=== PATIENT | male | born 1960 | race Caucasian/White ===

== ENCOUNTER 2016-10-06 11:49 | Inpatient (IN) | payer SELFPAY ==
[~2016-10-06] VITALS: Ht 172.7 cm; Wt 70.3 kg
[2016-10-06] VITALS (11 sets, daily range): BP systolic 126–165; BP diastolic 73–104
[~2016-10-06 11:49] MED LIST: ALPR0.25 PO; PANT40TA3 PO; WARF2TAB7 PO
[2016-10-06] MEDS ORDERED: NITROGLYCERIN SUBLINGUAL 0.4 MG BOTTLE OF 25. SL PRN ×2 (12:00→12:15)
[2016-10-06] MEDS ORDERED: IV NORMAL SALINE 1000ML BAG 1,000 ML IV ONE (12:15)
[2016-10-06] MEDS ORDERED: HEPARIN for IV BOLUS 10,000 UNIT/10 ML VIAL. IV ONE (12:15)
[2016-10-06] MEDS ORDERED: NITROGLYCERIN PREMIX 250 ML IV ONE ×2 (12:15→12:45)
[2016-10-06] MEDS ORDERED: HYDROMORPHONE 2 MG/ML VIAL. IV/SQ PRN (12:15)
[2016-10-06] MEDS ORDERED: HEPARIN 25,000UTS/500ML PREMIX 500 ML IV ONE (12:15)
--- NOTE | 2016-10-06 12:17 | EKG ---
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
[2016-10-06 12:30] LABS: CALCIUM 8.7 mg/dL (8.5-10.1); POTASSIUM 4.5 mmol/L (3.5-5.1)
[2016-10-06 12:32] LABS: BASO # 0.1 x10^3/uL (0.0-0.2); BASO % 1 % (0-3); EOS % 1 % (0-3); HEMATOCRIT 43.3 % (39.0-53.0); LYMPH # 1.8 x10^3/uL (1.0-4.8); LYMPH % 26 % (24-48); MEAN CORPUSCULAR HEMOGLOBIN 33 pg (25-35); MEAN CORPUSCULAR HGB CONC 35 g/dL (31-37); MEAN CORPUSCULAR VOLUME 94 fL (79-100); MONO % 8 % (0-9); NEUT % 64 % (31-73); PLATELET COUNT 188 x10^3/uL (140-400); WHITE BLOOD COUNT 7.1 x10^3/uL (4.0-11.0)
--- NOTE | 2016-10-06 12:32 | RAD ---
Portable chest, 10/06/2016: History: Chest pain Comparison is made to a study from 12/22/2015. There has been a previous median sternotomy. The heart size and pulmonary vascularity are normal. No pulmonary infiltrates are seen. There is no evidence of pleural fluid. There is old fracture of the right eighth rib posterolaterally. IMPRESSION: No acute cardiopulmonary abnormality is detected.
[2016-10-06 12:37] LABS: ALBUMIN 3.4 g/dL (3.4-5.0); DIRECT BILIRUBIN 0.1 mg/dL (0.0-0.2); TOTAL BILIRUBIN 0.4 mg/dL (0.2-1.0); TOTAL PROTEIN 6.9 g/dL (6.4-8.2)
[2016-10-06] MEDS ORDERED: ASPIRIN 81 MG TAB.CHEW PO ONE (12:45)
[2016-10-06 13:24] LABS: PLT ESTIMATE ADEQUATE (ADEQUATE)
--- NOTE | 2016-10-06 14:12 | PHYS DOC ---
Past Medical History Past Medical History: Anxiety, SC Additional Past Medical Histor: ENDOCARDITIS Past Surgical History: Angioplasty, Cholecystectomy Additional Past Surgical Histo: AORTIC VALVE REPLACEMENT Alcohol Use: Occasionally Drug Use: Marijuana Adult General Chief Complaint Chief Complaint: CHEST PAIN HPI HPI 56-year-old male presenting to the emergency department today by EMS with chest pain. He describes it as a pressure that is radiating up into his right neck. It is severe and alleviated by sublingual nitroglycerin. He has a history of an SC in the past. He received aspirin prior to arrival. Review of systems is negative for shortness of breath abdominal pain nausea vomiting. Positive for diaphoresis. All other review of systems is negative unless otherwise noted in history of present illness. Review of Systems Review of Systems SEE ABOVE. Current Medications Current Medications Current Medications Medications (Trade) Dose Ordered Sig/Angela Start Time Stop Time Status Last Admin Dose Admin Morphine Sulfate 2 mg PRN Q1HR PRN 10/06/16 12:00 Nitroglycerin (Nitrostat) 0.4 mg PRN Q5MIN PRN 10/06/16 12:00 10/06/16 12:10 0.4 MG Allergies Allergies Allergies Coded Allergies Type Severity Reaction Last Updated Verified No Known Drug Allergies 05/28/14 No Physical Exam Physical Exam Constitutional: Well developed, well nourished, pt appears to be in pain.. HENT: Normocephalic, atraumatic, bilateral external ears normal, oropharynx moist, no oral exudates, nose normal. [] Eyes: PERRLA, EOMI, conjunctiva normal, no discharge. [] Neck: Normal range of motion, no tenderness, supple, no stridor. Cardiovascular:Heart rate regular rhythm, no murmur [] Lungs & Thorax: Clear to auscultation. Abdomen: Bowel sounds normal, soft, no tenderness, no masses, no pulsatile masses. [] Skin: Warm, dry, no erythema, no rash. Back: No tenderness, no CVA tenderness. [] Extremities: No tenderness, no cyanosis, no clubbing, ROM intact, no edema. [] Neurologic: Alert and oriented X 3, normal motor function, normal sensory function, no focal deficits noted. Psychologic: Affect normal, judgement normal, mood normal. [] Current Patient Data Vital Signs Vital Signs Date Time Temp Pulse Resp B/P Pulse Ox O2 Delivery O2 Flow Rate FiO2 10/06/16 11:55 97.5 73 24 126/80 99 Room Air 97.5 Lab Values Laboratory Tests Test 10/06/16 11:53 White Blood Count 7.1x10^3/uL (4.0-11.0) Red Blood Count 4.60x10^6/uL (4.30-5.70) Hemoglobin 15.0g/dL (13.0-17.5) Hematocrit 43.3% (39.0-53.0) Mean Corpuscular Volume 94fL (79-100) Mean Corpuscular Hemoglobin 33pg (25-35) Mean Corpuscular Hemoglobin Concent 35g/dL (31-37) Red Cell Distribution Width 14.0% (11.5-14.5) Platelet Count 188x10^3/uL (140-400) Neutrophils (%) (Auto) 64% (31-73) Lymphocytes (%) (Auto) 26% (24-48) Monocytes (%) (Auto) 8% (0-9) Eosinophils (%) (Auto) 1% (0-3) Basophils (%) (Auto) 1% (0-3) Neutrophils # (Auto) 4.5x10^3uL (1.8-7.7) Lymphocytes # (Auto) 1.8x10^3/uL (1.0-4.8) Monocytes # (Auto) 0.6x10^3/uL (0.0-1.1) Eosinophils # (Auto) 0.1x10^3/uL (0.0-0.7) Basophils # (Auto) 0.1x10^3/uL (0.0-0.2) Platelet Estimate Adequate (ADEQUATE) Giant Platelets Present Sodium Level 135mmol/L (136-145) L Potassium Level 4.5mmol/L (3.5-5.1) Chloride Level 99mmol/L (98-107) Carbon Dioxide Level 26mmol/L (21-32) Anion Gap 10 (6-14) Blood Urea Nitrogen 7mg/dL (8-26) L Creatinine 1.0mg/dL (0.7-1.3) Estimated GFR (Cockcroft-Gault) 77.0 Glucose Level 94mg/dL (70-99) Calcium Level 8.7mg/dL (8.5-10.1) Total Bilirubin 0.4mg/dL (0.2-1.0) Direct Bilirubin 0.1mg/dL (0.0-0.2) Aspartate Amino Transferase (AST) 51U/L (15-37) H Alanine Aminotransferase (ALT) 27U/L (16-63) Alkaline Phosphatase 90U/L (46-116) Troponin I Quantitative 0.054ng/mL (0.000-0.055) [id number]-Dfp-X-Type Natriuretic Peptide 587pg/mL (0-124) H Total Protein 6.9g/dL (6.4-8.2) Albumin 3.4g/dL (3.4-5.0) Lipase 234U/L (73-393) Laboratory Tests 10/06/16 11:53 Laboratory Tests 10/06/16 11:53 EKG EKG [] 3 EKGs were obtained in the emergency department. First EKG performed at 1154 shows sinus rhythm with a regular rate. [place] normal. Intervals show mildly prolonged QRS. ST segments show ST depression in the lateral leads suggestive of ischemia. Second EKG performed at 1209 with posterior EKG in leads V7 through V9 show no evidence of posterior STEMI. 30 EKG performed at [address] depression in the lateral leads without acute evolving changes. Radiology/Procedures Radiology/Procedures [] Course & Med Decision Making Course & Med Decision Making Pertinent Labs and Imaging studies reviewed. (See chart for details) [] 56-year-old gentleman presenting to the emergency department today with chest pain. Aspirin given prior to arrival. History of 2 MIs in the past. Signs afebrile normal heart rate. Patient appears to be in pain. Otherwise physical exam is unremarkable. EKG shows significant concerning EKG changes concerning for ischemia. Dr. Thompson reviewed the EKGs and discussed the case with me at approximately 12 noon. Chest x-ray unremarkable. Blood work shows CBC. Chemistry panel shows mildly elevated troponin. Nitro drip initiated. Morphine and heparin ordered. Hydromorphone as needed for pain. Patient admitted to our intensive care unit for further evaluation workup and care. Dragon Disclaimer Dragon Disclaimer This electronic medical record was generated, in whole or in part, using a voice recognition dictation system. Departure Departure Impression: Primary Impression: ACS (acute coronary syndrome) Additional Impression: NSTEMI (non-ST elevated myocardial infarction) Disposition: 09 ADMITTED INPATIENT Condition: IMPROVED Referrals: NO PCP (PCP) Critical Care Time Critical care time was [45] minutes exclusive of procedures. Time was spent evaluating the patient, during the titration of medications, discussing with many provider, discussing with consulting provider, reviewing EKGs, and documented. Problem Qualifiers NUBIA KNOX MD Oct 06, 2016 14:12
[2016-10-06 15:55] LABS: INR 1.2 (0.8-1.1); PROTHROMBIN TIME PATIENT 14.6 SEC (11.7-14.0)
[2016-10-06] MEDS ORDERED: NICOTINE 21MG PATCH. TD PRN (16:15)
[2016-10-06] MEDS: LORAZEPAM 1 MG TABLET. PO PRN (17:25)
[2016-10-06] MEDS: MORPHINE SULFATE 2 MG/ML DISP.SYRIN. IV PRN ×3 (17:26→21:00)
[2016-10-06] MEDS: MULTIVIT INFUSN,ADULT 4,VIT K 10 ML, FOLIC ACID 1 MG, THIAMINE 100 MG in IV NORMAL SALI... IV SCH (19:23)
--- NOTE | 2016-10-06 19:53 | HP ---
ADMIT DATE: 10/06/2016 CHIEF COMPLAINT: Chest pain. HISTORY OF PRESENT ILLNESS: The patient is a pleasant 56-year-old male who presents with chest pain, rates it 7/10, he has associated weakness and nausea. While in the ER, we noted that his troponin was a little high at 0.054. I have discussed the case with the ER physician. We are going to admit the patient and consult Cardiology. 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 ALLERGIES: None. FAMILY HISTORY: Diabetes. SOCIAL HISTORY: I believe he smokes and drinks. No drugs. He has a girlfriend. MEDICATIONS: Reviewed, please refer to the MRAD. REVIEW OF SYSTEMS: GENERAL: No history of weight change, weakness or fevers. SKIN: No bruising, hair changes or rashes. EYES: No blurred, double or loss of vision. NOSE AND THROAT: No history of nosebleeds, hoarseness or sore throat. HEART: Complains of chest pain. LUNGS: Complains of shortness of breath. GASTROINTESTINAL: Denies changes in appetite, nausea, vomiting, diarrhea or constipation. GENITOURINARY: No history of frequency, urgency, hesitancy or nocturia. NEUROLOGIC: Denies history of numbness, tingling, tremor or weakness. PSYCHIATRIC: No history of panic, anxiety or depression. ENDOCRINE: No history of heat or cold intolerance, polyuria or polydipsia. EXTREMITIES: Denies muscle weakness, joint pain, pain on walking or stiffness. PHYSICAL EXAMINATION: VITAL SIGNS: Temperature 97.9, pulse 62, respirations 18, blood pressure 152/90. GENERAL: He is alert, weak. HEART: Distant S1, S2. LUNGS: Very diminished. ABDOMEN: Soft, positive bowel sounds. EXTREMITIES: No edema. SKIN: No rashes. PSYCHIATRIC: He seems anxious. VASCULAR: Good capillary refill. ENDOCRINE: No thyromegaly. LYMPHATICS: No cervical nodes. HEMATOPOIETIC: No bruising. LABORATORY DATA: Electrolytes normal other than a sodium of 135 and a BUN of 7. AST a little high at 51. White count 7, hemoglobin 15, platelets 188, INR 1.2. ASSESSMENT AND PLAN: Possible acute myocardial infarction. The patient has been admitted. We will check serial enzymes, serial EKGs. Consult cardiology. Continue his home medicines, DuoNebs, O2 per nasal cannula, daily aspirin. MICAH GARCIA DO DR: MAJR/tayler JOB#: [id number] / [id number]
[2016-10-06] MEDS ORDERED: NITROGLYCERIN PREMIX 250 ML IV PRN (20:30)
[2016-10-06] MEDS ORDERED: HEPARIN 25,000UTS/500ML PREMIX 500 ML IV PRN (20:30)
[2016-10-06] MEDS: ACETAMINOPHEN 325 MG TABLET. PO PRN (20:55)
[2016-10-06] MEDS: HEPARIN for IV BOLUS 10,000 UNIT/10 ML VIAL. IV PRN (21:01)
[2016-10-07] VITALS (16 sets, daily range): BP systolic 133–163; BP diastolic 73–107
[2016-10-07 03:07] LABS: HEMATOCRIT 42.5 % (39.0-53.0); HEMOGLOBIN 14.5 g/dL (13.0-17.5); RED BLOOD COUNT 4.42 x10^6/uL (4.30-5.70); WHITE BLOOD COUNT 7.7 x10^3/uL (4.0-11.0)
[2016-10-07] MEDS: HEPARIN for IV BOLUS 10,000 UNIT/10 ML VIAL. IV PRN (04:22)
[2016-10-07] MEDS: LORAZEPAM 1 MG TABLET. PO PRN (10:53)
[2016-10-07] MEDS: ACETAMINOPHEN 325 MG TABLET. PO PRN (10:54)
[2016-10-07] MEDS: MULTIVIT INFUSN,ADULT 4,VIT K 10 ML, FOLIC ACID 1 MG, THIAMINE 100 MG in IV NORMAL SALI... IV SCH (11:00)
--- NOTE | 2016-10-07 12:39 | PDOC ---
PROGRESS NOTES Chief Complaint Chief Complaint 1. Chest pain 2. Shortness of breath 3. Nausea with emesis 4. Elevated Troponin labs 5. Previous history of CO 6. Previous history of aortic valve replacement History of Present Illness History of Present Illness Pt alert and oriented and in NAD when seen and examined this AM. Pt states that he is going better and does not want to be here. He states he is worried at how much all of the medical treatment is going to cost. Pt denies any current CP or SOB. Pt denies any current nausea or vomiting or current diaphoresis. VSS- All questions an concerns answered and addressed. Vitals Vitals Vital Signs Date Time Temp Pulse Resp B/P Pulse Ox O2 Delivery O2 Flow Rate FiO2 10/07/16 10:00 100 20 157/98 100 Nasal Cannula 2.0 10/07/16 08:00 99.0 99.0 Physical Exam General: Alert, Oriented X3, Cooperative, No acute distress Heart: Regular rate, Normal S1, Normal S2, No murmurs Lungs: Clear Abdomen: Normal bowel sounds, Soft, No tenderness, No hepatosplenomegaly Extremities: No clubbing, No cyanosis, No edema, Normal pulses Skin: No rashes, No breakdown, No significant lesion Labs LABS Laboratory Tests Test 10/06/16 19:30 10/07/16 03:00 10/07/16 10:44 Heparin Anti-Xa Act, Unfractionated 0.12IU/mL (0.30-0.70) 0.16IU/mL (0.30-0.70) 0.41IU/mL (0.30-0.70) Troponin I Quantitative 0.074ng/mL (0.000-0.055) White Blood Count 7.7x10^3/uL (4.0-11.0) Red Blood Count 4.42x10^6/uL (4.30-5.70) Hemoglobin 14.5g/dL (13.0-17.5) Hematocrit 42.5% (39.0-53.0) Mean Corpuscular Volume 96fL (79-100) Mean Corpuscular Hemoglobin 33pg (25-35) Mean Corpuscular Hemoglobin Concent 34g/dL (31-37) Red Cell Distribution Width 14.0% (11.5-14.5) Platelet Count 157x10^3/uL (140-400) Review of Systems Review of Systems Patient complaint of hunger Patient complaint of fatigue Assessment and Plan Assessmemt and Plan Problems Medical Problems: (1) ACS (acute coronary syndrome) Status: Acute (2) NSTEMI (non-ST elevated myocardial infarction) Status: Acute Assessment: 1. Chest pain 2. Shortness of breath 3. Nausea with emesis 4. Elevated Troponin labs 5. Previous history of CO 6. Previous history of aortic valve replacement Plan: Continue to monitor the patient per ICU protocol Monitor daily labs- CBC, BMP, BUN and Cr Labs and vitals reviewed Continue Nitro and Heparin drip Ativan 1 mg PRN for anxiety and possible ETOH with drawl Await Cards input and recommendations Consult social services designee Discuss with CARD CUTTER HELPER Problems: Comment Review of Relevant I have reviewed the following items ochoa (where applicable) has been applied. Labs Laboratory Tests Test 10/06/16 11:53 10/06/16 19:30 10/07/16 03:00 10/07/16 10:44 White Blood Count 7.1x10^3/uL (4.0-11.0) 7.7x10^3/uL (4.0-11.0) Red Blood Count 4.60x10^6/uL (4.30-5.70) 4.42x10^6/uL (4.30-5.70) Hemoglobin 15.0g/dL (13.0-17.5) 14.5g/dL (13.0-17.5) Hematocrit 43.3% (39.0-53.0) 42.5% (39.0-53.0) Mean Corpuscular Volume 94fL (79-100) 96fL (79-100) Mean Corpuscular Hemoglobin 33pg (25-35) 33pg (25-35) Mean Corpuscular Hemoglobin Concent 35g/dL (31-37) 34g/dL (31-37) Red Cell Distribution Width 14.0% (11.5-14.5) 14.0% (11.5-14.5) Platelet Count 188x10^3/uL (140-400) 157x10^3/uL (140-400) Neutrophils (%) (Auto) 64% (31-73) Lymphocytes (%) (Auto) 26% (24-48) Monocytes (%) (Auto) 8% (0-9) Eosinophils (%) (Auto) 1% (0-3) Basophils (%) (Auto) 1% (0-3) Neutrophils # (Auto) 4.5x10^3uL (1.8-7.7) Lymphocytes # (Auto) 1.8x10^3/uL (1.0-4.8) Monocytes # (Auto) 0.6x10^3/uL (0.0-1.1) Eosinophils # (Auto) 0.1x10^3/uL (0.0-0.7) Basophils # (Auto) 0.1x10^3/uL (0.0-0.2) Platelet Estimate Adequate (ADEQUATE) Giant Platelets Present Prothrombin Time 14.6SEC (11.7-14.0) Prothromb Time International Ratio 1.2 (0.8-1.1) Activated Partial Thromboplast Time 35SEC (24-38) Sodium Level 135mmol/L (136-145) Potassium Level 4.5mmol/L (3.5-5.1) Chloride Level 99mmol/L (98-107) Carbon Dioxide Level 26mmol/L (21-32) Anion Gap 10 (6-14) Blood Urea Nitrogen 7mg/dL (8-26) Creatinine 1.0mg/dL (0.7-1.3) Estimated GFR (Cockcroft-Gault) 77.0 Glucose Level 94mg/dL (70-99) Calcium Level 8.7mg/dL (8.5-10.1) Total Bilirubin 0.4mg/dL (0.2-1.0) Direct Bilirubin 0.1mg/dL (0.0-0.2) Aspartate Amino Transf (AST/SGOT) 51U/L (15-37) Alanine Aminotransferase (ALT/SGPT) 27U/L (16-63) Alkaline Phosphatase 90U/L (46-116) Troponin I Quantitative 0.054ng/mL (0.000-0.055) 0.074ng/mL (0.000-0.055) TD-Mqb-L-Type Natriuretic Peptide 587pg/mL (0-124) Total Protein 6.9g/dL (6.4-8.2) Albumin 3.4g/dL (3.4-5.0) Lipase 234U/L (73-393) Heparin Anti-Xa Act, Unfractionated 0.12IU/mL (0.30-0.70) 0.16IU/mL (0.30-0.70) 0.41IU/mL (0.30-0.70) Laboratory Tests Test 10/06/16 19:30 10/07/16 03:00 10/07/16 10:44 Heparin Anti-Xa Act, Unfractionated 0.12IU/mL (0.30-0.70) 0.16IU/mL (0.30-0.70) 0.41IU/mL (0.30-0.70) Troponin I Quantitative 0.074ng/mL (0.000-0.055) White Blood Count 7.7x10^3/uL (4.0-11.0) Red Blood Count 4.42x10^6/uL (4.30-5.70) Hemoglobin 14.5g/dL (13.0-17.5) Hematocrit 42.5% (39.0-53.0) Mean Corpuscular Volume 96fL (79-100) Mean Corpuscular Hemoglobin 33pg (25-35) Mean Corpuscular Hemoglobin Concent 34g/dL (31-37) Red Cell Distribution Width 14.0% (11.5-14.5) Platelet Count 157x10^3/uL (140-400) Medications Current Medications Aspirin (Children'S Aspirin) 324 mg 1X ONCE PO ; Start 10/06/16 at 12:45; Stop 10/06/16 at 12:46; Status DC Nitroglycerin (Nitrostat) 0.4 mg PRN Q5MIN PRN SL CHEST PAIN Last administered on 10/06/16 12:10; Start 10/06/16 at 12:00 Morphine Sulfate 2 mg PRN Q1HR PRN IV SEVERE PAIN Last administered on 21:00; Start 10/06/16 at 12:00; Stop 10/06/16 at 21:01; Status DC Nitroglycerin (Nitrostat) 0.4 mg PRN Q5MIN PRN SL CP RATING > 1/10; Start 10/06 at 12:15; Stop 10/06/16 at 16:13; Status DC Heparin Sodium (Porcine) 4000 unit 4,000 unit 1X ONCE IV Last administered on 10/06/16 12:20; Start 10/06/16 at 12:15; Stop 10/06/16 at 12:16; Status DC Heparin Sodium/ Dextrose 500 ml @ 0 mls/hr 1X ONCE IV Last administered on 12:25; Start 10/06/16 at 12:15; Stop 10/06/16 at 12:16; Status DC Nitroglycerin/ Dextrose (Nitroglycerin Drip) 250 ml @ 3 mls/hr 1X ONCE IV Last administered on 10/06/16 12:25; Start 10/06/16 at 12:15; Stop 10/06/16 at 12:42; Status DC Hydromorphone HCl 0.5 mg 0.5 mg PRN Q15MIN PRN IV/SQ PAIN GREATER THAN 3/10 Last administered on 10/06/16 14:26; Start 10/06/16 at 12:15; Stop 10/07/16 at 12:14; Status DC Sodium Chloride 1,000 ml @ 1,000 mls/hr 1X ONCE IV Last administered on 12:29; Start 10/06/16 at 12:15; Stop 10/06/16 at 13:14; Status DC Nitroglycerin/ Dextrose (Nitroglycerin Drip) 250 ml @ 0 mls/hr 1X ONCE IV Last administered on 10/06/16 12:44; Start 10/06/16 at 12:45; Stop 10/06/16 at 12:46; Status DC Nicotine 1 patch 1 patch PRN DAILY PRN TD SMOKING CESSATION; Start 10/06/16 at 16:15 Multivitamins/ Minerals/Folic Acid/Thiamine HCl/ Sodium Chloride (Infuvite Adult / Iv Sodium Chloride 0.9% 1000ml Bag) 1,011.2 ml @ 1,000 mls/ hr DAILY05 IV Last administered on 10/07/16 11:00; Start 10/06/16 at 17:00 Lorazepam 1 mg 1 mg PRN Q4HRS PRN PO ANXIETY / AGITATION Last administered on 10:53; Start 10/06/16 at 16:15 Heparin Sodium/ Dextrose 500 ml @ 0 mls/hr CONT PRN IV SEE I/O RECORD Last administered on 10/07/16 10:56; Start 10/06/16 at 20:30 Heparin Sodium (Porcine) 1750 unit 1,750 unit PRN Q6HRS PRN IV FOR UFH LEVEL LESS THAN 0.2 Last administered on 10/07/16 04:22; Start 10/06/16 at 20:30 Nitroglycerin/ Dextrose (Nitroglycerin Drip) 250 ml @ 0 mls/hr CONT PRN IV SEE I/O RECORD; Start 10/06/16 at 20:30 Acetaminophen (Tylenol) 650 mg PRN Q6HRS PRN PO MILD PAIN / TEMP Last administered on 10/07/16 10:54; Start 10/06/16 at 20:30 Active Scripts Active Protonix (Pantoprazole Sodium) 40 Mg Tablet.dr 40 Mg PO DAILY Reported Warfarin Sodium 2 Mg Tablet 2.5 Mg PO DAILY Xanax (Alprazolam) 0.25 Mg Tablet 1 Tab PO DAILY Vitals/I & O Vital Sign - Last 24 Hours 10/06/16 10/06/16 10/06/16 10/06/16 12:37 12:50 13:00 13:05 Temp 97.7 97.7 Pulse 68 72 73 72 Resp 18 18 18 16 B/P 126/77 133/80 144/88 141/78 Pulse Ox 100 100 96 100 O2 Delivery Room Air Room Air Room Air Room Air 10/06/16 10/06/16 10/06/16 10/06/16 13:30 14:00 14:26 14:56 Pulse 72 Resp 20 20 18 B/P 126/89 Pulse Ox 97 95 O2 Delivery Nasal Cannula Room Air Room Air Nasal Cannula O2 Flow Rate 2.0 2.0 10/06/16 10/06/16 10/06/16 10/06/16 15:00 16:00 16:00 17:00 Temp 97.9 97.9 Pulse 68 72 68 Resp 22 20 20 B/P 134/80 128/73 151/98 Pulse Ox 89 99 97 O2 Delivery Room Air Nasal Cannula Nasal Cannula Nasal Cannula O2 Flow Rate 2.0 2.0 2.0 10/06/16 10/06/16 10/06/16 10/06/16 17:26 18:00 19:00 19:23 Pulse 66 70 Resp 22 20 20 20 B/P 165/102 149/103 Pulse Ox 100 98 97 95 O2 Delivery Nasal Cannula Nasal Cannula Room Air Room Air O2 Flow Rate 2.0 2.0 10/06/16 10/06/16 10/06/16 10/06/16 19:53 20:00 20:00 21:00 Temp 97.9 97.9 Pulse 74 Resp 18 17 B/P 159/104 Pulse Ox 92 91 95 O2 Delivery Room Air Nasal Cannula Nasal Cannula Nasal Cannula O2 Flow Rate 2.0 2.0 2.0 10/06/16 10/06/16 10/06/16 10/07/16 21:00 22:00 23:00 00:00 Pulse 72 76 77 Resp 18 16 16 B/P 144/87 142/86 138/86 Pulse Ox 95 93 92 O2 Delivery Nasal Cannula Nasal Cannula Nasal Cannula Nasal Cannula O2 Flow Rate 2.0 2.0 2.0 2.0 10/07/16 10/07/16 10/07/16 10/07/16 00:00 01:00 02:00 03:00 Temp 98.0 98.0 Pulse 80 79 77 75 Resp 16 16 16 16 B/P 135/73 142/90 138/89 141/93 Pulse Ox 92 93 92 92 O2 Delivery Nasal Cannula Nasal Cannula Nasal Cannula Nasal Cannula O2 Flow Rate 2.0 2.0 2.0 2.0 10/07/16 10/07/16 10/07/16 10/07/16 04:00 04:00 05:00 06:00 Temp 98.0 98.0 Pulse 73 79 75 Resp 16 16 16 B/P 157/91 148/98 133/93 Pulse Ox 92 92 92 O2 Delivery Nasal Cannula Nasal Cannula Nasal Cannula Nasal Cannula O2 Flow Rate 2.0 2.0 2.0 2.0 10/07/16 10/07/16 10/07/16 10/07/16 07:00 08:00 08:00 09:00 Temp 99.0 99.0 Pulse 78 82 78 Resp 20 20 20 B/P 134/85 154/94 142/95 Pulse Ox 91 94 94 O2 Delivery Nasal Cannula Nasal Cannula Nasal Cannula Nasal Cannula O2 Flow Rate 2.0 2.0 2.0 2.0 10/07/16 10:00 Pulse 100 Resp 20 B/P 157/98 Pulse Ox 100 O2 Delivery Nasal Cannula O2 Flow Rate 2.0 Intake and Output 10/06/16 10/06/16 10/07/16 15:00 23:00 07:00 Intake Total 1000 ml 40 ml 1891 ml Output Total 700 ml 1000 ml 500 ml Balance 300 ml -960 ml 1391 ml MICAH GARCIA III DO Oct 07, 2016 12:39
--- NOTE | 2016-10-07 14:14 | EKG ---
[facility] [address] [place] [address] Test Date: 2016-10-06 Test Time: 12:27:14 Pat Name: JOSEPH HYMAN Department: Room: 105 1 Gender: M Antenna Specialist: : 1960 Requested By: NUBIA KNOX Order Number: [id number] Reading MD: Dequan Grimes Measurements Intervals [place] Rate: 68 P: 52 CT: 158 QRS: -84 QRSD: 136 T: 66 QT: 420 QTc: 447 Interpretive Statements SINUS RHYTHM LEFT ATRIAL ABNORMALITY ABNORMAL LEFT AXIS DEVIATION S1,S2,S3 PATTERN RIGHT BUNDLE BRANCH BLOCK QRS(T) CONTOUR ABNORMALITY CONSISTENT WITH SEPTAL INFARCT PROBABLY OLD POSSIBLE LATERAL ISCHEMIA RI6.01 Unconfirmed report Electronically Signed On 10-15-2016 10:10:14 GLAZIER ARTIST by Dequan Grimes
--- NOTE | 2016-10-07 14:14 | EKG ---
[facility] [address] [place] [address] Test Date: 2016-10-06 Test Time: 12:33:37 Pat Name: JOSEPH HYMAN Department: Room: 105 1 Gender: M Director Game: : 1960 Requested By: NUBIA KNOX Order Number: [id number] Reading MD: Dequan Grimes Measurements Intervals [place] Rate: 94 P: -90 NV: 118 QRS: -47 QRSD: 120 T: 34 QT: 344 QTc: 435 Interpretive Statements SINUS RHYTHM ABNORMAL LEFT AXIS DEVIATION LEFT ANTERIOR FASCICULAR BLOCK NONSPECIFIC ST-T WAVE CHANGES. RI6.01 Unconfirmed report Electronically Signed On 10-15-2016 10:11:37 PROFESSIONAL BONDSMAN by Dequan Grimes
[2016-10-07] MEDS ORDERED: LORA-434 PO ×2 (16:42→16:43)
[2016-10-07] MEDS ORDERED: LORA1TAB PO (16:46)
--- NOTE | 2016-10-07 16:53 | PDOC2 ---
CONSULT Date of Consult Date of Consult DATE: 10/07/16 TIME: 16:40 Reason for Consult Reason for Consult: Chest pain Referring Physician Referring Physician: Dr. Alicia Identification/Chief Complaint Chief Complaint Chest pain Source Source: Chart review, Patient History of Present Illness Reason for Visit: 56-year-old male with history of mechanical aortic valve replacement presented with left-sided chest pain, sharp in nature, 7/10 severity not related to exertion or food intake. Patient stated that he could be secondary to his anxiety since he's been under a lot of stress. He also stated that he has the same chest pain but at 2/10 severity almost on a regular basis. He denied any orthopnea/PND, palpitations or syncope. Past Medical History Cardiovascular: Valve insufficiency, Other (mechanical aortic valve replacement ) Pulmonary: COPD CENTRAL NERVOUS SYSTEM: Other GI: GERD Heme/Onc: No pertinent hx Hepatobiliary: No pertinent hx Psych: Anxiety, Depression Musculoskeletal: low back pain Rheumatologic: No pertinent hx Infectious disease: No pertinent hx Renal/: No pertinent hx Endocrine: No pertinent hx Past Surgical History Past Surgical History: Cholecystectomy, Other (mechanical aortic valve replacement) Family History Family History: Heart Disease Social History ALCOHOL: heavy Drugs: Marijuana Lives: Roommate Current Problem List Problem List Problems Medical Problems: (1) ACS (acute coronary syndrome) Status: Acute (2) NSTEMI (non-ST elevated myocardial infarction) Status: Acute Current Medications Current Medications Current Medications Aspirin (Children'S Aspirin) 324 mg 1X ONCE PO ; Start 10/06/16 at 12:45; Stop 10/06/16 at 12:46; Status DC Nitroglycerin (Nitrostat) 0.4 mg PRN Q5MIN PRN SL CHEST PAIN Last administered on 10/06/16 12:10; Start 10/06/16 at 12:00 Morphine Sulfate 2 mg PRN Q1HR PRN IV SEVERE PAIN Last administered on 21:00; Start 10/06/16 at 12:00; Stop 10/06/16 at 21:01; Status DC Nitroglycerin (Nitrostat) 0.4 mg PRN Q5MIN PRN SL CP RATING > 1/10; Start 10/06 at 12:15; Stop 10/06/16 at 16:13; Status DC Heparin Sodium (Porcine) 4000 unit 4,000 unit 1X ONCE IV Last administered on 10/06/16 12:20; Start 10/06/16 at 12:15; Stop 10/06/16 at 12:16; Status DC Heparin Sodium/ Dextrose 500 ml @ 0 mls/hr 1X ONCE IV Last administered on 12:25; Start 10/06/16 at 12:15; Stop 10/06/16 at 12:16; Status DC Nitroglycerin/ Dextrose (Nitroglycerin Drip) 250 ml @ 3 mls/hr 1X ONCE IV Last administered on 10/06/16 12:25; Start 10/06/16 at 12:15; Stop 10/06/16 at 12:42; Status DC Hydromorphone HCl 0.5 mg 0.5 mg PRN Q15MIN PRN IV/SQ PAIN GREATER THAN 3/10 Last administered on 10/06/16 14:26; Start 10/06/16 at 12:15; Stop 10/07/16 at 12:14; Status DC Sodium Chloride 1,000 ml @ 1,000 mls/hr 1X ONCE IV Last administered on 12:29; Start 10/06/16 at 12:15; Stop 10/06/16 at 13:14; Status DC Nitroglycerin/ Dextrose (Nitroglycerin Drip) 250 ml @ 0 mls/hr 1X ONCE IV Last administered on 10/06/16 12:44; Start 10/06/16 at 12:45; Stop 10/06/16 at 12:46; Status DC Nicotine 1 patch 1 patch PRN DAILY PRN TD SMOKING CESSATION; Start 10/06/16 at 16:15 Multivitamins/ Minerals/Folic Acid/Thiamine HCl/ Sodium Chloride (Infuvite Adult / Iv Sodium Chloride 0.9% 1000ml Bag) 1,011.2 ml @ 1,000 mls/ hr DAILY05 IV Last administered on 10/07/16 11:00; Start 10/06/16 at 17:00 Lorazepam 1 mg 1 mg PRN Q4HRS PRN PO ANXIETY / AGITATION Last administered on 10:53; Start 10/06/16 at 16:15 Heparin Sodium/ Dextrose 500 ml @ 0 mls/hr CONT PRN IV SEE I/O RECORD Last administered on 10/07/16 10:56; Start 10/06/16 at 20:30 Heparin Sodium (Porcine) 1750 unit 1,750 unit PRN Q6HRS PRN IV FOR UFH LEVEL LESS THAN 0.2 Last administered on 10/07/16 04:22; Start 10/06/16 at 20:30 Nitroglycerin/ Dextrose (Nitroglycerin Drip) 250 ml @ 0 mls/hr CONT PRN IV SEE I/O RECORD; Start 10/06/16 at 20:30 Acetaminophen (Tylenol) 650 mg PRN Q6HRS PRN PO MILD PAIN / TEMP Last administered on 10/07/16 10:54; Start 10/06/16 at 20:30 Active Scripts Active Protonix (Pantoprazole Sodium) 40 Mg Tablet.dr 40 Mg PO DAILY Reported Warfarin Sodium 2 Mg Tablet 2.5 Mg PO DAILY Xanax (Alprazolam) 0.25 Mg Tablet 1 Tab PO DAILY Allergies Allergies: Coded Allergies: No Known Drug Allergies (Unverified , 05/28/14) ROS PSYCHOLOGICAL ROS: No: Hallucinations Eyes: No Loss of vision HEENT: No: Epistaxis Respiratory: No: Hemoptysis, Shortness of breath Cardiovascular: yes Chest Pain, No Palpitations Gastrointestinal: No Diarrhea, No Vomiting Genitourinary: No Hematuria Neurological: No Seizures Skin: No Rash Physical Exam General: Alert, No acute distress HEENT: Atraumatic, PERRLA Lungs: Clear to auscultation Heart: Regular rate, Other (Prosthetic AV click crisp) Abdomen: Soft, No tenderness Extremities: No edema Psych/Mental Status: Mood NL ( ) Vitals VITALS Vital Signs Date Time Temp Pulse Resp B/P Pulse Ox O2 Delivery O2 Flow Rate FiO2 10/07/16 16:00 98.8 72 18 155/92 100 Room Air 98.8 10/07/16 12:00 2.0 Labs Labs Laboratory Tests Test 10/06/16 11:53 10/06/16 19:30 10/07/16 03:00 10/07/16 10:40 White Blood Count 7.1x10^3/uL (4.0-11.0) 7.7x10^3/uL (4.0-11.0) Red Blood Count 4.60x10^6/uL (4.30-5.70) 4.42x10^6/uL (4.30-5.70) Hemoglobin 15.0g/dL (13.0-17.5) 14.5g/dL (13.0-17.5) Hematocrit 43.3% (39.0-53.0) 42.5% (39.0-53.0) Mean Corpuscular Volume 94fL (79-100) 96fL (79-100) Mean Corpuscular Hemoglobin 33pg (25-35) 33pg (25-35) Mean Corpuscular Hemoglobin Concent 35g/dL (31-37) 34g/dL (31-37) Red Cell Distribution Width 14.0% (11.5-14.5) 14.0% (11.5-14.5) Platelet Count 188x10^3/uL (140-400) 157x10^3/uL (140-400) Neutrophils (%) (Auto) 64% (31-73) Lymphocytes (%) (Auto) 26% (24-48) Monocytes (%) (Auto) 8% (0-9) Eosinophils (%) (Auto) 1% (0-3) Basophils (%) (Auto) 1% (0-3) Neutrophils # (Auto) 4.5x10^3uL (1.8-7.7) Lymphocytes # (Auto) 1.8x10^3/uL (1.0-4.8) Monocytes # (Auto) 0.6x10^3/uL (0.0-1.1) Eosinophils # (Auto) 0.1x10^3/uL (0.0-0.7) Basophils # (Auto) 0.1x10^3/uL (0.0-0.2) Platelet Estimate Adequate (ADEQUATE) Giant Platelets Present Prothrombin Time 14.6SEC (11.7-14.0) Prothromb Time International Ratio 1.2 (0.8-1.1) Activated Partial Thromboplast Time 35SEC (24-38) Sodium Level 135mmol/L (136-145) Potassium Level 4.5mmol/L (3.5-5.1) Chloride Level 99mmol/L (98-107) Carbon Dioxide Level 26mmol/L (21-32) Anion Gap 10 (6-14) Blood Urea Nitrogen 7mg/dL (8-26) Creatinine 1.0mg/dL (0.7-1.3) Estimated GFR (Cockcroft-Gault) 77.0 Glucose Level 94mg/dL (70-99) Calcium Level 8.7mg/dL (8.5-10.1) Total Bilirubin 0.4mg/dL (0.2-1.0) Direct Bilirubin 0.1mg/dL (0.0-0.2) Aspartate Amino Transf (AST/SGOT) 51U/L (15-37) Alanine Aminotransferase (ALT/SGPT) 27U/L (16-63) Alkaline Phosphatase 90U/L (46-116) Troponin I Quantitative 0.054ng/mL (0.000-0.055) 0.074ng/mL (0.000-0.055) 0.060ng/mL (0.000-0.055) OW-Cde-J-Type Natriuretic Peptide 587pg/mL (0-124) Total Protein 6.9g/dL (6.4-8.2) Albumin 3.4g/dL (3.4-5.0) Lipase 234U/L (73-393) Heparin Anti-Xa Act, Unfractionated 0.12IU/mL (0.30-0.70) 0.16IU/mL (0.30-0.70) Test 10/07/16 10:44 Heparin Anti-Xa Act, Unfractionated 0.41IU/mL (0.30-0.70) Laboratory Tests Test 10/06/16 19:30 10/07/16 03:00 10/07/16 10:40 10/07/16 10:44 Heparin Anti-Xa Act, Unfractionated 0.12IU/mL (0.30-0.70) 0.16IU/mL (0.30-0.70) 0.41IU/mL (0.30-0.70) Troponin I Quantitative 0.074ng/mL (0.000-0.055) 0.060ng/mL (0.000-0.055) White Blood Count 7.7x10^3/uL (4.0-11.0) Red Blood Count 4.42x10^6/uL (4.30-5.70) Hemoglobin 14.5g/dL (13.0-17.5) Hematocrit 42.5% (39.0-53.0) Mean Corpuscular Volume 96fL (79-100) Mean Corpuscular Hemoglobin 33pg (25-35) Mean Corpuscular Hemoglobin Concent 34g/dL (31-37) Red Cell Distribution Width 14.0% (11.5-14.5) Platelet Count 157x10^3/uL (140-400) Assessment/Plan Assessment/Plan 1. Chest pain with atypical features: Most probably musculoskeletal. Troponin level only slightly elevated. EKG showed lateral ST depressions and T- wave inversions. Cardiac catheterization from Sep 2015 however did not show any significant coronary artery disease. Doubt ACS. Patient stated that his chest pain could be secondary to his anxiety that has been worse lately and has been requesting antianxiety medication. We will defer this to primary team. 2. s/p mechanical AVR: INR subtherapeutic at 1.2. Recommend bridging with Lovenox/heparin intravenous infusion and adjusting warfarin to keep INR 2.5 to 3.5. Check 2-D echo to assess mechanical prosthetic aortic valve. Thank you for your consultation. LALI PINEDA MD Oct 07, 2016 16:52
[2016-10-07] MEDS ORDERED: ENOX40DI SQ (17:08)
== END 2016-10-07 17:45 | disposition home or self-care (01) | DRG 189 ==
LOC: ER 11:49 → 1 WEST ICU 12:07
PROVIDERS: ADMIT Internal Medicine; ATTEND Internal Medicine
DX: J96.00 Acute respiratory failure, unspecified whether with hypoxia or hypercapnia (principal); F17.200 Nicotine dependence, unspecified, uncomplicated; J44.9 Chronic obstructive pulmonary disease, unspecified; K21.9 Gastro-esophageal reflux disease without esophagitis; F12.90 Cannabis use, unspecified, uncomplicated; F32.9 Major depressive disorder, single episode, unspecified; M54.5 Low back pain; F41.9 Anxiety disorder, unspecified; I25.2 Old myocardial infarction; Z83.3 Family history of diabetes mellitus; Z95.2 Presence of prosthetic heart valve; Z90.49 Acquired absence of other specified parts of digestive tract; Z79.82 Long term (current) use of aspirin
CPT/HCPCS: 36415; 71010; 80048; 80076; 83690; 83880; 84484; 85007; 85027; 85520; 85610; 85730; 93005; 96361; 96374; 96375; J1170; J2270; J3490; J7030; 99291-25

== ENCOUNTER 2017-02-09 08:16 | Emergency (ER) | payer SELFPAY ==
[~2017-02-09] VITALS: Ht 172.7 cm; Wt 68.0 kg
[~2017-02-09 08:16] MED LIST changes: +ENOX40DI SQ; +LORA-434 PO; +LORA1TAB PO
[2017-02-09] MEDS ORDERED: IPRATRPIUM/ALBUTEROL 0.5/2.5MG 3 ML NEBU. NEB ONE (08:45)
--- NOTE | 2017-02-09 08:51 | EKG ---
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
[2017-02-09 08:59] LABS: BASO # 0.1 x10^3/uL (0.0-0.2); BASO % 1 % (0-3); EOS % 2 % (0-3); HEMATOCRIT 46.3 % (39.0-53.0); HEMOGLOBIN 16.4 g/dL (13.0-17.5); LYMPH # 2.1 x10^3/uL (1.0-4.8); LYMPH % 26 % (24-48); MEAN CORPUSCULAR HEMOGLOBIN 33 pg (25-35); MEAN CORPUSCULAR HGB CONC 36 g/dL (31-37); MEAN CORPUSCULAR VOLUME 94 fL (79-100); MONO % 9 % (0-9); NEUT % 63 % (31-73); PLATELET COUNT 178 x10^3/uL (140-400); RED BLOOD COUNT 4.92 x10^6/uL (4.30-5.70); RED CELL DISTRIBUTION WIDTH 14.2 % (11.5-14.5); WHITE BLOOD COUNT 7.9 x10^3/uL (4.0-11.0)
--- NOTE | 2017-02-09 09:13 | RAD ---
Chest, 2 views, 02/09/2017: History: Shortness of breath, wheezing, smoking history Comparison is made to a study from 10/06/2016. There has been a previous median sternotomy. The heart size and pulmonary vascularity are normal. The lungs are hyperexpanded suggesting COPD. No acute infiltrate is seen. There is no evidence of pleural fluid or pneumothorax. There is old healed fracture of the right eighth rib. IMPRESSION: No acute cardiopulmonary abnormality is detected.
[2017-02-09 09:14] LABS: PROTHROMBIN TIME PATIENT 12.8 SEC (11.7-14.0)
[2017-02-09] MEDS ORDERED: predniSONE 20 MG TABLET ONE (09:24)
--- NOTE | 2017-02-09 09:26 | PHYS DOC ---
Past Medical History Past Medical History: Anxiety, [place] Additional Past Medical Histor: ENDOCARDITIS Past Surgical History: Angioplasty, Cholecystectomy Additional Past Surgical Histo: AORTIC VALVE REPLACEMENT Alcohol Use: Occasionally Drug Use: Marijuana Adult General Chief Complaint Chief Complaint: SHORTNESS OF BREATH [facility] HPI Patient is a 56 year old male who presents with chest tightness and shortness of breath. He states that shortness of breath has been increasing over the last 2 weeks. He's had a mild cough with white sputum, no reported fevers. He reports similar symptoms in the past, denies known history of COPD but he is a pack-a-day smoker for decades. Patient also admits to drinking 4 beers nightly to "help him sleep. He admits to feeling anxious at times. Patient has a mechanical valve that he is to be taking warfarin for, admits he has not been taking it for 2 months because he did not have a prescription. He's not actively following with primary care physician. Review of Systems Review of Systems Constitutional: Denies fever or chills [] Eyes: Denies change in visual acuity, redness, or eye pain [] HENT: Denies nasal congestion or sore throat [] Respiratory: Per history of present illness Cardiovascular: No additional information not addressed in HPI [] GI: Denies abdominal pain, nausea, vomiting, bloody stools or diarrhea [] : Denies dysuria or hematuria [] Musculoskeletal: Denies back pain or joint pain [] Integument: Denies rash or skin lesions [] Neurologic: Denies headache, focal weakness or sensory changes [] Current Medications Current Medications Current Medications Medications (Trade) Dose Ordered Sig/Angela Start Time Stop Time Status Last Admin Dose Admin Albuterol Sulfate (Ventolin Neb Soln) 10 mg 1X ONCE 02/09/17 09:30 02/09/17 09:31 DC 02/09/17 09:35 10 MG Albuterol/ Ipratropium (Duoneb) 3 ml 1X ONCE 02/09/17 08:45 02/09/17 08:46 DC 02/09/17 08:45 3 ML Lorazepam (Ativan) 2 mg STK-MED ONCE 02/09/17 09:25 02/09/17 09:26 DC Prednisone (Prednisone) 20 mg STK-MED ONCE 02/09/17 09:24 02/09/17 09:25 DC Allergies Allergies Allergies Coded Allergies Type Severity Reaction Last Updated Verified No Known Drug Allergies 05/28/14 No Physical Exam Physical Exam Constitutional: Well developed, well nourished, no acute distress, non-toxic appearance. [] HENT: Normocephalic, atraumatic, bilateral external ears normal, oropharynx moist, no oral exudates, nose normal. [] Eyes: PERRLA, EOMI, conjunctiva normal, no discharge. [] Neck: Normal range of motion, no tenderness, supple, no stridor. [] Cardiovascular:Heart rate regular with regular rhythm, mechanical valve murmur Lungs & Thorax: Bilateral breath sounds, moderate air movement, exp wheeze, no crackles Abdomen: soft, no tenderness, no masses, no pulsatile masses. [] Skin: Warm, dry, no erythema, no rash. [] Back: No tenderness, no CVA tenderness. [] Extremities: No tenderness, no cyanosis, no clubbing, ROM intact, no edema. [] Neurologic: Alert and oriented X 3, normal motor function, normal sensory function, no focal deficits noted. [] Current Patient Data Vital Signs Vital Signs Date Time Temp Pulse Resp B/P (MAP) Pulse Ox O2 Delivery O2 Flow Rate FiO2 02/09/17 09:38 Nasal Cannula 2.0 02/09/17 08:47 96 02/09/17 08:16 97.6 69 12 157/91 (113) 97.6 Lab Values Laboratory Tests Test 02/09/17 08:22 White Blood Count 7.9 x10^3/uL (4.0-11.0) Red Blood Count 4.92 x10^6/uL (4.30-5.70) Hemoglobin 16.4 g/dL (13.0-17.5) Hematocrit 46.3 % (39.0-53.0) Mean Corpuscular Volume 94 fL (79-100) Mean Corpuscular Hemoglobin 33 pg (25-35) Mean Corpuscular Hemoglobin Concent 36 g/dL (31-37) Red Cell Distribution Width 14.2 % (11.5-14.5) Platelet Count 178 x10^3/uL (140-400) Neutrophils (%) (Auto) 63 % (31-73) Lymphocytes (%) (Auto) 26 % (24-48) Monocytes (%) (Auto) 9 % (0-9) Eosinophils (%) (Auto) 2 % (0-3) Basophils (%) (Auto) 1 % (0-3) Neutrophils # (Auto) 4.9 x10^3uL (1.8-7.7) Lymphocytes # (Auto) 2.1 x10^3/uL (1.0-4.8) Monocytes # (Auto) 0.7 x10^3/uL (0.0-1.1) Eosinophils # (Auto) 0.1 x10^3/uL (0.0-0.7) Basophils # (Auto) 0.1 x10^3/uL (0.0-0.2) Prothrombin Time 12.8 SEC (11.7-14.0) Prothrombin Time INR 1.0 (0.8-1.1) D-Dimer (Joselin) 0.42 ug/mlFEU (0.00-0.50) QJ-Vxz-Y-Type Natriuretic Peptide 639 pg/mL (0-124) H Laboratory Tests 02/09/17 08:22 EKG EKG 64 bpm, sinus, rightward axis, QTC of 475, QRS of 140, right bundle-branch block present, there is some ST elevation appreciated in V2 and V3 with ST depression in V4 through V6 with biphasic T waves, T wave inversion in V3, compared with EKG performed on October 06 of this year and there is no acute change appreciated interpreted by me [] Radiology/Procedures Radiology/Procedures Chest x-ray: IMPRESSION: No acute cardiopulmonary abnormality is detected. Course & Med Decision Making Course & Med Decision Making Pertinent Labs and Imaging studies reviewed. (See chart for details) pt give duoneb and was feeling improvement, 1-hr long breathing treatment given along with po40mg prednisone. Labs ordered, no acute change on EKG D-dimer negative. I discussed with the patient and his noncompliance with his anticoagulation. Patient currently states he can't afford warfarin or INR checks. I recommended that the patient follow with a primary care doctor or [facility] clinic to determine the best course of action for his ongoing anticoagulation. After the hour-long breathing treatment the patient is feeling much better, he states he has access to a nebulizer at his sister's house. He prefers to go home, he was discharged with albuterol inhaler, albuterol nebulizer ampules, 4 more days of prednisone. Return precautions given. He was given a referral sheet. Patient was counseled on smoking cessation. Total critical care time 35 minutes Suad Disclaimer Suad Disclaimer This electronic medical record was generated, in whole or in part, using a voice recognition dictation system. Departure Departure Impression: Primary Impression: COPD (chronic obstructive pulmonary disease) Disposition: HOME, SELF-CARE Condition: IMPROVED Referrals: NO PCP (PCP) Scripts Albuterol Sulfate (PROAIR HFA INHALER) 8.5 Gm Hfa.aer.ad 1-2 PUFF INH PRN Q6HRS Y for SHORTNESS OF BREATH, #1 INHALER 0 Refills with spacer Prov: HARRIS FLEMING MD 02/09/17 Albuterol Sulfate (ALBUTEROL SULFATE NEB SOLN) 2.5 Mg/3 Ml Vial.neb 1 VIAL NEB PRN Q4HRS Y for WHEEZING, #50 VIAL Prov: HARRIS FLEMING MD 02/09/17 Prednisone (PREDNISONE) 50 Mg Tablet 1 TAB PO DAILY, #4 TAB starting tomorrow Prov: HARRIS FLEMING MD 02/09/17 HARRIS FLEMING MD Feb 09, 2017 09:26
[2017-02-09] MEDS ORDERED: ALBUTEROL SULFATE 2.5 MG/3 ML NEBU. CONT NEB ONE (09:30)
[2017-02-09] MEDS ORDERED: predniSONE 20 MG TABLET PO ONE (09:30)
[2017-02-09 10:45] VITALS: BP 127/80
[2017-02-09] MEDS ORDERED: ALBU2.5V5 NEB (10:50)
[2017-02-09] MEDS ORDERED: PRED50TA PO (10:50)
[2017-02-09] MEDS ORDERED: PROAIR HFA8.5 GM INH (10:50)
[2017-02-13 08:02] LABS: POTASSIUM ISTAT 4.1 mmol/L (3.5-5.0)
== END 2017-02-09 10:50 | disposition home or self-care (01) ==
LOC: ER 08:16
DX: J44.9 Chronic obstructive pulmonary disease, unspecified (principal); F12.10 Cannabis abuse, uncomplicated; Z95.5 Presence of coronary angioplasty implant and graft; Z90.49 Acquired absence of other specified parts of digestive tract; I25.2 Old myocardial infarction; Z91.19 Patient's noncompliance with other medical treatment and regimen; F41.9 Anxiety disorder, unspecified; Z79.01 Long term (current) use of anticoagulants
CPT/HCPCS: 36415; 71020; 83880; 85027; 85379; 85610; 93005; 94250; 94644; 96374; 99291; J2060; J7512; J7620; 94640

== ENCOUNTER 2017-06-29 08:38 | Inpatient (IN) | payer SELFPAY ==
[~2017-06-29] VITALS: Ht 172.7 cm; Wt 63.5 kg
[~2017-06-29 08:38] MED LIST changes: +ALBU2.5V5 NEB; +CYCL10TA2 PO; +IBUP-1060 PO; +PRED50TA PO; +PROAIR HFA8.5 GM INH
--- NOTE | 2017-06-29 08:41 | PHYS DOC ---
Past Medical History Past Medical History: Anxiety, MS Additional Past Medical Histor: ENDOCARDITIS Past Surgical History: Angioplasty, Cholecystectomy Additional Past Surgical Histo: AORTIC VALVE REPLACEMENT Alcohol Use: Heavy Drug Use: Marijuana Adult General Chief Complaint Chief Complaint: SHORTNESS OF BREATH [facility] HPI Patient is a 56 year old male who presents with shortness of breath and chest pain. He states his chest pain started this morning he describes it as left side pain, does not radiate he also feel short of breath. He states he' s had aortic valve replaced in the past and has stopped taking his Coumadin. He states he started feeling poorly last night and passed out while he was at work. He admits that he smokes cigarettes, drinks and occasionally smokes marijuana. Review of Systems Review of Systems Constitutional: Denies fever or chills [] Eyes: Denies change in visual acuity, redness, or eye pain [] HENT: Denies nasal congestion or sore throat [] Respiratory: Positive for shortness of breath and cough Cardiovascular: No additional information not addressed in HPI [] GI: Denies abdominal pain, nausea, vomiting, bloody stools or diarrhea [] : Denies dysuria or hematuria [] Musculoskeletal: Denies back pain or joint pain [] Integument: Denies rash or skin lesions [] Neurologic: Denies headache, focal weakness or sensory changes [] Endocrine: Denies polyuria or polydipsia [] All other systems were reviewed and found to be within normal limits, except as documented in this note. Current Medications Current Medications Current Medications Medications (Trade) Dose Ordered Sig/Angela Start Time Stop Time Status Last Admin Dose Admin Albuterol/ Ipratropium (Duoneb) 3 ml 1X ONCE 06/29/17 09:15 06/29/17 09:16 DC 06/29/17 08:53 3 ML Enoxaparin Sodium (Lovenox 60mg Syringe) 60 mg Q12HR 06/29/17 12:00 Enoxaparin Sodium (Lovenox Per Pharmacy Treatment Dosing) 1 each PRN DAILY PRN 06/29/17 11:45 Ondansetron HCl (Zofran) 4 mg PRN Q8HRS PRN 06/29/17 11:45 06/30/17 11:44 Sodium Chloride 1,000 ml @ 1,000 mls/hr 1X ONCE 06/29/17 11:45 06/29/17 12:44 Allergies Allergies Allergies Coded Allergies Type Severity Reaction Last Updated Verified No Known Drug Allergies 05/28/14 No Physical Exam Physical Exam Constitutional: Cachectic appearing in mild acute distress, non-toxic appearance. [] HENT: Normocephalic, atraumatic, bilateral external ears normal, oropharynx moist, no oral exudates, nose normal. [] Eyes: PERRLA, EOMI, conjunctiva normal, no discharge. [] Neck: Normal range of motion, no tenderness, supple, no stridor. [] Cardiovascular:Heart rate regular rhythm, 3/6 systolic ejection murmur noted Lungs & Thorax: Bilateral breath sounds coarse bilaterally with decreased sounds the bases and moderate expiratory wheezes, midline well-healed sternotomy scar noted Abdomen: Bowel sounds normal, soft, no tenderness, no masses, no pulsatile masses. [] Skin: Warm, dry, no erythema, no rash. [] Back: No tenderness, no CVA tenderness. [] Extremities: No tenderness, no cyanosis, no clubbing, ROM intact, no edema. [] Neurologic: Alert and oriented X 3, normal motor function, normal sensory function, no focal deficits noted. [] Psychologic: Affect normal, judgement normal, mood normal. [] Current Patient Data Vital Signs Vital Signs Date Time Temp Pulse Resp B/P (MAP) Pulse Ox O2 Delivery O2 Flow Rate FiO2 06/29/17 09:37 76 2 166/97 (120) 97 Nasal Cannula 2.0 06/29/17 08:38 98.4 98.4 Lab Values Laboratory Tests Test 06/29/17 08:42 06/29/17 10:02 06/29/17 10:45 White Blood Count 9.0 x10^3/uL (4.0-11.0) Red Blood Count 4.98 x10^6/uL (4.30-5.70) Hemoglobin 16.9 g/dL (13.0-17.5) Hematocrit 48.5 % (39.0-53.0) Mean Corpuscular Volume 97 fL (79-100) Mean Corpuscular Hemoglobin 34 pg (25-35) Mean Corpuscular Hemoglobin Concent 35 g/dL (31-37) Red Cell Distribution Width 14.0 % (11.5-14.5) Platelet Count 215 x10^3/uL (140-400) Neutrophils (%) (Auto) 72 % (31-73) Lymphocytes (%) (Auto) 18 % (24-48) L Monocytes (%) (Auto) 7 % (0-9) Eosinophils (%) (Auto) 1 % (0-3) Basophils (%) (Auto) 1 % (0-3) Neutrophils # (Auto) 6.5 x10^3uL (1.8-7.7) Lymphocytes # (Auto) 1.6 x10^3/uL (1.0-4.8) Monocytes # (Auto) 0.7 x10^3/uL (0.0-1.1) Eosinophils # (Auto) 0.1 x10^3/uL (0.0-0.7) Basophils # (Auto) 0.1 x10^3/uL (0.0-0.2) Platelet Estimate Adequate (ADEQUATE) Large Platelets Present Prothrombin Time 12.7 SEC (11.7-14.0) Prothrombin Time INR 1.0 (0.8-1.1) PTT 32 SEC (24-38) Sodium Level 131 mmol/L (136-145) L Potassium Level 4.2 mmol/L (3.5-5.1) Chloride Level 94 mmol/L (98-107) L Carbon Dioxide Level 24 mmol/L (21-32) Anion Gap 13 (6-14) Blood Urea Nitrogen 7 mg/dL (8-26) L Creatinine 0.9 mg/dL (0.7-1.3) Estimated GFR (Cockcroft-Gault) 87.0 BUN/Creatinine Ratio 8 (6-20) Glucose Level 83 mg/dL (70-99) Lactic Acid Level 4.3 mmol/L (0.4-2.0) *H Calcium Level 9.5 mg/dL (8.5-10.1) Total Bilirubin 0.9 mg/dL (0.2-1.0) Aspartate Amino Transferase (AST) 60 U/L (15-37) H Alanine Aminotransferase (ALT) 49 U/L (16-63) Alkaline Phosphatase 124 U/L (46-116) H Creatine Kinase 177 U/L (39-308) Creatine Kinase MB (Mass) 4.8 ng/mL (0.0-3.6) H Creatine Kinase MB Relative Index 2.7 % (0-4) Troponin I Quantitative 0.054 ng/mL (0.000-0.055) Total Protein 8.1 g/dL (6.4-8.2) Albumin 4.1 g/dL (3.4-5.0) Albumin/Globulin Ratio 1.0 (1.0-1.7) Ethyl Alcohol Level 56 mg/dL (0-10) H O2 Saturation 97 % (92-99) Arterial Blood pH 7.52 (7.35-7.45) H Arterial Blood pCO2 at Patient Temp 26 mmHg (35-46) L Arterial Blood pO2 at Patient Temp 90 mmHg (75-108) Arterial Blood HCO3 21 mmol/L (21-28) Arterial Blood Base Excess 0 mmol/L (-3-3) FiO2 28.0 Urine Collection Type Unknown Urine Color Yellow Urine Clarity Clear Urine pH 7.0 Urine Specific [place] 1.010 Urine Protein 30 mg/dL (NEG-TRACE) Urine Glucose (UA) Negative mg/dL (NEG) Urine Ketones (Stick) Negative mg/dL (NEG) Urine Blood Negative (NEG) Urine Nitrite Negative (NEG) Urine Bilirubin Negative (NEG) Urine Urobilinogen Dipstick 2.0 mg/dL (0.2 mg/dL) Urine Leukocyte Esterase Negative (NEG) Urine RBC 0 /HPF (0-2) Urine WBC 0 /HPF (0-4) Urine Squamous Epithelial Cells Occ /LPF Urine Bacteria 0 /HPF (0-FEW) Urine Opiates Screen Neg (NEG) Urine Methadone Screen Neg (NEG) Urine Barbiturates Neg (NEG) Urine Phencyclidine Screen Neg (NEG) Urine Amphetamine/Methamphetamine Neg (NEG) Urine Benzodiazepines Screen Neg (NEG) Urine Cocaine Screen Neg (NEG) Urine Cannabinoids Screen Pos (NEG) Urine Ethyl Alcohol Pos (NEG) Laboratory Tests 06/29/17 08:42 Laboratory Tests 06/29/17 08:42 EKG EKG EKG shows sinus rhythm with a rate of [address] elevations his right bundle branch morphology noted which is the same that was on EKGs status February 09, 2017 and several were 2016. No ST elevations noted, ST depression noted in V4 V5 V6 which was also there and his previous EKGs. He is denying active chest pain. Radiology/Procedures Radiology/Procedures [facility] [address] [place] [address] IMAGING REPORT Signed PATIENT: JOSEPH HYMAN ACCOUNT: [id number] : 1960 LOCATION: ER AGE: 56 SEX: M EXAM STATUS: PRE ER ORD. PHYSICIAN: SHLOMO TREVINO APRN REASON: SOA PROCEDURE: PORTABLE CHEST 1V AP PORTABLE CHEST Clinical Indication: SOA. Comparison: Two-view chest 02/09/2017. Findings: Stable median sternotomy wires including fractured 2 most superior wires. The cardiomediastinal silhouette is normal. Lungs are clear. There is no pneumothorax. No pleural effusion is appreciated. There is no acute bone abnormality. Old right posterior eighth rib fracture. IMPRESSION: No acute cardiopulmonary process. DICTATED and SIGNED BY: JOB FLORES MD DATE: 06/29/17 0859 CC: PEGGY BECERRA MD; SHLOMO TREVINO APRN; NO PCP ~ Impressions: Elevated lactic acid Subtherapeutic INR Alcohol abuse Course & Med Decision Making Course & Med Decision Making Pertinent Labs and Imaging studies reviewed. (See chart for details) She presented with troubles breathing and after breathing treatment he calmed down and was able to state that yesterday he had a syncopal episode and was likely due to alcohol abuse. He states he's been drinking more recently and when he doesn't drink he thinks he can have a seizure. Today he presents to ER complaining of troubles breathing with an elevated lactic acid. States his last drink was last night. I suspect he had a seizure because he is completely alert and oriented now up walking around the room without any discomfort. He's been off of his Coumadin for a while and his INR is 1.0. She's been started on Lovenox and being admitted and given 2 L of IV fluids secondary to his elevated lactic acidosis. He is wanting to stop drinking therefore have social work consult. He is in stable condition at this time. Did speak with Dr. Thompson going to patient's EKG, Supple. INR and mechanical aortic valve. Dragon Disclaimer Dragon Disclaimer This electronic medical record was generated, in whole or in part, using a voice recognition dictation system. Departure Departure Impression: Primary Impression: Subtherapeutic anticoagulation Disposition: ADMITTED INPATIENT Admitting Physician: Pamela Dalal Condition: STABLE Referrals: NO PCP (PCP) PEGGY BECERRA MD Jun 29, 2017 08:41
[2017-06-29 09:05] LABS: BASO # 0.1 x10^3/uL (0.0-0.2); BASO % 1 % (0-3); CALCIUM 9.5 mg/dL (8.5-10.1); CREATININE 0.9 mg/dL (0.7-1.3); EOS % 1 % (0-3); HEMATOCRIT 48.5 % (39.0-53.0); HEMOGLOBIN 16.9 g/dL (13.0-17.5); LYMPH # 1.6 x10^3/uL (1.0-4.8); LYMPH % 18 % (24-48); MEAN CORPUSCULAR HEMOGLOBIN 34 pg (25-35); MEAN CORPUSCULAR HGB CONC 35 g/dL (31-37); MEAN CORPUSCULAR VOLUME 97 fL (79-100); MONO % 7 % (0-9); NEUT % 72 % (31-73); PLATELET COUNT 215 x10^3/uL (140-400); POTASSIUM 4.2 mmol/L (3.5-5.1); RED BLOOD COUNT 4.98 x10^6/uL (4.30-5.70)
--- NOTE | 2017-06-29 09:06 | RAD ---
AP PORTABLE CHEST Clinical Indication: SOA. Comparison: Two-view chest 02/09/2017. Findings: Stable median sternotomy wires including fractured 2 most superior wires. The cardiomediastinal silhouette is normal. Lungs are clear. There is no pneumothorax. No pleural effusion is appreciated. There is no acute bone abnormality. Old right posterior eighth rib fracture. IMPRESSION: No acute cardiopulmonary process.
[2017-06-29 09:11] LABS: ALBUMIN 4.1 g/dL (3.4-5.0); TOTAL BILIRUBIN 0.9 mg/dL (0.2-1.0); TOTAL PROTEIN 8.1 g/dL (6.4-8.2)
[2017-06-29] MEDS ORDERED: IPRATRPIUM/ALBUTEROL 0.5/2.5MG 3 ML NEBU. NEB ONE (09:15)
[2017-06-29 09:20] LABS: CKMB MASS 4.8 ng/mL (0.0-3.6)
[2017-06-29 10:23] LABS: HCO3 ABG 21 mmol/L (21-28); PCO2 ABG 26 mmHg (35-46); PH ABG 7.52 (7.35-7.45); PO2 ABG 90 mmHg (75-108); SAT O2 ABG 97 % (92-99)
[2017-06-29 10:31] LABS: PLT ESTIMATE ADEQUATE (ADEQUATE)
[2017-06-29] MEDS ORDERED: IV NORMAL SALINE 1000ML BAG 1,000 ML IV ONE ×2 (11:00→11:45)
[2017-06-29 11:02] LABS: BILIRUBIN,URINE NEGATIVE (NEG); GLUCOSE,URINE NEGATIVE (NEG); NITRITE,URINE NEGATIVE (NEG); PROTEIN,URINE 30 mg/dL (NEG-TRACE)
[2017-06-29 11:09] LABS: BARBITURATES NEG (NEG); BENZODIAZEPINES NEG (NEG); CANNABINOIDS POS (NEG); COCAINE NEG (NEG); METHADONE NEG (NEG); OPIATES NEG (NEG); PHENCYCLIDINE NEG (NEG)
[2017-06-29 11:33] LABS: PROTHROMBIN TIME PATIENT 12.7 SEC (11.7-14.0)
[2017-06-29 11:33] LABS: BACTERIA,URINE 0 /HPF (0-FEW); RBC,URINE 0 /HPF (0-2); SQUAMOUS EPITHELIAL CELL,UR OCC /LPF; WBC,URINE 0 /HPF (0-4)
[2017-06-29] MEDS ORDERED: ONDANSETRON PF 4 MG/2 ML VIAL. IV PRN (11:45)
[2017-06-29] MEDS ORDERED: ASPIRIN 325 MG TABLET PO ONE (12:15)
[2017-06-29 13:00] VITALS: BP 150/91
--- NOTE | 2017-06-29 13:08 | EKG ---
[facility] [address] [place] [address] Test Date: 2017-06-29 Test Time: 08:38:31 Pat Name: JOSEPH HYMAN Department: Room: 206 1 Gender: M Line Closer: : 1960 Requested By: SHLOMO TREVINO Order Number: [id number] Reading MD: Tulio White MD Measurements Intervals Pavilion Rate: 86 P: 58 NC: 136 QRS: -137 QRSD: 132 T: 64 QT: 398 QTc: 480 Interpretive Statements SINUS RHYTHM RIGHT BUNDLE BRANCH BLOCK NON-SPECIFIC ST/T CHANGES CANNOT RULE OUT LATERAL WALL ISCHEMIA Electronically Signed On 07-02-2017 11:40:30 SPOON MAKER by Tulio White MD
[2017-06-29 15:00] VITALS: BP 159/82
[2017-06-29] MEDS ORDERED: HYDROCORTISONE 1% TOPICAL OINTMENT 30GM TUBE. TP PRN (16:00)
[2017-06-29] MEDS ORDERED: HALOPERIDOL LACTATE 5 MG/ML VIAL. IVP PRN (16:00)
[2017-06-29] MEDS ORDERED: diphenhydrAMINE 50 MG/ML VIAL IVP PRN (16:00)
[2017-06-29] MEDS: MULTIVIT INFUSN,ADULT 4,VIT K 10 ML, THIAMINE 100 MG, FOLIC ACID 1 MG in IV NORMAL SALI... IV SCH (17:39)
[2017-06-29] MEDS ORDERED: NICOTINE 14MG PATCH. TD PRN (18:45)
[2017-06-29] MEDS ORDERED: PNEUMOC CONJ VACC 23-VALENT 0.5 ML VIAL. VAX IM ONE (18:45)
[2017-06-29] MEDS ORDERED: NICOTINE POLACRILEX 2MG GUM PACKAGE of 12. BC PRN (18:45)
[2017-06-29] MEDS ORDERED: MORPHINE SULFATE 4 MG/ML DISP.SYRIN. IV PRN (18:45)
[2017-06-29] MEDS ORDERED: FLU VACC QS2017-18 (36MOS+)/PF 0.5 ML SYRINGE. VAX IM ONE (18:45)
--- NOTE | 2017-06-29 18:46 | PDOC1 ---
History and Physical Date of Admission Date of Admission DATE: 06/29/17 TIME: 18:44 Identification/Chief Complaint Chief Complaint chest pain Problems: Source Source: Chart review, Patient History of Present Illness History of Present Illness Mr. Ji, is a 56 year old admit with acute shortness of breath and chest pain. New left side pain, < 1 day, constant, does not radiate he also feel short of breath. He states he's had aortic valve replaced in the past and has stopped taking his Coumadin. felt poorly at work, and passed out yesterday, still drank EtOH at home after work, v Past Medical History Cardiovascular: HTN, Valve insufficiency, Other Pulmonary: COPD CENTRAL NERVOUS SYSTEM: Other GI: GERD Heme/Onc: No pertinent hx Hepatobiliary: No pertinent hx Psych: Anxiety, Depression Musculoskeletal: low back pain Rheumatologic: No pertinent hx Infectious disease: No pertinent hx Renal/: No pertinent hx Endocrine: No pertinent hx Past Surgical History Past Surgical History: Cholecystectomy, Other Family History Family History: Heart Disease Social History Smoke: <1 pack per day ALCOHOL: heavy Drugs: Marijuana Current Problem List Problem List Problems Medical Problems: (1) Subtherapeutic anticoagulation Status: Acute Problems: Current Medications Current Medications Current Medications Albuterol/ Ipratropium (Duoneb) 3 ml 1X ONCE NEB Last administered on 08:53; Start 06/29/17 at 09:15; Stop 06/29/17 at 09:16; Status DC Sodium Chloride 1,000 ml @ 1,000 mls/hr 1X ONCE IV Last administered on 06/29 11:18; Start 06/29/17 at 11:00; Stop 06/29/17 at 11:59; Status DC Sodium Chloride 1,000 ml @ 1,000 mls/hr 1X ONCE IV Last administered on 06/29t 11:59; Start 06/29/17 at 11:45; Stop 06/29/17 at 12:44; Status DC Ondansetron HCl (Zofran) 4 mg PRN Q8HRS PRN IV NAUSEA/VOMITING; Start at 11:45; Stop 06/30/17 at 11:44 Enoxaparin Sodium (Lovenox Per Pharmacy Treatment Dosing) 1 each PRN DAILY PRN MC SEE COMMENTS; Start 06/29/17 at 11:45 Enoxaparin Sodium (Lovenox 60mg Syringe) 60 mg Q12HR SQ Last administered on 12:00; Start 06/29/17 at 12:00 Aspirin (Jasmin Aspirin) 325 mg 1X ONCE PO Last administered on 06/29/17 11: 53; Start 06/29/17 at 12:15; Stop 06/29/17 at 12:16; Status DC Lorazepam (Ativan) 1 mg 1X ONCE IV Last administered on 06/29/17 11:53; Start 06/29/17 at 12:15; Stop 06/29/17 at 12:16; Status DC Multivitamins 10 ml/Thiamine HCl 100 mg/Folic Acid 1 mg/Sodium Chloride 1,011.2 ml @ 100 mls/ hr DAILY IV Last administered on 06/29/17 17:39; Start at 17:00; Stop 07/03/17 at 19:07 Lorazepam (Ativan) 2 mg PRN Q1HR PRN IV For CIWA 8-14 Last administered on 17:39; Start 06/29/17 at 16:00 Lorazepam (Ativan) 4 mg PRN Q1HR PRN IV For CIWA 15 or greater; Start at 16:00 Haloperidol Lactate (Haldol) 5 mg PRN Q4HRS PRN IVP Hallucinatns,Confusn, Delirium; Start 06/29/17 at 16:00 Diphenhydramine HCl (Benadryl) 25 mg PRN Q15MIN PRN IVP EPS symptoms 2'Haldol admin; Start 06/29/17 at 16:00 Hydrocortisone (Cortaid) 1 allie PRN Q4HRS PRN TP puritis; Start 06/29/17 at 16: 00 Influenza Virus Vaccine Quadrival (Fluarix Quad [id number] Syringe) 0.5 ml ONCE ONCE VAX IM ; Start 06/29/17 at 18:45; Stop 06/29/17 at 18:46 Pneumococcal Polyvalent Vaccine (Pneumovax 23) 0.5 ml ONCE ONCE VAX IM ; Start 06/29/17 at 18:45; Stop 06/29/17 at 18:46 Active Scripts Active Ibuprofen 800 Mg Tablet 800 Mg PO PRN Q6HRS PRN Cyclobenzaprine Hcl 10 Mg Tablet 1 Tab PO TID PRN Proair Hfa Inhaler (Albuterol Sulfate) 8.5 Gm Hfa.aer.ad 1-2 Puff INH PRN Q6HRS PRN with spacer Albuterol Sulfate Neb Soln (Albuterol Sulfate) 2.5 Mg/3 Ml Vial.neb 1 Vial NEB PRN Q4HRS PRN Prednisone 50 Mg Tablet 1 Tab PO DAILY starting tomorrow Protonix (Pantoprazole Sodium) 40 Mg Tablet.dr 40 Mg PO DAILY Reported Lorazepam 1 Mg Tablet 1 Tab PO PRN Q4HRS PRN Ativan (Lorazepam) 1 Mg Tablet 1 Mg PO BID Ativan (Lorazepam) 1 Mg Tablet 1 Mg PO DAILY Warfarin Sodium 2 Mg Tablet 2.5 Mg PO DAILY Xanax (Alprazolam) 0.25 Mg Tablet 1 Tab PO DAILY Allergies Allergies: Coded Allergies: No Known Drug Allergies (Unverified , 05/28/14) ROS General: No: Chills, Night Sweats, Fatigue, Malaise, Appetite, Other PSYCHOLOGICAL ROS: YES: Anxiety, Sleep disturbances, No: Behavioral Disorder, Concentration difficultie, Decreased libido, Depression, Disorientation, Hallucinations, Hostility, Irritablity, Memory difficulties, Mood Swings, Obsessive thoughts, Physical abuse, Sexual abuse, Suicidal ideation, Other Eyes: No Blurry vision, No Decreased vision, No Double vision, No Dry eyes, No Excessive tearing, No Eye Pain, No Itchy Eyes, No Loss of vision, No Photophobia , No Scotomata, No Uses contacts, No Uses glasses, No Other HEENT: No: Heacaches, Visual Changes, Hearing change, Nasal congestion, Nasal discharge, Oral lesions, Sinus pain, Sore Throat, Epistaxis, Sneezing, Snoring, Tinnitus, Vertigo, Vocal changes, Other Respiratory: YES: SOB with excertion, No: Cough, Hemoptysis, Orthopnea, Pleuritic Pain, Shortness of breath, Sputum Changes, Stridor, Tachypnea, Wheezing, Other Cardiovascular: yes Chest Pain, No Palpitations, No Orthopnea, No Paroxysmal Noc. Dyspnea, No Edema, No Lt Headedness, No Other Gastrointestinal: Yes Nausea, Yes Abdominal Pain, No Vomiting, No Diarrhea, No Constipation, No Melena, No Hematochezia, No Other Genitourinary: No Dysuria, No Frequency, No Incontinence, No Hematuria, No Retention, No Discharge, No Urgency, No Pain, No Flank Pain, No Other, No , No , No , No , No , No , No Musculoskeletal: No Gait Disturbance, No Joint Pain, No Joint Stiffness, No Joint Swelling, No Muscle Pain, No Muscular Weakness, No Pain In:, No Swelling In:, No Other Neurological: No Behavorial Changes, No Bowel/Bladder ControlChng, No Confusion , No Dizziness, No Gait Disturbance, No Headaches, No Impaired Coord/balance, No Memory Loss, No Numbness/Tingling, No Seizures, No Speech Problems, No Tremors, No Visual Changes, No Weakness, No Other Skin: No Dry Skin, No Eczema, No Hair Changes, No Lumps, No Mole Changes, No Mottling, No Nail Changes, No Pruritus, No Rash, No Skin Lesion Changes, No Other, No Acne Physical Exam General: Alert, Cooperative, mild distress HEENT: Atraumatic Lungs: Clear to auscultation Heart: RRR, other ([facility] click of aorta) Neuro: Normal speech Psych/Mental Status: Other (flat affect, disheveled) Vitals Vitals Vital Signs Date Time Temp Pulse Resp B/P (MAP) Pulse Ox O2 Delivery O2 Flow Rate FiO2 06/29/17 15:00 99.9 79 19 159/82 (107) 97 Room Air 99.9 06/29/17 11:07 2.0 Labs Labs Laboratory Tests Test 06/29/17 08:42 06/29/17 10:02 06/29/17 10:45 06/29/17 14:30 White Blood Count 9.0 x10^3/uL (4.0-11.0) Red Blood Count 4.98 x10^6/uL (4.30-5.70) Hemoglobin 16.9 g/dL (13.0-17.5) Hematocrit 48.5 % (39.0-53.0) Mean Corpuscular Volume 97 fL (79-100) Mean Corpuscular Hemoglobin 34 pg (25-35) Mean Corpuscular Hemoglobin Concent 35 g/dL (31-37) Red Cell Distribution Width 14.0 % (11.5-14.5) Platelet Count 215 x10^3/uL (140-400) Neutrophils (%) (Auto) 72 % (31-73) Lymphocytes (%) (Auto) 18 % (24-48) Monocytes (%) (Auto) 7 % (0-9) Eosinophils (%) (Auto) 1 % (0-3) Basophils (%) (Auto) 1 % (0-3) Neutrophils # (Auto) 6.5 x10^3uL (1.8-7.7) Lymphocytes # (Auto) 1.6 x10^3/uL (1.0-4.8) Monocytes # (Auto) 0.7 x10^3/uL (0.0-1.1) Eosinophils # (Auto) 0.1 x10^3/uL (0.0-0.7) Basophils # (Auto) 0.1 x10^3/uL (0.0-0.2) Platelet Estimate Adequate (ADEQUATE) Large Platelets Present Prothrombin Time 12.7 SEC (11.7-14.0) Prothromb Time International Ratio 1.0 (0.8-1.1) Activated Partial Thromboplast Time 32 SEC (24-38) Sodium Level 131 mmol/L (136-145) Potassium Level 4.2 mmol/L (3.5-5.1) Chloride Level 94 mmol/L (98-107) Carbon Dioxide Level 24 mmol/L (21-32) Anion Gap 13 (6-14) Blood Urea Nitrogen 7 mg/dL (8-26) Creatinine 0.9 mg/dL (0.7-1.3) Estimated GFR (Cockcroft-Gault) 87.0 BUN/Creatinine Ratio 8 (6-20) Glucose Level 83 mg/dL (70-99) Lactic Acid Level 4.3 mmol/L (0.4-2.0) 1.2 mmol/L (0.4-2.0) Calcium Level 9.5 mg/dL (8.5-10.1) Total Bilirubin 0.9 mg/dL (0.2-1.0) Aspartate Amino Transf (AST/SGOT) 60 U/L (15-37) Alanine Aminotransferase (ALT/SGPT) 49 U/L (16-63) Alkaline Phosphatase 124 U/L (46-116) Creatine Kinase 177 U/L (39-308) Creatine Kinase MB (Mass) 4.8 ng/mL (0.0-3.6) Creatine Kinase MB Relative Index 2.7 % (0-4) Troponin I Quantitative 0.054 ng/mL (0.000-0.055) Total Protein 8.1 g/dL (6.4-8.2) Albumin 4.1 g/dL (3.4-5.0) Albumin/Globulin Ratio 1.0 (1.0-1.7) Ethyl Alcohol Level 56 mg/dL (0-10) O2 Saturation 97 % (92-99) Arterial Blood pH 7.52 (7.35-7.45) Arterial Blood pCO2 at Patient Temp 26 mmHg (35-46) Arterial Blood pO2 at Patient Temp 90 mmHg (75-108) Arterial Blood HCO3 21 mmol/L (21-28) Arterial Blood Base Excess 0 mmol/L (-3-3) FiO2 28.0 Urine Collection Type Unknown Urine Color Yellow Urine Clarity Clear Urine pH 7.0 Urine Specific [place] 1.010 Urine Protein 30 mg/dL (NEG-TRACE) Urine Glucose (UA) Negative mg/dL (NEG) Urine Ketones (Stick) Negative mg/dL (NEG) Urine Blood Negative (NEG) Urine Nitrite Negative (NEG) Urine Bilirubin Negative (NEG) Urine Urobilinogen Dipstick 2.0 mg/dL (0.2 mg/dL) Urine Leukocyte Esterase Negative (NEG) Urine RBC 0 /HPF (0-2) Urine WBC 0 /HPF (0-4) Urine Squamous Epithelial Cells Occ /LPF Urine Bacteria 0 /HPF (0-FEW) Urine Opiates Screen Neg (NEG) Urine Methadone Screen Neg (NEG) Urine Barbiturates Neg (NEG) Urine Phencyclidine Screen Neg (NEG) Urine Amphetamine/Methamphetamine Neg (NEG) Urine Benzodiazepines Screen Neg (NEG) Urine Cocaine Screen Neg (NEG) Urine Cannabinoids Screen Pos (NEG) Urine Ethyl Alcohol Pos (NEG) Test 06/29/17 17:33 Troponin I Quantitative 0.072 ng/mL (0.000-0.055) Laboratory Tests Test 06/29/17 08:42 06/29/17 10:02 06/29/17 10:45 06/29/17 14:30 White Blood Count 9.0 x10^3/uL (4.0-11.0) Red Blood Count 4.98 x10^6/uL (4.30-5.70) Hemoglobin 16.9 g/dL (13.0-17.5) Hematocrit 48.5 % (39.0-53.0) Mean Corpuscular Volume 97 fL (79-100) Mean Corpuscular Hemoglobin 34 pg (25-35) Mean Corpuscular Hemoglobin Concent 35 g/dL (31-37) Red Cell Distribution Width 14.0 % (11.5-14.5) Platelet Count 215 x10^3/uL (140-400) Neutrophils (%) (Auto) 72 % (31-73) Lymphocytes (%) (Auto) 18 % (24-48) Monocytes (%) (Auto) 7 % (0-9) Eosinophils (%) (Auto) 1 % (0-3) Basophils (%) (Auto) 1 % (0-3) Neutrophils # (Auto) 6.5 x10^3uL (1.8-7.7) Lymphocytes # (Auto) 1.6 x10^3/uL (1.0-4.8) Monocytes # (Auto) 0.7 x10^3/uL (0.0-1.1) Eosinophils # (Auto) 0.1 x10^3/uL (0.0-0.7) Basophils # (Auto) 0.1 x10^3/uL (0.0-0.2) Platelet Estimate Adequate (ADEQUATE) Large Platelets Present Prothrombin Time 12.7 SEC (11.7-14.0) Prothromb Time International Ratio 1.0 (0.8-1.1) Activated Partial Thromboplast Time 32 SEC (24-38) Sodium Level 131 mmol/L (136-145) Potassium Level 4.2 mmol/L (3.5-5.1) Chloride Level 94 mmol/L (98-107) Carbon Dioxide Level 24 mmol/L (21-32) Anion Gap 13 (6-14) Blood Urea Nitrogen 7 mg/dL (8-26) Creatinine 0.9 mg/dL (0.7-1.3) Estimated GFR (Cockcroft-Gault) 87.0 BUN/Creatinine Ratio 8 (6-20) Glucose Level 83 mg/dL (70-99) Lactic Acid Level 4.3 mmol/L (0.4-2.0) 1.2 mmol/L (0.4-2.0) Calcium Level 9.5 mg/dL (8.5-10.1) Total Bilirubin 0.9 mg/dL (0.2-1.0) Aspartate Amino Transf (AST/SGOT) 60 U/L (15-37) Alanine Aminotransferase (ALT/SGPT) 49 U/L (16-63) Alkaline Phosphatase 124 U/L (46-116) Creatine Kinase 177 U/L (39-308) Creatine Kinase MB (Mass) 4.8 ng/mL (0.0-3.6) Creatine Kinase MB Relative Index 2.7 % (0-4) Troponin I Quantitative 0.054 ng/mL (0.000-0.055) Total Protein 8.1 g/dL (6.4-8.2) Albumin 4.1 g/dL (3.4-5.0) Albumin/Globulin Ratio 1.0 (1.0-1.7) Ethyl Alcohol Level 56 mg/dL (0-10) O2 Saturation 97 % (92-99) Arterial Blood pH 7.52 (7.35-7.45) Arterial Blood pCO2 at Patient Temp 26 mmHg (35-46) Arterial Blood pO2 at Patient Temp 90 mmHg (75-108) Arterial Blood HCO3 21 mmol/L (21-28) Arterial Blood Base Excess 0 mmol/L (-3-3) FiO2 28.0 Urine Collection Type Unknown Urine Color Yellow Urine Clarity Clear Urine pH 7.0 Urine Specific [place] 1.010 Urine Protein 30 mg/dL (NEG-TRACE) Urine Glucose (UA) Negative mg/dL (NEG) Urine Ketones (Stick) Negative mg/dL (NEG) Urine Blood Negative (NEG) Urine Nitrite Negative (NEG) Urine Bilirubin Negative (NEG) Urine Urobilinogen Dipstick 2.0 mg/dL (0.2 mg/dL) Urine Leukocyte Esterase Negative (NEG) Urine RBC 0 /HPF (0-2) Urine WBC 0 /HPF (0-4) Urine Squamous Epithelial Cells Occ /LPF Urine Bacteria 0 /HPF (0-FEW) Urine Opiates Screen Neg (NEG) Urine Methadone Screen Neg (NEG) Urine Barbiturates Neg (NEG) Urine Phencyclidine Screen Neg (NEG) Urine Amphetamine/Methamphetamine Neg (NEG) Urine Benzodiazepines Screen Neg (NEG) Urine Cocaine Screen Neg (NEG) Urine Cannabinoids Screen Pos (NEG) Urine Ethyl Alcohol Pos (NEG) Test 06/29/17 17:33 Troponin I Quantitative 0.072 ng/mL (0.000-0.055) VTE Prophylaxis Ordered VTE Prophylaxis Devices: Yes VTE Pharmacological Prophylaxi: Yes Assessment/Plan Assessment/Plan chest pain, angina, r.o ACS, admit and consult CV hx aortic valve replacement 10 years ago, not compliant with coumadin tobaccoism EtOH abuse non compliance LITO NAIK MD Jun 29, 2017 18:46
[2017-06-29 19:05] VITALS: BP 139/77
[2017-06-29] MEDS: METOPROLOL TART IMMED RELEASE 25 MG TABLET. PO SCH (20:08)
[2017-06-29 23:20] VITALS: BP 156/96
[2017-06-30 03:15] VITALS: BP 143/90
[2017-06-30 05:27] LABS: BASO # 0.1 x10^3/uL (0.0-0.2); BASO % 1 % (0-3); EOS % 2 % (0-3); HEMATOCRIT 42.3 % (39.0-53.0); HEMOGLOBIN 14.6 g/dL (13.0-17.5); LYMPH # 1.4 x10^3/uL (1.0-4.8); LYMPH % 18 % (24-48); MEAN CORPUSCULAR HEMOGLOBIN 34 pg (25-35); MEAN CORPUSCULAR HGB CONC 35 g/dL (31-37); MEAN CORPUSCULAR VOLUME 98 fL (79-100); MONO % 9 % (0-9); NEUT % 71 % (31-73); PLATELET COUNT 171 x10^3/uL (140-400); RED BLOOD COUNT 4.31 x10^6/uL (4.30-5.70); WHITE BLOOD COUNT 7.7 x10^3/uL (4.0-11.0)
[2017-06-30 06:06] LABS: CALCIUM 8.7 mg/dL (8.5-10.1); CREATININE 0.8 mg/dL (0.7-1.3); GFR 99.6; POTASSIUM 3.7 mmol/L (3.5-5.1)
[2017-06-30 06:30] LABS: CHOLESTEROL/HDL RATIO 1.9
[2017-06-30 07:00] VITALS: BP 127/87
[2017-06-30] MEDS: MULTIVIT INFUSN,ADULT 4,VIT K 10 ML, THIAMINE 100 MG, FOLIC ACID 1 MG in IV NORMAL SALI... IV SCH (09:23)
[2017-06-30 09:24] VITALS: BP 128/85
[2017-06-30] MEDS: METOPROLOL TART IMMED RELEASE 25 MG TABLET. PO SCH (09:24)
[2017-06-30] MEDS ORDERED: ALPRAZolam 0.25 MG TABLET PO SCH (12:00)
[2017-06-30] MEDS ORDERED: ALBUTEROL SULFATE 2.5 MG/3 ML NEBU. NEB PRN (12:00)
[2017-06-30] MEDS ORDERED: WARFARIN 5 MG TABLET. PO ONE (12:00)
[2017-06-30] MEDS ORDERED: CYCLOBENZAPRINE 10 MG TABLET. PO PRN (12:00)
[2017-06-30] MEDS ORDERED: LORazepam 1 MG TABLET PO PRN (12:00)
[2017-06-30] MEDS ORDERED: ASPIRIN 325 MG TABLET PO ONE (12:30)
[2017-07-01] MEDS ORDERED: ASPIRIN 325 MG TABLET PO SCH (08:00)
[2017-07-01] MEDS ORDERED: PANTOPRAZOLE 40 MG TABLET.DR. PO SCH (13:00)
[2017-07-01] MEDS ORDERED: WARFARIN 2.5 MG TABLET. PO SCH (16:00)
--- NOTE | 2017-07-25 09:24 | PDOC3 ---
Discharge Summary Visit Information Date of Admission: Jun 29, 2017 Date of Discharge: Jun 30, 2017 Admitting Diagnosis: chest pain Final Diagnosis chest pain, angina, r.o ACS, hx aortic valve replacement 10 years ago, not compliant with coumadin tobaccoism EtOH abuse non compliance Problems Medical Problems: (1) Subtherapeutic anticoagulation Status: Acute Brief Hospital Course Allergies Allergies Coded Allergies Type Severity Reaction Last Updated Verified No Known Drug Allergies 05/28/14 No Brief Hospital Course Mr. Ji is a 56 old male, disheveled, admit for chest pain, ACS ruled out. he was upset on 06/30 about never seeing a doctor, I talked to him on 06/30 and talked about things we had discussed on 06/29. risks of leaving before CV eval discussed, benefit of restarting coumadin discussed, he left AMA Discharge Information Condition at Discharge: Stable Follow Up: As Needed Disposition/Orders: Other Scheduled Alprazolam (Xanax), 1 TAB PO DAILY, (Reported) Lorazepam (Ativan), 1 MG PO DAILY, (Reported) Lorazepam (Ativan), 1 MG PO BID, (Reported) Pantoprazole Sodium (Protonix), 40 MG PO DAILY Prednisone (Prednisone), 1 TAB PO DAILY Warfarin Sodium (Warfarin Sodium), 2.5 MG PO DAILY, (Reported) Scheduled PRN Albuterol Sulfate (Albuterol Sulfate Neb Soln), 1 VIAL NEB PRN Q4HRS PRN for WHEEZING Albuterol Sulfate (Proair Hfa Inhaler), 1-2 PUFF INH PRN Q6HRS PRN for SHORTNESS OF BREATH Cyclobenzaprine Hcl (Cyclobenzaprine Hcl), 1 TAB PO TID PRN for MUSCLE SPASMS Ibuprofen (Ibuprofen), 800 MG PO PRN Q6HRS PRN for INFLAMMATION Lorazepam (Lorazepam), 1 TAB PO PRN Q4HRS PRN for ANXIETY / AGITATION, (Reported ) Patient Instructions Patient Instructions > 30 min face to face LITO NAIK MD Jul 25, 2017 09:24
== END 2017-06-30 12:23 | disposition left against medical advice (07) | DRG 311 ==
LOC: ER 08:38 → 2 NORTH 10:55
PROVIDERS: ADMIT Internal Medicine; ATTEND Internal Medicine
DX: I20.9 Angina pectoris, unspecified (principal); F10.10 Alcohol abuse, uncomplicated; F17.210 Nicotine dependence, cigarettes, uncomplicated; F32.9 Major depressive disorder, single episode, unspecified; I10 Essential (primary) hypertension; J44.9 Chronic obstructive pulmonary disease, unspecified; K21.9 Gastro-esophageal reflux disease without esophagitis; Z79.01 Long term (current) use of anticoagulants; Z91.14 Patient's other noncompliance with medication regimen; Z91.19 Patient's noncompliance with other medical treatment and regimen; Z95.2 Presence of prosthetic heart valve; F41.9 Anxiety disorder, unspecified; Z90.49 Acquired absence of other specified parts of digestive tract; Z82.49 Family history of ischemic heart disease and other diseases of the circulatory system; Z53.21 Procedure and treatment not carried out due to patient leaving prior to being seen by health care provider
CPT/HCPCS: 36415; 36600; 71010; 80048; 80053; 80061; 80307; 81001; 82553; 82805; 82962; 83605; 84484; 85025; 85610; 85730; 93005; 94640; 96361; 96374; G0480; J1650; J2060; J7030; J7620; 99285-25; G0479

== ENCOUNTER 2017-10-19 16:11 | Emergency (ER) | payer SELFPAY ==
[2017-10-19 17:03] LABS: ADD MAN DIFF? NO
[2017-10-19 17:05] LABS: BASO # 0.1 x10^3/uL (0.0-0.2); BASO % 1 % (0-3); EOS # 0.2 x10^3/uL (0.0-0.7); EOS % 2 % (0-3); HEMATOCRIT 39.1 % (39.0-53.0); HEMOGLOBIN 13.8 g/dL (13.0-17.5); LYMPH # 1.3 x10^3/uL (1.0-4.8); LYMPH % 17 % (24-48); MEAN CORPUSCULAR HEMOGLOBIN 35 pg (25-35); MEAN CORPUSCULAR HGB CONC 35 g/dL (31-37); MEAN CORPUSCULAR VOLUME 98 fL (79-100); MONO # 0.5 x10^3/uL (0.0-1.1); MONO % 7 % (0-9); NEUT # 5.8 x10^3uL (1.8-7.7); NEUT % 74 % (31-73); PLATELET COUNT 222 x10^3/uL (140-400); RED CELL DISTRIBUTION WIDTH 13.6 % (11.5-14.5); WHITE BLOOD COUNT 7.9 x10^3/uL (4.0-11.0)
[2017-10-19 17:15] LABS: INR 1.1 (0.8-1.1); PROTHROMBIN TIME PATIENT 13.3 SEC (11.7-14.0)
[2017-10-19 17:22] LABS: ANION GAP 8 (6-14); BLOOD UREA NITROGEN 5 mg/dL (8-26); BUN/CREATININE RATIO 6 (6-20); CALCIUM 8.7 mg/dL (8.5-10.1); CARBON DIOXIDE 27 mmol/L (21-32); CHLORIDE 100 mmol/L (98-107); CREATININE 0.8 mg/dL (0.7-1.3); GFR 99.3; GLUCOSE 79 mg/dL (70-99); POTASSIUM 3.7 mmol/L (3.5-5.1); SODIUM 135 mmol/L (136-145)
[2017-10-19 17:26] LABS: TROPONINI 0.054 ng/mL (0.000-0.055)
[2017-10-19 17:27] LABS: ALBUMIN 3.2 g/dL (3.4-5.0); ALBUMIN/GLOBULIN RATIO 0.9 (1.0-1.7); ALK PHOS 82 U/L (46-116); ALT (SGPT) 53 U/L (16-63); AST (SGOT) 72 U/L (15-37); TOTAL BILIRUBIN 0.3 mg/dL (0.2-1.0); TOTAL PROTEIN 6.7 g/dL (6.4-8.2)
== END 2017-10-19 19:08 | disposition home or self-care (01) ==
LOC: ER 16:11
DX: R07.2 Precordial pain (principal); F10.10 Alcohol abuse, uncomplicated; F17.210 Nicotine dependence, cigarettes, uncomplicated; F12.10 Cannabis abuse, uncomplicated; R06.02 Shortness of breath; F41.9 Anxiety disorder, unspecified; I25.2 Old myocardial infarction; Z95.2 Presence of prosthetic heart valve; Z98.61 Coronary angioplasty status; Z91.19 Patient's noncompliance with other medical treatment and regimen; Z90.49 Acquired absence of other specified parts of digestive tract
CPT/HCPCS: 36415; 71045; 80053; 84484; 85025; 85610; 93005; 99285-25

== ENCOUNTER 2019-05-25 15:42 | Emergency (ER) | payer SELFPAY ==
[~2019-05-25] VITALS: Ht 172.7 cm; Wt 68.0 kg
[~2019-05-25 15:42] MED LIST changes: +ALBU2.5V8 INH; -PANT40TA3 PO; +PANT40TA77 PO; -PROAIR HFA8.5 GM INH; -WARF2TAB7 PO; +WARF2TAB96 PO
[2019-05-25 16:56] VITALS: BP 90/53
[2019-05-25] MEDS ORDERED: OXYC1TAB15 PO (18:00)
[2019-05-25] MEDS ORDERED: METH4TAB2 PO (18:00)
[2019-05-25] MEDS ORDERED: ORPH100T PO (18:00)
--- NOTE | 2019-05-25 18:03 | PHYS DOC ---
Past Medical History Past Medical History: Anxiety, MD Additional Past Medical Histor: ENDOCARDITIS ; drug abuse (SHLOMO AVITIA APRN) Past Surgical History: Angioplasty, Cholecystectomy Additional Past Surgical Histo: AORTIC VALVE REPLACEMENT (SHLOMO AVITIA APRN) Alcohol Use: Heavy Drug Use: Marijuana, Methamphetamine (SHLOMO AVITIA APRN) Adult General Chief Complaint Chief Complaint: BACK PAIN - NO INJURY HPI HPI Patient is a 58 year old Male who presents with packing and lifting boxes on Saturday and now has bilateral lower back pain that is sharp and shooting and radiates down the back of both legs to his feet. 05/21 pain. No swelling to lower extremities. Denies numbness or tingling. (SHLOMO AVITIA APRN) Review of Systems Review of Systems Musculoskeletal: low back pain radiating down both legs or joint pain [] All other systems were reviewed and found to be within normal limits, except as documented in this note. (SHLOMO AVITIA APRN) Current Medications Current Medications Current Medications Medications (Trade) Dose Ordered Sig/Angela Start Time Stop Time Status Last Admin Dose Admin Acetaminophen/ Hydrocodone Bitart (Lortab 5/325) 1 tab 1X ONCE 05/25/19 18:15 05/25/19 18:16 DC 05/25/19 18:12 1 TAB Orphenadrine Citrate (Norflex) 60 mg 1X ONCE 05/25/19 18:15 05/25/19 18:16 DC 05/25/19 18:12 60 MG (MEGHANA DELACRUZ MD) Allergies Allergies Allergies Coded Allergies Type Severity Reaction Last Updated Verified No Known Drug Allergies 05/28/14 No (MEGHANA DELACRUZ MD) Physical Exam Physical Exam Constitutional: Well developed, well nourished, no acute distress, non-toxic appearance. [] Skin: Warm, dry, no erythema, no rash. [] Back: low back bilaterally tenderness, no CVA tenderness. [] Extremities: No tenderness, no cyanosis, no clubbing, ROM intact, no edema. [] Neurologic: Alert and oriented X 3, normal motor function, normal sensory function, no focal deficits noted. [] Psychologic: Affect normal, judgement normal, mood normal. [] (SHLOMO AVITIA APRN) Current Patient Data Vital Signs Vital Signs Date Time Temp Pulse Resp B/P (MAP) Pulse Ox O2 Delivery O2 Flow Rate FiO2 05/25/19 16:56 98.8 67 16 90/53 (65) 98 Room Air 98.8 (MEGHANA DELACRUZ MD) EKG EKG [] (SHLOMO AVITIA APRN) Radiology/Procedures Radiology/Procedures [] (SHLOMO AVITIA APRN) Course & Med Decision Making Course & Med Decision Making Ambulatory with a slow steady gait. Alert and oriented. Speaks in full clear sentences. Skin, pink and warm and dry. No extremity swelling. Patient states he has had sciatica before but not on both sides. Patient states he does have chronic back problems but never officially diagnosed. I offered to do further work up such as spinal xrays. Patient refuses and states he wants to follow up with a primary care physician. Patient denies coolness of the extremity, color change, calf tenderness, chest pain, soa, dizziness, headache, recent surgery or hospitalization. Patient states he drank beer, smoked marijuana and took ibuprofen but nothing helped his pain. (SHLOMO AVITIA APRN) Dragon Disclaimer Dragon Disclaimer This electronic medical record was generated, in whole or in part, using a voice recognition dictation system. (SHLOMO AVITIA APRN) Attending Signature I have participated in the care of this patient and I have reviewed and agree with all pertinent clinical information above including history, exam, and re commendations. (MEGHANA DELACRUZ MD) Departure Departure Impression: Primary Impression: Sciatic leg pain Additional Impression: Low back pain Disposition: 01 HOME, SELF-CARE Condition: STABLE Referrals: NO PCP (PCP) Patient Instructions: Sciatica, Sciatica with [facility] Additional Instructions: Follow up with a primary care provider. Try using a heating pad. Scripts Orphenadrine Citrate (ORPHENADRINE CITRATE) 100 Mg Tablet.er 1 TAB PO BID, #20 TAB Prov: SHLOMO AVITIA APRN 05/25/19 Oxycodone/Apap 5-325 (PERCOCET 5-325 MG TABLET ) 1 Each Tablet 1 TAB PO PRN Q6HRS PRN for PAIN, #10 TAB 0 Refills Prov: SHLOMO AVITIA APRN 05/25/19 Methylprednisolone (MEDROL) 4 Mg Tab.ds.pk 1 PKG PO UD, #1 PKG Prov: SHLOMO AVITIA APRN 05/25/19 Problem Qualifiers Additional Impression: Low back pain Chronicity: acute Back pain laterality: bilateral Sciatica presence: with sciatica Sciatica laterality: bilateral sciatica Qualified Codes: M54.42 - Lumbago with sciatica, left side; M54.41 - Lumbago with sciatica, right side SHLOMO AVITIA APRN May 25, 2019 18:03 MEGHANA DELACRUZ MD May 27, 2019 18:19
[2019-05-25] MEDS ORDERED: ORPHENADRINE CITRATE 60 MG/2 ML VIAL. IM ONE (18:15)
[2019-05-25] MEDS ORDERED: HYDROcodone/APAP 5/325MG 1 TAB TABLET PO ONE (18:15)
== END 2019-05-25 18:28 | disposition home or self-care (01) ==
LOC: ER 15:42
DX: M54.41 Lumbago with sciatica, right side (principal); F10.20 Alcohol dependence, uncomplicated; Y90.9 Presence of alcohol in blood, level not specified; I25.2 Old myocardial infarction; Z95.5 Presence of coronary angioplasty implant and graft; Z90.49 Acquired absence of other specified parts of digestive tract
CPT/HCPCS: 96372; 99283; J2360

== ENCOUNTER 2019-09-05 10:38 | Emergency (ER) | payer SELFPAY ==
[~2019-09-05] VITALS: Ht 172.7 cm; Wt 150.0 kg
[~2019-09-05 10:38] MED LIST changes: +ASPI-612 PO; +ATOR20TA58 PO; +CARV3.12 PO; +LISI-338 PO; +METH4TAB2 PO; +ORPH100T PO; +OXYC1TAB15 PO
[2019-09-05] MEDS ORDERED: IV NORMAL SALINE 1000ML BAG 1,000 ML IV SCH (11:02)
[2019-09-05] MEDS ORDERED: IPRATRPIUM/ALBUTEROL 0.5/2.5MG 3 ML NEBU. NEB ONE (11:15)
[2019-09-05 11:33] LABS: BILIRUBIN,URINE SMALL (NEG); CLARITY,URINE CLEAR; COLOR,URINE AMBER; NITRITE,URINE NEGATIVE (NEG); PROTEIN,URINE 30 mg/dL (NEG-TRACE)
[2019-09-05 11:41] LABS: AMPHETAMINE/METHAMPHETAMINE NEG (NEG); BARBITURATES NEG (NEG); BENZODIAZEPINES NEG (NEG); CANNABINOIDS POS (NEG); COCAINE NEG (NEG); METHADONE NEG (NEG); OPIATES NEG (NEG); PHENCYCLIDINE NEG (NEG)
--- NOTE | 2019-09-05 11:47 | RAD ---
PORTABLE CHEST 1V History: Generalized weakness, cough and congestion Comparison: October 19, 2017 Findings: 2 AP views of the chest are submitted. There again has been a median sternotomy, again fracture of the second from most superior wire. Heart size is stable, within normal limits. There is no new infiltrate, pleural fluid, or pneumothorax. Impression: 1. No acute radiographic abnormality is identified. Electronically signed by: Ayo Wilson MD (09/05/2019 11:43 AM) [facility]
[2019-09-05 11:58] LABS: SQUAMOUS EPITHELIAL CELL,UR OCC /LPF
[2019-09-05 11:59] LABS: BACTERIA,URINE 0 /HPF (0-FEW); HYALINE CASTS, URINE FEW /HPF; RBC,URINE 0 /HPF (0-2); WBC,URINE OCC /HPF (0-4)
[2019-09-05 12:02] LABS: BASO # 0.1 x10^3/uL (0.0-0.2); BASO % 1 % (0-3); EOS % 0 % (0-3); HEMATOCRIT 48.8 % (39.0-53.0); HEMOGLOBIN 17.4 g/dL (13.0-17.5); LYMPH # 1.2 x10^3/uL (1.0-4.8); LYMPH % 15 % (24-48); MEAN CORPUSCULAR HEMOGLOBIN 34 pg (25-35); MEAN CORPUSCULAR HGB CONC 36 g/dL (31-37); MEAN CORPUSCULAR VOLUME 94 fL (79-100); MONO # 0.6 x10^3/uL (0.0-1.1); MONO % 8 % (0-9); NEUT % 76 % (31-73); PLATELET COUNT 142 x10^3/uL (140-400); RED BLOOD COUNT 5.18 x10^6/uL (4.30-5.70); RED CELL DISTRIBUTION WIDTH 13.9 % (11.5-14.5); WHITE BLOOD COUNT 7.9 x10^3/uL (4.0-11.0)
[2019-09-05 12:10] LABS: CALCIUM 9.1 mg/dL (8.5-10.1); CREATININE 0.9 mg/dL (0.7-1.3); GFR 86.4; MAGNESIUM 1.9 mg/dL (1.8-2.4); POTASSIUM 4.5 mmol/L (3.5-5.1)
[2019-09-05 12:11] LABS: PROTHROMBIN TIME PATIENT 12.6 SEC (11.7-14.0)
[2019-09-05 12:16] LABS: ALBUMIN 3.5 g/dL (3.4-5.0); ALBUMIN/GLOBULIN RATIO 0.9 (1.0-1.7); TOTAL BILIRUBIN 0.5 mg/dL (0.2-1.0); TOTAL PROTEIN 7.2 g/dL (6.4-8.2)
[2019-09-05 12:30] LABS: INFLUENZA A PATIENT NEGATIVE (NEGATIVE); INFLUENZA B PATIENT NEGATIVE (NEGATIVE)
[2019-09-05 12:46] LABS: PLT ESTIMATE ADEQUATE (ADEQUATE)
[2019-09-05] MEDS ORDERED: BENZ100C PO (13:14)
[2019-09-05] MEDS ORDERED: AZIT250T PO (13:14)
[2019-09-05 13:15] VITALS: BP 154/92
--- NOTE | 2019-09-05 13:20 | PHYS DOC ---
Past Medical History Past Medical History: Alcoholism, Anxiety, Hypertension, Other Additional Past Medical Histor: Tremors Past Surgical History: Other Additional Past Surgical Histo: Aortic valve replacement Alcohol Use: Heavy Drug Use: Marijuana Adult General Chief Complaint Chief Complaint: WEAKNESS/GENERALIZED HPI HPI Patient is a 58 year old with history of hypertension anxiety alcoholism who presents with of weakness. Patient ate he had flulike symptom started 1 week ago that improved with [id number] medication but for the last 3 days has generalized weakness and not having appetite and energy hurting all over. Patient states he did not have any fever for the last 3 days and denies chest pain, shortness of breath, focal neuro deficit, nausea and vomiting, sick contact. Patient had recent hospitalization with improvement of his condition. Review of Systems Review of Systems Constitutional: Denies fever or chills [] Eyes: Denies change in visual acuity, redness, or eye pain [] HENT: Denies nasal congestion or sore throat [] Respiratory: Reports cough[] Cardiovascular: No additional information not addressed in HPI [] GI: Denies abdominal pain, nausea, vomiting, bloody stools or diarrhea [] : Denies dysuria or hematuria [] Musculoskeletal: Denies back pain or joint pain [] Integument: Denies rash or skin lesions [] Neurologic: Denies headache, focal weakness or sensory changes [] Endocrine: Denies polyuria or polydipsia [] All other systems were reviewed and found to be within normal limits, except as documented in this note. Current Medications Current Medications Current Medications Medications (Trade) Dose Ordered Sig/Angela Start Time Stop Time Status Last Admin Dose Admin Albuterol/ Ipratropium (Duoneb) 3 ml 1X ONCE 09/05/19 11:15 09/05/19 11:16 DC 09/05/19 11:36 3 ML Sodium Chloride 1,000 ml @ 1,000 mls/hr Q1H 09/05/19 11:02 09/05/19 12:01 DC 09/05/19 11:45 1,000 MLS/HR Allergies Allergies Allergies Coded Allergies Type Severity Reaction Last Updated Verified No Known Drug Allergies 05/28/14 No Physical Exam Physical Exam Constitutional: Well developed, well nourished, mild distress, non-toxic appearance. [] HENT: Normocephalic, atraumatic, bilateral external ears normal, oropharynx dry, no oral exudates, nose normal. [] Eyes: PERRLA, EOMI, conjunctiva normal, no discharge. [] Neck: Normal range of motion, no tenderness, supple, no stridor. [] Cardiovascular:Heart rate regular rhythm, no murmur [] Lungs & Thorax: Bilateral breath sounds clear to auscultation [] Abdomen: Bowel sounds normal, soft, no tenderness, no masses, no pulsatile masses. [] Skin: Warm, dry, no erythema, no rash. [] Back: No tenderness, no CVA tenderness. [] Extremities: No tenderness, no cyanosis, no clubbing, ROM intact, no edema. [] Neurologic: Alert and oriented X 3, normal motor function, normal sensory function, no focal deficits noted. [] Psychologic: Affect normal, judgement normal, mood normal. [] Current Patient Data Vital Signs Vital Signs Date Time Temp Pulse Resp B/P (MAP) Pulse Ox O2 Delivery O2 Flow Rate FiO2 09/05/19 11:36 98 Room Air 09/05/19 11:25 97.6 82 20 137/78 (97) 97.6 Lab Values Laboratory Tests Test 09/05/19 11:20 09/05/19 11:40 Urine Collection Type Unknown Urine Color Maddy Urine Clarity Clear Urine pH 6.0 Urine Specific [place] 1.020 Urine Protein 30 mg/dL (NEG-TRACE) Urine Glucose (UA) Negative mg/dL (NEG) Urine Ketones (Stick) Trace mg/dL (NEG) Urine Blood Negative (NEG) Urine Nitrite Negative (NEG) Urine Bilirubin Small (NEG) Urine Urobilinogen Dipstick 2.0 mg/dL (0.2 mg/dL) Urine Leukocyte Esterase Negative (NEG) Urine RBC 0 /HPF (0-2) Urine WBC Occ /HPF (0-4) Urine Squamous Epithelial Cells Occ /LPF Urine Bacteria 0 /HPF (0-FEW) Urine Hyaline Casts Few /HPF Urine Mucus Slight /LPF Urine Opiates Screen Neg (NEG) Urine Methadone Screen Neg (NEG) Urine Barbiturates Neg (NEG) Urine Phencyclidine Screen Neg (NEG) Urine Amphetamine/Methamphetamine Neg (NEG) Urine Benzodiazepines Screen Neg (NEG) Urine Cocaine Screen Neg (NEG) Urine Cannabinoids Screen Pos (NEG) Urine Ethyl Alcohol Neg (NEG) White Blood Count 7.9 x10^3/uL (4.0-11.0) Red Blood Count 5.18 x10^6/uL (4.30-5.70) Hemoglobin 17.4 g/dL (13.0-17.5) Hematocrit 48.8 % (39.0-53.0) Mean Corpuscular Volume 94 fL (79-100) Mean Corpuscular Hemoglobin 34 pg (25-35) Mean Corpuscular Hemoglobin Concent 36 g/dL (31-37) Red Cell Distribution Width 13.9 % (11.5-14.5) Platelet Count 142 x10^3/uL (140-400) Neutrophils (%) (Auto) 76 % (31-73) H Lymphocytes (%) (Auto) 15 % (24-48) L Monocytes (%) (Auto) 8 % (0-9) Eosinophils (%) (Auto) 0 % (0-3) Basophils (%) (Auto) 1 % (0-3) Neutrophils # (Auto) 6.0 x10^3/uL (1.8-7.7) Lymphocytes # (Auto) 1.2 x10^3/uL (1.0-4.8) Monocytes # (Auto) 0.6 x10^3/uL (0.0-1.1) Eosinophils # (Auto) 0.0 x10^3/uL (0.0-0.7) Basophils # (Auto) 0.1 x10^3/uL (0.0-0.2) Platelet Estimate Adequate (ADEQUATE) Large Platelets Few Giant Platelets Occ Prothrombin Time 12.6 SEC (11.7-14.0) Prothrombin Time INR 1.0 (0.8-1.1) Sodium Level 128 mmol/L (136-145) L Potassium Level 4.5 mmol/L (3.5-5.1) Chloride Level 93 mmol/L (98-107) L Carbon Dioxide Level 25 mmol/L (21-32) Anion Gap 10 (6-14) Blood Urea Nitrogen 14 mg/dL (8-26) Creatinine 0.9 mg/dL (0.7-1.3) Estimated GFR (Cockcroft-Gault) 86.4 BUN/Creatinine Ratio 16 (6-20) Glucose Level 86 mg/dL (70-99) Lactic Acid Level 1.2 mmol/L (0.4-2.0) Calcium Level 9.1 mg/dL (8.5-10.1) Magnesium Level 1.9 mg/dL (1.8-2.4) Total Bilirubin 0.5 mg/dL (0.2-1.0) Aspartate Amino Transferase (AST) 31 U/L (15-37) Alanine Aminotransferase (ALT) 19 U/L (16-63) Alkaline Phosphatase 94 U/L (46-116) Total Protein 7.2 g/dL (6.4-8.2) Albumin 3.5 g/dL (3.4-5.0) Albumin/Globulin Ratio 0.9 (1.0-1.7) L Lipase 118 U/L (73-393) Ethyl Alcohol Level < 10 mg/dL (0-10) Influenza Type A Antigen Negative (NEGATIVE) Influenza Type B Antigen Negative (NEGATIVE) Laboratory Tests 09/05/19 11:40 Laboratory Tests 09/05/19 11:40 EKG EKG EKG interpreted by me. EKG at 11:15 showed normal sinus rhythm at rate of 72, left atrial abnormality, abnormal right superior axis deviation, nonspecific intraventricular block, no acute distress and T wave elevation, unchanged EKG from 08/26/2019. Radiology/Procedures Radiology/Procedures [facility] [address] [place] [address] IMAGING REPORT Signed PATIENT: JOSEPH HYMAN ACCOUNT: [id number] : 1960 LOCATION: ER AGE: 58 SEX: M EXAM STATUS: REG ER ORD. PHYSICIAN: ROSA DRAPER MD REASON: generalized weakness, cough and congestion PROCEDURE: PORTABLE CHEST 1V PORTABLE CHEST 1V History: Generalized weakness, cough and congestion Comparison: October 19, 2017 Findings: 2 AP views of the chest are submitted. There again has been a median sternotomy, again fracture of the second from most superior wire. Heart size is stable, within normal limits. There is no new infiltrate, pleural fluid, or pneumothorax. Impression: 1. No acute radiographic abnormality is identified. Electronically signed by: Quiana Wilkerson MD (09/05/2019 11:43 AM) [facility] DICTATED and SIGNED BY: QUIANA WILKERSON MD DATE: 09/05/19 1143 Course & Med Decision Making Course & Med Decision Making Pertinent Labs and Imaging studies reviewed. (See chart for details) Evaluation of patient in ER showed 58-year-old male patient with complaining of weakness. Patient had unremarkable physical exam. Labs showed sodium of 128 without leukocytosis or elevation of lactic acid. Patient felt better with IV fluid. Plan discharge patient home with diagnosis of hyponatremia and instruction to not drink plenty of plain water and instead plain water drinking Gatorade. I've spoken with the patient and/or caregivers. I've explained the patient's condition, diagnosis and treatment plan based on information available to me at this time. I've answered the patient's and/or caregivers questions and addressed any concerns. The patient and/or caregivers have a good understanding the patient's diagnosis, condition and treatment plan as can be expected at this point. Vital signs have been stabilized. The patient's condition is stable for discharge from the emergency department. The patient will pursue further outpatient evaluation with her primary care provider or other designated consulting physician as outlined in the discharge instructions. Patient and/or caregivers are agreeable to this plan of care and follow-up instructions have been explained in detail. The patient and/or caregivers have received these instructions in written format and expressed understanding of these discharge instructions. The patient and her caregivers are aware that if any significant change in condition or worsening of symptoms should prompt him to immediately return to this of the closest emergency department. If an emergent department is not readily available I would encourage him to call 911. Suad Disclaimer Dragon Disclaimer This electronic medical record was generated, in whole or in part, using a voice recognition dictation system. Departure Departure Impression: Primary Impression: Hyponatremia Additional Impressions: Generalized weakness Marijuana abuse Acute bronchitis Disposition: HOME, SELF-CARE (at 1312) Condition: IMPROVED Referrals: NO PCP (PCP) Patient Instructions: Acute Bronchitis, Dilutional Hyponatremia Additional Instructions: Drink plenty of Gatorade Follow-up with your primary care physician in 3-5 days Return to ER if not getting better Scripts Azithromycin (ZITHROMAX) 250 Mg Tablet 250 MG PO as directed for ANTI-BIOTIC, #6 TAB 0 Refills Take 2 PO x 1 days Then take 1 PO q 24 hour for the next 4 days Prov: ROSA DRAPER MD 09/05/19 Benzonatate (TESSALON PERLE) 100 Mg Capsule 1 CAP PO TID for cough, #21 CAP Prov: RSOA DRAPER MD 09/05/19 Problem Qualifiers Additional Impressions: Acute bronchitis Bronchitis organism: unspecified organism Qualified Codes: J20.9 - Acute bronchitis, unspecified ROSA DRAPER MD Sep 05, 2019 13:20
--- NOTE | 2019-09-06 16:46 | EKG ---
[facility] [address] [place] [address] Test Date: 2019-09-05 Test Time: 11:15:47 Pat Name: JOSEPH HYMAN Department: Room: Gender: Hooker Off: : 1960 Requested By: ROSA DRAPER Order Number: [id number] Reading MD: Measurements Intervals [place] Rate: 71 P: 69 SD: 146 QRS: -97 QRSD: 136 T: 78 QT: 442 QTc: 485 Interpretive Statements SINUS RHYTHM LEFT ATRIAL ABNORMALITY ABNORMAL RIGHT SUPERIOR AXIS DEVIATION S1,S2,S3 PATTERN NON SPECIFIC INTRAVENTRICULAR BLOCK QRS(T) CONTOUR ABNORMALITY CONSISTENT WITH ANTEROSEPTAL INFARCT AGE UNDETERMINED ABNORMAL ECG No previous ECG available for comparison
== END 2019-09-05 13:31 | disposition home or self-care (01) ==
LOC: ER 10:38
DX: J20.9 Acute bronchitis, unspecified (principal); E87.1 Hypo-osmolality and hyponatremia; R53.1 Weakness; F41.9 Anxiety disorder, unspecified; I10 Essential (primary) hypertension; F10.10 Alcohol abuse, uncomplicated; F12.90 Cannabis use, unspecified, uncomplicated; Z98.890 Other specified postprocedural states
CPT/HCPCS: 36415; 71045; 80053; 80307; 81001; 83605; 83690; 83735; 85025; 85610; 87040; 87804; 93005; 94640; 99285; G0480; J7030; J7620

== ENCOUNTER 2020-02-22 15:17 | Inpatient (IN) | payer SELFPAY ==
[~2020-02-22] VITALS: Ht 172.7 cm; Wt 59.1 kg
[~2020-02-22 15:17] MED LIST changes: +AZIT250T PO; +BENZ100C PO
--- NOTE | 2020-02-22 15:38 | PHYS DOC ---
Past Medical History Past Medical History: Alcoholism, Anxiety, Hypertension, Other Additional Past Medical Histor: Tremors (SHLOMO AVITIA [employer]) Past Surgical History: Other Additional Past Surgical Histo: Aortic valve replacement (SHLOMO AVITIA [employer]) Smoking Status: Current Every Day Smoker Alcohol Use: Heavy Drug Use: Marijuana (SHLOMO AVITIA [employer]) General Adult EDM: Chief Complaint: LOWER EXT PAIN HPI: HPI: Patient is a 59 year old male who presents with states for the last 2 weeks he has had right knee pain that radiates down the back of his calf into his foot. He states also the right foot will turn cold sometimes. He denies skin color change. He denies any numbness or tingling. He denies any swelling. He also states that he is getting a lot of cramps in his right calf. He states it is worse when he is up and walking. States he supposed to be taking Coumadin but he is not been on any kind of blood thinner for quite some time he states. While I was examining the patient he did begin having a spasm in his calf that I could actually feel. He states these come and go. He states he gets to the p oint especially when he is up and walking that he has just just sit down because of the pain. Rates his pain currently an 8 out of 10. When looking back in the patient's chart he does have a history of alcoholism of which he did not state to me. States he has been trying to stay hydrated. He has a history of hypertension, aortic valve replacement, smoker, alcoholism, anxiety, tremors. Denies chest pain, shortness of air, numbness or tingling, headache, dizziness, vision changes, focal weakness, abdominal pain, nausea, vomiting, diarrhea, fever, cough. (SHLOMO AVITIA [employer]) Review of Systems: Review of Systems: Constitutional: Denies fever or chills. [] Eyes: Denies change in visual acuity. [] HENT: Denies nasal congestion or sore throat. [] Respiratory: Denies cough or shortness of breath. [] Cardiovascular: Denies chest pain or edema. [] GI: Denies abdominal pain, nausea, vomiting, bloody stools or diarrhea. [] : Denies dysuria. [] Musculoskeletal: Denies back pain. Right knee joint pain. Right calf and foot pain. Right Calf spasms. [] Integument: Denies rash. [] Neurologic: Denies headache, focal weakness or sensory changes. States right foot will go cold at times. [] Endocrine: Denies polyuria or polydipsia. [] Lymphatic: Denies swollen glands. [] Psychiatric: Denies depression or anxiety. [] ([facility] [[email or web address]) Heart Score: Risk Factors: Risk Factors: DM, Current or recent (<one month) smoker, HTN, HLP, family history of CAD, obesity. Risk Scores: Score 0 - 3: 2.5% MACE over next 6 weeks - Discharge Home Score 4 - 6: 20.3% MACE over next 6 weeks - Admit for Clinical Observation Score 7 - 10: 72.7% MACE over next 6 weeks - Early Invasive Strategies ([facility] [[email or web address]) Allergies: Allergies: Allergies Coded Allergies Type Severity Reaction Last Updated Verified No Known Drug Allergies 05/28/14 No ([facility] [[email or web address]) Physical Exam: PE: Constitutional: Well developed, well nourished, no acute distress, non-toxic appearance. [] HENT: Normocephalic, atraumatic, bilateral external ears normal, oropharynx moist, no oral exudates, nose normal. [] Eyes: PERRLA, EOMI, conjunctiva normal, no discharge. [] Neck: Normal range of motion, no tenderness, supple, no stridor. [] Cardiovascular:Heart rate regular rhythm, no murmur [] Lungs & Thorax: Bilateral breath sounds clear to auscultation [] Abdomen: Bowel sounds normal, soft, no tenderness, no masses, no pulsatile masses. [] Skin: Warm, dry, no erythema, no rash. [] Back: No tenderness, no CVA tenderness. [] Extremities: No tenderness, no cyanosis, no clubbing, ROM intact, no edema. [] Neurologic: Alert and oriented X 3, normal motor function, normal sensory function, no focal deficits noted. [] Psychologic: Affect normal, judgement normal, mood normal. Normal physical exam [] ([facility] [[email or web address]) EKG: EKG: [][address] Hernandez as right bundle branch block with normal saline with occasional PVCs, ST depression in V4 to V6 no ST elevation compared with EKG from 09/05/[address] V4 through V5 but more prominent today. (SHLOMO AVITIA APRN) Radiology/Procedures: Radiology/Procedures: [] Impression: [facility] [address] [place] [address] IMAGING REPORT Signed PATIENT: JOSEPH HYMAN ACCOUNT: [id number] : 1960 LOCATION: ER AGE: 59 SEX: M EXAM STATUS: REG ER ORD. PHYSICIAN: SHLOMO AVITIA APRN REASON: pain in calf, states foot goes cold PROCEDURE: DUPLEX LOWER EX ARTERIAL RIGHT Right lower extremity arterial ultrasound History:Right calf pain, cold foot Findings: Multiple grayscale, color, and duplex spectral analysis sonographic images were acquired of the right lower extremity arteries. There is occlusion throughout the right superficial femoral artery, some reconstitution at the level of the popliteal artery and runoff vessels although abnormal monophasic waveforms. There is also monophasic waveform of the proximal right profunda femoris artery, biphasic waveform of the right common femoral artery. There is plaque of the right common femoral artery. Velocities in cm/sec: Common femoral artery 119 Profunda femoris artery 74 Proximal SFA occluded Mid SFA occluded Distal SFA occluded Popliteal artery 30 Posterior tibial artery 14 proximally and 12 distally Peroneal artery not seen Anterior tibial artery 14 Dorsalis pedis artery 15 Impression: 1. There is occlusion throughout the right superficial femoral artery, some reconstitution of minimal flow in the popliteal artery and runoff vessels. Critical results were discussed with SHLOMO AVITIA at 02/22/2020 4:40 PM. Electronically signed by: Quiana Wilkerson MD (02/22/2020 4:41 PM) [id number] DICTATED and SIGNED BY: QUIANA WILKERSON MD DATE: 02/22/20 1641 [facility] [address] [place] [address] IMAGING REPORT Signed PATIENT: JOSEPH HYMAN ACCOUNT: [id number] : 1960 LOCATION: ER AGE: 59 SEX: M EXAM STATUS: REG ER ORD. PHYSICIAN: SHLOMO AVITIA APRN REASON: pain in calf, states foot goes cold PROCEDURE: VENOUS LOWER EXTREMITY RIGHT Right lower extremity venous doppler ultrasound History: Calf pain, cold sensation of the foot Comparison: None Findings: Multiple grayscale, color, and duplex spectral analysis sonographic images were acquired of the right lower extremity veins to evaluate for the presence of DVT. There is normal phasicity. Normal compression, color-flow, and augmentation is demonstrated from the right common femoral to the popliteal veins. There is normal color flow of the proximal greater saphenous and profunda femoris veins. There is normal color flow of segments of the calf veins. There is slower flow demonstrated in the right popliteal vein. Impression: 1. There is no evidence of deep venous thrombosis from the right common femoral to the popliteal veins. There is color flow of the right popliteal vein. Electronically signed by: Quiana Wilkerson MD (02/22/2020 4:37 PM) [id number] DICTATED and SIGNED BY: QUIANA WILKERSON MD DATE: 02/22/20 1637 (SHLOMO AVITIA APRN) Course & Med Decision Making: Course & Med Decision Making Pertinent Labs and Imaging studies reviewed. (See chart for details) Alert and oriented. Speaks in full complete sentences. Ambulatory with a stea dy gait. Full range of motion of all joints and extremities with full strength. Pedal pulses strong and present. No unilateral swelling. No calf tenderness with palpation. Skin is pink warm and dry. Pedal pulses strong and present. No joint swelling. Patient denies any injury. Patient has a superficial right femoral artery occlusion. Patient's potassium is low at 125 and magnesium is low at 1.6. We have ordered magnesium and normal saline for the patient. Have talked Dr. Reed for admission. He states to call vascular surgery to let them know and see if they want to put him on any anticoagulants. Patient is admitted to the hospital per the hospitalist. I have spoken to Dr Tobar with vascular surgery and she states since he was supposed to be on Coumadin to put him on a heparin drip. [] (SHLOMO AVITIA APRN) Dragon Disclaimer: Dragon Disclaimer: This electronic medical record was generated, in whole or in part, using a voice recognition dictation system. (SHLOMO AVITIA APRN) Departure Departure Impression: Primary Impression: Superficial femoral artery occlusion Additional Impression: Magnesium deficiency Disposition: ADMITTED INPATIENT Admitting Physician: DAKOTA (SHLOMO AVITIA APRN) Condition: STABLE Referrals: NO PCP (PCP) Justicifation of Admission Dx: Justifications for Admission: Justification of Admission Dx: Yes Comments: Hyponatremia (SHLOMO AVITIA APRN) Attending Signature Attending Signature I have reviewed the PA/[employer]NA[employer]'s note and plan of care. I was available for consultation as needed during the patient's visit in the emergency department. I agree with the clinical impression, plan, and disposition. (KERVIN HERNANDEZ DO) SHLOMO AVITIA APRN Feb 22, 2020 15:38 KERVIN HERNANDEZ DO Feb 25, 2020 01:15
[2020-02-22 16:01] LABS: BASO % 0 % (0-3); EOS % 0 % (0-3); HEMATOCRIT 40.1 % (39.0-53.0); HEMOGLOBIN 14.4 g/dL (13.0-17.5); LYMPH # 1.2 x10^3/uL (1.0-4.8); LYMPH % 12 % (24-48); MEAN CORPUSCULAR HEMOGLOBIN 33 pg (25-35); MEAN CORPUSCULAR HGB CONC 36 g/dL (31-37); MEAN CORPUSCULAR VOLUME 91 fL (79-100); MONO # 0.5 x10^3/uL (0.0-1.1); MONO % 6 % (0-9); NEUT # 7.7 x10^3/uL (1.8-7.7); NEUT % 81 % (31-73); PLATELET COUNT 204 x10^3/uL (140-400); RED BLOOD COUNT 4.39 x10^6/uL (4.30-5.70); RED CELL DISTRIBUTION WIDTH 13.7 % (11.5-14.5); WHITE BLOOD COUNT 9.4 x10^3/uL (4.0-11.0)
[2020-02-22 16:06] LABS: PROTHROMBIN TIME PATIENT 13.7 SEC (11.7-14.0)
[2020-02-22 16:10] LABS: BILIRUBIN,URINE NEGATIVE (NEG); CLARITY,URINE CLEAR; COLOR,URINE YELLOW; NITRITE,URINE NEGATIVE (NEG); PROTEIN,URINE 30 mg/dL (NEG-TRACE)
[2020-02-22 16:14] LABS: CALCIUM 8.9 mg/dL (8.5-10.1); CREATININE 0.9 mg/dL (0.7-1.3); GFR 86.1; POTASSIUM 4.4 mmol/L (3.5-5.1)
[2020-02-22 16:18] LABS: BARBITURATES NEG (NEG); BENZODIAZEPINES NEG (NEG); CANNABINOIDS POS (NEG); COCAINE NEG (NEG); METHADONE NEG (NEG); OPIATES NEG (NEG); PHENCYCLIDINE NEG (NEG)
[2020-02-22 16:19] LABS: ALBUMIN 3.7 g/dL (3.4-5.0); MAGNESIUM 1.6 mg/dL (1.8-2.4); TOTAL BILIRUBIN 0.5 mg/dL (0.2-1.0); TOTAL PROTEIN 7.3 g/dL (6.4-8.2)
[2020-02-22 16:22] LABS: BACTERIA,URINE 0 /HPF (0-FEW); HYALINE CASTS, URINE FEW /HPF; RBC,URINE 0 /HPF (0-2); WBC,URINE RARE /HPF (0-4)
[2020-02-22 16:26] LABS: AMPHETAMINE/METHAMPHETAMINE NEG (NEG)
--- NOTE | 2020-02-22 16:40 | RAD ---
Right lower extremity venous doppler ultrasound History: Calf pain, cold sensation of the foot Comparison: None Findings: Multiple grayscale, color, and duplex spectral analysis sonographic images were acquired of the right lower extremity veins to evaluate for the presence of DVT. There is normal phasicity. Normal compression, color-flow, and augmentation is demonstrated from the right common femoral to the popliteal veins. There is normal color flow of the proximal greater saphenous and profunda femoris veins. There is normal color flow of segments of the calf veins. There is slower flow demonstrated in the right popliteal vein. Impression: 1. There is no evidence of deep venous thrombosis from the right common femoral to the popliteal veins. There is color flow of the right popliteal vein. Electronically signed by: Ayo Wilson MD (02/22/2020 4:37 PM) [id number]
--- NOTE | 2020-02-22 16:44 | RAD ---
Right lower extremity arterial ultrasound History:Right calf pain, cold foot Findings: Multiple grayscale, color, and duplex spectral analysis sonographic images were acquired of the right lower extremity arteries. There is occlusion throughout the right superficial femoral artery, some reconstitution at the level of the popliteal artery and runoff vessels although abnormal monophasic waveforms. There is also monophasic waveform of the proximal right profunda femoris artery, biphasic waveform of the right common femoral artery. There is plaque of the right common femoral artery. Velocities in cm/sec: Common femoral artery 119 Profunda femoris artery 74 Proximal SFA occluded Mid SFA occluded Distal SFA occluded Popliteal artery 30 Posterior tibial artery 14 proximally and 12 distally Peroneal artery not seen Anterior tibial artery 14 Dorsalis pedis artery 15 Impression: 1. There is occlusion throughout the right superficial femoral artery, some reconstitution of minimal flow in the popliteal artery and runoff vessels. Critical results were discussed with SHLOMO AVITIA at 02/22/2020 4:40 PM. Electronically signed by: Ayo Wilson MD (02/22/2020 4:41 PM) [id number]
[2020-02-22] MEDS ORDERED: ONDANSETRON PF 4 MG/2 ML VIAL. IV PRN ×2 (17:00→17:15)
[2020-02-22] MEDS ORDERED: MAGNESIUM SULFATE 2GM 50 ML IV ONE (17:00)
[2020-02-22] MEDS ORDERED: fentaNYL PF VIAL 100 MCG/2 ML VIAL IVP ONE (17:00)
[2020-02-22] MEDS ORDERED: fentaNYL PF VIAL 100 MCG/2 ML VIAL IV PRN (17:00)
[2020-02-22] MEDS ORDERED: IV NORMAL SALINE 1000ML BAG 1,000 ML IV ONE (17:00)
--- NOTE | 2020-02-22 17:04 | PDOC1 ---
History and Physical Date of Admission Date of Admission DATE: 02/22/20 TIME: 17:02 Identification/Chief Complaint Chief Complaint 59 year old male who presents with states for the last 2 weeks he has had right knee pain that radiates down the back of his calf into his foot. " the right foot will turn cold sometimes". states that he is getting a lot of cramps in his right calf. He states it is worse when he is up and walking. States he supposed to be taking Coumadin but he is not been on any kind of blood thinner for a year. He states he gets to the point especially when he is up and walking that he has just just sit down because of the pain. Rates his pain currently an 8 out of 10. he does have a history of alcoholism but now only about 5 beers a week Past Medical History Past Medical History Past Medical History Past Medical History Past Medical History: Alcoholism, Anxiety, Hypertension, Other Additional Past Medical Histor: Tremors Past Surgical History: Other Additional Past Surgical Histo: Aortic valve replacement Smoking Status: Current Every Day Smoker Alcohol Use: Heavy Drug Use: Marijuana FHX COPD Cardiovascular: HTN, Other Pulmonary: COPD CENTRAL NERVOUS SYSTEM: Other GI: GERD Heme/Onc: No pertinent hx Hepatobiliary: No pertinent hx Psych: Anxiety, Depression Musculoskeletal: Osteoarthritis Rheumatologic: No pertinent hx Infectious disease: No pertinent hx Renal/: No pertinent hx Endocrine: No pertinent hx Past Surgical History Past Surgical History: Cholecystectomy Family History Family History fhx htn Cardiovascular: HTN, Other (endocarditis with aortic valve replacement ) Pulmonary: COPD CENTRAL NERVOUS SYSTEM: Other GI: GERD Heme/Onc: No pertinent hx Hepatobiliary: No pertinent hx Psych: Anxiety, Depression Musculoskeletal: Osteoarthritis Rheumatologic: No pertinent hx Infectious disease: No pertinent hx Renal/: No pertinent hx Endocrine: No pertinent hx Past Surgical History Past Surgical History: Cholecystectomy Family History Family History: Heart Disease, High Cholestrol Social History Smoke: <1 pack per day ALCOHOL: heavy Drugs: Marijuana Family History: Heart Disease, High Cholestrol Social History Smoke: No ALCOHOL: heavy Drugs: Marijuana, Other Current Problem List Problem List Problems Medical Problems: (1) Magnesium deficiency Status: Acute (2) Superficial femoral artery occlusion Status: Acute Current Medications Current Medications Current Medications Sodium Chloride 1,000 ml @ 1,000 mls/hr 1X ONCE IV Last administered on 02/22/20at 16:57; Start 02/22/20 at 17:00; Stop 02/22/20 at 17:59 Magnesium Sulfate 50 ml @ 25 mls/hr 1X ONCE IV Last administered on 02/22/20at 16:58; Start 02/22/20 at 17:00; Stop 02/22/20 at 18:59 Fentanyl Citrate (Fentanyl 2ml Vial) 50 mcg 1X ONCE IVP Last administered on 02/22/20at 16:58; Start 02/22/20 at 17:00; Stop 02/22/20 at 17:01; Status DC Ondansetron HCl (Zofran) 4 mg PRN Q8HRS PRN IV NAUSEA/VOMITING; Start 02/22/20 at 17:00; Stop 02/23/20 at 16:59 Fentanyl Citrate (Fentanyl 2ml Vial) 50 mcg PRN Q1HR PRN IV PAIN; Start 02/22/20 at 17:00; Stop 02/23/20 at 16:59 Active Scripts Active Zithromax (Azithromycin) 250 Mg Tablet 250 Mg PO DIRECTED Take 2 PO x 1 days Then take 1 PO q 24 hour for the next 4 days Tessalon Perle (Benzonatate) 100 Mg Capsule 1 Cap PO TID Aspirin Ec (Aspirin) 81 Mg Tablet.dr 1 Tab PO DAILY 30 Days Lisinopril 5 Mg Tablet 1 Tab PO DAILY 30 Days Coreg (Carvedilol) 3.125 Mg Tablet 3.125 Mg PO BIDWMEALS 30 Days Atorvastatin Calcium 20 Mg Tablet 20 Mg PO QHS 30 Days Orphenadrine Citrate 100 Mg Tablet.er 1 Tab PO BID Medrol (Methylprednisolone) 4 Mg Tab.ds.pk 1 Pkg PO UD Ibuprofen 800 Mg Tablet 800 Mg PO PRN Q6HRS PRN Cyclobenzaprine Hcl 10 Mg Tablet 1 Tab PO TID PRN Proair Hfa Inhaler (Albuterol Sulfate) 8.5 Gm Hfa.aer.ad 1-2 Puff INH PRN Q6HRS PRN with spacer Albuterol Sulfate Neb Soln (Albuterol Sulfate) 2.5 Mg/3 Ml Vial.neb 1 Vial NEB PRN Q4HRS PRN Prednisone 50 Mg Tablet 1 Tab PO DAILY starting tomorrow Protonix (Pantoprazole Sodium) 40 Mg Tablet. 40 Mg PO DAILY Reported Ativan (Lorazepam) 1 Mg Tablet 1 Mg PO DAILY Warfarin Sodium 2 Mg Tablet 2.5 Mg PO DAILY Xanax (Alprazolam) 0.25 Mg Tablet 1 Tab PO DAILY Allergies Allergies: Coded Allergies: No Known Drug Allergies (Unverified , 05/28/14) ROS Review of System Constitutional: Denies fever or chills. [] Eyes: Denies change in visual acuity. [] HENT: Denies nasal congestion or sore throat. [] Respiratory: Denies cough or shortness of breath. [] Cardiovascular: Denies chest pain or edema. [] GI: Denies abdominal pain, nausea, vomiting, bloody stools or diarrhea. [] : Denies dysuria. [] Musculoskeletal: Denies back pain. Right knee joint pain. Right calf and foot pain. Right Calf spasms. [] Integument: Denies rash. [] Neurologic: Denies headache, focal weakness or sensory changes. States right foot will go cold at times. [] Endocrine: Denies polyuria or polydipsia. [] Lymphatic: Denies swollen glands. [] Psychiatric: Denies depression or anxiety. [] 14 pt ros otherwise neg Respiratory: YES: SOB with excertion Skin: Yes Dry Skin Physical Exam Physical Exam Constitutional: Well developed, well nourished, no acute distress, non-toxic appearance. [] HENT: Normocephalic, atraumatic, bilateral external ears normal, oropharynx moist, no oral exudates, nose normal. [] Eyes: PERRLA, EOMI, conjunctiva normal, no discharge. [] Neck: Normal range of motion, no tenderness, supple, no stridor. [] Cardiovascular:Heart rate regular rhythm, no murmur [] Lungs & Thorax: Bilateral breath sounds clear to auscultation [] Abdomen: Bowel sounds normal, soft, no tenderness, no masses, no pulsatile masses. [] Skin: Warm, dry, no erythema, no rash. [] Back: No tenderness, no CVA tenderness. [] Extremities: mild right lower leg tenderness, no cyanosis, no clubbing, ROM intact, no edema. [] Neurologic: Alert and oriented X 3, normal motor function, normal sensory function, no focal deficits noted. [] Psychologic: Affect normal, judgment poor mood normal. HEENT: Atraumatic, PERRLA, EOMI, Mucous membr. moist/pink Lungs: Clear to auscultation, Normal air movement Heart: murmurs Breasts: Not examined Abdomen: Normal bowel sounds, Soft Rectal Exam: not examined PELVIC: Examination not indicated Extremities: No cyanosis Neuro: Normal speech, Cranial nerves 3-12 NL Psych/Mental Status: Mental status NL, Mood NL Vitals Vitals Vital Signs Date Time Temp Pulse Resp B/P (MAP) Pulse Ox O2 Delivery O2 Flow Rate FiO2 02/22/20 16:58 16 96 02/22/20 15:39 98.4 88 135/88 (104) Room Air 98.4 Labs Labs Laboratory Tests Test 02/22/20 15:49 02/22/20 16:00 White Blood Count 9.4 x10^3/uL (4.0-11.0) Red Blood Count 4.39 x10^6/uL (4.30-5.70) Hemoglobin 14.4 g/dL (13.0-17.5) Hematocrit 40.1 % (39.0-53.0) Mean Corpuscular Volume 91 fL (79-100) Mean Corpuscular Hemoglobin 33 pg (25-35) Mean Corpuscular Hemoglobin Concent 36 g/dL (31-37) Red Cell Distribution Width 13.7 % (11.5-14.5) Platelet Count 204 x10^3/uL (140-400) Neutrophils (%) (Auto) 81 % (31-73) Lymphocytes (%) (Auto) 12 % (24-48) Monocytes (%) (Auto) 6 % (0-9) Eosinophils (%) (Auto) 0 % (0-3) Basophils (%) (Auto) 0 % (0-3) Neutrophils # (Auto) 7.7 x10^3/uL (1.8-7.7) Lymphocytes # (Auto) 1.2 x10^3/uL (1.0-4.8) Monocytes # (Auto) 0.5 x10^3/uL (0.0-1.1) Eosinophils # (Auto) 0.0 x10^3/uL (0.0-0.7) Basophils # (Auto) 0.0 x10^3/uL (0.0-0.2) Prothrombin Time 13.7 SEC (11.7-14.0) Prothromb Time International Ratio 1.1 (0.8-1.1) Sodium Level 125 mmol/L (136-145) Potassium Level 4.4 mmol/L (3.5-5.1) Chloride Level 91 mmol/L (98-107) Carbon Dioxide Level 25 mmol/L (21-32) Anion Gap 9 (6-14) Blood Urea Nitrogen 7 mg/dL (8-26) Creatinine 0.9 mg/dL (0.7-1.3) Estimated GFR (Cockcroft-Gault) 86.1 BUN/Creatinine Ratio 8 (6-20) Glucose Level 83 mg/dL (70-99) Calcium Level 8.9 mg/dL (8.5-10.1) Magnesium Level 1.6 mg/dL (1.8-2.4) Total Bilirubin 0.5 mg/dL (0.2-1.0) Aspartate Amino Transf (AST/SGOT) 24 U/L (15-37) Alanine Aminotransferase (ALT/SGPT) 18 U/L (16-63) Alkaline Phosphatase 96 U/L (46-116) Troponin I Quantitative 0.041 ng/mL (0.000-0.055) Total Protein 7.3 g/dL (6.4-8.2) Albumin 3.7 g/dL (3.4-5.0) Albumin/Globulin Ratio 1.0 (1.0-1.7) Ethyl Alcohol Level < 10 mg/dL (0-10) Urine Collection Type Void Urine Color Yellow Urine Clarity Clear Urine pH 6.0 (<5.0-8.0) Urine Specific [place] 1.015 (1.000-1.030) Urine Protein 30 mg/dL (NEG-TRACE) Urine Glucose (UA) Negative mg/dL (NEG) Urine Ketones (Stick) Negative mg/dL (NEG) Urine Blood Negative (NEG) Urine Nitrite Negative (NEG) Urine Bilirubin Negative (NEG) Urine Urobilinogen Dipstick 1.0 mg/dL (0.2 mg/dL) Urine Leukocyte Esterase Negative (NEG) Urine RBC 0 /HPF (0-2) Urine WBC Rare /HPF (0-4) Urine Bacteria 0 /HPF (0-FEW) Urine Hyaline Casts Few /HPF Urine Mucus Slight /LPF Urine Opiates Screen Neg (NEG) Urine Methadone Screen Neg (NEG) Urine Barbiturates Neg (NEG) Urine Phencyclidine Screen Neg (NEG) Urine Amphetamine/Methamphetamine Neg (NEG) Urine Benzodiazepines Screen Neg (NEG) Urine Cocaine Screen Neg (NEG) Urine Cannabinoids Screen Pos (NEG) Urine Ethyl Alcohol Neg (NEG) Laboratory Tests Test 02/22/20 15:49 02/22/20 16:00 White Blood Count 9.4 x10^3/uL (4.0-11.0) Red Blood Count 4.39 x10^6/uL (4.30-5.70) Hemoglobin 14.4 g/dL (13.0-17.5) Hematocrit 40.1 % (39.0-53.0) Mean Corpuscular Volume 91 fL (79-100) Mean Corpuscular Hemoglobin 33 pg (25-35) Mean Corpuscular Hemoglobin Concent 36 g/dL (31-37) Red Cell Distribution Width 13.7 % (11.5-14.5) Platelet Count 204 x10^3/uL (140-400) Neutrophils (%) (Auto) 81 % (31-73) Lymphocytes (%) (Auto) 12 % (24-48) Monocytes (%) (Auto) 6 % (0-9) Eosinophils (%) (Auto) 0 % (0-3) Basophils (%) (Auto) 0 % (0-3) Neutrophils # (Auto) 7.7 x10^3/uL (1.8-7.7) Lymphocytes # (Auto) 1.2 x10^3/uL (1.0-4.8) Monocytes # (Auto) 0.5 x10^3/uL (0.0-1.1) Eosinophils # (Auto) 0.0 x10^3/uL (0.0-0.7) Basophils # (Auto) 0.0 x10^3/uL (0.0-0.2) Prothrombin Time 13.7 SEC (11.7-14.0) Prothromb Time International Ratio 1.1 (0.8-1.1) Sodium Level 125 mmol/L (136-145) Potassium Level 4.4 mmol/L (3.5-5.1) Chloride Level 91 mmol/L (98-107) Carbon Dioxide Level 25 mmol/L (21-32) Anion Gap 9 (6-14) Blood Urea Nitrogen 7 mg/dL (8-26) Creatinine 0.9 mg/dL (0.7-1.3) Estimated GFR (Cockcroft-Gault) 86.1 BUN/Creatinine Ratio 8 (6-20) Glucose Level 83 mg/dL (70-99) Calcium Level 8.9 mg/dL (8.5-10.1) Magnesium Level 1.6 mg/dL (1.8-2.4) Total Bilirubin 0.5 mg/dL (0.2-1.0) Aspartate Amino Transf (AST/SGOT) 24 U/L (15-37) Alanine Aminotransferase (ALT/SGPT) 18 U/L (16-63) Alkaline Phosphatase 96 U/L (46-116) Troponin I Quantitative 0.041 ng/mL (0.000-0.055) Total Protein 7.3 g/dL (6.4-8.2) Albumin 3.7 g/dL (3.4-5.0) Albumin/Globulin Ratio 1.0 (1.0-1.7) Ethyl Alcohol Level < 10 mg/dL (0-10) Urine Collection Type Void Urine Color Yellow Urine Clarity Clear Urine pH 6.0 (<5.0-8.0) Urine Specific [place] 1.015 (1.000-1.030) Urine Protein 30 mg/dL (NEG-TRACE) Urine Glucose (UA) Negative mg/dL (NEG) Urine Ketones (Stick) Negative mg/dL (NEG) Urine Blood Negative (NEG) Urine Nitrite Negative (NEG) Urine Bilirubin Negative (NEG) Urine Urobilinogen Dipstick 1.0 mg/dL (0.2 mg/dL) Urine Leukocyte Esterase Negative (NEG) Urine RBC 0 /HPF (0-2) Urine WBC Rare /HPF (0-4) Urine Bacteria 0 /HPF (0-FEW) Urine Hyaline Casts Few /HPF Urine Mucus Slight /LPF Urine Opiates Screen Neg (NEG) Urine Methadone Screen Neg (NEG) Urine Barbiturates Neg (NEG) Urine Phencyclidine Screen Neg (NEG) Urine Amphetamine/Methamphetamine Neg (NEG) Urine Benzodiazepines Screen Neg (NEG) Urine Cocaine Screen Neg (NEG) Urine Cannabinoids Screen Pos (NEG) Urine Ethyl Alcohol Neg (NEG) Images Images Aortic Valve AoV Peak Woo. 214.1cm/s AoV VTI 35.9cm AO Peak GR. 18.3mmHg LVOT Peak Woo. 55.9cm/s LVOT VTI 10.35cm AO Mean GR. 9mmHg AI P 1/2 Time 929ms Mitral Valve MV E Velocity 28.7cm/s MV DECEL TIME 163ms MV A Velocity 37.5cm/s MV E Mean Gr. 0mmHg MV PHT 47ms E/A Ratio 0.8 MVA (PHT) 4.66cm2 TDI E/Lateral E' 7.0 E/Medial E' 8.0 Pulmonary Valve PV Peak Velocity 92.1cm/s PV Peak Grad. 3mmHg Tricuspid Valve TR P. Velocity 207cm/s RAP ESTIMATE 3mmHg TR Peak Gr. 20mmHg RVSP 23mmHg Pulmonary Vein S1 Velocity 46.6cm/s D2 Velocity 28.7cm/s LEFT VENTRICLE The left ventricle is normal size. There is moderate concentric left ventricular hypertrophy. The left ventricular systolic function is mild to moderately diminished. The Ejection Fraction is 35-40%. Abnormal septal motion consistent with post-operative state. Transmitral Doppler flow pattern is Grade I-abnormal relaxation pattern. RIGHT VENTRICLE The right ventricle is normal size. There is normal right ventricular wall thickness. The right ventricular systolic function is normal. ATRIA The left atrium size is normal. The right atrium size is normal. The interatrial septum is intact with no evidence for an atrial septal defect or patent foramen ovale as noted on 2-D or Doppler imaging. AORTIC VALVE Doppler and Color Flow revealed mild aortic regurgitation. There is a mechanical aortic valve prosthesis. MITRAL VALVE The mitral valve is thickened but opens well. There is no evidence of mitral valve prolapse. There is no mitral valve stenosis. Doppler and Color-flow revealed trace mitral regurgitation. TRICUSPID VALVE The tricuspid valve is normal in structure and function. Doppler and Color Flow revealed trace tricuspid regurgitation with an estimated PAP of 23 mmHg. There is no tricuspid valve stenosis. PULMONIC VALVE The pulmonic valve is not well visualized. Doppler and Color Flow revealed no pulmonic valvular regurgitation. GREAT VESSELS The aortic root is normal in size. The IVC is normal in size and collapses >50% with inspiration. PERICARDIAL EFFUSION There is no evidence of significant pericardial effusion. Critical Notification Critical Value: No <Conclusion> The left ventricular systolic function is mild to moderately diminished. The Ejection Fraction is 35-40%. Abnormal septal motion consistent with post-operative state. Transmitral Doppler flow pattern is Grade I-abnormal relaxation pattern. Mechanical aortic valve prosthesis appears well seated and functioning well. MG 9 mm Hg. Mild aortic regurgitation. Trace mitral regurgitation. Trace tricuspid regurgitation with an estimated PAP of 23 mmHg. There is no evidence of significant pericardial effusion. Signed by : Lali Pineda, Electronically Approved : 08/27/2019 16:45:58 DICTATED and SIGNED BY: LALI PINEDA MD DATE: 08/27/19 1323 History: Calf pain, cold sensation of the foot Comparison: None Findings: Multiple grayscale, color, and duplex spectral analysis sonographic images were acquired of the right lower extremity veins to evaluate for the presence of DVT. There is normal phasicity. Normal compression, color-flow, and augmentation is demonstrated from the right common femoral to the popliteal veins. There is normal color flow of the proximal greater saphenous and profunda femoris veins. There is normal color flow of segments of the calf veins. There is slower flow demonstrated in the right popliteal vein. Impression: 1. There is no evidence of deep venous thrombosis from the right common femoral to the popliteal veins. There is color flow of the right popliteal vein. Electronically signed by: Quiana Wilkerson MD (02/22/2020 4:37 PM) [id number] DICTATED and SIGNED BY: QUIANA WILKERSON MD DATE: 02/22/20 1637 Right lower extremity arterial ultrasound History:Right calf pain, cold foot Findings: Multiple grayscale, color, and duplex spectral analysis sonographic images were acquired of the right lower extremity arteries. There is occlusion throughout the right superficial femoral artery, some reconstitution at the level of the popliteal artery and runoff vessels although abnormal monophasic waveforms. There is also monophasic waveform of the proximal right profunda femoris artery, biphasic waveform of the right common femoral artery. There is plaque of the right common femoral artery. Velocities in cm/sec: Common femoral artery 119 Profunda femoris artery 74 Proximal SFA occluded Mid SFA occluded Distal SFA occluded Popliteal artery 30 Posterior tibial artery 14 proximally and 12 distally Peroneal artery not seen Anterior tibial artery 14 Dorsalis pedis artery 15 Impression: 1. There is occlusion throughout the right superficial femoral artery, some reconstitution of minimal flow in the popliteal artery and runoff vessels. Critical results were discussed with SHLOMO AVITIA at 02/22/2020 4:40 PM. Electronically signed by: Quiana Wilkerson MD (02/22/2020 4:41 PM) [id number] DICTATED and SIGNED BY: QUIANA WILKERSON MD DATE: 02/22/20 164 VTE Prophylaxis Ordered VTE Prophylaxis Devices: No VTE Pharmacological Prophylaxi: Yes Assessment/Plan Assessment/Plan Impression: 1. Acute arterial occlusion throughout the right superficial femoral artery, some reconstitution of minimal flow in the popliteal artery and runoff vessels. 2. Possible HX seizure, alcohol related 3. NONCOMPLIANCE with medications 4. Hypertension; controlled 5. Hyperlipidemia; 6. H/o endocarditis; s/p mechanical aortic valve replacement 20 yrs ago [facility] . Was previously on warfarin, but has not taken in > 2 years. Aortic valve appeared to be well seated and functioning well per TTE. 7. Abnormal EKG; noted with RBBB and anterolateral ST depression, which is unchanged from previous EKG 05/2018. EKG 05/2014 at with LVH, RBBB and ST changes on V4-[address] depression with ST elevation in V1. echo 08/31 Ejection Fraction is 35-40%. Abnormal septal motion consistent with post-operative state. Mechanical aortic valve prosthesis appears well seated and functioning well. MG 9 mm Hg.Mild aortic regurgitation. Trace mitral regurgitation. Trace tricuspid regurgitation with an estimated PAP of 23 mmHg. 8. Alcoholism; now 5 beers a week 9. Hypomagnesemia 10 Tobaccoism, marijuana use; discussed/encouraged cessation 11. Chronic systolic CHF with possible NICM with h/o alcoholoism, ICM // Echo with LVEF 35-40%. 12. HYPONATREMIA will follow plan ADMIT VASCULAR Recommends an angiogram with IR 02/22 of the right leg with possible intervention, CONSULT VASCULAR SURGERY consult cardiology heparin drip protocol CIWA PROTOCOL 78 min pt exam, chart review, > 50% of time spent with exam, chart review, pt care coordination Justicifation of Admission Dx: Justifications for Admission: Justification of Admission Dx: Yes ANJELICA GAMBOA MD Feb 22, 2020 17:04
[2020-02-22] MEDS ORDERED: 0.9 % SODIUM CHLORIDE 10 ML DISP.SYRIN. IV PRN (17:15)
[2020-02-22] MEDS ORDERED: MAG HYDROX/ALUMINUM HYD/SIMETH 30 ML ORAL.SUSP PO PRN (17:15)
[2020-02-22] MEDS ORDERED: HEPARIN for IV BOLUS 10,000 UNIT/10 ML VIAL. IV ONE (17:15)
[2020-02-22] MEDS ORDERED: DOCUSATE SODIUM 100 MG CAPSULE. PO PRN (17:15)
[2020-02-22] MEDS ORDERED: ASPIRIN 325 MG TABLET PO ONE (17:15)
[2020-02-22] MEDS ORDERED: SODIUM PHOSPHATES 19/7GM 133 ML ENEMA. PR PRN (17:15)
[2020-02-22] MEDS ORDERED: guaiFENesin ORAL 200 MG/10 ML LIQUID. PO PRN (17:15)
[2020-02-22] MEDS: IV NORMAL SALINE 1000ML BAG 1,000 ML IV SCH (17:15)
[2020-02-22] MEDS ORDERED: HALOPERIDOL LACTATE 5 MG/ML VIAL. IVP PRN (17:30)
[2020-02-22] MEDS ORDERED: LORazepam 1 MG TABLET PO PRN (17:30)
[2020-02-22] MEDS ORDERED: POTASSIUM BICARB 20 MEQ EFFERVESCENT TABLET. FT ONE (17:30)
--- NOTE | 2020-02-22 17:39 | PDOC ---
Provider Note Provider Note Vascular Surgery Consult dictated 59 year old male with 3 week history of right leg claudication. No signs of acute ischemia on exam. Duplex scan shows an occluded right SFA. Recommend an angiogram with IR tomorrow of the right leg with possible intervention, I did discuss the possible need for bypass operation if percutaneous intervention is not amenable. He will be started on a heparin drip for his heart valve, has been noncompliant and off his coumadin for over a year. Justicifation of Admission Dx: Justifications for Admission: Justification of Admission Dx: Yes YUE UREÑA MD Feb 22, 2020 17:38
[2020-02-22] MEDS: HEPARIN 25,000UTS/250ML PREMIX 250 ML IV PRN ×3 (17:44→23:21)
[2020-02-22] MEDS: POTASSIUM BICARB 20 MEQ EFFERVESCENT TABLET. PO SCH ×2 (18:00→22:00)
[2020-02-22] MEDS: MAGNESIUM SULFATE 2GM 50 ML IV SCH (18:00)
[2020-02-22] MEDS ORDERED: ALBUTEROL SULFATE 2.5 MG/3 ML NEBU. NEB PRN (18:00)
[2020-02-22] MEDS ORDERED: IPRATRPIUM/ALBUTEROL 0.5/2.5MG 3 ML NEBU. NEB SCH (20:00)
[2020-02-22 20:30] VITALS: BP 129/77
[2020-02-22] MEDS: POTASSIUM & SODIUM PHOSPHATES PACKET. PO SCH (21:00)
[2020-02-22] MEDS ORDERED: ACET500T68 PO (21:13)
[2020-02-22] MEDS ORDERED: IBUP200C9 PO (21:13)
[2020-02-22] MEDS ORDERED: ACETAMINOPHEN 500 MG TABLET PO PRN (22:30)
[2020-02-22 22:51] VITALS: BP 110/72
[2020-02-22] MEDS: NICOTINE 21MG PATCH. TD SCH (23:14)
[2020-02-22] MEDS: ACETAMINOPHEN 325 MG TABLET. PO PRN (23:15)
[2020-02-23] VITALS (17 sets, daily range): BP systolic 121–164; BP diastolic 71–96
--- NOTE | 2020-02-23 00:36 | CONS ---
DATE OF CONSULTATION: 02/22/2020 CHIEF COMPLAINT: Right leg pain while walking. HISTORY OF PRESENT ILLNESS: The patient is a 59-year-old male who presents to the Emergency Department with right leg pain. He states that his right leg pain started at least 3 weeks ago. It was fairly sudden onset. He has pain during ambulation in his right calf. He can only walk approximately 1-2 blocks before getting pain in his right calf, which makes him stop and rest. Resting does make this pain resolved. He does have chronic symptoms of right ankle pain and bilateral numbness in his feet. He feels like this is at baseline and that numbness is not worse than it has been previously. Prior to 3 weeks ago, he was able to walk longer distances without pain in the legs. He is fairly noncompliant with his medical care. He has a history of an aortic valve replacement and is supposed to be on chronic anticoagulation with Coumadin; however, he has not taken this in over a year. He states he also has high blood pressure, but has not taken medication in some time. He reports no pain in his left calf during ambulation. He reports no history of strokes. He reports no chest pain or shortness of breath. REVIEW OF SYSTEMS: A 10-point review of systems was performed, which is otherwise negative besides what is mentioned in history of present illness. PAST MEDICAL HISTORY: Includes: 1. Hypertension. 2. Aortic valve replacement. 3. History of endocarditis. 4. Alcohol abuse. PAST SURGICAL HISTORY: Includes cholecystectomy and aortic valve replacement. SOCIAL HISTORY: He smokes on a daily basis and has done so for many years, he does drink heavy alcohol intake, and he uses marijuana. ALLERGIES: No known drug allergies. FAMILY HISTORY: Includes hypertension, COPD, and acid reflux. PHYSICAL EXAMINATION: GENERAL: The patient is awake and alert, currently in no apparent distress. VITAL SIGNS: He is afebrile and his vital signs are stable. NECK: Supple with no carotid bruits. HEART: Regular rate and rhythm without murmurs. LUNGS: He has bilateral breath sounds to auscultation. ABDOMEN: Soft, thin, nondistended, and nontender. EXTREMITIES: His bilateral lower extremities are warm with no edema in the lower extremities, no tissue breakdown in his feet or toes. His right foot is warm and his toes are pink with good capillary refill and intact normal motor and sensory function. The left foot is warm and pink with good capillary refill and intact motor and sensory function. On vascular examination, he has bilateral palpable femoral pulses. The right foot has no palpable pulses. There is very monophasic flow in the dorsalis pedis location. His left foot has a palpable dorsalis pedis pulse and dopplerable posterior tibial signal. He has bilateral palpable radial pulses. NEUROLOGIC: He is awake and alert, oriented x 3, moving all 4 extremities with good strength, normal speech, and no gross neurologic deficits. ASSESSMENT: The patient is a 59-year-old male with a history of tobacco abuse, hypertension, and aortic valve replacement. He has developed disabling claudication symptoms in his right leg over the past 3 weeks. He has no ischemic rest pain, and he has no motor or sensory loss associated with ischemia. He has no signs of acute ischemia in his right leg. He is asymptomatic in the left leg despite chronic numbness in his feet, which sounds more related to neuropathy. Arterial duplex scan of the right leg shows occlusion of the right superficial femoral artery with reconstruction of the popliteal and tibial vessels with monophasic flow. He also has not been compliant on his medical care. He has an aortic valve replacement for which he is supposed to be on Coumadin, but has not been on it for over a year. He also has heavy alcohol and tobacco abuse on daily basis. PLAN: For the patient's history of disabling claudication over the past 3 weeks, this is likely secondary to significant peripheral arterial disease. Duplex scan shows complete occlusion of the superficial femoral artery. I recommend an angiogram of his right lower extremity with possible intervention if amenable, I also discussed the possibility for need for a bypass operation to improve his circulation if angioplasty and stenting is not feasible. He will be started on heparin drip since he is supposed to be on chronic anticoagulation with Coumadin. We will order the angiogram with Interventional Radiology tomorrow. I do not feel that he has any signs of acute ischemia requiring urgent surgery. I counseled him on the importance of stopping smoking and drinking alcohol. YUE UREÑA MD DR: JAMEEL/tayler JOB#: [id number] / [id number]
--- NOTE | 2020-02-23 07:55 | EKG ---
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
[2020-02-23] MEDS: POTASSIUM & SODIUM PHOSPHATES PACKET. PO SCH (09:00)
[2020-02-23] MEDS: NICOTINE 21MG PATCH. TD SCH (09:01)
[2020-02-23] MEDS: IV NORMAL SALINE 1000ML BAG 1,000 ML IV SCH ×2 (09:02→21:33)
[2020-02-23] MEDS: HEPARIN for IV BOLUS 10,000 UNIT/10 ML VIAL. IV PRN (09:12)
--- NOTE | 2020-02-23 10:02 | PDOC ---
PROGRESS NOTES Subjective Subjective I am fine. I can move my right foot but it hurts when I do. Patient received a phone call while I was at the bedside to examine him. He spoke on the phone during my entire exam. The patient is a 59-year-old male who presented to the Emergency Department with right leg pain. He reported that his right leg pain started at least 3 weeks ago. It was fairly sudden onset. He has pain during ambulation in his right calf. Prior to 3 weeks ago, he was able to walk longer distances without pain in the legs. He is fairly noncompliant with his medical care. He has a history of an aortic valve replacement and is supposed to be on chronic anticoagulation with Coumadin; however, he has not taken this in over a year. He stated he also has high blood pressure, but has not taken medication in some time. He reported no pain in his left calf during ambulation. He currently has no complaints of chest pain or shortness of breath, no fever and chills, no right foot rest pain. He is due to have an aortogram with possible right leg intervention today. Objective Objective Vital Signs Date Time Temp Pulse Resp B/P (MAP) Pulse Ox O2 Delivery O2 Flow Rate FiO2 02/23/20 07:00 97.8 68 18 135/83 (100) 93 Room Air 97.8 Intake and Output 02/23/20 07:00 Intake Total 1690 ml Output Total 575 ml Balance 1115 ml Intake Oral 640 ml IV Total 1050 ml Output Urine Total 575 ml Physical Exam Physical Exam He is alert and oriented. No acute distress. Vital signs stable. He has an easily palpable right femoral pulse. He has Doppler flow to his right foot, both dorsalis pedis and posterior tibial locations. His left foot dorsalis pedis pulse is 2+. His feet bilaterally are warm. He can plantarflex and dorsiflex both feet and wiggle his toes. Heart: Regular rate Extremities: No cyanosis, No edema General: Alert, Cooperative, No acute distress HEENT: Atraumatic Lungs: Normal air movement Neuro: Normal speech Psych/Mental Status: Mood NL Skin: No rashes, No breakdown Assessment Assessment Problems Medical Problems: (1) Magnesium deficiency Status: Acute (2) Superficial femoral artery occlusion Status: Acute Plan Plan of Care 59-year-old male with a history of valve replacement surgery who has a 3-week history of right leg claudication symptoms. He has an excellent right femoral pulse. He has Doppler pulses in his right foot. He is able to plantarflex and dorsiflex both feet. He is currently on a heparin drip because of his heart valve. Plan: He should be started on a baby aspirin daily. He is to have an arteriogram with possible right leg intervention today in interventional radiology. Follow-up after we receive results from that intervention. If he should need bypass surgery, he will need a vein mapping of his right greater and lesser saphenous vein. Comment Review of Relevant I have reviewed the following items ochoa (where applicable) has been applied. Labs Laboratory Tests Test 02/22/20 15:49 02/22/20 16:00 02/22/20 17:35 02/22/20 23:45 White Blood Count 9.4 x10^3/uL (4.0-11.0) Red Blood Count 4.39 x10^6/uL (4.30-5.70) Hemoglobin 14.4 g/dL (13.0-17.5) Hematocrit 40.1 % (39.0-53.0) Mean Corpuscular Volume 91 fL (79-100) Mean Corpuscular Hemoglobin 33 pg (25-35) Mean Corpuscular Hemoglobin Concent 36 g/dL (31-37) Red Cell Distribution Width 13.7 % (11.5-14.5) Platelet Count 204 x10^3/uL (140-400) Neutrophils (%) (Auto) 81 % (31-73) Lymphocytes (%) (Auto) 12 % (24-48) Monocytes (%) (Auto) 6 % (0-9) Eosinophils (%) (Auto) 0 % (0-3) Basophils (%) (Auto) 0 % (0-3) Neutrophils # (Auto) 7.7 x10^3/uL (1.8-7.7) Lymphocytes # (Auto) 1.2 x10^3/uL (1.0-4.8) Monocytes # (Auto) 0.5 x10^3/uL (0.0-1.1) Eosinophils # (Auto) 0.0 x10^3/uL (0.0-0.7) Basophils # (Auto) 0.0 x10^3/uL (0.0-0.2) Prothrombin Time 13.7 SEC (11.7-14.0) Prothromb Time International Ratio 1.1 (0.8-1.1) Sodium Level 125 mmol/L (136-145) Potassium Level 4.4 mmol/L (3.5-5.1) Chloride Level 91 mmol/L (98-107) Carbon Dioxide Level 25 mmol/L (21-32) Anion Gap 9 (6-14) Blood Urea Nitrogen 7 mg/dL (8-26) Creatinine 0.9 mg/dL (0.7-1.3) Estimated GFR (Cockcroft-Gault) 86.1 BUN/Creatinine Ratio 8 (6-20) Glucose Level 83 mg/dL (70-99) Calcium Level 8.9 mg/dL (8.5-10.1) Magnesium Level 1.6 mg/dL (1.8-2.4) Total Bilirubin 0.5 mg/dL (0.2-1.0) Aspartate Amino Transf (AST/SGOT) 24 U/L (15-37) Alanine Aminotransferase (ALT/SGPT) 18 U/L (16-63) Alkaline Phosphatase 96 U/L (46-116) Troponin I Quantitative 0.041 ng/mL (0.000-0.055) Total Protein 7.3 g/dL (6.4-8.2) Albumin 3.7 g/dL (3.4-5.0) Albumin/Globulin Ratio 1.0 (1.0-1.7) Ethyl Alcohol Level < 10 mg/dL (0-10) Urine Collection Type Void Urine Color Yellow Urine Clarity Clear Urine pH 6.0 (<5.0-8.0) Urine Specific [place] 1.015 (1.000-1.030) Urine Protein 30 mg/dL (NEG-TRACE) Urine Glucose (UA) Negative mg/dL (NEG) Urine Ketones (Stick) Negative mg/dL (NEG) Urine Blood Negative (NEG) Urine Nitrite Negative (NEG) Urine Bilirubin Negative (NEG) Urine Urobilinogen Dipstick 1.0 mg/dL (0.2 mg/dL) Urine Leukocyte Esterase Negative (NEG) Urine RBC 0 /HPF (0-2) Urine WBC Rare /HPF (0-4) Urine Bacteria 0 /HPF (0-FEW) Urine Hyaline Casts Few /HPF Urine Mucus Slight /LPF Urine Random Creatinine 189.7 mg/dL (Not Establ.) Urine Random Sodium 24 mmol/L (Not Estab.) Urine Opiates Screen Neg (NEG) Urine Methadone Screen Neg (NEG) Urine Barbiturates Neg (NEG) Urine Phencyclidine Screen Neg (NEG) Urine Amphetamine/Methamphetamine Neg (NEG) Urine Benzodiazepines Screen Neg (NEG) Urine Cocaine Screen Neg (NEG) Urine Cannabinoids Screen Pos (NEG) Urine Ethyl Alcohol Neg (NEG) Activated Partial Thromboplast Time 34 SEC (24-38) Heparin Anti-Xa Act, Unfractionated 0.40 IU/mL (0.30-0.70) Test 02/23/20 06:45 Phosphorus Level 4.6 mg/dL (2.6-4.7) Laboratory Tests Test 02/22/20 15:49 02/22/20 16:00 02/22/20 17:35 02/22/20 23:45 White Blood Count 9.4 x10^3/uL (4.0-11.0) Red Blood Count 4.39 x10^6/uL (4.30-5.70) Hemoglobin 14.4 g/dL (13.0-17.5) Hematocrit 40.1 % (39.0-53.0) Mean Corpuscular Volume 91 fL (79-100) Mean Corpuscular Hemoglobin 33 pg (25-35) Mean Corpuscular Hemoglobin Concent 36 g/dL (31-37) Red Cell Distribution Width 13.7 % (11.5-14.5) Platelet Count 204 x10^3/uL (140-400) Neutrophils (%) (Auto) 81 % (31-73) Lymphocytes (%) (Auto) 12 % (24-48) Monocytes (%) (Auto) 6 % (0-9) Eosinophils (%) (Auto) 0 % (0-3) Basophils (%) (Auto) 0 % (0-3) Neutrophils # (Auto) 7.7 x10^3/uL (1.8-7.7) Lymphocytes # (Auto) 1.2 x10^3/uL (1.0-4.8) Monocytes # (Auto) 0.5 x10^3/uL (0.0-1.1) Eosinophils # (Auto) 0.0 x10^3/uL (0.0-0.7) Basophils # (Auto) 0.0 x10^3/uL (0.0-0.2) Prothrombin Time 13.7 SEC (11.7-14.0) Prothromb Time International Ratio 1.1 (0.8-1.1) Sodium Level 125 mmol/L (136-145) Potassium Level 4.4 mmol/L (3.5-5.1) Chloride Level 91 mmol/L (98-107) Carbon Dioxide Level 25 mmol/L (21-32) Anion Gap 9 (6-14) Blood Urea Nitrogen 7 mg/dL (8-26) Creatinine 0.9 mg/dL (0.7-1.3) Estimated GFR (Cockcroft-Gault) 86.1 BUN/Creatinine Ratio 8 (6-20) Glucose Level 83 mg/dL (70-99) Calcium Level 8.9 mg/dL (8.5-10.1) Magnesium Level 1.6 mg/dL (1.8-2.4) Total Bilirubin 0.5 mg/dL (0.2-1.0) Aspartate Amino Transf (AST/SGOT) 24 U/L (15-37) Alanine Aminotransferase (ALT/SGPT) 18 U/L (16-63) Alkaline Phosphatase 96 U/L (46-116) Troponin I Quantitative 0.041 ng/mL (0.000-0.055) Total Protein 7.3 g/dL (6.4-8.2) Albumin 3.7 g/dL (3.4-5.0) Albumin/Globulin Ratio 1.0 (1.0-1.7) Ethyl Alcohol Level < 10 mg/dL (0-10) Urine Collection Type Void Urine Color Yellow Urine Clarity Clear Urine pH 6.0 (<5.0-8.0) Urine Specific [place] 1.015 (1.000-1.030) Urine Protein 30 mg/dL (NEG-TRACE) Urine Glucose (UA) Negative mg/dL (NEG) Urine Ketones (Stick) Negative mg/dL (NEG) Urine Blood Negative (NEG) Urine Nitrite Negative (NEG) Urine Bilirubin Negative (NEG) Urine Urobilinogen Dipstick 1.0 mg/dL (0.2 mg/dL) Urine Leukocyte Esterase Negative (NEG) Urine RBC 0 /HPF (0-2) Urine WBC Rare /HPF (0-4) Urine Bacteria 0 /HPF (0-FEW) Urine Hyaline Casts Few /HPF Urine Mucus Slight /LPF Urine Random Creatinine 189.7 mg/dL (Not Establ.) Urine Random Sodium 24 mmol/L (Not Estab.) Urine Opiates Screen Neg (NEG) Urine Methadone Screen Neg (NEG) Urine Barbiturates Neg (NEG) Urine Phencyclidine Screen Neg (NEG) Urine Amphetamine/Methamphetamine Neg (NEG) Urine Benzodiazepines Screen Neg (NEG) Urine Cocaine Screen Neg (NEG) Urine Cannabinoids Screen Pos (NEG) Urine Ethyl Alcohol Neg (NEG) Activated Partial Thromboplast Time 34 SEC (24-38) Heparin Anti-Xa Act, Unfractionated 0.40 IU/mL (0.30-0.70) Test 02/23/20 06:45 Phosphorus Level 4.6 mg/dL (2.6-4.7) Medications Current Medications Sodium Chloride 1,000 ml @ 1,000 mls/hr 1X ONCE IV Last administered on 02/22/20 16:57; Start 02/22/20 at 17:00; Stop 02/22/20 at 17:59; Status DC Magnesium Sulfate 50 ml @ 25 mls/hr 1X ONCE IV Last administered on 02/22/20at 16:58; Start 02/22/20 at 17:00; Stop 02/22/20 at 18:59; Status DC Fentanyl Citrate (Fentanyl 2ml Vial) 50 mcg 1X ONCE IVP Last administered on 02/22/20at 16:58; Start 02/22/20 at 17:00; Stop 02/22/20 at 17:01; Status DC Ondansetron HCl (Zofran) 4 mg PRN Q8HRS PRN IV NAUSEA/VOMITING Last administered on 02/22/20at 20:00; Start 02/22/20 at 17:00; Stop 02/23/20 at 16:59 Fentanyl Citrate (Fentanyl 2ml Vial) 50 mcg PRN Q1HR PRN IV PAIN Last administered on 02/22/20at 20:00; Start 02/22/20 at 17:00; Stop 02/23/20 at 16:59 Aspirin (Jasmin Aspirin) 325 mg 1X ONCE PO Last administered on 02/22/20at 17:30; Start 02/22/20 at 17:15; Stop 02/22/20 at 17:16; Status DC Heparin Sodium (Porcine) (Heparin Sodium) 5,450 unit 1X ONCE IV Last administered on 02/22/20at 17:45; Start 02/22/20 at 17:15; Stop 02/22/20 at 17:16; Status DC Heparin Sodium/ Dextrose 250 ml @ 0 mls/hr CONT PRN IV PER PROTOCOL Last ad ministered on 02/22/20at 17:44; Start 02/22/20 at 17:30 Heparin Sodium (Porcine) (Heparin Sodium) 2,050 unit PRN Q6HRS PRN IV FOR UFH LEVEL LESS THAN 0.2 Last administered on 02/23/20at 09:12; Start 02/22/20 at 17:00 Heparin Sodium (Porcine) (Heparin Sodium) 1,000 unit PRN Q6HRS PRN IV FOR UFH LEVEL 0.2 - 0.29; Start 02/22/20 at 17:00 Potassium Bicarbonate (Potassium Effervescent Tablet) 40 meq 1X ONCE FT ; Start 02/22/20 at 17:30; Stop 02/22/20 at 17:31; Status DC Magnesium Sulfate 50 ml @ 25 mls/hr Q24H IV ; Start 02/22/20 at 18:00; Stop 02/24/20 at 19:59 Potassium Phos/ Sodium Phos (Phos-Nak) 1 pkt BID PO ; Start 02/22/20 at 21:00; Stop 02/23/20 at 09:01; Status DC Potassium Bicarbonate (Potassium Effervescent Tablet) 40 meq Q4H PO Last administered on 02/22/20at 22:00; Start 02/22/20 at 18:00; Stop 02/22/20 at 22:01; Status DC Sodium Chloride (Normal Saline Flush) 3 ml QSHIFT PRN IV AFTER MEDS AND BLOOD DRAWS; Start 02/22/20 at 17:15 Sodium Chloride 1,000 ml @ 60 mls/hr [id number] IV Last administered on 02/23/20at 09:02; Start 02/22/20 at 17:15 Ondansetron HCl (Zofran) 4 mg PRN Q4HRS PRN IV NAUSEA/VOMITING; Start 02/22/20 at 17:15 Zolpidem Tartrate (Ambien) 5 mg PRN QHS PRN PO INSOMNIA; Start 02/22/20 at 17:15 Acetaminophen (Tylenol) 650 mg PRN Q4HRS PRN PO TEMP OVER 100.4F OR MILD PAIN Last administered on 02/22/20at 23:15; Start 02/22/20 at 17:15 Al Hydroxide/Mg Hydroxide (Mylanta Plus Xs) 30 ml PRN DAILY PRN PO HEARTBURN / GAS; Start 02/22/20 at 17:15 Sodium Monofluorophosphate (Fleet Adult) 133 ml PRN DAILY PRN [place] CONSTIPATION; Start 02/22/20 at 17:15 Docusate Sodium (Colace) 100 mg PRN BID PRN PO HARD STOOLS; Start 02/22/20 at 17:15 Albuterol/ Ipratropium (Duoneb) 3 ml Q4HRS NEB ; Start 02/22/20 at 20:00; Stop 02/22/20 at 17:44; Status DC Guaifenesin (Robitussin) 200 mg PRN Q4HRS PRN PO COUGH; Start 02/22/20 at 17:15 Multivitamins (Thera M Plus) 1 tab DAILY PO ; Start 02/23/20 at 09:00 Folic Acid (Folic Acid) 1 mg DAILY PO ; Start 02/23/20 at 09:00 Thiamine Mononitrate (Vitamin B-1) 100 mg DAILY PO ; Start 02/23/20 at 09:00 Lorazepam (Ativan) 4 mg PRN Q1HR PRN PO For CIWA 8-14; Start 02/22/20 at 17:30 Lorazepam (Ativan) 8 mg PRN Q1HR PRN PO For CIWA 15 or greater; Start 02/22/20 at 17:30 Lorazepam (Ativan Inj) 2 mg PRN Q1HR PRN IV For CIWA 8-14; Start 02/22/20 at 17:30 Lorazepam (Ativan Inj) 4 mg PRN Q1HR PRN IV For CIWA 15 or greater; Start 02/22/20 at 17:30 Haloperidol Lactate (Haldol Inj) 5 mg PRN Q4HRS PRN IVP Hallucinatns,Confusn,Delirium; Start 02/22/20 at 17:30 Diphenhydramine HCl (Benadryl) 25 mg PRN Q15MIN PRN IVP EPS symptoms 2'Haldol admin; Start 02/22/20 at 17:30 Lorazepam (Ativan Inj) 2 mg PRN Q15MIN PRN IV SEE COMMENTS; Start 02/22/20 at 17:30; Stop 02/22/20 at 18:45; Status DC Lorazepam (Ativan Inj) 4 mg PRN Q15MIN PRN IV SEE COMMENTS; Start 02/22/20 at 17:30; Stop 02/22/20 at 18:45; Status DC Albuterol Sulfate (Ventolin Neb Soln) 2.5 mg PRN Q4HRS PRN NEB SHORTNESS OF BREATH; Start 02/22/20 at 18:00 Nicotine (Nicoderm Cq 21mg) 1 patch DAILY TD Last administered on 02/23/20at 09:01; Start 02/22/20 at 22:30 Acetaminophen (Tylenol) 500 mg PRN Q4HRS PRN PO MILD PAIN / TEMP > 100.3'F; Start 02/22/20 at 22:30 Info (Anti-Coagulation Monitoring By Pharmacy) 1 each PRN DAILY PRN MC SEE COMMENTS; Start 02/23/20 at 09:45 Active Scripts Active Ibuprofen 800 Mg Tablet 800 Mg PO PRN Q6HRS PRN Cyclobenzaprine Hcl 10 Mg Tablet 1 Tab PO TID PRN Proair Hfa Inhaler (Albuterol Sulfate) 8.5 Gm Hfa.aer.ad 1-2 Puff INH PRN Q6HRS PRN with spacer Albuterol Sulfate Neb Soln (Albuterol Sulfate) 2.5 Mg/3 Ml Vial.neb 1 Vial NEB PRN Q4HRS PRN Reported Acetaminophen 500 Mg Tablet 500 Mg PO PRN Q6HRS PRN Advil (Ibuprofen) 200 Mg Capsule 200 Mg PO PRN Q6HRS PRN Vitals/I & O Vital Sign - Last 24 Hours 02/22/20 02/22/20 02/22/20 02/22/20 15:39 16:58 20:00 20:30 Temp 98.4 97.6 98.4 97.6 Pulse 88 63 Resp 18 16 16 B/P (MAP) 135/88 (104) 129/77 (94) Pulse Ox 97 96 94 O2 Delivery Room Air Room Air Room Air 02/22/20 02/23/20 02/23/20 22:51 03:26 07:00 Temp 97.5 98.0 97.8 97.5 98.0 97.8 Pulse 62 60 68 Resp 16 16 18 B/P (MAP) 110/72 (85) 121/75 (90) 135/83 (100) Pulse Ox 94 94 93 O2 Delivery Room Air Room Air Room Air Intake and Output 02/22/20 02/22/20 02/23/20 15:00 23:00 07:00 Intake Total 1170 ml 520 ml Output Total 575 ml Balance 1170 ml -55 ml Justicifation of Admission Dx: Justifications for Admission: Justification of Admission Dx: Yes LEWIS REYES [employer] Feb 23, 2020 10:02
--- NOTE | 2020-02-23 10:13 | NUR ---
SS following for discharge planning. SS reviewed pt chart and discussed with pt RN. Pt is from home and is currently on room air. Pt self pay. Pt on heparin drip. Vascular following. Per RN, pt having arteriogram with runoff and possible intervention today. SS will continue to follow for discharge planning.
[2020-02-23] MEDS: ANTI-COAG MONITOR BY PHARMACY. MC PRN (10:24)
--- NOTE | 2020-02-23 12:45 | PDOC2 ---
FADIA ALMANZA TEXTILE EXAMINER 02/23/20 1245: CARDIAC CONSULT DATE OF CONSULT Date of Consult DATE: 02/23/20 TIME: 12:33 REASON FOR CONSULT Reason for Consult: cardiomyopathy REFERRING PHYSICIAN Referring Physician: Dr. Reed SOURCE Source: Chart review, Patient HISTORY OF PRESENT ILLNESS HISTORY OF PRESENT ILLNESS This is a 59 yo male who presented secondary to RLE pain. Pain has been present for the last couple of weeks. Begins in his knee and radiated down the back of his leg into his foot. Has a history of mechanical aortic valve replacement. Has been off Coumadin therapy for "months". Was seen by our service in August this year and had been off warfarin for > 2 years. He denies any chest pain, palpita tions, dizziness, diaphoresis, or nausea/vomiting. 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 ) Lives: Friends CURRENT MEDICATIONS CURRENT MEDICATIONS Current Medications Medications (Trade) Dose Ordered Sig/Angela Route PRN Reason Start Time Stop Time Status Last Admin Dose Admin Sodium Chloride 1,000 ml @ 1,000 mls/hr 1X ONCE IV 02/22/20 17:00 02/22/20 17:59 DC 02/22/20 16:57 Magnesium Sulfate 50 ml @ 25 mls/hr 1X ONCE IV 02/22/20 17:00 02/22/20 18:59 DC 02/22/20 16:58 Fentanyl Citrate (Fentanyl 2ml Vial) 50 mcg 1X ONCE IVP 02/22/20 17:00 02/22/20 17:01 DC 02/22/20 16:58 Ondansetron HCl (Zofran) 4 mg PRN Q8HRS PRN IV NAUSEA/VOMITING 02/22/20 17:00 02/23/20 16:59 02/22/20 20:00 Fentanyl Citrate (Fentanyl 2ml Vial) 50 mcg PRN Q1HR PRN IV PAIN 02/22/20 17:00 02/23/20 16:59 02/22/20 20:00 Aspirin (Jasmin Aspirin) 325 mg 1X ONCE PO 02/22/20 17:15 02/22/20 17:16 DC 02/22/20 17:30 Heparin Sodium (Porcine) (Heparin Sodium) 5,450 unit 1X ONCE IV 02/22/20 17:15 02/22/20 17:16 DC 02/22/20 17:45 Heparin Sodium/ Dextrose 250 ml @ 0 mls/hr CONT PRN IV PER PROTOCOL 02/22/20 17:30 02/22/20 17:44 Heparin Sodium (Porcine) (Heparin Sodium) 2,050 unit PRN Q6HRS PRN IV FOR UFH LEVEL LESS THAN 0.2 02/22/20 17:00 02/23/20 09:12 Potassium Bicarbonate (Potassium Effervescent Tablet) 40 meq Q4H PO 02/22/20 18:00 02/22/20 22:01 DC 02/22/20 22:00 Sodium Chloride 1,000 ml @ 60 mls/hr [id number] IV 02/22/20 17:15 02/23/20 09:02 Acetaminophen (Tylenol) 650 mg PRN Q4HRS PRN PO TEMP OVER 100.4F OR MILD PAIN 02/22/20 17:15 02/22/20 23:15 Nicotine (Nicoderm Cq 21mg) 1 patch DAILY TD 02/22/20 22:30 02/23/20 09:01 Info (Anti-Coagulation Monitoring By Pharmacy) 1 each PRN DAILY PRN MC SEE COMMENTS 02/23/20 09:45 02/23/20 10:24 ALLERGIES ALLERGIES: Coded Allergies: No Known Drug Allergies (Unverified , 05/28/14) ROS Review of System 14 point ROS conducted with pertinent positives noted above in HPi PHYSICAL EXAM PHYSICAL EXAM General: Alert, Oriented X3, Cooperative, No acute distress HEENT: Atraumatic, Mucous membr. moist/pink Lungs: Clear to auscultation, Other (diminished ) Heart: Regular rate, Other (faint mechanical click) Abdomen: Soft, No tenderness Extremities: No edema, Normal pulses Skin: No significant lesion Neuro: Normal speech, Sensation intact Psych/Mental Status: Mental status NL, Mood NL MUSCULOSKELETAL: Osteoarthritic changes both hands VITALS/I&O VITALS/I&O: Vital Signs Date Time Temp Pulse Resp B/P (MAP) Pulse Ox O2 Delivery O2 Flow Rate FiO2 02/23/20 11:00 98.0 66 18 140/88 (105) 96 Room Air 98.0 I & O 02/22/20 02/22/20 02/23/20 15:00 23:00 07:00 Intake Total 1170 ml 520 ml Output Total 575 ml Balance 1170 ml -55 ml LABS Lab: Laboratory Tests Test 02/22/20 15:49 02/22/20 16:00 02/22/20 17:35 02/22/20 23:45 White Blood Count 9.4 x10^3/uL (4.0-11.0) Red Blood Count 4.39 x10^6/uL (4.30-5.70) Hemoglobin 14.4 g/dL (13.0-17.5) Hematocrit 40.1 % (39.0-53.0) Mean Corpuscular Volume 91 fL (79-100) Mean Corpuscular Hemoglobin 33 pg (25-35) Mean Corpuscular Hemoglobin Concent 36 g/dL (31-37) Red Cell Distribution Width 13.7 % (11.5-14.5) Platelet Count 204 x10^3/uL (140-400) Neutrophils (%) (Auto) 81 % (31-73) H Lymphocytes (%) (Auto) 12 % (24-48) L Monocytes (%) (Auto) 6 % (0-9) Eosinophils (%) (Auto) 0 % (0-3) Basophils (%) (Auto) 0 % (0-3) Neutrophils # (Auto) 7.7 x10^3/uL (1.8-7.7) Lymphocytes # (Auto) 1.2 x10^3/uL (1.0-4.8) Monocytes # (Auto) 0.5 x10^3/uL (0.0-1.1) Eosinophils # (Auto) 0.0 x10^3/uL (0.0-0.7) Basophils # (Auto) 0.0 x10^3/uL (0.0-0.2) Prothrombin Time 13.7 SEC (11.7-14.0) Prothrombin Time INR 1.1 (0.8-1.1) Sodium Level 125 mmol/L (136-145) L Potassium Level 4.4 mmol/L (3.5-5.1) Chloride Level 91 mmol/L (98-107) L Carbon Dioxide Level 25 mmol/L (21-32) Anion Gap 9 (6-14) Blood Urea Nitrogen 7 mg/dL (8-26) L Creatinine 0.9 mg/dL (0.7-1.3) Estimated GFR (Cockcroft-Gault) 86.1 BUN/Creatinine Ratio 8 (6-20) Glucose Level 83 mg/dL (70-99) Calcium Level 8.9 mg/dL (8.5-10.1) Magnesium Level 1.6 mg/dL (1.8-2.4) L Total Bilirubin 0.5 mg/dL (0.2-1.0) Aspartate Amino Transferase (AST) 24 U/L (15-37) Alanine Aminotransferase (ALT) 18 U/L (16-63) Alkaline Phosphatase 96 U/L (46-116) Troponin I Quantitative 0.041 ng/mL (0.000-0.055) Total Protein 7.3 g/dL (6.4-8.2) Albumin 3.7 g/dL (3.4-5.0) Albumin/Globulin Ratio 1.0 (1.0-1.7) Ethyl Alcohol Level < 10 mg/dL (0-10) Urine Collection Type Void Urine Color Yellow Urine Clarity Clear Urine pH 6.0 (<5.0-8.0) Urine Specific [place] 1.015 (1.000-1.030) Urine Protein 30 mg/dL (NEG-TRACE) Urine Glucose (UA) Negative mg/dL (NEG) Urine Ketones (Stick) Negative mg/dL (NEG) Urine Blood Negative (NEG) Urine Nitrite Negative (NEG) Urine Bilirubin Negative (NEG) Urine Urobilinogen Dipstick 1.0 mg/dL (0.2 mg/dL) Urine Leukocyte Esterase Negative (NEG) Urine RBC 0 /HPF (0-2) Urine WBC Rare /HPF (0-4) Urine Bacteria 0 /HPF (0-FEW) Urine Hyaline Casts Few /HPF Urine Mucus Slight /LPF Urine Random Creatinine 189.7 mg/dL (Not Establ.) Urine Random Sodium 24 mmol/L (Not Estab.) Urine Opiates Screen Neg (NEG) Urine Methadone Screen Neg (NEG) Urine Barbiturates Neg (NEG) Urine Phencyclidine Screen Neg (NEG) Urine Amphetamine/Methamphetamine Neg (NEG) Urine Benzodiazepines Screen Neg (NEG) Urine Cocaine Screen Neg (NEG) Urine Cannabinoids Screen Pos (NEG) Urine Ethyl Alcohol Neg (NEG) Activated Partial Thromboplast Time 34 SEC (24-38) Heparin Anti-Xa Act, Unfractionated 0.40 IU/mL (0.30-0.70) Test 02/23/20 06:45 Heparin Anti-Xa Act, Unfractionated 0.12 IU/mL (0.30-0.70) L Phosphorus Level 4.6 mg/dL (2.6-4.7) Laboratory Tests 02/22/20 15:49 Laboratory Tests 02/22/20 15:49 ECHOCARDIOGRAM ECHOCARDIOGRAM <Conclusion> The left ventricular systolic function is mild to moderately diminished. The Ejection Fraction is 35-40%. Abnormal septal motion consistent with post-operative state. Transmitral Doppler flow pattern is Grade I-abnormal relaxation pattern. Mechanical aortic valve prosthesis appears well seated and functioning well. MG 9 mm Hg. Mild aortic regurgitation. Trace mitral regurgitation. Trace tricuspid regurgitation with an estimated PAP of 23 mmHg. There is no evidence of significant pericardial effusion. DATE: 08/27/19 1323 STRESS TEST STRESS TEST 06/11/14 - Procedure: GATED D-SPECT REGADENOSON THALLIUM MPI STRESS TEST FINDINGS: Pharmacological Stress Electrocardiogram:The patient's resting heart rate was 67 bpm and the resting blood pressure was 163/91. The patients peak stress heart rate was 85 bpm and the peak stress blood pressure was 130/89. The patient experienced shortness of breath. The patient experienced flushing. The resting ECG shows Sinus rhythm with LVH and repolarization changes including ST depression and T inversions diffusely. Following Regadenoson infusion there are no new diagnostic ECG changes. The ECG changes at rest are present throughout the study Conclusion: Pharmacologic stress ECG is indeterminent for ischemia. Changes at rest and with stress of LVH with repolarization abnormalities. ASSESSMENT/PLAN ASSESSMENT/PLAN 1. RLE pain; arterial duplex notable for occlusive disease throughout the right SFA. Vascular following, angiogram planned. on heparin gtt 2. H/o endocarditis; s/p mechanical aortic valve replacement. Was previously on warfarin, but has not taken for about 6 months as he ran out. Aortic valve appeared to be well seated and functioning well per recent TTE. 3. Hypertension; controlled 4. Hyperlipidemia; no statin 5. Chronic systolic CHF with possible NICM with h/o alcoholoism, but component of ICM cannot be ruled out.; Echo with LVEF 35-40%. Clinically compensated. CP free 6. Hypomagnesemia; replaced 7. Tobaccoism, marijuana use; discussed/encouraged cessation 8. Noncompliance 9. Alcohol misuse Recommendations ASA Continue heparin gtt HF optimization with ACEi, BB therapy Lasix PRN Reinforced importance of medical compliance Consider outpatient ischemic evaluation Does not have PCP, will provided information on [facility] for follow up EARNESTINE TRUJILLO MD 02/23/20 1703: CARDIAC CONSULT ASSESSMENT/PLAN ASSESSMENT/PLAN Pt. seen and examined. Agree with above [employer] RECONDITIONING INSPECTOR note. 59 y.o male with likely NICM and prior mech AVR. Needs to restart anticoagulation. Aortogram reviewed, cannot rule out embolic phenomenon on top of atherosclerosis. Would be deemed moderate risk for his extra inguinal vascular procedure if deemed needed by vascular surgery. Supportive care and optimization with medical therapy. Thanks FADIA ALMANZA APRN Feb 23, 2020 12:45 EARNESTINE TRJUILLO MD Feb 23, 2020 17:03
--- NOTE | 2020-02-23 13:00 | PDOC ---
PROGRESS NOTES Chief Complaint Chief Complaint Impression: 1. Acute arterial occlusion throughout the right superficial femoral artery, some reconstitution of minimal flow in the popliteal artery and runoff vessels. 2. Possible HX seizure, alcohol related 3. NONCOMPLIANCE with medications 4. Hypertension; controlled 5. Hyperlipidemia; 6. H/o endocarditis; s/p mechanical aortic valve replacement 20 yrs ago [facility] . Was previously on warfarin, but has not taken in > 2 years. Aortic valve appeared to be well seated and functioning well per TTE. 7. Abnormal EKG; noted with RBBB and anterolateral ST depression, which is unchanged from previous EKG 05/2018. EKG 05/2014 at with LVH, RBBB and ST changes on V4-[address] depression with ST elevation in V1. echo 08/31 Ejection Fraction is 35-40%. Abnormal septal motion consistent with post-operative state. Mechanical aortic valve prosthesis appears well seated and functioning well. MG 9 mm Hg.Mild aortic regurgitation. Trace mitral regurgitation. Trace tricuspid regurgitation with an estimated PAP of 23 mmHg. 8. Alcoholism; now 5 beers a week 9. Hypomagnesemia 10 Tobaccoism, marijuana use; discussed/encouraged cessation 11. Chronic systolic CHF with possible NICM with h/o alcoholoism, ICM // Echo with LVEF 35-40%. 12. HYPONATREMIA will follow plan VASCULAR Recommends an angiogram with IR 02/22 of the right leg with possible intervention, heparin drip protocol CIWA PROTOCOL continue ASA daily follow Na level History of Present Illness History of Present Illness feels well no overnight issues. Vitals Vitals Vital Signs Date Time Temp Pulse Resp B/P (MAP) Pulse Ox O2 Delivery O2 Flow Rate FiO2 02/23/20 11:00 98.0 66 18 140/88 (105) 96 Room Air 98.0 Physical Exam General: Alert, Cooperative, No acute distress Heart: Regular rate Lungs: Clear Abdomen: Normal bowel sounds, Soft Extremities: No cyanosis, No edema Skin: No rashes, No breakdown Labs LABS Laboratory Tests Test 02/22/20 15:49 02/22/20 16:00 02/22/20 17:35 02/22/20 23:45 White Blood Count 9.4 x10^3/uL (4.0-11.0) Red Blood Count 4.39 x10^6/uL (4.30-5.70) Hemoglobin 14.4 g/dL (13.0-17.5) Hematocrit 40.1 % (39.0-53.0) Mean Corpuscular Volume 91 fL (79-100) Mean Corpuscular Hemoglobin 33 pg (25-35) Mean Corpuscular Hemoglobin Concent 36 g/dL (31-37) Red Cell Distribution Width 13.7 % (11.5-14.5) Platelet Count 204 x10^3/uL (140-400) Neutrophils (%) (Auto) 81 % (31-73) Lymphocytes (%) (Auto) 12 % (24-48) Monocytes (%) (Auto) 6 % (0-9) Eosinophils (%) (Auto) 0 % (0-3) Basophils (%) (Auto) 0 % (0-3) Neutrophils # (Auto) 7.7 x10^3/uL (1.8-7.7) Lymphocytes # (Auto) 1.2 x10^3/uL (1.0-4.8) Monocytes # (Auto) 0.5 x10^3/uL (0.0-1.1) Eosinophils # (Auto) 0.0 x10^3/uL (0.0-0.7) Basophils # (Auto) 0.0 x10^3/uL (0.0-0.2) Prothrombin Time 13.7 SEC (11.7-14.0) Prothromb Time International Ratio 1.1 (0.8-1.1) Sodium Level 125 mmol/L (136-145) Potassium Level 4.4 mmol/L (3.5-5.1) Chloride Level 91 mmol/L (98-107) Carbon Dioxide Level 25 mmol/L (21-32) Anion Gap 9 (6-14) Blood Urea Nitrogen 7 mg/dL (8-26) Creatinine 0.9 mg/dL (0.7-1.3) Estimated GFR (Cockcroft-Gault) 86.1 BUN/Creatinine Ratio 8 (6-20) Glucose Level 83 mg/dL (70-99) Calcium Level 8.9 mg/dL (8.5-10.1) Magnesium Level 1.6 mg/dL (1.8-2.4) Total Bilirubin 0.5 mg/dL (0.2-1.0) Aspartate Amino Transf (AST/SGOT) 24 U/L (15-37) Alanine Aminotransferase (ALT/SGPT) 18 U/L (16-63) Alkaline Phosphatase 96 U/L (46-116) Troponin I Quantitative 0.041 ng/mL (0.000-0.055) Total Protein 7.3 g/dL (6.4-8.2) Albumin 3.7 g/dL (3.4-5.0) Albumin/Globulin Ratio 1.0 (1.0-1.7) Ethyl Alcohol Level < 10 mg/dL (0-10) Urine Collection Type Void Urine Color Yellow Urine Clarity Clear Urine pH 6.0 (<5.0-8.0) Urine Specific Lanse 1.015 (1.000-1.030) Urine Protein 30 mg/dL (NEG-TRACE) Urine Glucose (UA) Negative mg/dL (NEG) Urine Ketones (Stick) Negative mg/dL (NEG) Urine Blood Negative (NEG) Urine Nitrite Negative (NEG) Urine Bilirubin Negative (NEG) Urine Urobilinogen Dipstick 1.0 mg/dL (0.2 mg/dL) Urine Leukocyte Esterase Negative (NEG) Urine RBC 0 /HPF (0-2) Urine WBC Rare /HPF (0-4) Urine Bacteria 0 /HPF (0-FEW) Urine Hyaline Casts Few /HPF Urine Mucus Slight /LPF Urine Random Creatinine 189.7 mg/dL (Not Establ.) Urine Random Sodium 24 mmol/L (Not Estab.) Urine Opiates Screen Neg (NEG) Urine Methadone Screen Neg (NEG) Urine Barbiturates Neg (NEG) Urine Phencyclidine Screen Neg (NEG) Urine Amphetamine/Methamphetamine Neg (NEG) Urine Benzodiazepines Screen Neg (NEG) Urine Cocaine Screen Neg (NEG) Urine Cannabinoids Screen Pos (NEG) Urine Ethyl Alcohol Neg (NEG) Activated Partial Thromboplast Time 34 SEC (24-38) Heparin Anti-Xa Act, Unfractionated 0.40 IU/mL (0.30-0.70) Test 02/23/20 06:45 Heparin Anti-Xa Act, Unfractionated 0.12 IU/mL (0.30-0.70) Phosphorus Level 4.6 mg/dL (2.6-4.7) Assessment and Plan Assessmemt and Plan Problems Medical Problems: (1) Magnesium deficiency Status: Acute (2) Superficial femoral artery occlusion Status: Acute Comment Review of Relevant I have reviewed the following items ochoa (where applicable) has been applied. Labs Laboratory Tests Test 02/22/20 15:49 02/22/20 16:00 02/22/20 17:35 02/22/20 23:45 White Blood Count 9.4 x10^3/uL (4.0-11.0) Red Blood Count 4.39 x10^6/uL (4.30-5.70) Hemoglobin 14.4 g/dL (13.0-17.5) Hematocrit 40.1 % (39.0-53.0) Mean Corpuscular Volume 91 fL (79-100) Mean Corpuscular Hemoglobin 33 pg (25-35) Mean Corpuscular Hemoglobin Concent 36 g/dL (31-37) Red Cell Distribution Width 13.7 % (11.5-14.5) Platelet Count 204 x10^3/uL (140-400) Neutrophils (%) (Auto) 81 % (31-73) Lymphocytes (%) (Auto) 12 % (24-48) Monocytes (%) (Auto) 6 % (0-9) Eosinophils (%) (Auto) 0 % (0-3) Basophils (%) (Auto) 0 % (0-3) Neutrophils # (Auto) 7.7 x10^3/uL (1.8-7.7) Lymphocytes # (Auto) 1.2 x10^3/uL (1.0-4.8) Monocytes # (Auto) 0.5 x10^3/uL (0.0-1.1) Eosinophils # (Auto) 0.0 x10^3/uL (0.0-0.7) Basophils # (Auto) 0.0 x10^3/uL (0.0-0.2) Prothrombin Time 13.7 SEC (11.7-14.0) Prothromb Time International Ratio 1.1 (0.8-1.1) Sodium Level 125 mmol/L (136-145) Potassium Level 4.4 mmol/L (3.5-5.1) Chloride Level 91 mmol/L (98-107) Carbon Dioxide Level 25 mmol/L (21-32) Anion Gap 9 (6-14) Blood Urea Nitrogen 7 mg/dL (8-26) Creatinine 0.9 mg/dL (0.7-1.3) Estimated GFR (Cockcroft-Gault) 86.1 BUN/Creatinine Ratio 8 (6-20) Glucose Level 83 mg/dL (70-99) Calcium Level 8.9 mg/dL (8.5-10.1) Magnesium Level 1.6 mg/dL (1.8-2.4) Total Bilirubin 0.5 mg/dL (0.2-1.0) Aspartate Amino Transf (AST/SGOT) 24 U/L (15-37) Alanine Aminotransferase (ALT/SGPT) 18 U/L (16-63) Alkaline Phosphatase 96 U/L (46-116) Troponin I Quantitative 0.041 ng/mL (0.000-0.055) Total Protein 7.3 g/dL (6.4-8.2) Albumin 3.7 g/dL (3.4-5.0) Albumin/Globulin Ratio 1.0 (1.0-1.7) Ethyl Alcohol Level < 10 mg/dL (0-10) Urine Collection Type Void Urine Color Yellow Urine Clarity Clear Urine pH 6.0 (<5.0-8.0) Urine Specific Lanse 1.015 (1.000-1.030) Urine Protein 30 mg/dL (NEG-TRACE) Urine Glucose (UA) Negative mg/dL (NEG) Urine Ketones (Stick) Negative mg/dL (NEG) Urine Blood Negative (NEG) Urine Nitrite Negative (NEG) Urine Bilirubin Negative (NEG) Urine Urobilinogen Dipstick 1.0 mg/dL (0.2 mg/dL) Urine Leukocyte Esterase Negative (NEG) Urine RBC 0 /HPF (0-2) Urine WBC Rare /HPF (0-4) Urine Bacteria 0 /HPF (0-FEW) Urine Hyaline Casts Few /HPF Urine Mucus Slight /LPF Urine Random Creatinine 189.7 mg/dL (Not Establ.) Urine Random Sodium 24 mmol/L (Not Estab.) Urine Opiates Screen Neg (NEG) Urine Methadone Screen Neg (NEG) Urine Barbiturates Neg (NEG) Urine Phencyclidine Screen Neg (NEG) Urine Amphetamine/Methamphetamine Neg (NEG) Urine Benzodiazepines Screen Neg (NEG) Urine Cocaine Screen Neg (NEG) Urine Cannabinoids Screen Pos (NEG) Urine Ethyl Alcohol Neg (NEG) Activated Partial Thromboplast Time 34 SEC (24-38) Heparin Anti-Xa Act, Unfractionated 0.40 IU/mL (0.30-0.70) Test 02/23/20 06:45 Heparin Anti-Xa Act, Unfractionated 0.12 IU/mL (0.30-0.70) Phosphorus Level 4.6 mg/dL (2.6-4.7) Laboratory Tests Test 02/22/20 15:49 02/22/20 16:00 02/22/20 17:35 02/22/20 23:45 White Blood Count 9.4 x10^3/uL (4.0-11.0) Red Blood Count 4.39 x10^6/uL (4.30-5.70) Hemoglobin 14.4 g/dL (13.0-17.5) Hematocrit 40.1 % (39.0-53.0) Mean Corpuscular Volume 91 fL (79-100) Mean Corpuscular Hemoglobin 33 pg (25-35) Mean Corpuscular Hemoglobin Concent 36 g/dL (31-37) Red Cell Distribution Width 13.7 % (11.5-14.5) Platelet Count 204 x10^3/uL (140-400) Neutrophils (%) (Auto) 81 % (31-73) Lymphocytes (%) (Auto) 12 % (24-48) Monocytes (%) (Auto) 6 % (0-9) Eosinophils (%) (Auto) 0 % (0-3) Basophils (%) (Auto) 0 % (0-3) Neutrophils # (Auto) 7.7 x10^3/uL (1.8-7.7) Lymphocytes # (Auto) 1.2 x10^3/uL (1.0-4.8) Monocytes # (Auto) 0.5 x10^3/uL (0.0-1.1) Eosinophils # (Auto) 0.0 x10^3/uL (0.0-0.7) Basophils # (Auto) 0.0 x10^3/uL (0.0-0.2) Prothrombin Time 13.7 SEC (11.7-14.0) Prothromb Time International Ratio 1.1 (0.8-1.1) Sodium Level 125 mmol/L (136-145) Potassium Level 4.4 mmol/L (3.5-5.1) Chloride Level 91 mmol/L (98-107) Carbon Dioxide Level 25 mmol/L (21-32) Anion Gap 9 (6-14) Blood Urea Nitrogen 7 mg/dL (8-26) Creatinine 0.9 mg/dL (0.7-1.3) Estimated GFR (Cockcroft-Gault) 86.1 BUN/Creatinine Ratio 8 (6-20) Glucose Level 83 mg/dL (70-99) Calcium Level 8.9 mg/dL (8.5-10.1) Magnesium Level 1.6 mg/dL (1.8-2.4) Total Bilirubin 0.5 mg/dL (0.2-1.0) Aspartate Amino Transf (AST/SGOT) 24 U/L (15-37) Alanine Aminotransferase (ALT/SGPT) 18 U/L (16-63) Alkaline Phosphatase 96 U/L (46-116) Troponin I Quantitative 0.041 ng/mL (0.000-0.055) Total Protein 7.3 g/dL (6.4-8.2) Albumin 3.7 g/dL (3.4-5.0) Albumin/Globulin Ratio 1.0 (1.0-1.7) Ethyl Alcohol Level < 10 mg/dL (0-10) Urine Collection Type Void Urine Color Yellow Urine Clarity Clear Urine pH 6.0 (<5.0-8.0) Urine Specific Lanse 1.015 (1.000-1.030) Urine Protein 30 mg/dL (NEG-TRACE) Urine Glucose (UA) Negative mg/dL (NEG) Urine Ketones (Stick) Negative mg/dL (NEG) Urine Blood Negative (NEG) Urine Nitrite Negative (NEG) Urine Bilirubin Negative (NEG) Urine Urobilinogen Dipstick 1.0 mg/dL (0.2 mg/dL) Urine Leukocyte Esterase Negative (NEG) Urine RBC 0 /HPF (0-2) Urine WBC Rare /HPF (0-4) Urine Bacteria 0 /HPF (0-FEW) Urine Hyaline Casts Few /HPF Urine Mucus Slight /LPF Urine Random Creatinine 189.7 mg/dL (Not Establ.) Urine Random Sodium 24 mmol/L (Not Estab.) Urine Opiates Screen Neg (NEG) Urine Methadone Screen Neg (NEG) Urine Barbiturates Neg (NEG) Urine Phencyclidine Screen Neg (NEG) Urine Amphetamine/Methamphetamine Neg (NEG) Urine Benzodiazepines Screen Neg (NEG) Urine Cocaine Screen Neg (NEG) Urine Cannabinoids Screen Pos (NEG) Urine Ethyl Alcohol Neg (NEG) Activated Partial Thromboplast Time 34 SEC (24-38) Heparin Anti-Xa Act, Unfractionated 0.40 IU/mL (0.30-0.70) Test 02/23/20 06:45 Heparin Anti-Xa Act, Unfractionated 0.12 IU/mL (0.30-0.70) Phosphorus Level 4.6 mg/dL (2.6-4.7) Medications Current Medications Sodium Chloride 1,000 ml @ 1,000 mls/hr 1X ONCE IV Last administered on 02/22/20 16:57; Start 02/22/20 at 17:00; Stop 02/22/20 at 17:59; Status DC Magnesium Sulfate 50 ml @ 25 mls/hr 1X ONCE IV Last administered on 02/22/20at 16:58; Start 02/22/20 at 17:00; Stop 02/22/20 at 18:59; Status DC Fentanyl Citrate (Fentanyl 2ml Vial) 50 mcg 1X ONCE IVP Last administered on 02/22/20at 16:58; Start 02/22/20 at 17:00; Stop 02/22/20 at 17:01; Status DC Ondansetron HCl (Zofran) 4 mg PRN Q8HRS PRN IV NAUSEA/VOMITING Last administered on 02/22/20at 20:00; Start 02/22/20 at 17:00; Stop 02/23/20 at 16:59 Fentanyl Citrate (Fentanyl 2ml Vial) 50 mcg PRN Q1HR PRN IV PAIN Last administered on 02/22/20at 20:00; Start 02/22/20 at 17:00; Stop 02/23/20 at 16:59 Aspirin (Jasmin Aspirin) 325 mg 1X ONCE PO Last administered on 02/22/20at 17:30; Start 02/22/20 at 17:15; Stop 02/22/20 at 17:16; Status DC Heparin Sodium (Porcine) (Heparin Sodium) 5,450 unit 1X ONCE IV Last administered on 02/22/20at 17:45; Start 02/22/20 at 17:15; Stop 02/22/20 at 17:16; Status DC Heparin Sodium/ Dextrose 250 ml @ 0 mls/hr CONT PRN IV PER PROTOCOL Last administered on 02/22/20at 17:44; Start 02/22/20 at 17:30 Heparin Sodium (Porcine) (Heparin Sodium) 2,050 unit PRN Q6HRS PRN IV FOR UFH LEVEL LESS THAN 0.2 Last administered on 02/23/20at 09:12; Start 02/22/20 at 17:00 Heparin Sodium (Porcine) (Heparin Sodium) 1,000 unit PRN Q6HRS PRN IV FOR UFH LEVEL 0.2 - 0.29; Start 02/22/20 at 17:00 Potassium Bicarbonate (Potassium Effervescent Tablet) 40 meq 1X ONCE FT ; Start 02/22/20 at 17:30; Stop 02/22/20 at 17:31; Status DC Magnesium Sulfate 50 ml @ 25 mls/hr Q24H IV ; Start 02/22/20 at 18:00; Stop 02/24/20 at 19:59 Potassium Phos/ Sodium Phos (Phos-Nak) 1 pkt BID PO ; Start 02/22/20 at 21:00; Stop 02/23/20 at 09:01; Status DC Potassium Bicarbonate (Potassium Effervescent Tablet) 40 meq Q4H PO Last administered on 02/22/20at 22:00; Start 02/22/20 at 18:00; Stop 02/22/20 at 22:01; Status DC Sodium Chloride (Normal Saline Flush) 3 ml QSHIFT PRN IV AFTER MEDS AND BLOOD DRAWS; Start 02/22/20 at 17:15 Sodium Chloride 1,000 ml @ 60 mls/hr [id number] IV Last administered on 02/23/20at 09:02; Start 02/22/20 at 17:15 Ondansetron HCl (Zofran) 4 mg PRN Q4HRS PRN IV NAUSEA/VOMITING; Start 02/22/20 at 17:15 Zolpidem Tartrate (Ambien) 5 mg PRN QHS PRN PO INSOMNIA; Start 02/22/20 at 17:15 Acetaminophen (Tylenol) 650 mg PRN Q4HRS PRN PO TEMP OVER 100.4F OR MILD PAIN Last administered on 02/22/20at 23:15; Start 02/22/20 at 17:15 Al Hydroxide/Mg Hydroxide (Mylanta Plus Xs) 30 ml PRN DAILY PRN PO HEARTBURN / GAS; Start 02/22/20 at 17:15 Sodium Monofluorophosphate (Fleet Adult) 133 ml PRN DAILY PRN UT CONSTIPATION; Start 02/22/20 at 17:15 Docusate Sodium (Colace) 100 mg PRN BID PRN PO HARD STOOLS; Start 02/22/20 at 17:15 Albuterol/ Ipratropium (Duoneb) 3 ml Q4HRS NEB ; Start 02/22/20 at 20:00; Stop 02/22/20 at 17:44; Status DC Guaifenesin (Robitussin) 200 mg PRN Q4HRS PRN PO COUGH; Start 02/22/20 at 17:15 Multivitamins (Thera M Plus) 1 tab DAILY PO ; Start 02/23/20 at 09:00 Folic Acid (Folic Acid) 1 mg DAILY PO ; Start 02/23/20 at 09:00 Thiamine Mononitrate (Vitamin B-1) 100 mg DAILY PO ; Start 02/23/20 at 09:00 Lorazepam (Ativan) 4 mg PRN Q1HR PRN PO For CIWA 8-14; Start 02/22/20 at 17:30 Lorazepam (Ativan) 8 mg PRN Q1HR PRN PO For CIWA 15 or greater; Start 02/22/20 at 17:30 Lorazepam (Ativan Inj) 2 mg PRN Q1HR PRN IV For CIWA 8-14; Start 02/22/20 at 17:30 Lorazepam (Ativan Inj) 4 mg PRN Q1HR PRN IV For CIWA 15 or greater; Start 02/22/20 at 17:30 Haloperidol Lactate (Haldol Inj) 5 mg PRN Q4HRS PRN IVP Hallucinatns,Confusn,Delirium; Start 02/22/20 at 17:30 Diphenhydramine HCl (Benadryl) 25 mg PRN Q15MIN PRN IVP EPS symptoms 2'Haldol admin; Start 02/22/20 at 17:30 Lorazepam (Ativan Inj) 2 mg PRN Q15MIN PRN IV SEE COMMENTS; Start 02/22/20 at 17:30; Stop 02/22/20 at 18:45; Status DC Lorazepam (Ativan Inj) 4 mg PRN Q15MIN PRN IV SEE COMMENTS; Start 02/22/20 at 17:30; Stop 02/22/20 at 18:45; Status DC Albuterol Sulfate (Ventolin Neb Soln) 2.5 mg PRN Q4HRS PRN NEB SHORTNESS OF BREATH; Start 02/22/20 at 18:00 Nicotine (Nicoderm Cq 21mg) 1 patch DAILY TD Last administered on 02/23/20at 09:01; Start 02/22/20 at 22:30 Acetaminophen (Tylenol) 500 mg PRN Q4HRS PRN PO MILD PAIN / TEMP > 100.3'F; Start 02/22/20 at 22:30 Info (Anti-Coagulation Monitoring By Pharmacy) 1 each PRN DAILY PRN MC SEE COMMENTS Last administered on 02/23/20at 10:24; Start 02/23/20 at 09:45 Aspirin (Ecotrin) 81 mg DAILYWBKFT PO ; Start 02/23/20 at 12:00 Active Scripts Active Ibuprofen 800 Mg Tablet 800 Mg PO PRN Q6HRS PRN Cyclobenzaprine Hcl 10 Mg Tablet 1 Tab PO TID PRN Proair Hfa Inhaler (Albuterol Sulfate) 8.5 Gm Hfa.aer.ad 1-2 Puff INH PRN Q6HRS PRN with spacer Albuterol Sulfate Neb Soln (Albuterol Sulfate) 2.5 Mg/3 Ml Vial.neb 1 Vial NEB PRN Q4HRS PRN Reported Acetaminophen 500 Mg Tablet 500 Mg PO PRN Q6HRS PRN Advil (Ibuprofen) 200 Mg Capsule 200 Mg PO PRN Q6HRS PRN Vitals/I & O Vital Sign - Last 24 Hours 02/22/20 02/22/20 02/22/20 02/22/20 15:39 16:58 20:00 20:30 Temp 98.4 97.6 98.4 97.6 Pulse 88 63 Resp 18 16 16 B/P (MAP) 135/88 (104) 129/77 (94) Pulse Ox 97 96 94 O2 Delivery Room Air Room Air Room Air 02/22/20 02/23/20 02/23/20 02/23/20 22:51 03:26 07:00 08:00 Temp 97.5 98.0 97.8 97.5 98.0 97.8 Pulse 62 60 68 Resp 16 16 18 B/P (MAP) 110/72 (85) 121/75 (90) 135/83 (100) Pulse Ox 94 94 93 O2 Delivery Room Air Room Air Room Air Room Air 02/23/20 11:00 Temp 98.0 98.0 Pulse 66 Resp 18 B/P (MAP) 140/88 (105) Pulse Ox 96 O2 Delivery Room Air Intake and Output 02/22/20 02/22/20 02/23/20 15:00 23:00 07:00 Intake Total 1170 ml 520 ml Output Total 575 ml Balance 1170 ml -55 ml Justicifation of Admission Dx: Justifications for Admission: Justification of Admission Dx: Yes BRUNILDA ROSAS MD Feb 23, 2020 13:00
[2020-02-23] MEDS ORDERED: LIDOCAINE WITH 8.4% SOD BICARB 3 ML DISP.SYRIN. ONE (13:14)
[2020-02-23] MEDS ORDERED: HEPARIN for ARTERIAL LINE 1,500 ML ONE (13:14)
[2020-02-23] MEDS ORDERED: IODIXANOL 320 MG/ML 100 ML VIAL. ONE (13:14)
[2020-02-23] MEDS ORDERED: MIDAZOLAM HCL/PF 2 MG/2 ML VIAL. ONE (13:20)
[2020-02-23] MEDS ORDERED: HEPARIN for IV BOLUS 10,000 UNIT/10 ML VIAL. ONE (13:21)
[2020-02-23] MEDS ORDERED: fentaNYL PF VIAL 100 MCG/2 ML VIAL ONE (13:21)
[2020-02-23] MEDS ORDERED: IODIXANOL 320 MG/ML 100 ML VIAL. IART ONE (13:30)
[2020-02-23] MEDS ORDERED: MIDAZOLAM HCL/PF 2 MG/2 ML VIAL. IV ONE (13:30)
[2020-02-23] MEDS ORDERED: LIDOCAINE WITH 8.4% SOD BICARB 3 ML DISP.SYRIN. IJ ONE (13:30)
[2020-02-23] MEDS ORDERED: fentaNYL PF VIAL 100 MCG/2 ML VIAL IV ONE (13:30)
[2020-02-23] MEDS ORDERED: HEPARIN for IV BOLUS 10,000 UNIT/10 ML VIAL. IV ONE (14:15)
--- NOTE | 2020-02-23 17:43 | RAD ---
Clinical indications: Preoperative evaluation. Duplex sonography of the cervical portion of both carotid arteries was performed including color flow imaging and spectral waveform analysis with flow velocity measurement and alonzo scale evaluation. Right side: Peak systolic flow velocity of the CCA is 87 cm/sec. Peak systolic flow velocity of the ICA is 106 cm/sec. Thus, the ICA/CCA ratio is 1.2. Peak end diastolic flow velocity of the ICA is 43 cm/sec. The peak systolic velocity of the ECA is 52 cm/sec. Left side: Peak systolic flow velocity of the CCA is 76 cm/sec. Peak systolic flow velocity of the ICA is 126 cm/sec. Thus, the ICA/CCA ratio is 1.7. Peak end diastolic flow velocity of the ICA is 82 cm/sec. Peak systolic flow velocity of the ECA is 74 cm/sec. Mild plaque formation is seen within the right carotid bulb and proximal right ICA which is less than 50 percent. Less prominent soft plaque formation is seen within the left carotid bulb. There is mild calcified plaque involving the origin of the left ICA. This plaque is less than 50 percent.. Antegrade vertebral flow is seen bilaterally. The measurements were made using the NASCET criteria. Impression: Mild plaque formation is seen within the carotid bifurcations bilaterally which is less than 50 percent. Electronically signed by: Herrera Julian MD (02/23/2020 5:40 PM) [id number]
[2020-02-23] MEDS: ASPIRIN ENTERIC COATED 81 MG TABLET.DR. PO SCH (17:54)
[2020-02-23] MEDS: FOLIC ACID 1 MG TABLET. PO SCH (17:54)
[2020-02-23] MEDS: THIAMINE 100 MG TABLET. PO SCH (17:55)
[2020-02-23] MEDS: HYDROcodone/APAP 5/325MG 1 TAB TABLET PO PRN (17:55)
[2020-02-23] MEDS: MULTIVITAMIN with MINERAL TABLET. PO SCH (17:55)
[2020-02-23] MEDS: MAGNESIUM SULFATE 2GM 50 ML IV SCH (18:00)
--- NOTE | 2020-02-23 19:55 | RAD ---
INDICATION: Pre-operative evaluation. COMPARISON: None. TECHNIQUE: Color, grayscale and spectral doppler ultrasound images obtained of the bilateral lower extremity saphenous system. FINDINGS: Measurements from proximal to distal are in mm: Right: Greater Saphenous: Thigh 1.6, 1.7, 1.1, 1.6; Calf 1.1, 1.5, 0.8. Lesser Saphenous: Calf: 1.0, not well seen distally. Left: Greater Saphenous: Thigh 2.1, 1.8, 1.8, 1.1; Calf 1.4, 1.4, 1.2, 1.1. Lesser Saphenous: Calf: 1.2, 1.2, 0.6. IMPRESSION: 1. Saphenous measurements as above. Electronically signed by: Tre Earl MD (02/23/2020 7:52 PM) [id number]
[2020-02-23] MEDS: ZOLPIDEM 5 MG TABLET. PO PRN (21:37)
[2020-02-23] MEDS: ACETAMINOPHEN 325 MG TABLET. PO PRN (21:37)
[2020-02-24] MEDS: HYDROcodone/APAP 5/325MG 1 TAB TABLET PO PRN (00:46)
[2020-02-24 03:37] VITALS: BP 132/87
[2020-02-24 06:24] LABS: BASO % 0 % (0-3); EOS # 0.1 x10^3/uL (0.0-0.7); EOS % 1 % (0-3); HEMATOCRIT 41.8 % (39.0-53.0); HEMOGLOBIN 14.3 g/dL (13.0-17.5); LYMPH # 1.4 x10^3/uL (1.0-4.8); LYMPH % 17 % (24-48); MEAN CORPUSCULAR HEMOGLOBIN 32 pg (25-35); MEAN CORPUSCULAR HGB CONC 34 g/dL (31-37); MEAN CORPUSCULAR VOLUME 93 fL (79-100); MONO # 0.6 x10^3/uL (0.0-1.1); MONO % 7 % (0-9); NEUT # 6.2 x10^3/uL (1.8-7.7); NEUT % 75 % (31-73); PLATELET COUNT 201 x10^3/uL (140-400); RED CELL DISTRIBUTION WIDTH 14.1 % (11.5-14.5); WHITE BLOOD COUNT 8.3 x10^3/uL (4.0-11.0)
[2020-02-24 06:41] LABS: ALBUMIN 3.1 g/dL (3.4-5.0); CALCIUM 8.6 mg/dL (8.5-10.1); DIRECT BILIRUBIN 0.2 mg/dL (0.0-0.2); GFR 76.2; POTASSIUM 4.7 mmol/L (3.5-5.1); TOTAL BILIRUBIN 0.4 mg/dL (0.2-1.0); TOTAL PROTEIN 6.3 g/dL (6.4-8.2)
[2020-02-24 07:00] VITALS: BP 139/86
[2020-02-24] MEDS: MULTIVITAMIN with MINERAL TABLET. PO SCH (08:21)
[2020-02-24] MEDS: THIAMINE 100 MG TABLET. PO SCH (08:21)
[2020-02-24] MEDS: ASPIRIN ENTERIC COATED 81 MG TABLET.DR. PO SCH (08:22)
[2020-02-24] MEDS: FOLIC ACID 1 MG TABLET. PO SCH (08:22)
[2020-02-24] MEDS: NICOTINE 21MG PATCH. TD SCH (08:22)
--- NOTE | 2020-02-24 08:36 | RAD ---
02/23/2020 Procedure: 1. Abdominal angiogram 2. Pelvic angiogram 3. Right lower extremity angiography 4. Placement of right common iliac artery stent Clinical Indication: right leg pain, claudication, PVD Discussion: The procedure was explained in its entirety to the patient or the patients designated outside medical sales representative by a member of the treatment team, including a discussion of the risks, benefits and commonly accepted alternatives to the procedure, as well as the expected consequences of no therapy whatsoever. Discussion of the risks included, but was not limited to, those that are most frequent and those that are rare but possibly severe or life-threatening, as well as the possibility of unforeseen complications. The left groin was prepped and draped using maximum sterile barrier technique. All elements of maximal sterile barrier technique including the use of a cap, mask, sterile gown, sterile gloves, large sterile sheet, appropriate hand hygiene, and 2% chlorhexidine for cutaneous antisepsis (or acceptable alternative antiseptic per current guidelines) were followed for this procedure. 1% lidocaine was administered for local anesthesia. Ultrasound evaluation demonstrates mild atherosclerotic vascular disease left common femoral artery. Common femoral artery is otherwise patent. The artery is accessed using micropuncture technique and direct ultrasound guidance. Reference ultrasound images were saved the medical record. 5 Frisian vascular sheath was placed. An Omni flush catheter was advanced into the abdominal aorta. Abdominal aortogram was obtained. No abnormal aortic aneurysm is seen. Mild tapering of the distal abdominal aorta is seen. Visualized mesenteric and renal arteries appear patent. Pelvic angiography was then performed. There is high-grade narrowing of the right common iliac artery. The right internal iliac artery is not visualized likely chronically occluded. The external iliac artery appears to be patent. There is diffuse irregularity of the left external iliac artery with mild narrowing. Right common femoral artery is patent. There is flush occlusion of the right superficial femoral artery. The ostium is not definitively seen. The profunda artery is patent. There is reconstitution of the distal SFA in the adductor canal. The popliteal artery demonstrates minimal atherosclerotic vascular disease was otherwise patent. The there is three-vessel runoff to the ankle. The severity of inflow disease looks somewhat limits evaluation of the foot. The posterior tibial and dorsalis pedis artery however appear to be patent. The right common iliac artery was repaired by placement of a 7 mm VBX balloon-expandable stent, postdilated to 9 mm. Significantly improved morphology and flow through the lesion. Given relatively mild appearance of narrowing in the left external iliac pressure measurements were obtained across the left common and external iliac artery without significant drop in pressure. Therefore no intervention was performed. Given patient's thin body habitus he was felt to not be an ideal candidate for closure device placement. 7 Frisian sheath was secured in place the patient was transferred to the floor to allow time for heparin effect to decrease. Ultimately the sheath was removed and manual pressure was held, to achieve hemostasis. No immediate complications were identified. Total fluoroscopy time: 12.2 minutes Dose area product: 128 Gycm2 The procedures performed under conscious sedation including continuous cardiopulmonary monitoring via dedicated sedation nurse. [id number] sedation time: 120 minutes Impression: 1. 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 Flush occlusion of the right SFA with reconstitution the adductor canal. Finding was interoperatively discussed with the ordering vascular surgeon. The patient will be evaluated for bypass. 3. At least two-vessel runoff to the foot appears to be present.
--- NOTE | 2020-02-24 09:07 | PDOC ---
PROGRESS NOTES Chief Complaint Chief Complaint Impression: 1. Acute arterial occlusion throughout the right superficial femoral artery, some reconstitution of minimal flow in the popliteal artery and runoff vessels. 2. Possible HX seizure, alcohol related 3. NONCOMPLIANCE with medications 4. Hypertension; controlled 5. Hyperlipidemia; 6. H/o endocarditis; s/p mechanical aortic valve replacement 20 yrs ago [facility] . Was previously on warfarin, but has not taken in > 2 years. Aortic valve appeared to be well seated and functioning well per TTE. 7. Abnormal EKG; noted with RBBB and anterolateral ST depression, which is unchanged from previous EKG 05/2018. EKG 05/2014 at with LVH, RBBB and ST changes on V4-[address] depression with ST elevation in V1. echo 08/31 Ejection Fraction is 35-40%. Abnormal septal motion consistent with post-operative state. Mechanical aortic valve prosthesis appears well seated and functioning well. MG 9 mm Hg.Mild aortic regurgitation. Trace mitral regurgitation. Trace tricuspid regurgitation with an estimated PAP of 23 mmHg. 8. Alcoholism; now 5 beers a week 9. Hypomagnesemia 10 Tobaccoism, marijuana use; discussed/encouraged cessation 11. Chronic systolic CHF with possible NICM with h/o alcoholoism, ICM // Echo with LVEF 35-40%. 12. HYPONATREMIA will follow plan VASCULAR Recommends an angiogram with IR 02/22 of the right leg with possible intervention, heparin drip protocol CIWA PROTOCOL continue ASA daily follow Na level bypass surgery which could be early next week or at his convenience depending on his continued symptoms.. needs cardiology clearance pre-op Consider outpatient ischemic evaluation no PCP, will provided information on [facility] for follow up deemed moderate risk for his extra inguinal vascular procedure if deemed needed by vascular surgery. Supportive care and optimization with medical therapy. 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 Duplex sonography of the cervical portion of both carotid arteries was performed including color flow imaging and spectral waveform analysis with flow velocity measurement and alonzo scale evaluation. Right side: Peak systolic flow velocity of the CCA is 87 cm/sec. Peak systolic flow velocity of the ICA is 106 cm/sec. Thus, the ICA/CCA ratio is 1.2. Peak end diastolic flow velocity of the ICA is 43 cm/sec. The peak systolic velocity of the ECA is 52 cm/sec. Left side: Peak systolic flow velocity of the CCA is 76 cm/sec. Peak systolic flow velocity of the ICA is 126 cm/sec. Thus, the ICA/CCA ratio is 1.7. Peak end diastolic flow velocity of the ICA is 82 cm/sec. Peak systolic flow velocity of the ECA is 74 cm/sec. Mild plaque formation is seen within the right carotid bulb and proximal right ICA which is less than 50 percent. Less prominent soft plaque formation is seen within the left carotid bulb. There is mild calcified plaque involving the origin of the left ICA. This plaque is less than 50 percent.. Antegrade vertebral flow is seen bilaterally. The measurements were made using the NASCET criteria. Impression: Mild plaque formation is seen within the carotid bifurcations bilaterally which is less than 50 percent. Electronically signed by: David Julian MD (02/23/2020 5:40 PM) [id number] DICTATED and SIGNED BY: DAVID JULIAN MD DATE: 02/23/20173902/23/2020 Procedure: 1. Abdominal angiogram 2. Pelvic angiogram 3. Right lower extremity angiography 4. Placement of right common iliac artery stent Clinical Indication: right leg pain, claudication, PVD Discussion: The procedure was explained in its entirety to the patient or the patients designated specialty sales representative by a member of the treatment team, including a discussion of the risks, benefits and commonly accepted alternatives to the procedure, as well as the expected consequences of no therapy whatsoever. Discussion of the risks included, but was not limited to, those that are most frequent and those that are rare but possibly severe or life-threatening, as well as the possibility of unforeseen complications. The left groin was prepped and draped using maximum sterile barrier technique. All elements of maximal sterile barrier technique including the use of a cap, mask, sterile gown, sterile gloves, large sterile sheet, appropriate hand hygiene, and 2% chlorhexidine for cutaneous antisepsis (or acceptable alternative antiseptic per current guidelines) were followed for this procedure. 1% lidocaine was administered for local anesthesia. Ultrasound evaluation demonstrates mild atherosclerotic vascular disease left common femoral artery. Common femoral artery is otherwise patent. The artery is accessed using micropuncture technique and direct ultrasound guidance. Reference ultrasound images were saved the medical record. 5 Australian vascular sheath was placed. An Omni flush catheter was advanced into the abdominal aorta. Abdominal aortogram was obtained. No abnormal aortic aneurysm is seen. Mild tapering of the distal abdominal aorta is seen. Visualized mesenteric and renal arteries appear patent. Pelvic angiography was then performed. There is high-grade narrowing of the right common iliac artery. The right internal iliac artery is not visualized likely chronically occluded. The external iliac artery appears to be patent. There is diffuse irregularity of the left external iliac artery with mild narrowing. Right common femoral artery is patent. There is flush occlusion of the right superficial femoral artery. The ostium is not definitively seen. The profunda artery is patent. There is reconstitution of the distal SFA in the adductor canal. The popliteal artery demonstrates minimal atherosclerotic vascular disease was otherwise patent. The there is three-vessel runoff to the ankle. The severity of inflow disease looks somewhat limits evaluation of the foot. The posterior tibial and dorsalis pedis artery however appear to be patent. The right common iliac artery was repaired by placement of a 7 mm VBX balloon-expandable stent, postdilated to 9 mm. Significantly improved morphology and flow through the lesion. Given relatively mild appearance of narrowing in the left external iliac pressure measurements were obtained across the left common and external iliac artery without significant drop in pressure. Therefore no intervention was performed. Given patient's thin body habitus he was felt to not be an ideal candidate for closure device placement. 7 Australian sheath was secured in place the patient was transferred to the floor to allow time for heparin effect to decrease. Ultimately the sheath was removed and manual pressure was held, to achieve hemostasis. No immediate complications were identified. Total fluoroscopy time: 12.2 minutes Dose area product: 128 Gycm2 The procedures performed under conscious sedation including continuous cardiopulmonary monitoring via dedicated sedation nurse. [id number] sedation time: 120 minutes Impression: 1. 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 Flush occlusion of the right SFA with reconstitution the adductor canal. Finding was interoperatively discussed with the ordering vascular surgeon. The patient will be evaluated for bypass. 3. At least two-vessel runoff to the foot appears to be present. DICTATED and SIGNED BY: GABBY SLADE MD DATE: 02/24/20 0832 Laboratory Tests Test 02/23/20 15:11 02/24/20 06:10 Activated Clotting Time 213 sec (92-181) White Blood Count 8.3 x10^3/uL (4.0-11.0) Red Blood Count 4.50 x10^6/uL (4.30-5.70) Hemoglobin 14.3 g/dL (13.0-17.5) Hematocrit 41.8 % (39.0-53.0) Mean Corpuscular Volume 93 fL (79-100) Mean Corpuscular Hemoglobin 32 pg (25-35) Mean Corpuscular Hemoglobin Concent 34 g/dL (31-37) Red Cell Distribution Width 14.1 % (11.5-14.5) Platelet Count 201 x10^3/uL (140-400) Neutrophils (%) (Auto) 75 % (31-73) Lymphocytes (%) (Auto) 17 % (24-48) Monocytes (%) (Auto) 7 % (0-9) Eosinophils (%) (Auto) 1 % (0-3) Basophils (%) (Auto) 0 % (0-3) Neutrophils # (Auto) 6.2 x10^3/uL (1.8-7.7) Lymphocytes # (Auto) 1.4 x10^3/uL (1.0-4.8) Monocytes # (Auto) 0.6 x10^3/uL (0.0-1.1) Eosinophils # (Auto) 0.1 x10^3/uL (0.0-0.7) Basophils # (Auto) 0.0 x10^3/uL (0.0-0.2) Sodium Level 135 mmol/L (136-145) Potassium Level 4.7 mmol/L (3.5-5.1) Chloride Level 101 mmol/L (98-107) Carbon Dioxide Level 30 mmol/L (21-32) Anion Gap 4 (6-14) Blood Urea Nitrogen 8 mg/dL (8-26) Creatinine 1.0 mg/dL (0.7-1.3) Estimated GFR (Cockcroft-Gault) 76.2 Glucose Level 82 mg/dL (70-99) Calcium Level 8.6 mg/dL (8.5-10.1) Total Bilirubin 0.4 mg/dL (0.2-1.0) Direct Bilirubin 0.2 mg/dL (0.0-0.2) Aspartate Amino Transf (AST/SGOT) 20 U/L (15-37) Alanine Aminotransferase (ALT/SGPT) 23 U/L (16-63) Alkaline Phosphatase 74 U/L (46-116) Total Protein 6.3 g/dL (6.4-8.2) Albumin 3.1 g/dL (3.4-5.0) Assessment and Plan Assessmemt and Plan Problems Medical Problems: (1) Magnesium deficiency Status: Acute (2) Superficial femoral artery occlusion Status: Acute Comment Review of Relevant I have reviewed the following items ochoa (where applicable) has been applied. Labs Laboratory Tests Test 02/22/20 15:46 02/22/20 15:49 02/22/20 16:00 02/22/20 17:35 Plasma/Serum Osmolality 252 mOsmol/kg (275-295) White Blood Count 9.4 x10^3/uL (4.0-11.0) Red Blood Count 4.39 x10^6/uL (4.30-5.70) Hemoglobin 14.4 g/dL (13.0-17.5) Hematocrit 40.1 % (39.0-53.0) Mean Corpuscular Volume 91 fL (79-100) Mean Corpuscular Hemoglobin 33 pg (25-35) Mean Corpuscular Hemoglobin Concent 36 g/dL (31-37) Red Cell Distribution Width 13.7 % (11.5-14.5) Platelet Count 204 x10^3/uL (140-400) Neutrophils (%) (Auto) 81 % (31-73) Lymphocytes (%) (Auto) 12 % (24-48) Monocytes (%) (Auto) 6 % (0-9) Eosinophils (%) (Auto) 0 % (0-3) Basophils (%) (Auto) 0 % (0-3) Neutrophils # (Auto) 7.7 x10^3/uL (1.8-7.7) Lymphocytes # (Auto) 1.2 x10^3/uL (1.0-4.8) Monocytes # (Auto) 0.5 x10^3/uL (0.0-1.1) Eosinophils # (Auto) 0.0 x10^3/uL (0.0-0.7) Basophils # (Auto) 0.0 x10^3/uL (0.0-0.2) Prothrombin Time 13.7 SEC (11.7-14.0) Prothromb Time International Ratio 1.1 (0.8-1.1) Sodium Level 125 mmol/L (136-145) Potassium Level 4.4 mmol/L (3.5-5.1) Chloride Level 91 mmol/L (98-107) Carbon Dioxide Level 25 mmol/L (21-32) Anion Gap 9 (6-14) Blood Urea Nitrogen 7 mg/dL (8-26) Creatinine 0.9 mg/dL (0.7-1.3) Estimated GFR (Cockcroft-Gault) 86.1 BUN/Creatinine Ratio 8 (6-20) Glucose Level 83 mg/dL (70-99) Calcium Level 8.9 mg/dL (8.5-10.1) Magnesium Level 1.6 mg/dL (1.8-2.4) Total Bilirubin 0.5 mg/dL (0.2-1.0) Aspartate Amino Transf (AST/SGOT) 24 U/L (15-37) Alanine Aminotransferase (ALT/SGPT) 18 U/L (16-63) Alkaline Phosphatase 96 U/L (46-116) Troponin I Quantitative 0.041 ng/mL (0.000-0.055) Total Protein 7.3 g/dL (6.4-8.2) Albumin 3.7 g/dL (3.4-5.0) Albumin/Globulin Ratio 1.0 (1.0-1.7) Ethyl Alcohol Level < 10 mg/dL (0-10) Urine Collection Type Void Urine Color Yellow Urine Clarity Clear Urine pH 6.0 (<5.0-8.0) Urine Specific Victor 1.015 (1.000-1.030) Urine Protein 30 mg/dL (NEG-TRACE) Urine Glucose (UA) Negative mg/dL (NEG) Urine Ketones (Stick) Negative mg/dL (NEG) Urine Blood Negative (NEG) Urine Nitrite Negative (NEG) Urine Bilirubin Negative (NEG) Urine Urobilinogen Dipstick 1.0 mg/dL (0.2 mg/dL) Urine Leukocyte Esterase Negative (NEG) Urine RBC 0 /HPF (0-2) Urine WBC Rare /HPF (0-4) Urine Bacteria 0 /HPF (0-FEW) Urine Hyaline Casts Few /HPF Urine Mucus Slight /LPF Urine Random Creatinine 189.7 mg/dL (Not Establ.) Urine Random Sodium 24 mmol/L (Not Estab.) Urine Opiates Screen Neg (NEG) Urine Methadone Screen Neg (NEG) Urine Barbiturates Neg (NEG) Urine Phencyclidine Screen Neg (NEG) Urine Amphetamine/Methamphetamine Neg (NEG) Urine Benzodiazepines Screen Neg (NEG) Urine Cocaine Screen Neg (NEG) Urine Cannabinoids Screen Pos (NEG) Urine Ethyl Alcohol Neg (NEG) Activated Partial Thromboplast Time 34 SEC (24-38) Test 02/22/20 23:45 02/23/20 06:45 02/23/20 15:11 02/24/20 06:10 Heparin Anti-Xa Act, Unfractionated 0.40 IU/mL (0.30-0.70) 0.12 IU/mL (0.30-0.70) Phosphorus Level 4.6 mg/dL (2.6-4.7) Magnesium Level 2.0 mg/dL (1.8-2.4) Activated Clotting Time 213 sec (92-181) White Blood Count 8.3 x10^3/uL (4.0-11.0) Red Blood Count 4.50 x10^6/uL (4.30-5.70) Hemoglobin 14.3 g/dL (13.0-17.5) Hematocrit 41.8 % (39.0-53.0) Mean Corpuscular Volume 93 fL (79-100) Mean Corpuscular Hemoglobin 32 pg (25-35) Mean Corpuscular Hemoglobin Concent 34 g/dL (31-37) Red Cell Distribution Width 14.1 % (11.5-14.5) Platelet Count 201 x10^3/uL (140-400) Neutrophils (%) (Auto) 75 % (31-73) Lymphocytes (%) (Auto) 17 % (24-48) Monocytes (%) (Auto) 7 % (0-9) Eosinophils (%) (Auto) 1 % (0-3) Basophils (%) (Auto) 0 % (0-3) Neutrophils # (Auto) 6.2 x10^3/uL (1.8-7.7) Lymphocytes # (Auto) 1.4 x10^3/uL (1.0-4.8) Monocytes # (Auto) 0.6 x10^3/uL (0.0-1.1) Eosinophils # (Auto) 0.1 x10^3/uL (0.0-0.7) Basophils # (Auto) 0.0 x10^3/uL (0.0-0.2) Sodium Level 135 mmol/L (136-145) Potassium Level 4.7 mmol/L (3.5-5.1) Chloride Level 101 mmol/L (98-107) Carbon Dioxide Level 30 mmol/L (21-32) Anion Gap 4 (6-14) Blood Urea Nitrogen 8 mg/dL (8-26) Creatinine 1.0 mg/dL (0.7-1.3) Estimated GFR (Cockcroft-Gault) 76.2 Glucose Level 82 mg/dL (70-99) Calcium Level 8.6 mg/dL (8.5-10.1) Total Bilirubin 0.4 mg/dL (0.2-1.0) Direct Bilirubin 0.2 mg/dL (0.0-0.2) Aspartate Amino Transf (AST/SGOT) 20 U/L (15-37) Alanine Aminotransferase (ALT/SGPT) 23 U/L (16-63) Alkaline Phosphatase 74 U/L (46-116) Total Protein 6.3 g/dL (6.4-8.2) Albumin 3.1 g/dL (3.4-5.0) Laboratory Tests Test 02/23/20 15:11 02/24/20 06:10 Activated Clotting Time 213 sec (92-181) White Blood Count 8.3 x10^3/uL (4.0-11.0) Red Blood Count 4.50 x10^6/uL (4.30-5.70) Hemoglobin 14.3 g/dL (13.0-17.5) Hematocrit 41.8 % (39.0-53.0) Mean Corpuscular Volume 93 fL (79-100) Mean Corpuscular Hemoglobin 32 pg (25-35) Mean Corpuscular Hemoglobin Concent 34 g/dL (31-37) Red Cell Distribution Width 14.1 % (11.5-14.5) Platelet Count 201 x10^3/uL (140-400) Neutrophils (%) (Auto) 75 % (31-73) Lymphocytes (%) (Auto) 17 % (24-48) Monocytes (%) (Auto) 7 % (0-9) Eosinophils (%) (Auto) 1 % (0-3) Basophils (%) (Auto) 0 % (0-3) Neutrophils # (Auto) 6.2 x10^3/uL (1.8-7.7) Lymphocytes # (Auto) 1.4 x10^3/uL (1.0-4.8) Monocytes # (Auto) 0.6 x10^3/uL (0.0-1.1) Eosinophils # (Auto) 0.1 x10^3/uL (0.0-0.7) Basophils # (Auto) 0.0 x10^3/uL (0.0-0.2) Sodium Level 135 mmol/L (136-145) Potassium Level 4.7 mmol/L (3.5-5.1) Chloride Level 101 mmol/L (98-107) Carbon Dioxide Level 30 mmol/L (21-32) Anion Gap 4 (6-14) Blood Urea Nitrogen 8 mg/dL (8-26) Creatinine 1.0 mg/dL (0.7-1.3) Estimated GFR (Cockcroft-Gault) 76.2 Glucose Level 82 mg/dL (70-99) Calcium Level 8.6 mg/dL (8.5-10.1) Total Bilirubin 0.4 mg/dL (0.2-1.0) Direct Bilirubin 0.2 mg/dL (0.0-0.2) Aspartate Amino Transf (AST/SGOT) 20 U/L (15-37) Alanine Aminotransferase (ALT/SGPT) 23 U/L (16-63) Alkaline Phosphatase 74 U/L (46-116) Total Protein 6.3 g/dL (6.4-8.2) Albumin 3.1 g/dL (3.4-5.0) Microbiology 02/22/20 Blood Culture - Preliminary, Resulted NO GROWTH AFTER 1 DAY Medications Current Medications Sodium Chloride 1,000 ml @ 1,000 mls/hr 1X ONCE IV Last administered on 02/22/20at 16:57; Start 02/22/20 at 17:00; Stop 02/22/20 at 17:59; Status DC Magnesium Sulfate 50 ml @ 25 mls/hr 1X ONCE IV Last administered on 02/22/20at 16:58; Start 02/22/20 at 17:00; Stop 02/22/20 at 18:59; Status DC Fentanyl Citrate (Fentanyl 2ml Vial) 50 mcg 1X ONCE IVP Last administered on 02/22/20at 16:58; Start 02/22/20 at 17:00; Stop 02/22/20 at 17:01; Status DC Ondansetron HCl (Zofran) 4 mg PRN Q8HRS PRN IV NAUSEA/VOMITING Last administered on 02/22/20at 20:00; Start 02/22/20 at 17:00; Stop 02/23/20 at 16:59; Status DC Fentanyl Citrate (Fentanyl 2ml Vial) 50 mcg PRN Q1HR PRN IV PAIN Last administered on 02/22/20at 20:00; Start 02/22/20 at 17:00; Stop 02/23/20 at 16:59; Status DC Aspirin (Jasmin Aspirin) 325 mg 1X ONCE PO Last administered on 02/22/20at 17:30; Start 02/22/20 at 17:15; Stop 02/22/20 at 17:16; Status DC Heparin Sodium (Porcine) (Heparin Sodium) 5,450 unit 1X ONCE IV Last administered on 02/22/20at 17:45; Start 02/22/20 at 17:15; Stop 02/22/20 at 17:16; Status DC Heparin Sodium/ Dextrose 250 ml @ 0 mls/hr CONT PRN IV PER PROTOCOL Last administered on 02/22/20at 17:44; Start 02/22/20 at 17:30 Heparin Sodium (Porcine) (Heparin Sodium) 2,050 unit PRN Q6HRS PRN IV FOR UFH LEVEL LESS THAN 0.2 Last administered on 02/23/20at 09:12; Start 02/22/20 at 17:00 Heparin Sodium (Porcine) (Heparin Sodium) 1,000 unit PRN Q6HRS PRN IV FOR UFH LEVEL 0.2 - 0.29; Start 02/22/20 at 17:00 Potassium Bicarbonate (Potassium Effervescent Tablet) 40 meq 1X ONCE FT ; Start 02/22/20 at 17:30; Stop 02/22/20 at 17:31; Status DC Magnesium Sulfate 50 ml @ 25 mls/hr Q24H IV ; Start 02/22/20 at 18:00; Stop 02/24/20 at 19:59 Potassium Phos/ Sodium Phos (Phos-Nak) 1 pkt BID PO ; Start 02/22/20 at 21:00; Stop 02/23/20 at 09:01; Status DC Potassium Bicarbonate (Potassium Effervescent Tablet) 40 meq Q4H PO Last admin istered on 02/22/20at 22:00; Start 02/22/20 at 18:00; Stop 02/22/20 at 22:01; Status DC Sodium Chloride (Normal Saline Flush) 3 ml QSHIFT PRN IV AFTER MEDS AND BLOOD DRAWS; Start 02/22/20 at 17:15 Sodium Chloride 1,000 ml @ 60 mls/hr [id number] IV Last administered on 02/23/20at 21:33; Start 02/22/20 at 17:15 Ondansetron HCl (Zofran) 4 mg PRN Q4HRS PRN IV NAUSEA/VOMITING; Start 02/22/20 at 17:15 Zolpidem Tartrate (Ambien) 5 mg PRN QHS PRN PO INSOMNIA Last administered on 02/23/20at 21:37; Start 02/22/20 at 17:15 Acetaminophen (Tylenol) 650 mg PRN Q4HRS PRN PO TEMP OVER 100.4F OR MILD PAIN Last administered on 02/23/20at 21:37; Start 02/22/20 at 17:15 Al Hydroxide/Mg Hydroxide (Mylanta Plus Xs) 30 ml PRN DAILY PRN PO HEARTBURN / GAS; Start 02/22/20 at 17:15 Sodium Monofluorophosphate (Fleet Adult) [address] CONSTIPATION; Start 02/22/20 at 17:15 Docusate Sodium (Colace) 100 mg PRN BID PRN PO HARD STOOLS; Start 02/22/20 at 17:15 Albuterol/ Ipratropium (Duoneb) 3 ml Q4HRS NEB ; Start 02/22/20 at 20:00; Stop 02/22/20 at 17:44; Status DC Guaifenesin (Robitussin) 200 mg PRN Q4HRS PRN PO COUGH; Start 02/22/20 at 17:15 Multivitamins (Thera M Plus) 1 tab DAILY PO Last administered on 02/24/20at 08:21; Start 02/23/20 at 09:00 Folic Acid (Folic Acid) 1 mg DAILY PO Last administered on 02/24/20at 08:22; Start 02/23/20 at 09:00 Thiamine Mononitrate (Vitamin B-1) 100 mg DAILY PO Last administered on 02/24/20at 08:21; Start 02/23/20 at 09:00 Lorazepam (Ativan) 4 mg PRN Q1HR PRN PO For CIWA 8-14; Start 02/22/20 at 17:30 Lorazepam (Ativan) 8 mg PRN Q1HR PRN PO For CIWA 15 or greater; Start 02/22/20 at 17:30 Lorazepam (Ativan Inj) 2 mg PRN Q1HR PRN IV For CIWA 8-14 Last administered on 02/24/20at 08:28; Start 02/22/20 at 17:30 Lorazepam (Ativan Inj) 4 mg PRN Q1HR PRN IV For CIWA 15 or greater; Start 02/22/20 at 17:30 Haloperidol Lactate (Haldol Inj) 5 mg PRN Q4HRS PRN IVP Hallucinatn s,Confusn,Delirium; Start 02/22/20 at 17:30 Diphenhydramine HCl (Benadryl) 25 mg PRN Q15MIN PRN IVP EPS symptoms 2'Haldol admin; Start 02/22/20 at 17:30 Lorazepam (Ativan Inj) 2 mg PRN Q15MIN PRN IV SEE COMMENTS; Start 02/22/20 at 17:30; Stop 02/22/20 at 18:45; Status DC Lorazepam (Ativan Inj) 4 mg PRN Q15MIN PRN IV SEE COMMENTS; Start 02/22/20 at 17:30; Stop 02/22/20 at 18:45; Status DC Albuterol Sulfate (Ventolin Neb Soln) 2.5 mg PRN Q4HRS PRN NEB SHORTNESS OF BREATH; Start 02/22/20 at 18:00 Nicotine (Nicoderm Cq 21mg) 1 patch DAILY TD Last administered on 02/24/20at 08:22; Start 02/22/20 at 22:30 Acetaminophen (Tylenol) 500 mg PRN Q4HRS PRN PO MILD PAIN / TEMP > 100.3'F; Start 02/22/20 at 22:30; Stop 02/23/20 at 17:30; Status DC Info (Anti-Coagulation Monitoring By Pharmacy) 1 each PRN DAILY PRN MC SEE COMMENTS Last administered on 02/23/20at 10:24; Start 02/23/20 at 09:45 Aspirin (Ecotrin) 81 mg [id number] PO Last administered on 02/24/20at 08:22; Start 02/23/20 at 12:00 Heparin Sodium/ Sodium Chloride (HEPARIN for ARTERIAL LINE FLUSH) 1,000 unit 1X ONCE IART Last administered on 02/23/20at 13:30; Start 02/23/20 at 13:30; Stop 02/23/20 at 13:38; Status DC Heparin Sodium/ Sodium Chloride (HEPARIN for ARTERIAL LINE FLUSH) 1,000 unit 1X ONCE IART Last administered on 02/23/20at 13:30; Start 02/23/20 at 13:30; Stop 02/23/20 at 13:38; Status DC Lidocaine HCl (Buffered Lidocaine 1%) 3 ml 1X ONCE IJ Last administered on 02/23/20at 13:50; Start 02/23/20 at 13:30; Stop 02/23/20 at 13:38; Status DC Midazolam HCl (Versed) 2 mg 1X ONCE IV Last administered on 02/23/20at 13:45; Start 02/23/20 at 13:30; Stop 02/23/20 at 13:38; Status DC Fentanyl Citrate (Fentanyl 2ml Vial) 100 mcg 1X ONCE IV Last administered on 02/23/20at 13:45; Start 02/23/20 at 13:30; Stop 02/23/20 at 13:38; Status DC Iodixanol (Visipaque 320) 100 ml 1X ONCE IART Last administered on 02/23/20at 15:09; Start 02/23/20 at 13:30; Stop 02/23/20 at 13:38; Status DC Lidocaine HCl (Buffered Lidocaine 1%) 3 ml STK-MED ONCE .ROUTE ; Start 02/23/20 at 13:14; Stop 02/23/20 at 13:32; Status DC Iodixanol (Visipaque 320) 100 ml STK-MED ONCE .ROUTE ; Start 02/23/20 at 13:14; Stop 02/23/20 at 13:32; Status DC Heparin Sodium/ Sodium Chloride 1,500 ml @ As Directed STK-MED ONCE .ROUTE ; Start 02/23/20 at 13:14; Stop 02/23/20 at 13:32; Status DC Midazolam HCl (Versed) 2 mg STK-MED ONCE .ROUTE ; Start 02/23/20 at 13:20; Stop 02/23/20 at 13:33; Status DC Fentanyl Citrate (Fentanyl 2ml Vial) 100 mcg STK-MED ONCE .ROUTE ; Start 02/23/20 at 13:21; Stop 02/23/20 at 13:33; Status DC Heparin Sodium (Porcine) (Heparin Sodium) 10,000 unit STK-MED ONCE .ROUTE ; Start 02/23/20 at 13:21; Stop 02/23/20 at 13:33; Status DC Heparin Sodium (Porcine) (Heparin Sodium) 5,000 unit 1X ONCE IV Last administered on 02/23/20at 14:08; Start 02/23/20 at 14:15; Stop 02/23/20 at 14:22; Status DC Heparin Sodium/ Sodium Chloride 500 ml @ As Directed STK-MED ONCE .ROUTE ; Start 02/23/20 at 15:23; Stop 02/23/20 at 15:23; Status DC Acetaminophen/ Hydrocodone Bitart (Lortab 5/325) 1 tab PRN Q6HRS PRN PO PAIN Last administered on 02/24/20at 00:46; Start 02/23/20 at 17:15 Active Scripts Active Ibuprofen 800 Mg Tablet 800 Mg PO PRN Q6HRS PRN Cyclobenzaprine Hcl 10 Mg Tablet 1 Tab PO TID PRN Proair Hfa Inhaler (Albuterol Sulfate) 8.5 Gm Hfa.aer.ad 1-2 Puff INH PRN Q6HRS PRN with spacer Albuterol Sulfate Neb Soln (Albuterol Sulfate) 2.5 Mg/3 Ml Vial.neb 1 Vial NEB PRN Q4HRS PRN Reported Acetaminophen 500 Mg Tablet 500 Mg PO PRN Q6HRS PRN Advil (Ibuprofen) 200 Mg Capsule 200 Mg PO PRN Q6HRS PRN Vitals/I & O Vital Sign - Last 24 Hours 02/23/20 02/23/20 02/23/20 02/23/20 11:00 13:45 15:36 15:51 Temp 98.0 98.0 Pulse 66 60 60 Resp 18 16 12 B/P (MAP) 140/88 (105) Pulse Ox 96 96 89 O2 Delivery Room Air Nasal Cannula O2 Flow Rate 2.0 02/23/20 02/23/20 02/23/20 02/23/20 16:00 16:06 16:24 16:39 Temp 98.1 98.1 Pulse 60 60 58 58 Resp 18 B/P (MAP) 159/82 (107) Pulse Ox 90 93 94 97 O2 Delivery Room Air Nasal Cannula Nasal Cannula Nasal Cannula O2 Flow Rate 2.0 2.0 2.0 02/23/20 02/23/20 02/23/20 02/23/20 16:54 17:24 17:54 17:55 Pulse 60 58 60 Pulse Ox 95 96 95 95 O2 Delivery Nasal Cannula Nasal Cannula Nasal Cannula Nasal Cannula O2 Flow Rate 2.0 2.0 2.0 2.0 02/23/20 02/23/20 02/23/20 02/23/20 18:54 19:24 19:54 20:00 Temp 98.1 98.1 Pulse 68 70 66 Resp 16 16 B/P (MAP) 154/86 (108) 152/96 (114) Pulse Ox 93 95 97 O2 Delivery Nasal Cannula Nasal Cannula Room Air Room Air O2 Flow Rate 2.0 2.0 02/23/20 02/24/20 02/24/20 23:56 03:37 07:00 Temp 98.3 97.6 97.9 98.3 97.6 97.9 Pulse 63 65 63 Resp 16 16 18 B/P (MAP) 123/71 (88) 132/87 (102) 139/86 (103) Pulse Ox 96 96 96 O2 Delivery Room Air Room Air Room Air Intake and Output 02/23/20 02/23/20 02/24/20 15:00 23:00 07:00 Intake Total 0 ml 550 ml 400 ml Output Total 400 ml 1400 ml 1225 ml Balance -400 ml -850 ml -825 ml Justicifation of Admission Dx: Justifications for Admission: Justification of Admission Dx: Yes ANJELICA GAMBOA MD Feb 24, 2020 09:07
--- NOTE | 2020-02-24 09:54 | PDOC ---
PROGRESS NOTES Subjective Subjective I am fine. I can move my right foot better. I cannot tell if my symptoms are better because I have not been up and walking around yet. The patient is a 59-year-old male who presented to the Emergency Department with right leg pain. He reported that his right leg pain started at least 3 weeks ago. It was fairly sudden onset. He has pain during ambulation in his right calf. Prior to 3 weeks ago, he was able to walk longer distances without pain in the legs. He is fairly noncompliant with his medical care. He has a history of an aortic valve replacement and is supposed to be on chronic anticoagulation with Coumadin; however, he has not taken this in over a year. He stated he also has high blood pressure, but has not taken medication in some time. He reported no pain in his left calf during ambulation. He currently has no complaints of chest pain or shortness of breath, no fever and chills, no right foot rest pain. He had his aortogram and iliac artery intervention yesterday. 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 Flush occlusion of the right SFA with reconstitution the adductor canal. Finding was interoperatively discussed with the ordering vascular surgeon. The patient will be evaluated for bypass. At least two-vessel runoff to the foot appears to be present. His white count today is 8.3, hemoglobin is 14.3, hematocrit is 41.8, his platelet count is 201 and his creatinine is 1.0. He had a bilateral carotid ultrasound yesterday which shows less than 50% stenosis bilaterally. He had a vein mapping of his right leg which shows very diminutive greater saphenous and small saphenous vein. Objective Objective Vital Signs Date Time Temp Pulse Resp B/P (MAP) Pulse Ox O2 Delivery O2 Flow Rate FiO2 02/24/20 07:00 97.9 63 18 139/86 (103) 96 Room Air 97.9 02/23/20 19:24 2.0 Intake and Output 02/24/20 07:00 Intake Total 950 ml Output Total 3025 ml Balance -2075 ml Intake Oral 950 ml Output Urine Total 3025 ml Physical Exam Physical Exam His vital signs are stable. He is in no acute distress. His left femoral access site is without additional redness, edema or hematoma. He has 2+ bilateral femoral pulses. His feet are both warm and pink. He has palpable left foot pulses. He continues to have Doppler pulses in his right foot. Heart: Regular rate Extremities: No cyanosis, No edema General: Alert, Oriented X3, Cooperative, No acute distress HEENT: Atraumatic Neuro: Normal speech Psych/Mental Status: Mental status NL, Mood NL Skin: No rashes, No breakdown Assessment Assessment Problems Medical Problems: (1) Magnesium deficiency Status: Acute (2) Superficial femoral artery occlusion Status: Acute Plan Plan of Care 59-year-old male with a history of valve replacement surgery who has a 3-week history of right leg claudication symptoms. He has an excellent right femoral pulse. He has Doppler pulses in his right foot. He is able to plantarflex and dorsiflex both feet. He is currently on a heparin drip because of his heart valve. He had his arteriogram yesterday and will need a right leg femoropopliteal bypass surgery to fully improve circulation to his right foot. He is having no rest pain. He states that he will make it a point to walk around today to see if his symptoms have improved with the iliac artery intervention and will give us a call to let us know how he is doing. We discussed bypass surgery which could be early next week or at his convenience depending on his continued symptoms.. Plan: Continue baby aspirin daily. He needs cardiac clearance for right leg bypass grafting. We will need to discuss with vascular surgery the results of his vein mapping. His greater and lesser saphenous veins are quite diminutive. Continue heparin drip or any other antiplatelet, anticoagulant agents per cardiology. Comment Review of Relevant I have reviewed the following items ochoa (where applicable) has been applied. Labs Laboratory Tests Test 02/22/20 15:46 02/22/20 15:49 02/22/20 16:00 02/22/20 17:35 Plasma/Serum Osmolality 252 mOsmol/kg (275-295) White Blood Count 9.4 x10^3/uL (4.0-11.0) Red Blood Count 4.39 x10^6/uL (4.30-5.70) Hemoglobin 14.4 g/dL (13.0-17.5) Hematocrit 40.1 % (39.0-53.0) Mean Corpuscular Volume 91 fL (79-100) Mean Corpuscular Hemoglobin 33 pg (25-35) Mean Corpuscular Hemoglobin Concent 36 g/dL (31-37) Red Cell Distribution Width 13.7 % (11.5-14.5) Platelet Count 204 x10^3/uL (140-400) Neutrophils (%) (Auto) 81 % (31-73) Lymphocytes (%) (Auto) 12 % (24-48) Monocytes (%) (Auto) 6 % (0-9) Eosinophils (%) (Auto) 0 % (0-3) Basophils (%) (Auto) 0 % (0-3) Neutrophils # (Auto) 7.7 x10^3/uL (1.8-7.7) Lymphocytes # (Auto) 1.2 x10^3/uL (1.0-4.8) Monocytes # (Auto) 0.5 x10^3/uL (0.0-1.1) Eosinophils # (Auto) 0.0 x10^3/uL (0.0-0.7) Basophils # (Auto) 0.0 x10^3/uL (0.0-0.2) Prothrombin Time 13.7 SEC (11.7-14.0) Prothromb Time International Ratio 1.1 (0.8-1.1) Sodium Level 125 mmol/L (136-145) Potassium Level 4.4 mmol/L (3.5-5.1) Chloride Level 91 mmol/L (98-107) Carbon Dioxide Level 25 mmol/L (21-32) Anion Gap 9 (6-14) Blood Urea Nitrogen 7 mg/dL (8-26) Creatinine 0.9 mg/dL (0.7-1.3) Estimated GFR (Cockcroft-Gault) 86.1 BUN/Creatinine Ratio 8 (6-20) Glucose Level 83 mg/dL (70-99) Calcium Level 8.9 mg/dL (8.5-10.1) Magnesium Level 1.6 mg/dL (1.8-2.4) Total Bilirubin 0.5 mg/dL (0.2-1.0) Aspartate Amino Transf (AST/SGOT) 24 U/L (15-37) Alanine Aminotransferase (ALT/SGPT) 18 U/L (16-63) Alkaline Phosphatase 96 U/L (46-116) Troponin I Quantitative 0.041 ng/mL (0.000-0.055) Total Protein 7.3 g/dL (6.4-8.2) Albumin 3.7 g/dL (3.4-5.0) Albumin/Globulin Ratio 1.0 (1.0-1.7) Ethyl Alcohol Level < 10 mg/dL (0-10) Urine Collection Type Void Urine Color Yellow Urine Clarity Clear Urine pH 6.0 (<5.0-8.0) Urine Specific [place] 1.015 (1.000-1.030) Urine Protein 30 mg/dL (NEG-TRACE) Urine Glucose (UA) Negative mg/dL (NEG) Urine Ketones (Stick) Negative mg/dL (NEG) Urine Blood Negative (NEG) Urine Nitrite Negative (NEG) Urine Bilirubin Negative (NEG) Urine Urobilinogen Dipstick 1.0 mg/dL (0.2 mg/dL) Urine Leukocyte Esterase Negative (NEG) Urine RBC 0 /HPF (0-2) Urine WBC Rare /HPF (0-4) Urine Bacteria 0 /HPF (0-FEW) Urine Hyaline Casts Few /HPF Urine Mucus Slight /LPF Urine Random Creatinine 189.7 mg/dL (Not Establ.) Urine Random Sodium 24 mmol/L (Not Estab.) Urine Opiates Screen Neg (NEG) Urine Methadone Screen Neg (NEG) Urine Barbiturates Neg (NEG) Urine Phencyclidine Screen Neg (NEG) Urine Amphetamine/Methamphetamine Neg (NEG) Urine Benzodiazepines Screen Neg (NEG) Urine Cocaine Screen Neg (NEG) Urine Cannabinoids Screen Pos (NEG) Urine Ethyl Alcohol Neg (NEG) Activated Partial Thromboplast Time 34 SEC (24-38) Test 02/22/20 23:45 02/23/20 06:45 02/23/20 15:11 02/24/20 06:10 Heparin Anti-Xa Act, Unfractionated 0.40 IU/mL (0.30-0.70) 0.12 IU/mL (0.30-0.70) Phosphorus Level 4.6 mg/dL (2.6-4.7) Magnesium Level 2.0 mg/dL (1.8-2.4) Activated Clotting Time 213 sec (92-181) White Blood Count 8.3 x10^3/uL (4.0-11.0) Red Blood Count 4.50 x10^6/uL (4.30-5.70) Hemoglobin 14.3 g/dL (13.0-17.5) Hematocrit 41.8 % (39.0-53.0) Mean Corpuscular Volume 93 fL (79-100) Mean Corpuscular Hemoglobin 32 pg (25-35) Mean Corpuscular Hemoglobin Concent 34 g/dL (31-37) Red Cell Distribution Width 14.1 % (11.5-14.5) Platelet Count 201 x10^3/uL (140-400) Neutrophils (%) (Auto) 75 % (31-73) Lymphocytes (%) (Auto) 17 % (24-48) Monocytes (%) (Auto) 7 % (0-9) Eosinophils (%) (Auto) 1 % (0-3) Basophils (%) (Auto) 0 % (0-3) Neutrophils # (Auto) 6.2 x10^3/uL (1.8-7.7) Lymphocytes # (Auto) 1.4 x10^3/uL (1.0-4.8) Monocytes # (Auto) 0.6 x10^3/uL (0.0-1.1) Eosinophils # (Auto) 0.1 x10^3/uL (0.0-0.7) Basophils # (Auto) 0.0 x10^3/uL (0.0-0.2) Sodium Level 135 mmol/L (136-145) Potassium Level 4.7 mmol/L (3.5-5.1) Chloride Level 101 mmol/L (98-107) Carbon Dioxide Level 30 mmol/L (21-32) Anion Gap 4 (6-14) Blood Urea Nitrogen 8 mg/dL (8-26) Creatinine 1.0 mg/dL (0.7-1.3) Estimated GFR (Cockcroft-Gault) 76.2 Glucose Level 82 mg/dL (70-99) Calcium Level 8.6 mg/dL (8.5-10.1) Total Bilirubin 0.4 mg/dL (0.2-1.0) Direct Bilirubin 0.2 mg/dL (0.0-0.2) Aspartate Amino Transf (AST/SGOT) 20 U/L (15-37) Alanine Aminotransferase (ALT/SGPT) 23 U/L (16-63) Alkaline Phosphatase 74 U/L (46-116) Total Protein 6.3 g/dL (6.4-8.2) Albumin 3.1 g/dL (3.4-5.0) Laboratory Tests Test 02/23/20 15:11 02/24/20 06:10 Activated Clotting Time 213 sec (92-181) White Blood Count 8.3 x10^3/uL (4.0-11.0) Red Blood Count 4.50 x10^6/uL (4.30-5.70) Hemoglobin 14.3 g/dL (13.0-17.5) Hematocrit 41.8 % (39.0-53.0) Mean Corpuscular Volume 93 fL (79-100) Mean Corpuscular Hemoglobin 32 pg (25-35) Mean Corpuscular Hemoglobin Concent 34 g/dL (31-37) Red Cell Distribution Width 14.1 % (11.5-14.5) Platelet Count 201 x10^3/uL (140-400) Neutrophils (%) (Auto) 75 % (31-73) Lymphocytes (%) (Auto) 17 % (24-48) Monocytes (%) (Auto) 7 % (0-9) Eosinophils (%) (Auto) 1 % (0-3) Basophils (%) (Auto) 0 % (0-3) Neutrophils # (Auto) 6.2 x10^3/uL (1.8-7.7) Lymphocytes # (Auto) 1.4 x10^3/uL (1.0-4.8) Monocytes # (Auto) 0.6 x10^3/uL (0.0-1.1) Eosinophils # (Auto) 0.1 x10^3/uL (0.0-0.7) Basophils # (Auto) 0.0 x10^3/uL (0.0-0.2) Sodium Level 135 mmol/L (136-145) Potassium Level 4.7 mmol/L (3.5-5.1) Chloride Level 101 mmol/L (98-107) Carbon Dioxide Level 30 mmol/L (21-32) Anion Gap 4 (6-14) Blood Urea Nitrogen 8 mg/dL (8-26) Creatinine 1.0 mg/dL (0.7-1.3) Estimated GFR (Cockcroft-Gault) 76.2 Glucose Level 82 mg/dL (70-99) Calcium Level 8.6 mg/dL (8.5-10.1) Total Bilirubin 0.4 mg/dL (0.2-1.0) Direct Bilirubin 0.2 mg/dL (0.0-0.2) Aspartate Amino Transf (AST/SGOT) 20 U/L (15-37) Alanine Aminotransferase (ALT/SGPT) 23 U/L (16-63) Alkaline Phosphatase 74 U/L (46-116) Total Protein 6.3 g/dL (6.4-8.2) Albumin 3.1 g/dL (3.4-5.0) Microbiology 02/22/20 Blood Culture - Preliminary, Resulted NO GROWTH AFTER 1 DAY Medications Current Medications Sodium Chloride 1,000 ml @ 1,000 mls/hr 1X ONCE IV Last administered on 02/22/20 16:57; Start 02/22/20 at 17:00; Stop 02/22/20 at 17:59; Status DC Magnesium Sulfate 50 ml @ 25 mls/hr 1X ONCE IV Last administered on 02/22/20at 16:58; Start 02/22/20 at 17:00; Stop 02/22/20 at 18:59; Status DC Fentanyl Citrate (Fentanyl 2ml Vial) 50 mcg 1X ONCE IVP Last administered on 02/22/20at 16:58; Start 02/22/20 at 17:00; Stop 02/22/20 at 17:01; Status DC Ondansetron HCl (Zofran) 4 mg PRN Q8HRS PRN IV NAUSEA/VOMITING Last administered on 02/22/20at 20:00; Start 02/22/20 at 17:00; Stop 02/23/20 at 16:59; Status DC Fentanyl Citrate (Fentanyl 2ml Vial) 50 mcg PRN Q1HR PRN IV PAIN Last administered on 02/22/20at 20:00; Start 02/22/20 at 17:00; Stop 02/23/20 at 16:59; Status DC Aspirin (Jasmin Aspirin) 325 mg 1X ONCE PO Last administered on 02/22/20at 17:30; Start 02/22/20 at 17:15; Stop 02/22/20 at 17:16; Status DC Heparin Sodium (Porcine) (Heparin Sodium) 5,450 unit 1X ONCE IV Last administered on 02/22/20at 17:45; Start 02/22/20 at 17:15; Stop 02/22/20 at 17:16; Status DC Heparin Sodium/ Dextrose 250 ml @ 0 mls/hr CONT PRN IV PER PROTOCOL Last administered on 02/22/20at 17:44; Start 02/22/20 at 17:30 Heparin Sodium (Porcine) (Heparin Sodium) 2,050 unit PRN Q6HRS PRN IV FOR UFH LEVEL LESS THAN 0.2 Last administered on 02/23/20at 09:12; Start 02/22/20 at 17:00 Heparin Sodium (Porcine) (Heparin Sodium) 1,000 unit PRN Q6HRS PRN IV FOR UFH LEVEL 0.2 - 0.29; Start 02/22/20 at 17:00 Potassium Bicarbonate (Potassium Effervescent Tablet) 40 meq 1X ONCE FT ; Start 02/22/20 at 17:30; Stop 02/22/20 at 17:31; Status DC Magnesium Sulfate 50 ml @ 25 mls/hr Q24H IV ; Start 02/22/20 at 18:00; Stop 02/24/20 at 19:59 Potassium Phos/ Sodium Phos (Phos-Nak) 1 pkt BID PO ; Start 02/22/20 at 21:00; Stop 02/23/20 at 09:01; Status DC Potassium Bicarbonate (Potassium Effervescent Tablet) 40 meq Q4H PO Last administered on 02/22/20at 22:00; Start 02/22/20 at 18:00; Stop 02/22/20 at 22:01; Status DC Sodium Chloride (Normal Saline Flush) 3 ml QSHIFT PRN IV AFTER MEDS AND BLOOD DRAWS; Start 02/22/20 at 17:15 Sodium Chloride 1,000 ml @ 60 mls/hr [id number] IV Last administered on 02/23/20at 21:33; Start 02/22/20 at 17:15 Ondansetron HCl (Zofran) 4 mg PRN Q4HRS PRN IV NAUSEA/VOMITING; Start 02/22/20 at 17:15 Zolpidem Tartrate (Ambien) 5 mg PRN QHS PRN PO INSOMNIA Last administered on 02/23/20at 21:37; Start 02/22/20 at 17:15 Acetaminophen (Tylenol) 650 mg PRN Q4HRS PRN PO TEMP OVER 100.4F OR MILD PAIN Last administered on 02/23/20at 21:37; Start 02/22/20 at 17:15 Al Hydroxide/Mg Hydroxide (Mylanta Plus Xs) 30 ml PRN DAILY PRN PO HEARTBURN / GAS; Start 02/22/20 at 17:15 Sodium Monofluorophosphate (Fleet Adult) 133 ml PRN DAILY PRN AL CONSTIPATION; Start 02/22/20 at 17:15 Docusate Sodium (Colace) 100 mg PRN BID PRN PO HARD STOOLS; Start 02/22/20 at 17:15 Albuterol/ Ipratropium (Duoneb) 3 ml Q4HRS NEB ; Start 02/22/20 at 20:00; Stop 02/22/20 at 17:44; Status DC Guaifenesin (Robitussin) 200 mg PRN Q4HRS PRN PO COUGH; Start 02/22/20 at 17:15 Multivitamins (Thera M Plus) 1 tab DAILY PO Last administered on 02/24/20at 08:21; Start 02/23/20 at 09:00 Folic Acid (Folic Acid) 1 mg DAILY PO Last administered on 02/24/20at 08:22; Start 02/23/20 at 09:00 Thiamine Mononitrate (Vitamin B-1) 100 mg DAILY PO Last administered on 02/24/20at 08:21; Start 02/23/20 at 09:00 Lorazepam (Ativan) 4 mg PRN Q1HR PRN PO For CIWA 8-14; Start 02/22/20 at 17:30 Lorazepam (Ativan) 8 mg PRN Q1HR PRN PO For CIWA 15 or greater; Start 02/22/20 at 17:30 Lorazepam (Ativan Inj) 2 mg PRN Q1HR PRN IV For CIWA 8-14 Last administered on 02/24/20at 08:28; Start 02/22/20 at 17:30 Lorazepam (Ativan Inj) 4 mg PRN Q1HR PRN IV For CIWA 15 or greater; Start 02/22/20 at 17:30 Haloperidol Lactate (Haldol Inj) 5 mg PRN Q4HRS PRN IVP Hallucinatns,Confusn,Delirium; Start 02/22/20 at 17:30 Diphenhydramine HCl (Benadryl) 25 mg PRN Q15MIN PRN IVP EPS symptoms 2'Haldol admin; Start 02/22/20 at 17:30 Lorazepam (Ativan Inj) 2 mg PRN Q15MIN PRN IV SEE COMMENTS; Start 02/22/20 at 17:30; Stop 02/22/20 at 18:45; Status DC Lorazepam (Ativan Inj) 4 mg PRN Q15MIN PRN IV SEE COMMENTS; Start 02/22/20 at 17:30; Stop 02/22/20 at 18:45; Status DC Albuterol Sulfate (Ventolin Neb Soln) 2.5 mg PRN Q4HRS PRN NEB SHORTNESS OF BREATH; Start 02/22/20 at 18:00 Nicotine (Nicoderm Cq 21mg) 1 patch DAILY TD Last administered on 02/24/20at 08:22; Start 02/22/20 at 22:30 Acetaminophen (Tylenol) 500 mg PRN Q4HRS PRN PO MILD PAIN / TEMP > 100.3'F; Start 02/22/20 at 22:30; Stop 02/23/20 at 17:30; Status DC Info (Anti-Coagulation Monitoring By Pharmacy) 1 each PRN DAILY PRN MC SEE COMMENTS Last administered on 02/23/20at 10:24; Start 02/23/20 at 09:45 Aspirin (Ecotrin) 81 mg [id number] PO Last administered on 02/24/20at 08:22; Start 02/23/20 at 12:00 Heparin Sodium/ Sodium Chloride (HEPARIN for ARTERIAL LINE FLUSH) 1,000 unit 1X ONCE IART Last administered on 02/23/20at 13:30; Start 02/23/20 at 13:30; Stop 02/23/20 at 13:38; Status DC Heparin Sodium/ Sodium Chloride (HEPARIN for ARTERIAL LINE FLUSH) 1,000 unit 1X ONCE IART Last administered on 02/23/20at 13:30; Start 02/23/20 at 13:30; Stop 02/23/20 at 13:38; Status DC Lidocaine HCl (Buffered Lidocaine 1%) 3 ml 1X ONCE IJ Last administered on 02/23/20at 13:50; Start 02/23/20 at 13:30; Stop 02/23/20 at 13:38; Status DC Midazolam HCl (Versed) 2 mg 1X ONCE IV Last administered on 02/23/20at 13:45; Start 02/23/20 at 13:30; Stop 02/23/20 at 13:38; Status DC Fentanyl Citrate (Fentanyl 2ml Vial) 100 mcg 1X ONCE IV Last administered on 02/23/20at 13:45; Start 02/23/20 at 13:30; Stop 02/23/20 at 13:38; Status DC Iodixanol (Visipaque 320) 100 ml 1X ONCE IART Last administered on 02/23/20at 15:09; Start 02/23/20 at 13:30; Stop 02/23/20 at 13:38; Status DC Lidocaine HCl (Buffered Lidocaine 1%) 3 ml STK-MED ONCE .ROUTE ; Start 02/23/20 at 13:14; Stop 02/23/20 at 13:32; Status DC Iodixanol (Visipaque 320) 100 ml STK-MED ONCE .ROUTE ; Start 02/23/20 at 13:14; Stop 02/23/20 at 13:32; Status DC Heparin Sodium/ Sodium Chloride 1,500 ml @ As Directed STK-MED ONCE .ROUTE ; Start 02/23/20 at 13:14; Stop 02/23/20 at 13:32; Status DC Midazolam HCl (Versed) 2 mg STK-MED ONCE .ROUTE ; Start 02/23/20 at 13:20; Stop 02/23/20 at 13:33; Status DC Fentanyl Citrate (Fentanyl 2ml Vial) 100 mcg STK-MED ONCE .ROUTE ; Start 0 at 13:21; Stop 02/23/20 at 13:33; Status DC Heparin Sodium (Porcine) (Heparin Sodium) 10,000 unit STK-MED ONCE .ROUTE ; Start 02/23/20 at 13:21; Stop 02/23/20 at 13:33; Status DC Heparin Sodium (Porcine) (Heparin Sodium) 5,000 unit 1X ONCE IV Last ad ministered on 02/23/20at 14:08; Start 02/23/20 at 14:15; Stop 02/23/20 at 14:22; Status DC Heparin Sodium/ Sodium Chloride 500 ml @ As Directed STK-MED ONCE .ROUTE ; Start 02/23/20 at 15:23; Stop 02/23/20 at 15:23; Status DC Acetaminophen/ Hydrocodone Bitart (Lortab 5/325) 1 tab PRN Q6HRS PRN PO PAIN Last administered on 02/24/20at 00:46; Start 02/23/20 at 17:15 Active Scripts Active Ibuprofen 800 Mg Tablet 800 Mg PO PRN Q6HRS PRN Cyclobenzaprine Hcl 10 Mg Tablet 1 Tab PO TID PRN Proair Hfa Inhaler (Albuterol Sulfate) 8.5 Gm Hfa.aer.ad 1-2 Puff INH PRN Q6HRS PRN with spacer Albuterol Sulfate Neb Soln (Albuterol Sulfate) 2.5 Mg/3 Ml Vial.neb 1 Vial NEB PRN Q4HRS PRN Reported Acetaminophen 500 Mg Tablet 500 Mg PO PRN Q6HRS PRN Advil (Ibuprofen) 200 Mg Capsule 200 Mg PO PRN Q6HRS PRN Vitals/I & O Vital Sign - Last 24 Hours 02/23/20 02/23/20 02/23/20 02/23/20 11:00 13:45 15:36 15:51 Temp 98.0 98.0 Pulse 66 60 60 Resp 18 16 12 B/P (MAP) 140/88 (105) Pulse Ox 96 96 89 O2 Delivery Room Air Nasal Cannula O2 Flow Rate 2.0 02/23/20 02/23/20 02/23/20 02/23/20 16:00 16:06 16:24 16:39 Temp 98.1 98.1 Pulse 60 60 58 58 Resp 18 B/P (MAP) 159/82 (107) Pulse Ox 90 93 94 97 O2 Delivery Room Air Nasal Cannula Nasal Cannula Nasal Cannula O2 Flow Rate 2.0 2.0 2.0 02/23/20 02/23/20 02/23/20 02/23/20 16:54 17:24 17:54 17:55 Pulse 60 58 60 Pulse Ox 95 96 95 95 O2 Delivery Nasal Cannula Nasal Cannula Nasal Cannula Nasal Cannula O2 Flow Rate 2.0 2.0 2.0 2.0 02/23/20 02/23/20 02/23/20 02/23/20 18:54 19:24 19:54 20:00 Temp 98.1 98.1 Pulse 68 70 66 Resp 16 16 B/P (MAP) 154/86 (108) 152/96 (114) Pulse Ox 93 95 97 O2 Delivery Nasal Cannula Nasal Cannula Room Air Room Air O2 Flow Rate 2.0 2.0 02/23/20 02/24/20 02/24/20 23:56 03:37 07:00 Temp 98.3 97.6 97.9 98.3 97.6 97.9 Pulse 63 65 63 Resp 16 16 18 B/P (MAP) 123/71 (88) 132/87 (102) 139/86 (103) Pulse Ox 96 96 96 O2 Delivery Room Air Room Air Room Air Intake and Output 02/23/20 02/23/20 02/24/20 15:00 23:00 07:00 Intake Total 0 ml 550 ml 400 ml Output Total 400 ml 1400 ml 1225 ml Balance -400 ml -850 ml -825 ml Justicifation of Admission Dx: Justifications for Admission: Justification of Admission Dx: Yes LEWIS [employer]YES [employer] MA[employer]GER Feb 24, 2020 09:54
--- NOTE | 2020-02-24 10:48 | NUR ---
SS following up with discharge planning. SS reviewed pt chart and discussed with pt RN. Pt had angiogram with intervention on 02/23/2020. Per RN, will possibly need bypass on right leg with vascular. SS was notified that procedure cannot be scheduled until next week but pt may be able to discharge to home and then return for procedure. Pt is currently on room air. Heparin drip was discontinued. Discharge plan is to home when ready. SS will continue to follow for discharge planning.
[2020-02-24 11:00] VITALS: BP 152/93
--- NOTE | 2020-02-24 12:21 | PDOC ---
[employer] MANAGER 02/24/20 1221: CARDIO Progress Notes Date and Time Date of Service 02/24/20 Time of Evaluation 1220 Subjective Subjective: No Chest Pain, No shortness of breath, No Palpitations Vitals Vitals Vital Signs Date Time Temp Pulse Resp B/P (MAP) Pulse Ox O2 Delivery O2 Flow Rate FiO2 02/24/20 07:00 97.9 63 18 139/86 (103) 96 Room Air 97.9 02/23/20 19:24 2.0 Weight Weight [ ] Input and Output Intake and Output Intake and Output 02/24/20 06:59 Intake Total 950 ml Output Total 3025 ml Balance -2075 ml Intake Oral 950 ml Output Urine Total 3025 ml Laboratory Labs Laboratory Tests Test 02/23/20 15:11 02/24/20 06:10 Activated Clotting Time 213 sec (92-181) White Blood Count 8.3 x10^3/uL (4.0-11.0) Red Blood Count 4.50 x10^6/uL (4.30-5.70) Hemoglobin 14.3 g/dL (13.0-17.5) Hematocrit 41.8 % (39.0-53.0) Mean Corpuscular Volume 93 fL (79-100) Mean Corpuscular Hemoglobin 32 pg (25-35) Mean Corpuscular Hemoglobin Concent 34 g/dL (31-37) Red Cell Distribution Width 14.1 % (11.5-14.5) Platelet Count 201 x10^3/uL (140-400) Neutrophils (%) (Auto) 75 % (31-73) Lymphocytes (%) (Auto) 17 % (24-48) Monocytes (%) (Auto) 7 % (0-9) Eosinophils (%) (Auto) 1 % (0-3) Basophils (%) (Auto) 0 % (0-3) Neutrophils # (Auto) 6.2 x10^3/uL (1.8-7.7) Lymphocytes # (Auto) 1.4 x10^3/uL (1.0-4.8) Monocytes # (Auto) 0.6 x10^3/uL (0.0-1.1) Eosinophils # (Auto) 0.1 x10^3/uL (0.0-0.7) Basophils # (Auto) 0.0 x10^3/uL (0.0-0.2) Sodium Level 135 mmol/L (136-145) Potassium Level 4.7 mmol/L (3.5-5.1) Chloride Level 101 mmol/L (98-107) Carbon Dioxide Level 30 mmol/L (21-32) Anion Gap 4 (6-14) Blood Urea Nitrogen 8 mg/dL (8-26) Creatinine 1.0 mg/dL (0.7-1.3) Estimated GFR (Cockcroft-Gault) 76.2 Glucose Level 82 mg/dL (70-99) Calcium Level 8.6 mg/dL (8.5-10.1) Magnesium Level 1.8 mg/dL (1.8-2.4) Total Bilirubin 0.4 mg/dL (0.2-1.0) Direct Bilirubin 0.2 mg/dL (0.0-0.2) Aspartate Amino Transf (AST/SGOT) 20 U/L (15-37) Alanine Aminotransferase (ALT/SGPT) 23 U/L (16-63) Alkaline Phosphatase 74 U/L (46-116) Total Protein 6.3 g/dL (6.4-8.2) Albumin 3.1 g/dL (3.4-5.0) Microbiology Micro Microbiology 02/22/20 Blood Culture - Preliminary, Resulted NO GROWTH AFTER 1 DAY Physical Exam HEENT: Neck Supple W Full Motion Chest: Symmetric LUNGS: Clear to Auscultation Heart: S1S2, RRR, murmurs Abdomen: Soft N/T Extremities: No Edema Neurology: alert, oriented, follow commands Assessment Assessment 1. RLE pain; aortogram with atherosclerotic disease, cannot rule out embolic phenomenon as well 2. H/o endocarditis; s/p mechanical AVR 3. Hypertension; controlled 4. Hyperlipidemia; no statin 5. Chronic systolic CHF with possible NICM with h/o alcoholoism, but component of ICM cannot be ruled out.; Recent echo with LVEF 35-40%. Clinically compensated. 6. Hypomagnesemia; replaced 7. Tobaccoism, marijuana use; discussed/encouraged cessation 8. Noncompliance 9. Alcohol misuse Recommendations ASA Resume heparin gtt with mechanical valve. Will need to determine vascular surgery plan for potential bypass prior to resuming OAC Lasix PRN Would be deemed moderate risk for his vascular procedure Supportive care Justicifation of Admission Dx: Justifications for Admission: Justification of Admission Dx: Yes EARNESTINE TRUJILLO MD 02/25/20 1157: CARDIO Progress Notes Plan Plan Late entry for 02/24/2020. Pt. seen and examined. Agree with above FIGURE REFINISHER AND REPAIRER note. FADIA ALMANZA APRN Feb 24, 2020 12:21 EARNESTINE TRUJILLO MD Feb 25, 2020 11:57
--- NOTE | 2020-02-24 14:59 | PDOC ---
PROGRESS NOTES Chief Complaint Chief Complaint Impression: 1. Acute arterial occlusion throughout the right superficial femoral artery, some reconstitution of minimal flow in the popliteal artery and runoff vessels. 2. Possible HX seizure, alcohol related 3. NONCOMPLIANCE with medications 4. Hypertension; controlled 5. Hyperlipidemia; 6. H/o endocarditis; s/p mechanical aortic valve replacement 20 yrs ago [facility] . Was previously on warfarin, but has not taken in > 2 years. Aortic valve appeared to be well seated and functioning well per TTE. 7. Abnormal EKG; noted with RBBB and anterolateral ST depression, which is unchanged from previous EKG 05/2018. EKG 05/2014 at with LVH, RBBB and ST changes on V4-[address] depression with ST elevation in V1. echo 08/31 Ejection Fraction is 35-40%. Abnormal septal motion consistent with post-operative state. Mechanical aortic valve prosthesis appears well seated and functioning well. MG 9 mm Hg.Mild aortic regurgitation. Trace mitral regurgitation. Trace tricuspid regurgitation with an estimated PAP of 23 mmHg. 8. Alcoholism; now 5 beers a week 9. Hypomagnesemia 10 Tobaccoism, marijuana use; discussed/encouraged cessation 11. Chronic systolic CHF with possible NICM with h/o alcoholoism, ICM // Echo with LVEF 35-40%. 12. HYPONATREMIA will follow plan VASCULAR following bypass surgery which could be early next week or at his convenience depending on his continued symptoms.. heparin drip protocol CIWA PROTOCOL continue ASA daily follow Na level cards consulted for clearance: deemed moderate risk for his extra inguinal vascular procedure no PCP, will provided information on [facility] for follow up Supportive care and optimization with medical therapy. 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 treated with covered, balloon-expandable stent placement 02/22 Vitals Vitals Vital Signs Date Time Temp Pulse Resp B/P (MAP) Pulse Ox O2 Delivery O2 Flow Rate FiO2 02/24/20 11:00 97.9 72 18 152/93 (112) 95 Room Air 97.9 02/23/20 19:24 2.0 Physical Exam General: Alert, Oriented X3, Cooperative, No acute distress Heart: Regular rate Lungs: Clear Abdomen: Normal bowel sounds, Soft Extremities: No cyanosis, No edema Skin: No rashes, No breakdown Labs LABS Laboratory Tests Test 02/23/20 15:11 02/24/20 06:10 Activated Clotting Time 213 sec (92-181) White Blood Count 8.3 x10^3/uL (4.0-11.0) Red Blood Count 4.50 x10^6/uL (4.30-5.70) Hemoglobin 14.3 g/dL (13.0-17.5) Hematocrit 41.8 % (39.0-53.0) Mean Corpuscular Volume 93 fL (79-100) Mean Corpuscular Hemoglobin 32 pg (25-35) Mean Corpuscular Hemoglobin Concent 34 g/dL (31-37) Red Cell Distribution Width 14.1 % (11.5-14.5) Platelet Count 201 x10^3/uL (140-400) Neutrophils (%) (Auto) 75 % (31-73) Lymphocytes (%) (Auto) 17 % (24-48) Monocytes (%) (Auto) 7 % (0-9) Eosinophils (%) (Auto) 1 % (0-3) Basophils (%) (Auto) 0 % (0-3) Neutrophils # (Auto) 6.2 x10^3/uL (1.8-7.7) Lymphocytes # (Auto) 1.4 x10^3/uL (1.0-4.8) Monocytes # (Auto) 0.6 x10^3/uL (0.0-1.1) Eosinophils # (Auto) 0.1 x10^3/uL (0.0-0.7) Basophils # (Auto) 0.0 x10^3/uL (0.0-0.2) Sodium Level 135 mmol/L (136-145) Potassium Level 4.7 mmol/L (3.5-5.1) Chloride Level 101 mmol/L (98-107) Carbon Dioxide Level 30 mmol/L (21-32) Anion Gap 4 (6-14) Blood Urea Nitrogen 8 mg/dL (8-26) Creatinine 1.0 mg/dL (0.7-1.3) Estimated GFR (Cockcroft-Gault) 76.2 Glucose Level 82 mg/dL (70-99) Calcium Level 8.6 mg/dL (8.5-10.1) Magnesium Level 1.8 mg/dL (1.8-2.4) Total Bilirubin 0.4 mg/dL (0.2-1.0) Direct Bilirubin 0.2 mg/dL (0.0-0.2) Aspartate Amino Transf (AST/SGOT) 20 U/L (15-37) Alanine Aminotransferase (ALT/SGPT) 23 U/L (16-63) Alkaline Phosphatase 74 U/L (46-116) Total Protein 6.3 g/dL (6.4-8.2) Albumin 3.1 g/dL (3.4-5.0) Assessment and Plan Assessmemt and Plan Problems Medical Problems: (1) Magnesium deficiency Status: Acute (2) Superficial femoral artery occlusion Status: Acute Comment Review of Relevant I have reviewed the following items ochoa (where applicable) has been applied. Labs Laboratory Tests Test 02/22/20 15:46 02/22/20 15:49 02/22/20 16:00 02/22/20 17:35 Plasma/Serum Osmolality 252 mOsmol/kg (275-295) White Blood Count 9.4 x10^3/uL (4.0-11.0) Red Blood Count 4.39 x10^6/uL (4.30-5.70) Hemoglobin 14.4 g/dL (13.0-17.5) Hematocrit 40.1 % (39.0-53.0) Mean Corpuscular Volume 91 fL (79-100) Mean Corpuscular Hemoglobin 33 pg (25-35) Mean Corpuscular Hemoglobin Concent 36 g/dL (31-37) Red Cell Distribution Width 13.7 % (11.5-14.5) Platelet Count 204 x10^3/uL (140-400) Neutrophils (%) (Auto) 81 % (31-73) Lymphocytes (%) (Auto) 12 % (24-48) Monocytes (%) (Auto) 6 % (0-9) Eosinophils (%) (Auto) 0 % (0-3) Basophils (%) (Auto) 0 % (0-3) Neutrophils # (Auto) 7.7 x10^3/uL (1.8-7.7) Lymphocytes # (Auto) 1.2 x10^3/uL (1.0-4.8) Monocytes # (Auto) 0.5 x10^3/uL (0.0-1.1) Eosinophils # (Auto) 0.0 x10^3/uL (0.0-0.7) Basophils # (Auto) 0.0 x10^3/uL (0.0-0.2) Prothrombin Time 13.7 SEC (11.7-14.0) Prothromb Time International Ratio 1.1 (0.8-1.1) Sodium Level 125 mmol/L (136-145) Potassium Level 4.4 mmol/L (3.5-5.1) Chloride Level 91 mmol/L (98-107) Carbon Dioxide Level 25 mmol/L (21-32) Anion Gap 9 (6-14) Blood Urea Nitrogen 7 mg/dL (8-26) Creatinine 0.9 mg/dL (0.7-1.3) Estimated GFR (Cockcroft-Gault) 86.1 BUN/Creatinine Ratio 8 (6-20) Glucose Level 83 mg/dL (70-99) Calcium Level 8.9 mg/dL (8.5-10.1) Magnesium Level 1.6 mg/dL (1.8-2.4) Total Bilirubin 0.5 mg/dL (0.2-1.0) Aspartate Amino Transf (AST/SGOT) 24 U/L (15-37) Alanine Aminotransferase (ALT/SGPT) 18 U/L (16-63) Alkaline Phosphatase 96 U/L (46-116) Troponin I Quantitative 0.041 ng/mL (0.000-0.055) Total Protein 7.3 g/dL (6.4-8.2) Albumin 3.7 g/dL (3.4-5.0) Albumin/Globulin Ratio 1.0 (1.0-1.7) Ethyl Alcohol Level < 10 mg/dL (0-10) Urine Collection Type Void Urine Color Yellow Urine Clarity Clear Urine pH 6.0 (<5.0-8.0) Urine Specific [place] 1.015 (1.000-1.030) Urine Protein 30 mg/dL (NEG-TRACE) Urine Glucose (UA) Negative mg/dL (NEG) Urine Ketones (Stick) Negative mg/dL (NEG) Urine Blood Negative (NEG) Urine Nitrite Negative (NEG) Urine Bilirubin Negative (NEG) Urine Urobilinogen Dipstick 1.0 mg/dL (0.2 mg/dL) Urine Leukocyte Esterase Negative (NEG) Urine RBC 0 /HPF (0-2) Urine WBC Rare /HPF (0-4) Urine Bacteria 0 /HPF (0-FEW) Urine Hyaline Casts Few /HPF Urine Mucus Slight /LPF Urine Random Creatinine 189.7 mg/dL (Not Establ.) Urine Random Sodium 24 mmol/L (Not Estab.) Urine Opiates Screen Neg (NEG) Urine Methadone Screen Neg (NEG) Urine Barbiturates Neg (NEG) Urine Phencyclidine Screen Neg (NEG) Urine Amphetamine/Methamphetamine Neg (NEG) Urine Benzodiazepines Screen Neg (NEG) Urine Cocaine Screen Neg (NEG) Urine Cannabinoids Screen Pos (NEG) Urine Ethyl Alcohol Neg (NEG) Activated Partial Thromboplast Time 34 SEC (24-38) Test 02/22/20 23:45 02/23/20 06:45 02/23/20 15:11 02/24/20 06:10 Heparin Anti-Xa Act, Unfractionated 0.40 IU/mL (0.30-0.70) 0.12 IU/mL (0.30-0.70) Phosphorus Level 4.6 mg/dL (2.6-4.7) Magnesium Level 2.0 mg/dL (1.8-2.4) 1.8 mg/dL (1.8-2.4) Activated Clotting Time 213 sec (92-181) White Blood Count 8.3 x10^3/uL (4.0-11.0) Red Blood Count 4.50 x10^6/uL (4.30-5.70) Hemoglobin 14.3 g/dL (13.0-17.5) Hematocrit 41.8 % (39.0-53.0) Mean Corpuscular Volume 93 fL (79-100) Mean Corpuscular Hemoglobin 32 pg (25-35) Mean Corpuscular Hemoglobin Concent 34 g/dL (31-37) Red Cell Distribution Width 14.1 % (11.5-14.5) Platelet Count 201 x10^3/uL (140-400) Neutrophils (%) (Auto) 75 % (31-73) Lymphocytes (%) (Auto) 17 % (24-48) Monocytes (%) (Auto) 7 % (0-9) Eosinophils (%) (Auto) 1 % (0-3) Basophils (%) (Auto) 0 % (0-3) Neutrophils # (Auto) 6.2 x10^3/uL (1.8-7.7) Lymphocytes # (Auto) 1.4 x10^3/uL (1.0-4.8) Monocytes # (Auto) 0.6 x10^3/uL (0.0-1.1) Eosinophils # (Auto) 0.1 x10^3/uL (0.0-0.7) Basophils # (Auto) 0.0 x10^3/uL (0.0-0.2) Sodium Level 135 mmol/L (136-145) Potassium Level 4.7 mmol/L (3.5-5.1) Chloride Level 101 mmol/L (98-107) Carbon Dioxide Level 30 mmol/L (21-32) Anion Gap 4 (6-14) Blood Urea Nitrogen 8 mg/dL (8-26) Creatinine 1.0 mg/dL (0.7-1.3) Estimated GFR (Cockcroft-Gault) 76.2 Glucose Level 82 mg/dL (70-99) Calcium Level 8.6 mg/dL (8.5-10.1) Total Bilirubin 0.4 mg/dL (0.2-1.0) Direct Bilirubin 0.2 mg/dL (0.0-0.2) Aspartate Amino Transf (AST/SGOT) 20 U/L (15-37) Alanine Aminotransferase (ALT/SGPT) 23 U/L (16-63) Alkaline Phosphatase 74 U/L (46-116) Total Protein 6.3 g/dL (6.4-8.2) Albumin 3.1 g/dL (3.4-5.0) Laboratory Tests Test 02/23/20 15:11 02/24/20 06:10 Activated Clotting Time 213 sec (92-181) White Blood Count 8.3 x10^3/uL (4.0-11.0) Red Blood Count 4.50 x10^6/uL (4.30-5.70) Hemoglobin 14.3 g/dL (13.0-17.5) Hematocrit 41.8 % (39.0-53.0) Mean Corpuscular Volume 93 fL (79-100) Mean Corpuscular Hemoglobin 32 pg (25-35) Mean Corpuscular Hemoglobin Concent 34 g/dL (31-37) Red Cell Distribution Width 14.1 % (11.5-14.5) Platelet Count 201 x10^3/uL (140-400) Neutrophils (%) (Auto) 75 % (31-73) Lymphocytes (%) (Auto) 17 % (24-48) Monocytes (%) (Auto) 7 % (0-9) Eosinophils (%) (Auto) 1 % (0-3) Basophils (%) (Auto) 0 % (0-3) Neutrophils # (Auto) 6.2 x10^3/uL (1.8-7.7) Lymphocytes # (Auto) 1.4 x10^3/uL (1.0-4.8) Monocytes # (Auto) 0.6 x10^3/uL (0.0-1.1) Eosinophils # (Auto) 0.1 x10^3/uL (0.0-0.7) Basophils # (Auto) 0.0 x10^3/uL (0.0-0.2) Sodium Level 135 mmol/L (136-145) Potassium Level 4.7 mmol/L (3.5-5.1) Chloride Level 101 mmol/L (98-107) Carbon Dioxide Level 30 mmol/L (21-32) Anion Gap 4 (6-14) Blood Urea Nitrogen 8 mg/dL (8-26) Creatinine 1.0 mg/dL (0.7-1.3) Estimated GFR (Cockcroft-Gault) 76.2 Glucose Level 82 mg/dL (70-99) Calcium Level 8.6 mg/dL (8.5-10.1) Magnesium Level 1.8 mg/dL (1.8-2.4) Total Bilirubin 0.4 mg/dL (0.2-1.0) Direct Bilirubin 0.2 mg/dL (0.0-0.2) Aspartate Amino Transf (AST/SGOT) 20 U/L (15-37) Alanine Aminotransferase (ALT/SGPT) 23 U/L (16-63) Alkaline Phosphatase 74 U/L (46-116) Total Protein 6.3 g/dL (6.4-8.2) Albumin 3.1 g/dL (3.4-5.0) Microbiology 02/22/20 Blood Culture - Preliminary, Resulted NO GROWTH AFTER 1 DAY Medications Current Medications Sodium Chloride 1,000 ml @ 1,000 mls/hr 1X ONCE IV Last administered on 02/22/20 16:57; Start 02/22/20 at 17:00; Stop 02/22/20 at 17:59; Status DC Magnesium Sulfate 50 ml @ 25 mls/hr 1X ONCE IV Last administered on 02/22/20at 16:58; Start 02/22/20 at 17:00; Stop 02/22/20 at 18:59; Status DC Fentanyl Citrate (Fentanyl 2ml Vial) 50 mcg 1X ONCE IVP Last administered on 02/22/20at 16:58; Start 02/22/20 at 17:00; Stop 02/22/20 at 17:01; Status DC Ondansetron HCl (Zofran) 4 mg PRN Q8HRS PRN IV NAUSEA/VOMITING Last administered on 02/22/20at 20:00; Start 02/22/20 at 17:00; Stop 02/23/20 at 16:59; Status DC Fentanyl Citrate (Fentanyl 2ml Vial) 50 mcg PRN Q1HR PRN IV PAIN Last administered on 02/22/20at 20:00; Start 02/22/20 at 17:00; Stop 02/23/20 at 16:59; Status DC Aspirin (Jasmin Aspirin) 325 mg 1X ONCE PO Last administered on 02/22/20 17:30; Start 02/22/20 at 17:15; Stop 02/22/20 at 17:16; Status DC Heparin Sodium (Porcine) (Heparin Sodium) 5,450 unit 1X ONCE IV Last administered on 02/22/20at 17:45; Start 02/22/20 at 17:15; Stop 02/22/20 at 17:16; Status DC Heparin Sodium/ Dextrose 250 ml @ 0 mls/hr CONT PRN IV PER PROTOCOL Last administered on 02/22/20at 17:44; Start 02/22/20 at 17:30 Heparin Sodium (Porcine) (Heparin Sodium) 2,050 unit PRN Q6HRS PRN IV FOR UFH LEVEL LESS THAN 0.2 Last administered on 02/23/20at 09:12; Start 02/22/20 at 17:00 Heparin Sodium (Porcine) (Heparin Sodium) 1,000 unit PRN Q6HRS PRN IV FOR UFH LEVEL 0.2 - 0.29; Start 02/22/20 at 17:00 Potassium Bicarbonate (Potassium Effervescent Tablet) 40 meq 1X ONCE FT ; Start 02/22/20 at 17:30; Stop 02/22/20 at 17:31; Status DC Magnesium Sulfate 50 ml @ 25 mls/hr Q24H IV ; Start 02/22/20 at 18:00; Stop 02/24/20 at 19:59 Potassium Phos/ Sodium Phos (Phos-Nak) 1 pkt BID PO ; Start 02/22/20 at 21:00; Stop 02/23/20 at 09:01; Status DC Potassium Bicarbonate (Potassium Effervescent Tablet) 40 meq Q4H PO Last administered on 02/22/20at 22:00; Start 02/22/20 at 18:00; Stop 02/22/20 at 22:01; Status DC Sodium Chloride (Normal Saline Flush) 3 ml QSHIFT PRN IV AFTER MEDS AND BLOOD DRAWS; Start 02/22/20 at 17:15 Sodium Chloride 1,000 ml @ 60 mls/hr [id number] IV Last administered on 02/23/20at 21:33; Start 02/22/20 at 17:15 Ondansetron HCl (Zofran) 4 mg PRN Q4HRS PRN IV NAUSEA/VOMITING; Start 02/22/20 at 17:15 Zolpidem Tartrate (Ambien) 5 mg PRN QHS PRN PO INSOMNIA Last administered on 02/23/20at 21:37; Start 02/22/20 at 17:15 Acetaminophen (Tylenol) 650 mg PRN Q4HRS PRN PO TEMP OVER 100.4F OR MILD PAIN Last administered on 02/23/20at 21:37; Start 02/22/20 at 17:15 Al Hydroxide/Mg Hydroxide (Mylanta Plus Xs) 30 ml PRN DAILY PRN PO HEARTBURN / GAS; Start 02/22/20 at 17:15 Sodium Monofluorophosphate (Fleet Adult) 133 ml PRN DAILY PRN [place] CONSTIPATION; Start 02/22/20 at 17:15 Docusate Sodium (Colace) 100 mg PRN BID PRN PO HARD STOOLS; Start 02/22/20 at 17:15 Albuterol/ Ipratropium (Duoneb) 3 ml Q4HRS NEB ; Start 02/22/20 at 20:00; Stop 02/22/20 at 17:44; Status DC Guaifenesin (Robitussin) 200 mg PRN Q4HRS PRN PO COUGH; Start 02/22/20 at 17:15 Multivitamins (Thera M Plus) 1 tab DAILY PO Last administered on 02/24/20at 08:21; Start 02/23/20 at 09:00 Folic Acid (Folic Acid) 1 mg DAILY PO Last administered on 02/24/20at 08:22; Start 02/23/20 at 09:00 Thiamine Mononitrate (Vitamin B-1) 100 mg DAILY PO Last administered on 02/24/20at 08:21; Start 02/23/20 at 09:00 Lorazepam (Ativan) 4 mg PRN Q1HR PRN PO For CIWA 8-14; Start 02/22/20 at 17:30 Lorazepam (Ativan) 8 mg PRN Q1HR PRN PO For CIWA 15 or greater; Start 02/22/20 at 17:30 Lorazepam (Ativan Inj) 2 mg PRN Q1HR PRN IV For CIWA 8-14 Last administered on 02/24/20at 08:28; Start 02/22/20 at 17:30 Lorazepam (Ativan Inj) 4 mg PRN Q1HR PRN IV For CIWA 15 or greater; Start 02/22/20 at 17:30 Haloperidol Lactate (Haldol Inj) 5 mg PRN Q4HRS PRN IVP Hallucinatns,Confusn,Delirium; Start 02/22/20 at 17:30 Diphenhydramine HCl (Benadryl) 25 mg PRN Q15MIN PRN IVP EPS symptoms 2'Haldol admin; Start 02/22/20 at 17:30 Lorazepam (Ativan Inj) 2 mg PRN Q15MIN PRN IV SEE COMMENTS; Start 02/22/20 at 17:30; Stop 02/22/20 at 18:45; Status DC Lorazepam (Ativan Inj) 4 mg PRN Q15MIN PRN IV SEE COMMENTS; Start 02/22/20 at 17:30; Stop 02/22/20 at 18:45; Status DC Albuterol Sulfate (Ventolin Neb Soln) 2.5 mg PRN Q4HRS PRN NEB SHORTNESS OF BREATH; Start 02/22/20 at 18:00 Nicotine (Nicoderm Cq 21mg) 1 patch DAILY TD Last administered on 02/24/20 08:22; Start 02/22/20 at 22:30 Acetaminophen (Tylenol) 500 mg PRN Q4HRS PRN PO MILD PAIN / TEMP > 100.3'F; Start 02/22/20 at 22:30; Stop 02/23/20 at 17:30; Status DC Info (Anti-Coagulation Monitoring By Pharmacy) 1 each PRN DAILY PRN MC SEE COMMENTS Last administered on 02/23/20at 10:24; Start 02/23/20 at 09:45 Aspirin (Ecotrin) 81 mg DAILYWBKFT PO Last administered on 02/24/20 08:22; Start 02/23/20 at 12:00 Heparin Sodium/ Sodium Chloride (HEPARIN for ARTERIAL LINE FLUSH) 1,000 unit 1X ONCE IART Last administered on 02/23/20 13:30; Start 02/23/20 at 13:30; Stop 02/23/20 at 13:38; Status DC Heparin Sodium/ Sodium Chloride (HEPARIN for ARTERIAL LINE FLUSH) 1,000 unit 1X ONCE IART Last administered on 02/23/20 13:30; Start 02/23/20 at 13:30; Stop 02/23/20 at 13:38; Status DC Lidocaine HCl (Buffered Lidocaine 1%) 3 ml 1X ONCE IJ Last administered on 02/23/20 13:50; Start 02/23/20 at 13:30; Stop 02/23/20 at 13:38; Status DC Midazolam HCl (Versed) 2 mg 1X ONCE IV Last administered on 02/23/20 13:45; Start 02/23/20 at 13:30; Stop 02/23/20 at 13:38; Status DC Fentanyl Citrate (Fentanyl 2ml Vial) 100 mcg 1X ONCE IV Last administered on 02/23/20 13:45; Start 02/23/20 at 13:30; Stop 02/23/20 at 13:38; Status DC Iodixanol (Visipaque 320) 100 ml 1X ONCE IART Last administered on 02/23/20at 15:09; Start 02/23/20 at 13:30; Stop 02/23/20 at 13:38; Status DC Lidocaine HCl (Buffered Lidocaine 1%) 3 ml STK-MED ONCE .ROUTE ; Start 02/23/20 at 13:14; Stop 02/23/20 at 13:32; Status DC Iodixanol (Visipaque 320) 100 ml STK-MED ONCE .ROUTE ; Start 02/23/20 at 13:14; Stop 02/23/20 at 13:32; Status DC Heparin Sodium/ Sodium Chloride 1,500 ml @ As Directed STK-MED ONCE .ROUTE ; Start 02/23/20 at 13:14; Stop 02/23/20 at 13:32; Status DC Midazolam HCl (Versed) 2 mg STK-MED ONCE .ROUTE ; Start 02/23/20 at 13:20; Stop 02/23/20 at 13:33; Status DC Fentanyl Citrate (Fentanyl 2ml Vial) 100 mcg STK-MED ONCE .ROUTE ; Start 02/23/20 at 13:21; Stop 02/23/20 at 13:33; Status DC Heparin Sodium (Porcine) (Heparin Sodium) 10,000 unit STK-MED ONCE .ROUTE ; Start 02/23/20 at 13:21; Stop 02/23/20 at 13:33; Status DC Heparin Sodium (Porcine) (Heparin Sodium) 5,000 unit 1X ONCE IV Last administered on 02/23/20at 14:08; Start 02/23/20 at 14:15; Stop 02/23/20 at 14:22; Status DC Heparin Sodium/ Sodium Chloride 500 ml @ As Directed STK-MED ONCE .ROUTE ; Start 02/23/20 at 15:23; Stop 02/23/20 at 15:23; Status DC Acetaminophen/ Hydrocodone Bitart (Lortab 5/325) 1 tab PRN Q6HRS PRN PO PAIN Last administered on 02/24/20at 00:46; Start 02/23/20 at 17:15 Active Scripts Active Ibuprofen 800 Mg Tablet 800 Mg PO PRN Q6HRS PRN Cyclobenzaprine Hcl 10 Mg Tablet 1 Tab PO TID PRN Proair Hfa Inhaler (Albuterol Sulfate) 8.5 Gm Hfa.aer.ad 1-2 Puff INH PRN Q6HRS PRN with spacer Albuterol Sulfate Neb Soln (Albuterol Sulfate) 2.5 Mg/3 Ml Vial.neb 1 Vial NEB PRN Q4HRS PRN Reported Acetaminophen 500 Mg Tablet 500 Mg PO PRN Q6HRS PRN Advil (Ibuprofen) 200 Mg Capsule 200 Mg PO PRN Q6HRS PRN Vitals/I & O Vital Sign - Last 24 Hours 02/23/20 02/23/20 02/23/20 02/23/20 15:36 15:51 16:00 16:06 Temp 98.1 98.1 Pulse 60 60 60 60 Resp 12 18 B/P (MAP) 159/82 (107) Pulse Ox 96 89 90 93 O2 Delivery Nasal Cannula Room Air Nasal Cannula O2 Flow Rate 2.0 2.0 02/23/20 02/23/20 02/23/20 02/23/20 16:24 16:39 16:54 17:24 Pulse 58 58 60 58 Pulse Ox 94 97 95 96 O2 Delivery Nasal Cannula Nasal Cannula Nasal Cannula Nasal Cannula O2 Flow Rate 2.0 2.0 2.0 2.0 02/23/20 02/23/20 02/23/20 02/23/20 17:54 17:55 18:54 19:24 Temp 98.1 98.1 Pulse 60 68 70 Resp 16 B/P (MAP) 154/86 (108) Pulse Ox 95 95 93 95 O2 Delivery Nasal Cannula Nasal Cannula Nasal Cannula Nasal Cannula O2 Flow Rate 2.0 2.0 2.0 2.0 02/23/20 02/23/20 02/23/20 02/24/20 19:54 20:00 23:56 03:37 Temp 98.3 97.6 98.3 97.6 Pulse 66 63 65 Resp 16 16 16 B/P (MAP) 152/96 (114) 123/71 (88) 132/87 (102) Pulse Ox 97 96 96 O2 Delivery Room Air Room Air Room Air Room Air 02/24/20 02/24/20 02/24/20 07:00 08:00 11:00 Temp 97.9 97.9 97.9 97.9 Pulse 63 72 Resp 18 18 B/P (MAP) 139/86 (103) 152/93 (112) Pulse Ox 96 95 O2 Delivery Room Air Room Air Room Air Intake and Output 02/23/20 02/23/20 02/24/20 15:00 23:00 07:00 Intake Total 0 ml 550 ml 400 ml Output Total 400 ml 1400 ml 1225 ml Balance -400 ml -850 ml -825 ml Justicifation of Admission Dx: Justifications for Admission: Justification of Admission Dx: Yes BRUNILDA ROSAS MD Feb 24, 2020 14:59
[2020-02-24 15:00] VITALS: BP 149/99
[2020-02-24 15:19] LABS: PROTHROMBIN TIME PATIENT 14.1 SEC (11.7-14.0)
[2020-02-24 15:20] LABS: UNFRACTIONATED HEPARIN TESTING < 0.10 IU/mL (0.30-0.70)
[2020-02-24] MEDS: HEPARIN 25,000UTS/250ML PREMIX 250 ML IV PRN (16:06)
[2020-02-24] MEDS: MAGNESIUM SULFATE 2GM 50 ML IV SCH (18:00)
[2020-02-24 18:30] VITALS: BP 148/97
[2020-02-24] MEDS: IV NORMAL SALINE 1000ML BAG 1,000 ML IV SCH (19:19)
[2020-02-24] MEDS: HEPARIN for IV BOLUS 10,000 UNIT/10 ML VIAL. IV PRN (22:11)
[2020-02-24 22:41] VITALS: BP 142/96
[2020-02-24] MEDS: diphenhydrAMINE 50 MG/ML VIAL IVP PRN (22:47)
[2020-02-25] VITALS (7 sets, daily range): BP systolic 117–152; BP diastolic 81–97
[2020-02-25 04:30] LABS: CALCIUM 8.8 mg/dL (8.5-10.1); CREATININE 0.8 mg/dL (0.7-1.3); GFR 98.6; POTASSIUM 3.9 mmol/L (3.5-5.1)
--- NOTE | 2020-02-25 08:05 | CARD ---
MR#: [id number] Date of Study: 02/24/2020 Ordering Physician: ANJELICA GAMBOA, Referring Physician: ANJELICA GAMBOA, Tech: Lydia Nogueira APPROVED REPORT EXAM: Two-dimensional and M-mode echocardiogram with Doppler and color Doppler. Other Information Quality : AverageHR: 68bpm INDICATION LV Function:Systolic Congestive Heart Failure 2D DIMENSIONS Left Atrium(2D)3.8 (1.6-4.0cm)IVSd1.4 (0.7-1.1cm) Aortic Root(2D)3.0 (2.0-3.7cm)LVDd5.2 (3.9-5.9cm) PWd1.2 (0.7-1.1cm)LVDs3.6 (2.5-4.0cm) FS (%) 31.0 %SV74.8 ml LVEF(%)58.3 (>50%) LEFT VENTRICLE The left ventricle is normal size. There is mild concentric left ventricular hypertrophy. The left ve ntricular systolic function is moderately impaired. The ejection fraction is 35%. Septal motion consi stent with post-operative state. RIGHT VENTRICLE The right ventricle is normal size. There is normal right ventricular wall thickness. The right ventr icular systolic function is normal. ATRIA The left atrium size is normal. The right atrium size is normal. The interatrial septum is intact wit h no evidence for an atrial septal defect or patent foramen ovale as noted on 2-D or Doppler imaging. AORTIC VALVE Mild aortic regurgitation. There is no significant aortic valvular stenosis. Mechanical prosthetic ao rtic valve was not well visualized but appeared to be well seated. MITRAL VALVE The mitral valve is normal in structure and function. There is no evidence of mitral valve prolapse. There is no mitral valve stenosis. Doppler and color-flow analysis was not performed. TRICUSPID VALVE The tricuspid valve is normal in structure and function. Doppler and color-flow analysis was not perf ormed. There is no tricuspid valve stenosis. PULMONIC VALVE The pulmonic valve is not well visualized. Doppler and color-flow analysis was not performed. GREAT VESSELS The aortic root is normal in size. The IVC is normal in size and collapses >50% with inspiration. PERICARDIAL EFFUSION There is no evidence of significant pericardial effusion. Critical Notification Critical Value: No <Conclusion> The left ventricular systolic function is moderately impaired. The ejection fraction is 35%. Septal motion consistent with post-operative state. Mechanical prosthetic aortic valve was not well visualized but appeared to be well seated. Mild aortic regurgitation. There is no evidence of significant pericardial effusion. Signed by : Taj Thompson, Electronically Approved : 02/25/2020 08:04:44
[2020-02-25] MEDS: NICOTINE 21MG PATCH. TD SCH (08:20)
[2020-02-25] MEDS: THIAMINE 100 MG TABLET. PO SCH (08:20)
[2020-02-25] MEDS: ASPIRIN ENTERIC COATED 81 MG TABLET.DR. PO SCH (08:20)
[2020-02-25] MEDS: MULTIVITAMIN with MINERAL TABLET. PO SCH (08:20)
[2020-02-25] MEDS: FOLIC ACID 1 MG TABLET. PO SCH (08:24)
--- NOTE | 2020-02-25 11:06 | PDOC ---
PROGRESS NOTES Subjective Subjective I am fine. I can move my right foot better. I cannot tell if my symptoms are better because I have not been up and walking around yet. The patient is a 59-year-old male who presented to the Emergency Department with right leg pain. He reported that his right leg pain started at least 3 weeks ago. It was fairly sudden onset. He has pain during ambulation in his right calf. Prior to 3 weeks ago, he was able to walk longer distances without pain in the legs. He is fairly noncompliant with his medical care. He has a history of an aortic valve replacement and is supposed to be on chronic anticoagulation with Coumadin; however, he has not taken this in over a year. He stated he also has high blood pressure, but has not taken medication in some time. He reported no pain in his left calf during ambulation. He currently has no complaints of chest pain or shortness of breath, no fever and chills, no right foot rest pain. He had his aortogram and iliac artery intervention. 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 Flush occlusion of the right SFA with reconstitution the adductor canal. Finding was interoperatively discussed with the ordering vascular surgeon. At least two-vessel runoff to the foot appears to be present. Right leg bypass surgery is currently planned for Saturday. He had a bilateral carotid ultrasound which shows less than 50% stenosis bilaterally. He had a vein mapping of his right leg which shows very diminutive greater saphenous and small saphenous vein. However, this was not performed in a standing position with full venous distention. He had a preoperative cardiac evaluation and was found to be at moderate risk for infrainguinal bypass grafting. Objective Objective Vital Signs Date Time Temp Pulse Resp B/P (MAP) Pulse Ox O2 Delivery O2 Flow Rate FiO2 02/25/20 10:33 97.9 67 18 139/90 (106) 98 Room Air 97.9 02/23/20 19:24 2.0 Intake and Output 02/25/20 07:00 Intake Total 1450 ml Output Total 2200 ml Balance -750 ml Intake Oral 450 ml IV Total 1000 ml Output Urine Total 2200 ml Physical Exam Extremities: No cyanosis, No edema General: Alert, Oriented X3, Cooperative, No acute distress HEENT: Atraumatic MUSCULOSKELETAL: No swelling Neuro: Normal speech, Normal tone Psych/Mental Status: Mental status NL, Mood NL Skin: No rashes, No breakdown Assessment Assessment Problems Medical Problems: (1) Magnesium deficiency Status: Acute (2) Superficial femoral artery occlusion Status: Acute Plan Plan of Care 59-year-old male with a history of valve replacement surgery who had a 3-week hi story of right leg claudication symptoms. He has an excellent right femoral pulse. He has Doppler pulses in his right foot. He is able to plantarflex and dorsiflex both feet. He is currently on a heparin drip because of his heart valve. He had his arteriogram and will need a right leg femoropopliteal bypass surgery to fully improve circulation to his right foot. He is having no rest pain. We were able to reserve surgery time on Saturday afternoon. He will remain in the hospital on IV heparin through then. Plan: Continue baby aspirin daily. May ambulate as tolerated. Continue heparin drip or any other antiplatelet, anticoagulant agents per cardiology. N.p.o. after midnight on Saturday night. Plan for right leg bypass surgery on Saturday. Comment Review of Relevant I have reviewed the following items ochoa (where applicable) has been applied. Labs Laboratory Tests Test 02/23/20 15:11 02/24/20 06:10 02/24/20 14:53 02/24/20 21:19 Activated Clotting Time 213 sec (92-181) White Blood Count 8.3 x10^3/uL (4.0-11.0) Red Blood Count 4.50 x10^6/uL (4.30-5.70) Hemoglobin 14.3 g/dL (13.0-17.5) Hematocrit 41.8 % (39.0-53.0) Mean Corpuscular Volume 93 fL (79-100) Mean Corpuscular Hemoglobin 32 pg (25-35) Mean Corpuscular Hemoglobin Concent 34 g/dL (31-37) Red Cell Distribution Width 14.1 % (11.5-14.5) Platelet Count 201 x10^3/uL (140-400) Neutrophils (%) (Auto) 75 % (31-73) Lymphocytes (%) (Auto) 17 % (24-48) Monocytes (%) (Auto) 7 % (0-9) Eosinophils (%) (Auto) 1 % (0-3) Basophils (%) (Auto) 0 % (0-3) Neutrophils # (Auto) 6.2 x10^3/uL (1.8-7.7) Lymphocytes # (Auto) 1.4 x10^3/uL (1.0-4.8) Monocytes # (Auto) 0.6 x10^3/uL (0.0-1.1) Eosinophils # (Auto) 0.1 x10^3/uL (0.0-0.7) Basophils # (Auto) 0.0 x10^3/uL (0.0-0.2) Sodium Level 135 mmol/L (136-145) Potassium Level 4.7 mmol/L (3.5-5.1) Chloride Level 101 mmol/L (98-107) Carbon Dioxide Level 30 mmol/L (21-32) Anion Gap 4 (6-14) Blood Urea Nitrogen 8 mg/dL (8-26) Creatinine 1.0 mg/dL (0.7-1.3) Estimated GFR (Cockcroft-Gault) 76.2 Glucose Level 82 mg/dL (70-99) Calcium Level 8.6 mg/dL (8.5-10.1) Magnesium Level 1.8 mg/dL (1.8-2.4) Total Bilirubin 0.4 mg/dL (0.2-1.0) Direct Bilirubin 0.2 mg/dL (0.0-0.2) Aspartate Amino Transf (AST/SGOT) 20 U/L (15-37) Alanine Aminotransferase (ALT/SGPT) 23 U/L (16-63) Alkaline Phosphatase 74 U/L (46-116) Total Protein 6.3 g/dL (6.4-8.2) Albumin 3.1 g/dL (3.4-5.0) Prothrombin Time 14.1 SEC (11.7-14.0) Prothromb Time International Ratio 1.1 (0.8-1.1) Heparin Anti-Xa Act, Unfractionated < 0.10 IU/mL (0.30-0.70) 0.11 IU/mL (0.30-0.70) Test 02/25/20 04:00 Heparin Anti-Xa Act, Unfractionated 0.34 IU/mL (0.30-0.70) Sodium Level 134 mmol/L (136-145) Potassium Level 3.9 mmol/L (3.5-5.1) Chloride Level 99 mmol/L (98-107) Carbon Dioxide Level 25 mmol/L (21-32) Anion Gap 10 (6-14) Blood Urea Nitrogen 9 mg/dL (8-26) Creatinine 0.8 mg/dL (0.7-1.3) Estimated GFR (Cockcroft-Gault) 98.6 Glucose Level 87 mg/dL (70-99) Calcium Level 8.8 mg/dL (8.5-10.1) Laboratory Tests Test 02/24/20 14:53 02/24/20 21:19 02/25/20 04:00 Prothrombin Time 14.1 SEC (11.7-14.0) Prothromb Time International Ratio 1.1 (0.8-1.1) Heparin Anti-Xa Act, Unfractionated < 0.10 IU/mL (0.30-0.70) 0.11 IU/mL (0.30-0.70) 0.34 IU/mL (0.30-0.70) Sodium Level 134 mmol/L (136-145) Potassium Level 3.9 mmol/L (3.5-5.1) Chloride Level 99 mmol/L (98-107) Carbon Dioxide Level 25 mmol/L (21-32) Anion Gap 10 (6-14) Blood Urea Nitrogen 9 mg/dL (8-26) Creatinine 0.8 mg/dL (0.7-1.3) Estimated GFR (Cockcroft-Gault) 98.6 Glucose Level 87 mg/dL (70-99) Calcium Level 8.8 mg/dL (8.5-10.1) Microbiology 02/22/20 Blood Culture - Preliminary, Resulted NO GROWTH AFTER 2 DAYS Medications Current Medications Sodium Chloride 1,000 ml @ 1,000 mls/hr 1X ONCE IV Last administered on 02/22/20at 16:57; Start 02/22/20 at 17:00; Stop 02/22/20 at 17:59; Status DC Magnesium Sulfate 50 ml @ 25 mls/hr 1X ONCE IV Last administered on 02/22/20at 16:58; Start 02/22/20 at 17:00; Stop 02/22/20 at 18:59; Status DC Fentanyl Citrate (Fentanyl 2ml Vial) 50 mcg 1X ONCE IVP Last administered on 02/22/20at 16:58; Start 02/22/20 at 17:00; Stop 02/22/20 at 17:01; Status DC Ondansetron HCl (Zofran) 4 mg PRN Q8HRS PRN IV NAUSEA/VOMITING Last administered on 02/22/20at 20:00; Start 02/22/20 at 17:00; Stop 02/23/20 at 16:59; Status DC Fentanyl Citrate (Fentanyl 2ml Vial) 50 mcg PRN Q1HR PRN IV PAIN Last ad ministered on 02/22/20at 20:00; Start 02/22/20 at 17:00; Stop 02/23/20 at 16:59; Status DC Aspirin (Jasmin Aspirin) 325 mg 1X ONCE PO Last administered on 02/22/20at 17:30; Start 02/22/20 at 17:15; Stop 02/22/20 at 17:16; Status DC Heparin Sodium (Porcine) (Heparin Sodium) 5,450 unit 1X ONCE IV Last administered on 02/22/20at 17:45; Start 02/22/20 at 17:15; Stop 02/22/20 at 17:16 ; Status DC Heparin Sodium/ Dextrose 250 ml @ 0 mls/hr CONT PRN IV PER PROTOCOL Last administered on 02/24/20at 16:06; Start 02/22/20 at 17:30 Heparin Sodium (Porcine) (Heparin Sodium) 2,050 unit PRN Q6HRS PRN IV FOR UFH LEVEL LESS THAN 0.2 Last administered on 02/24/20at 22:11; Start 02/22/20 at 17:00 Heparin Sodium (Porcine) (Heparin Sodium) 1,000 unit PRN Q6HRS PRN IV FOR UFH LEVEL 0.2 - 0.29; Start 02/22/20 at 17:00 Potassium Bicarbonate (Potassium Effervescent Tablet) 40 meq 1X ONCE FT ; Start 02/22/20 at 17:30; Stop 02/22/20 at 17:31; Status DC Magnesium Sulfate 50 ml @ 25 mls/hr Q24H IV ; Start 02/22/20 at 18:00; Stop at 19:59; Status DC Potassium Phos/ Sodium Phos (Phos-Nak) 1 pkt BID PO ; Start 02/22/20 at 21:00; Stop 02/23/20 at 09:01; Status DC Potassium Bicarbonate (Potassium Effervescent Tablet) 40 meq Q4H PO Last administered on 02/22/20at 22:00; Start 02/22/20 at 18:00; Stop 02/22/20 at 22:01; Status DC Sodium Chloride (Normal Saline Flush) 3 ml QSHIFT PRN IV AFTER MEDS AND BLOOD DRAWS; Start 02/22/20 at 17:15 Sodium Chloride 1,000 ml @ 60 mls/hr [id number] IV Last administered on 02/24/20at 19:19; Start 02/22/20 at 17:15 Ondansetron HCl (Zofran) 4 mg PRN Q4HRS PRN IV NAUSEA/VOMITING; Start 02/22/20 at 17:15 Zolpidem Tartrate (Ambien) 5 mg PRN QHS PRN PO INSOMNIA Last administered on 02/23/20at 21:37; Start 02/22/20 at 17:15 Acetaminophen (Tylenol) 650 mg PRN Q4HRS PRN PO TEMP OVER 100.4F OR MILD PAIN Last administered on 02/23/20at 21:37; Start 02/22/20 at 17:15 Al Hydroxide/Mg Hydroxide (Mylanta Plus Xs) 30 ml PRN DAILY PRN PO HEARTBURN / GAS; Start 02/22/20 at 17:15 Sodium Monofluorophosphate (Fleet Adult) 133 ml PRN DAILY PRN [place] CONSTIPATION; Start 02/22/20 at 17:15 Docusate Sodium (Colace) 100 mg PRN BID PRN PO HARD STOOLS; Start 02/22/20 at 17:15 Albuterol/ Ipratropium (Duoneb) 3 ml Q4HRS NEB ; Start 02/22/20 at 20:00; Stop 02/22/20 at 17:44; Status DC Guaifenesin (Robitussin) 200 mg PRN Q4HRS PRN PO COUGH; Start 02/22/20 at 17:15 Multivitamins (Thera M Plus) 1 tab DAILY PO Last administered on 02/25/20at 08:20; Start 02/23/20 at 09:00 Folic Acid (Folic Acid) 1 mg DAILY PO Last administered on 02/25/20at 08:24; Start 02/23/20 at 09:00 Thiamine Mononitrate (Vitamin B-1) 100 mg DAILY PO Last administered on 02/25/20at 08:20; Start 02/23/20 at 09:00 Lorazepam (Ativan) 4 mg PRN Q1HR PRN PO For CIWA 8-14; Start 02/22/20 at 17:30 Lorazepam (Ativan) 8 mg PRN Q1HR PRN PO For CIWA 15 or greater; Start 02/22/20 at 17:30 Lorazepam (Ativan Inj) 2 mg PRN Q1HR PRN IV For CIWA 8-14 Last administered on 02/24/20at 08:28; Start 02/22/20 at 17:30 Lorazepam (Ativan Inj) 4 mg PRN Q1HR PRN IV For CIWA 15 or greater; Start 02/22/20 at 17:30 Haloperidol Lactate (Haldol Inj) 5 mg PRN Q4HRS PRN IVP Hallucinatns,Confusn,Delirium; Start 02/22/20 at 17:30 Diphenhydramine HCl (Benadryl) 25 mg PRN Q15MIN PRN IVP EPS symptoms 2'Haldol admin Last administered on 02/24/20at 22:47; Start 02/22/20 at 17:30 Lorazepam (Ativan Inj) 2 mg PRN Q15MIN PRN IV SEE COMMENTS; Start 02/22/20 at 17:30; Stop 02/22/20 at 18:45; Status DC Lorazepam (Ativan Inj) 4 mg PRN Q15MIN PRN IV SEE COMMENTS; Start 02/22/20 at 17:30; Stop 02/22/20 at 18:45; Status DC Albuterol Sulfate (Ventolin Neb Soln) 2.5 mg PRN Q4HRS PRN NEB SHORTNESS OF BREATH; Start 02/22/20 at 18:00 Nicotine (Nicoderm Cq 21mg) 1 patch DAILY TD Last administered on 02/25/20at 08:20; Start 02/22/20 at 22:30 Acetaminophen (Tylenol) 500 mg PRN Q4HRS PRN PO MILD PAIN / TEMP > 100.3'F; Start 02/22/20 at 22:30; Stop 02/23/20 at 17:30; Status DC Info (Anti-Coagulation Monitoring By Pharmacy) 1 each PRN DAILY PRN MC SEE COMMENTS Last administered on 02/23/20at 10:24; Start 02/23/20 at 09:45 Aspirin (Ecotrin) 81 mg [id number] PO Last administered on 02/25/20at 08:20; Start 02/23/20 at 12:00 Heparin Sodium/ Sodium Chloride (HEPARIN for ARTERIAL LINE FLUSH) 1,000 unit 1X ONCE IART Last administered on 02/23/20at 13:30; Start 02/23/20 at 13:30; Stop 02/23/20 at 13:38; Status DC Heparin Sodium/ Sodium Chloride (HEPARIN for ARTERIAL LINE FLUSH) 1,000 unit 1X ONCE IART Last administered on 02/23/20at 13:30; Start 02/23/20 at 13:30; Stop 02/23/20 at 13:38; Status DC Lidocaine HCl (Buffered Lidocaine 1%) 3 ml 1X ONCE IJ Last administered on 02/23/20at 13:50; Start 02/23/20 at 13:30; Stop 02/23/20 at 13:38; Status DC Midazolam HCl (Versed) 2 mg 1X ONCE IV Last administered on 02/23/20at 13:45; Start 02/23/20 at 13:30; Stop 02/23/20 at 13:38; Status DC Fentanyl Citrate (Fentanyl 2ml Vial) 100 mcg 1X ONCE IV Last administered on 02/23/20at 13:45; Start 02/23/20 at 13:30; Stop 02/23/20 at 13:38; Status DC Iodixanol (Visipaque 320) 100 ml 1X ONCE IART Last administered on 02/23/20at 15:09; Start 02/23/20 at 13:30; Stop 02/23/20 at 13:38; Status DC Lidocaine HCl (Buffered Lidocaine 1%) 3 ml STK-MED ONCE .ROUTE ; Start 02/23/20 at 13:14; Stop 02/23/20 at 13:32; Status DC Iodixanol (Visipaque 320) 100 ml STK-MED ONCE .ROUTE ; Start 02/23/20 at 13:14; Stop 02/23/20 at 13:32; Status DC Heparin Sodium/ Sodium Chloride 1,500 ml @ As Directed STK-MED ONCE .ROUTE ; Start 02/23/20 at 13:14; Stop 02/23/20 at 13:32; Status DC Midazolam HCl (Versed) 2 mg STK-MED ONCE .ROUTE ; Start 02/23/20 at 13:20; Stop 02/23/20 at 13:33; Status DC Fentanyl Citrate (Fentanyl 2ml Vial) 100 mcg STK-MED ONCE .ROUTE ; Start 02/23/20 at 13:21; Stop 02/23/20 at 13:33; Status DC Heparin Sodium (Porcine) (Heparin Sodium) 10,000 unit STK-MED ONCE .ROUTE ; Start 02/23/20 at 13:21; Stop 02/23/20 at 13:33; Status DC Heparin Sodium (Porcine) (Heparin Sodium) 5,000 unit 1X ONCE IV Last administered on 02/23/20at 14:08; Start 02/23/20 at 14:15; Stop 02/23/20 at 14:22; Status DC Heparin Sodium/ Sodium Chloride 500 ml @ As Directed STK-MED ONCE .ROUTE ; Start 02/23/20 at 15:23; Stop 02/23/20 at 15:23; Status DC Acetaminophen/ Hydrocodone Bitart (Lortab 5/325) 1 tab PRN Q6HRS PRN PO PAIN Last administered on 02/24/20at 00:46; Start 02/23/20 at 17:15 Active Scripts Active Ibuprofen 800 Mg Tablet 800 Mg PO PRN Q6HRS PRN Cyclobenzaprine Hcl 10 Mg Tablet 1 Tab PO TID PRN Proair Hfa Inhaler (Albuterol Sulfate) 8.5 Gm Hfa.aer.ad 1-2 Puff INH PRN Q6HRS PRN with spacer Albuterol Sulfate Neb Soln (Albuterol Sulfate) 2.5 Mg/3 Ml Vial.neb 1 Vial NEB PRN Q4HRS PRN Reported Acetaminophen 500 Mg Tablet 500 Mg PO PRN Q6HRS PRN Advil (Ibuprofen) 200 Mg Capsule 200 Mg PO PRN Q6HRS PRN Vitals/I & O Vital Sign - Last 24 Hours 02/24/20 02/24/20 02/24/20 02/24/20 11:00 15:00 18:30 20:00 Temp 97.9 97.5 98.1 97.9 97.5 98.1 Pulse 72 69 76 Resp 18 18 18 B/P (MAP) 152/93 (112) 149/99 (116) 148/97 (114) Pulse Ox 95 98 97 O2 Delivery Room Air Room Air Room Air Room Air 02/24/20 02/25/20 02/25/20 02/25/20 22:41 02:55 07:00 10:33 Temp 98.3 98.4 98.6 97.9 98.3 98.4 98.6 97.9 Pulse 68 66 75 67 Resp 18 18 B/P (MAP) 142/96 (111) 138/88 (105) 117/85 (96) 139/90 (106) Pulse Ox 94 98 97 98 O2 Delivery Room Air Room Air Room Air Room Air Intake and Output 02/24/20 02/24/20 02/25/20 15:00 23:00 07:00 Intake Total 200 ml 1250 ml 0 ml Output Total 1200 ml 1000 ml Balance -1000 ml 1250 ml -1000 ml Justicifation of Admission Dx: Justifications for Admission: Justification of Admission Dx: Yes LEWIS REYES [employer] Feb 25, 2020 11:06
[2020-02-25] MEDS: IV NORMAL SALINE 1000ML BAG 1,000 ML IV SCH (12:15)
--- NOTE | 2020-02-25 12:42 | NUR ---
SS following up with discharge planning. SS reviewed pt chart and discussed with pt RN. Pt is currently on room air. Pt on Heparin drip. Per RN, pt scheduled to have surgery on Saturday for bypass to right leg. Pt self pay. SS will continue to follow for discharge planning.
--- NOTE | 2020-02-25 14:58 | PDOC ---
PROGRESS NOTES Chief Complaint Chief Complaint Impression: 1. Acute arterial occlusion throughout the right superficial femoral artery, some reconstitution of minimal flow in the popliteal artery and runoff vessels. 2. Possible HX seizure, alcohol related 3. NONCOMPLIANCE with medications 4. Hypertension; controlled 5. Hyperlipidemia; 6. H/o endocarditis; s/p mechanical aortic valve replacement 20 yrs ago [facility] . Was previously on warfarin, but has not taken in > 2 years. Aortic valve appeared to be well seated and functioning well per TTE. 7. Abnormal EKG; noted with RBBB and anterolateral ST depression, which is unchanged from previous EKG 05/2018. EKG 05/2014 at with LVH, RBBB and ST changes on V4-[address] depression with ST elevation in V1. echo 08/31 Ejection Fraction is 35-40%. Abnormal septal motion consistent with post-operative state. Mechanical aortic valve prosthesis appears well seated and functioning well. MG 9 mm Hg.Mild aortic regurgitation. Trace mitral regurgitation. Trace tricuspid regurgitation with an estimated PAP of 23 mmHg. 8. Alcoholism; now 5 beers a week 9. Hypomagnesemia 10 Tobaccoism, marijuana use; discussed/encouraged cessation 11. Chronic systolic CHF with possible NICM with h/o alcoholoism, ICM // Echo with LVEF 35-40%. 12. HYPONATREMIA will follow plan VASCULAR following bypass on saturday scheduled heparin drip protocol CIWA PROTOCOL continue ASA daily follow Na level cards consulted for clearance: deemed moderate risk for his extra inguinal vascular procedure no PCP, will provided information on [facility] for follow up Supportive care and optimization with medical therapy. 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 treated with covered, balloon-expandable stent placement 02/22 Vitals Vitals Vital Signs Date Time Temp Pulse Resp B/P (MAP) Pulse Ox O2 Delivery O2 Flow Rate FiO2 02/25/20 14:37 98.0 68 18 129/97 (108) 98 Room Air 98.0 Physical Exam General: Alert, Oriented X3, Cooperative, No acute distress Heart: Regular rate Lungs: Clear Abdomen: Normal bowel sounds, Soft Extremities: No cyanosis, No edema Skin: No rashes, No breakdown Labs LABS Laboratory Tests Test 02/24/20 21:19 02/25/20 04:00 02/25/20 10:30 Heparin Anti-Xa Act, Unfractionated 0.11 IU/mL (0.30-0.70) 0.34 IU/mL (0.30-0.70) 0.39 IU/mL (0.30-0.70) Sodium Level 134 mmol/L (136-145) Potassium Level 3.9 mmol/L (3.5-5.1) Chloride Level 99 mmol/L (98-107) Carbon Dioxide Level 25 mmol/L (21-32) Anion Gap 10 (6-14) Blood Urea Nitrogen 9 mg/dL (8-26) Creatinine 0.8 mg/dL (0.7-1.3) Estimated GFR (Cockcroft-Gault) 98.6 Glucose Level 87 mg/dL (70-99) Calcium Level 8.8 mg/dL (8.5-10.1) Assessment and Plan Assessmemt and Plan Problems Medical Problems: (1) Magnesium deficiency Status: Acute (2) Superficial femoral artery occlusion Status: Acute Comment Review of Relevant I have reviewed the following items ochoa (where applicable) has been applied. Labs Laboratory Tests Test 02/23/20 15:11 02/24/20 06:10 02/24/20 14:53 02/24/20 21:19 Activated Clotting Time 213 sec (92-181) White Blood Count 8.3 x10^3/uL (4.0-11.0) Red Blood Count 4.50 x10^6/uL (4.30-5.70) Hemoglobin 14.3 g/dL (13.0-17.5) Hematocrit 41.8 % (39.0-53.0) Mean Corpuscular Volume 93 fL (79-100) Mean Corpuscular Hemoglobin 32 pg (25-35) Mean Corpuscular Hemoglobin Concent 34 g/dL (31-37) Red Cell Distribution Width 14.1 % (11.5-14.5) Platelet Count 201 x10^3/uL (140-400) Neutrophils (%) (Auto) 75 % (31-73) Lymphocytes (%) (Auto) 17 % (24-48) Monocytes (%) (Auto) 7 % (0-9) Eosinophils (%) (Auto) 1 % (0-3) Basophils (%) (Auto) 0 % (0-3) Neutrophils # (Auto) 6.2 x10^3/uL (1.8-7.7) Lymphocytes # (Auto) 1.4 x10^3/uL (1.0-4.8) Monocytes # (Auto) 0.6 x10^3/uL (0.0-1.1) Eosinophils # (Auto) 0.1 x10^3/uL (0.0-0.7) Basophils # (Auto) 0.0 x10^3/uL (0.0-0.2) Sodium Level 135 mmol/L (136-145) Potassium Level 4.7 mmol/L (3.5-5.1) Chloride Level 101 mmol/L (98-107) Carbon Dioxide Level 30 mmol/L (21-32) Anion Gap 4 (6-14) Blood Urea Nitrogen 8 mg/dL (8-26) Creatinine 1.0 mg/dL (0.7-1.3) Estimated GFR (Cockcroft-Gault) 76.2 Glucose Level 82 mg/dL (70-99) Calcium Level 8.6 mg/dL (8.5-10.1) Magnesium Level 1.8 mg/dL (1.8-2.4) Total Bilirubin 0.4 mg/dL (0.2-1.0) Direct Bilirubin 0.2 mg/dL (0.0-0.2) Aspartate Amino Transf (AST/SGOT) 20 U/L (15-37) Alanine Aminotransferase (ALT/SGPT) 23 U/L (16-63) Alkaline Phosphatase 74 U/L (46-116) Total Protein 6.3 g/dL (6.4-8.2) Albumin 3.1 g/dL (3.4-5.0) Prothrombin Time 14.1 SEC (11.7-14.0) Prothromb Time International Ratio 1.1 (0.8-1.1) Heparin Anti-Xa Act, Unfractionated < 0.10 IU/mL (0.30-0.70) 0.11 IU/mL (0.30-0.70) Test 02/25/20 04:00 02/25/20 10:30 Heparin Anti-Xa Act, Unfractionated 0.34 IU/mL (0.30-0.70) 0.39 IU/mL (0.30-0.70) Sodium Level 134 mmol/L (136-145) Potassium Level 3.9 mmol/L (3.5-5.1) Chloride Level 99 mmol/L (98-107) Carbon Dioxide Level 25 mmol/L (21-32) Anion Gap 10 (6-14) Blood Urea Nitrogen 9 mg/dL (8-26) Creatinine 0.8 mg/dL (0.7-1.3) Estimated GFR (Cockcroft-Gault) 98.6 Glucose Level 87 mg/dL (70-99) Calcium Level 8.8 mg/dL (8.5-10.1) Laboratory Tests Test 02/24/20 21:19 02/25/20 04:00 02/25/20 10:30 Heparin Anti-Xa Act, Unfractionated 0.11 IU/mL (0.30-0.70) 0.34 IU/mL (0.30-0.70) 0.39 IU/mL (0.30-0.70) Sodium Level 134 mmol/L (136-145) Potassium Level 3.9 mmol/L (3.5-5.1) Chloride Level 99 mmol/L (98-107) Carbon Dioxide Level 25 mmol/L (21-32) Anion Gap 10 (6-14) Blood Urea Nitrogen 9 mg/dL (8-26) Creatinine 0.8 mg/dL (0.7-1.3) Estimated GFR (Cockcroft-Gault) 98.6 Glucose Level 87 mg/dL (70-99) Calcium Level 8.8 mg/dL (8.5-10.1) Microbiology 02/22/20 Blood Culture - Preliminary, Resulted NO GROWTH AFTER 2 DAYS Medications Current Medications Sodium Chloride 1,000 ml @ 1,000 mls/hr 1X ONCE IV Last administered on 02/22/20at 16:57; Start 02/22/20 at 17:00; Stop 02/22/20 at 17:59; Status DC Magnesium Sulfate 50 ml @ 25 mls/hr 1X ONCE IV Last administered on 02/22/20at 16:58; Start 02/22/20 at 17:00; Stop 02/22/20 at 18:59; Status DC Fentanyl Citrate (Fentanyl 2ml Vial) 50 mcg 1X ONCE IVP Last administered on 02/22/20at 16:58; Start 02/22/20 at 17:00; Stop 02/22/20 at 17:01; Status DC Ondansetron HCl (Zofran) 4 mg PRN Q8HRS PRN IV NAUSEA/VOMITING Last administered on 02/22/20at 20:00; Start 02/22/20 at 17:00; Stop 02/23/20 at 16:59; Status DC Fentanyl Citrate (Fentanyl 2ml Vial) 50 mcg PRN Q1HR PRN IV PAIN Last administered on 02/22/20at 20:00; Start 02/22/20 at 17:00; Stop 02/23/20 at 16:59; Status DC Aspirin (Jasmin Aspirin) 325 mg 1X ONCE PO Last administered on 02/22/20at 17:30; Start 02/22/20 at 17:15; Stop 02/22/20 at 17:16; Status DC Heparin Sodium (Porcine) (Heparin Sodium) 5,450 unit 1X ONCE IV Last administe red on 02/22/20at 17:45; Start 02/22/20 at 17:15; Stop 02/22/20 at 17:16; Status DC Heparin Sodium/ Dextrose 250 ml @ 0 mls/hr CONT PRN IV PER PROTOCOL Last administered on 02/24/20at 16:06; Start 02/22/20 at 17:30 Heparin Sodium (Porcine) (Heparin Sodium) 2,050 unit PRN Q6HRS PRN IV FOR UFH LEVEL LESS THAN 0.2 Last administered on 02/24/20at 22:11; Start 02/22/20 at 17:00 Heparin Sodium (Porcine) (Heparin Sodium) 1,000 unit PRN Q6HRS PRN IV FOR UFH LEVEL 0.2 - 0.29; Start 02/22/20 at 17:00 Potassium Bicarbonate (Potassium Effervescent Tablet) 40 meq 1X ONCE FT ; Start 02/22/20 at 17:30; Stop 02/22/20 at 17:31; Status DC Magnesium Sulfate 50 ml @ 25 mls/hr Q24H IV ; Start 02/22/20 at 18:00; Stop 02/24/20 at 19:59; Status DC Potassium Phos/ Sodium Phos (Phos-Nak) 1 pkt BID PO ; Start 02/22/20 at 21:00; Stop 02/23/20 at 09:01; Status DC Potassium Bicarbonate (Potassium Effervescent Tablet) 40 meq Q4H PO Last administered on 02/22/20at 22:00; Start 02/22/20 at 18:00; Stop 02/22/20 at 22:01; Status DC Sodium Chloride (Normal Saline Flush) 3 ml QSHIFT PRN IV AFTER MEDS AND BLOOD DRAWS; Start 02/22/20 at 17:15 Sodium Chloride 1,000 ml @ 60 mls/hr [id number] IV Last administered on 02/25/20at 12:15; Start 02/22/20 at 17:15 Ondansetron HCl (Zofran) 4 mg PRN Q4HRS PRN IV NAUSEA/VOMITING; Start 02/22/20 at 17:15 Zolpidem Tartrate (Ambien) 5 mg PRN QHS PRN PO INSOMNIA Last administered on 02/23/20at 21:37; Start 02/22/20 at 17:15 Acetaminophen (Tylenol) 650 mg PRN Q4HRS PRN PO TEMP OVER 100.4F OR MILD PAIN Last administered on 02/23/20at 21:37; Start 02/22/20 at 17:15 Al Hydroxide/Mg Hydroxide (Mylanta Plus Xs) 30 ml PRN DAILY PRN PO HEARTBURN / GAS; Start 02/22/20 at 17:15 Sodium Monofluorophosphate (Fleet Adult) 133 ml PRN DAILY PRN MI CONSTIPATION; Start 02/22/20 at 17:15 Docusate Sodium (Colace) 100 mg PRN BID PRN PO HARD STOOLS; Start 02/22/20 at 17:15 Albuterol/ Ipratropium (Duoneb) 3 ml Q4HRS NEB ; Start 02/22/20 at 20:00; Stop 02/22/20 at 17:44; Status DC Guaifenesin (Robitussin) 200 mg PRN Q4HRS PRN PO COUGH; Start 02/22/20 at 17:15 Multivitamins (Thera M Plus) 1 tab DAILY PO Last administered on 02/25/20at 08:20; Start 02/23/20 at 09:00 Folic Acid (Folic Acid) 1 mg DAILY PO Last administered on 02/25/20at 08:24; Start 02/23/20 at 09:00 Thiamine Mononitrate (Vitamin B-1) 100 mg DAILY PO Last administered on 02/25/20at 08:20; Start 02/23/20 at 09:00 Lorazepam (Ativan) 4 mg PRN Q1HR PRN PO For CIWA 8-14; Start 02/22/20 at 17:30 Lorazepam (Ativan) 8 mg PRN Q1HR PRN PO For CIWA 15 or greater; Start 02/22/20 at 17:30 Lorazepam (Ativan Inj) 2 mg PRN Q1HR PRN IV For CIWA 8-14 Last administered on 02/24/20at 08:28; Start 02/22/20 at 17:30 Lorazepam (Ativan Inj) 4 mg PRN Q1HR PRN IV For CIWA 15 or greater; Start 02/22/20 at 17:30 Haloperidol Lactate (Haldol Inj) 5 mg PRN Q4HRS PRN IVP Hallucinatns,Confusn,Delirium; Start 02/22/20 at 17:30 Diphenhydramine HCl (Benadryl) 25 mg PRN Q15MIN PRN IVP EPS symptoms 2'Haldol admin Last administered on 02/24/20at 22:47; Start 02/22/20 at 17:30 Lorazepam (Ativan Inj) 2 mg PRN Q15MIN PRN IV SEE COMMENTS; Start 02/22/20 at 17:30; Stop 02/22/20 at 18:45; Status DC Lorazepam (Ativan Inj) 4 mg PRN Q15MIN PRN IV SEE COMMENTS; Start 02/22/20 at 17:30; Stop 02/22/20 at 18:45; Status DC Albuterol Sulfate (Ventolin Neb Soln) 2.5 mg PRN Q4HRS PRN NEB SHORTNESS OF BREATH; Start 02/22/20 at 18:00 Nicotine (Nicoderm Cq 21mg) 1 patch DAILY TD Last administered on 02/25/20at 08:20; Start 02/22/20 at 22:30 Acetaminophen (Tylenol) 500 mg PRN Q4HRS PRN PO MILD PAIN / TEMP > 100.3'F; Start 02/22/20 at 22:30; Stop 02/23/20 at 17:30; Status DC Info (Anti-Coagulation Monitoring By Pharmacy) 1 each PRN DAILY PRN MC SEE COMMENTS Last administered on 02/23/20at 10:24; Start 02/23/20 at 09:45 Aspirin (Ecotrin) 81 mg DAILYWBKFT PO Last administered on 02/25/20at 08:20; Start 02/23/20 at 12:00 Heparin Sodium/ Sodium Chloride (HEPARIN for ARTERIAL LINE FLUSH) 1,000 unit 1X ONCE IART Last administered on 02/23/20at 13:30; Start 02/23/20 at 13:30; Stop 02/23/20 at 13:38; Status DC Heparin Sodium/ Sodium Chloride (HEPARIN for ARTERIAL LINE FLUSH) 1,000 unit 1X ONCE IART Last administered on 02/23/20at 13:30; Start 02/23/20 at 13:30; Stop 02/23/20 at 13:38; Status DC Lidocaine HCl (Buffered Lidocaine 1%) 3 ml 1X ONCE IJ Last administered on 02/23/20at 13:50; Start 02/23/20 at 13:30; Stop 02/23/20 at 13:38; Status DC Midazolam HCl (Versed) 2 mg 1X ONCE IV Last administered on 02/23/20at 13:45; Start 02/23/20 at 13:30; Stop 02/23/20 at 13:38; Status DC Fentanyl Citrate (Fentanyl 2ml Vial) 100 mcg 1X ONCE IV Last administered on 02/23/20at 13:45; Start 02/23/20 at 13:30; Stop 02/23/20 at 13:38; Status DC Iodixanol (Visipaque 320) 100 ml 1X ONCE IART Last administered on 02/23/20at 15:09; Start 02/23/20 at 13:30; Stop 02/23/20 at 13:38; Status DC Lidocaine HCl (Buffered Lidocaine 1%) 3 ml STK-MED ONCE .ROUTE ; Start 02/23/20 at 13:14; Stop 02/23/20 at 13:32; Status DC Iodixanol (Visipaque 320) 100 ml STK-MED ONCE .ROUTE ; Start 02/23/20 at 13:14; Stop 02/23/20 at 13:32; Status DC Heparin Sodium/ Sodium Chloride 1,500 ml @ As Directed STK-MED ONCE .ROUTE ; Start 02/23/20 at 13:14; Stop 02/23/20 at 13:32; Status DC Midazolam HCl (Versed) 2 mg STK-MED ONCE .ROUTE ; Start 02/23/20 at 13:20; Stop 02/23/20 at 13:33; Status DC Fentanyl Citrate (Fentanyl 2ml Vial) 100 mcg STK-MED ONCE .ROUTE ; Start 02/23/20 at 13:21; Stop 02/23/20 at 13:33; Status DC Heparin Sodium (Porcine) (Heparin Sodium) 10,000 unit STK-MED ONCE .ROUTE ; Start 02/23/20 at 13:21; Stop 02/23/20 at 13:33; Status DC Heparin Sodium (Porcine) (Heparin Sodium) 5,000 unit 1X ONCE IV Last administered on 02/23/20at 14:08; Start 02/23/20 at 14:15; Stop 02/23/20 at 14 :22; Status DC Heparin Sodium/ Sodium Chloride 500 ml @ As Directed STK-MED ONCE .ROUTE ; Start 02/23/20 at 15:23; Stop 02/23/20 at 15:23; Status DC Acetaminophen/ Hydrocodone Bitart (Lortab 5/325) 1 tab PRN Q6HRS PRN PO PAIN Last administered on 02/24/20at 00:46; Start 02/23/20 at 17:15 Active Scripts Active Ibuprofen 800 Mg Tablet 800 Mg PO PRN Q6HRS PRN Cyclobenzaprine Hcl 10 Mg Tablet 1 Tab PO TID PRN Proair Hfa Inhaler (Albuterol Sulfate) 8.5 Gm Hfa.aer.ad 1-2 Puff INH PRN Q6HRS PRN with spacer Albuterol Sulfate Neb Soln (Albuterol Sulfate) 2.5 Mg/3 Ml Vial.neb 1 Vial NEB PRN Q4HRS PRN Reported Acetaminophen 500 Mg Tablet 500 Mg PO PRN Q6HRS PRN Advil (Ibuprofen) 200 Mg Capsule 200 Mg PO PRN Q6HRS PRN Vitals/I & O Vital Sign - Last 24 Hours 02/24/20 02/24/20 02/24/20 02/24/20 15:00 18:30 20:00 22:41 Temp 97.5 98.1 98.3 97.5 98.1 98.3 Pulse 69 76 68 Resp 18 18 18 B/P (MAP) 149/99 (116) 148/97 (114) 142/96 (111) Pulse Ox 98 97 94 O2 Delivery Room Air Room Air Room Air Room Air 02/25/20 02/25/20 02/25/20 02/25/20 02:55 07:00 08:00 10:33 Temp 98.4 98.6 97.9 98.4 98.6 97.9 Pulse 66 75 67 Resp 18 18 18 B/P (MAP) 138/88 (105) 117/85 (96) 139/90 (106) Pulse Ox 98 97 98 O2 Delivery Room Air Room Air Room Air Room Air 02/25/20 14:37 Temp 98.0 98.0 Pulse 68 Resp 18 B/P (MAP) 129/97 (108) Pulse Ox 98 O2 Delivery Room Air Intake and Output 02/24/20 02/24/20 02/25/20 15:00 23:00 07:00 Intake Total 200 ml 1250 ml 0 ml Output Total 1200 ml 1000 ml Balance -1000 ml 1250 ml -1000 ml Justicifation of Admission Dx: Justifications for Admission: Justification of Admission Dx: Yes BRUNILDA ROSAS MD Feb 25, 2020 14:58
--- NOTE | 2020-02-25 15:09 | PDOC ---
FADIA ALMANZA GLAZIER [employer] 02/25/20 1509: CARDIO Progress Notes Date and Time Date of Service 02/25/20 Time of Evaluation 1140 Subjective Subjective: No Chest Pain, No shortness of breath, No Palpitations Vitals Vitals Vital Signs Date Time Temp Pulse Resp B/P (MAP) Pulse Ox O2 Delivery O2 Flow Rate FiO2 02/25/20 14:37 98.0 68 18 129/97 (108) 98 Room Air 98.0 Weight Weight [ ] Input and Output Intake and Output Intake and Output 02/25/20 07:00 Intake Total 1450 ml Output Total 2200 ml Balance -750 ml Intake Oral 450 ml IV Total 1000 ml Output Urine Total 2200 ml Laboratory Labs Laboratory Tests Test 02/24/20 21:19 02/25/20 04:00 02/25/20 10:30 Heparin Anti-Xa Act, Unfractionated 0.11 IU/mL (0.30-0.70) 0.34 IU/mL (0.30-0.70) 0.39 IU/mL (0.30-0.70) Sodium Level 134 mmol/L (136-145) Potassium Level 3.9 mmol/L (3.5-5.1) Chloride Level 99 mmol/L (98-107) Carbon Dioxide Level 25 mmol/L (21-32) Anion Gap 10 (6-14) Blood Urea Nitrogen 9 mg/dL (8-26) Creatinine 0.8 mg/dL (0.7-1.3) Estimated GFR (Cockcroft-Gault) 98.6 Glucose Level 87 mg/dL (70-99) Calcium Level 8.8 mg/dL (8.5-10.1) Microbiology Micro Microbiology 02/22/20 Blood Culture - Preliminary, Resulted NO GROWTH AFTER 2 DAYS Physical Exam HEENT: Neck Supple W Full Motion Chest: Symmetric LUNGS: Clear to Auscultation Heart: S1S2, RRR, murmurs Abdomen: Soft N/T Extremities: No Edema Neurology: alert, oriented, follow commands Assessment Assessment 1. RLE pain; aortogram with atherosclerotic disease, cannot rule out embolic phenomenon as well. S/p HYDRO STATION OPERATOR/stent to the right common iliac. Plans for right leg bypass surgery on Saturday. 2. H/o endocarditis; s/p mechanical AVR; appears to well seated per echo 3. Hypertension; controlled 4. Hyperlipidemia; no statin 5. Chronic systolic CHF with possible NICM with h/o alcoholoism, but component of ICM cannot be ruled out.; Echo with LVEF 35%. Clinically compensated. 6. Hypomagnesemia; replaced 7. Tobaccoism, marijuana use; discussed/encouraged cessation 8. Noncompliance 9. Alcohol misuse Recommendations ASA Continue heparin gtt with mechanical valve. 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 The chart was reviewed. The case was discussed. Agree with the plan of care. FADIA ALMANZA APRN Feb 25, 2020 15:09 EARNESTINE TRUJILLO MD Feb 25, 2020 20:55
[2020-02-25] MEDS: HEPARIN 25,000UTS/250ML PREMIX 250 ML IV PRN (17:32)
--- NOTE | 2020-02-25 18:38 | NUR ---
Pt has been informed multiple times that smoking is not aloud at the hospital. The smell of cigarette smoke was coming from his room. This nurse went to check on pt and he was not smoking at the time but stated that he was sorry and handed over his tobacco.
[2020-02-25] MEDS: diphenhydrAMINE 50 MG/ML VIAL IVP PRN (22:42)
[2020-02-26 04:24] VITALS: BP 142/87
[2020-02-26] MEDS: IV NORMAL SALINE 1000ML BAG 1,000 ML IV SCH ×2 (04:53→21:02)
[2020-02-26 06:52] LABS: HEMATOCRIT 40.4 % (39.0-53.0); HEMOGLOBIN 13.8 g/dL (13.0-17.5); RED BLOOD COUNT 4.34 x10^6/uL (4.30-5.70); RED CELL DISTRIBUTION WIDTH 14.1 % (11.5-14.5); WHITE BLOOD COUNT 8.9 x10^3/uL (4.0-11.0)
[2020-02-26 07:00] VITALS: BP 143/75
[2020-02-26] MEDS: ASPIRIN ENTERIC COATED 81 MG TABLET.DR. PO SCH (09:13)
[2020-02-26] MEDS: MULTIVITAMIN with MINERAL TABLET. PO SCH (09:13)
[2020-02-26] MEDS: NICOTINE 21MG PATCH. TD SCH (09:13)
[2020-02-26] MEDS: THIAMINE 100 MG TABLET. PO SCH (09:13)
[2020-02-26] MEDS: FOLIC ACID 1 MG TABLET. PO SCH (09:14)
[2020-02-26] MEDS: HEPARIN for IV BOLUS 10,000 UNIT/10 ML VIAL. IV PRN (09:23)
[2020-02-26] MEDS: LORazepam 1 MG TABLET PO PRN (09:25)
--- NOTE | 2020-02-26 10:15 | PDOC ---
PROGRESS NOTES Subjective Subjective Patient seen and examined in room. No complaints. Discussed plan of care for right leg bypass on Saturday. Objective Objective Vital Signs Date Time Temp Pulse Resp B/P (MAP) Pulse Ox O2 Delivery O2 Flow Rate FiO2 02/26/20 07:00 98.1 55 15 143/75 (97) 95 Room Air 98.1 02/23/20 19:24 2.0 Intake and Output 02/26/20 07:00 Intake Total 1240 ml Output Total 1650 ml Balance -410 ml Intake Oral 1240 ml Output Urine Total 1650 ml Physical Exam Physical Exam Awake and alert HRR Non-labored respirations Feet warm, no rashes or lesions Assessment Assessment Problems Medical Problems: (1) Magnesium deficiency Status: Acute (2) Superficial femoral artery occlusion Status: Acute Plan Plan of Care 59-year-old male with a history of valve replacement surgery who had a 3-week history of right leg claudication symptoms. He is currently on a heparin drip because of his heart valve. Recommend right femoral to above knee popliteal bypass on Saturday02/29/2020. Dr. Gordillo has reviewed the angiogram and agrees. Right leg vein mapping reveals small GSV, will plan to ultrasound intraoperatively, if inadequate will proceed use gortex graft for bypass. He will remain in the hospital on IV heparin and transition to oral anticoagulation postop. He has been evaluated and cleared by Cardiology as moderate risk for surgery. Continue baby aspirin daily. May ambulate as tolerated. Continue heparin drip or any other antiplatelet, anticoagulant agents per cardiology. N.p.o. after midnight on Saturday night. Plan for right leg bypass surgery on Saturday. Comment Review of Relevant I have reviewed the following items ochoa (where applicable) has been applied. Labs Laboratory Tests Test 02/24/20 14:53 02/24/20 21:19 02/25/20 04:00 02/25/20 10:30 Prothrombin Time 14.1 SEC (11.7-14.0) Prothromb Time International Ratio 1.1 (0.8-1.1) Heparin Anti-Xa Act, Unfractionated < 0.10 IU/mL (0.30-0.70) 0.11 IU/mL (0.30-0.70) 0.34 IU/mL (0.30-0.70) 0.39 IU/mL (0.30-0.70) Sodium Level 134 mmol/L (136-145) Potassium Level 3.9 mmol/L (3.5-5.1) Chloride Level 99 mmol/L (98-107) Carbon Dioxide Level 25 mmol/L (21-32) Anion Gap 10 (6-14) Blood Urea Nitrogen 9 mg/dL (8-26) Creatinine 0.8 mg/dL (0.7-1.3) Estimated GFR (Cockcroft-Gault) 98.6 Glucose Level 87 mg/dL (70-99) Calcium Level 8.8 mg/dL (8.5-10.1) Test 02/26/20 06:10 White Blood Count 8.9 x10^3/uL (4.0-11.0) Red Blood Count 4.34 x10^6/uL (4.30-5.70) Hemoglobin 13.8 g/dL (13.0-17.5) Hematocrit 40.4 % (39.0-53.0) Mean Corpuscular Volume 93 fL (79-100) Mean Corpuscular Hemoglobin 32 pg (25-35) Mean Corpuscular Hemoglobin Concent 34 g/dL (31-37) Red Cell Distribution Width 14.1 % (11.5-14.5) Platelet Count 199 x10^3/uL (140-400) Heparin Anti-Xa Act, Unfractionated 0.20 IU/mL (0.30-0.70) Phosphorus Level 4.3 mg/dL (2.6-4.7) Laboratory Tests Test 02/25/20 10:30 02/26/20 06:10 Heparin Anti-Xa Act, Unfractionated 0.39 IU/mL (0.30-0.70) 0.20 IU/mL (0.30-0.70) White Blood Count 8.9 x10^3/uL (4.0-11.0) Red Blood Count 4.34 x10^6/uL (4.30-5.70) Hemoglobin 13.8 g/dL (13.0-17.5) Hematocrit 40.4 % (39.0-53.0) Mean Corpuscular Volume 93 fL (79-100) Mean Corpuscular Hemoglobin 32 pg (25-35) Mean Corpuscular Hemoglobin Concent 34 g/dL (31-37) Red Cell Distribution Width 14.1 % (11.5-14.5) Platelet Count 199 x10^3/uL (140-400) Phosphorus Level 4.3 mg/dL (2.6-4.7) Microbiology 02/22/20 Blood Culture - Preliminary, Resulted NO GROWTH AFTER 3 DAYS Medications Current Medications Sodium Chloride 1,000 ml @ 1,000 mls/hr 1X ONCE IV Last administered on 02/22/20 16:57; Start 02/22/20 at 17:00; Stop 02/22/20 at 17:59; Status DC Magnesium Sulfate 50 ml @ 25 mls/hr 1X ONCE IV Last administered on 02/22/20 16:58; Start 02/22/20 at 17:00; Stop 02/22/20 at 18:59; Status DC Fentanyl Citrate (Fentanyl 2ml Vial) 50 mcg 1X ONCE IVP Last administered on 02/22/20at 16:58; Start 02/22/20 at 17:00; Stop 02/22/20 at 17:01; Status DC Ondansetron HCl (Zofran) 4 mg PRN Q8HRS PRN IV NAUSEA/VOMITING Last administered on 02/22/20at 20:00; Start 02/22/20 at 17:00; Stop 02/23/20 at 16:59; Status DC Fentanyl Citrate (Fentanyl 2ml Vial) 50 mcg PRN Q1HR PRN IV PAIN Last administered on 02/22/20at 20:00; Start 02/22/20 at 17:00; Stop 02/23/20 at 16:59; Status DC Aspirin (Jasmin Aspirin) 325 mg 1X ONCE PO Last administered on 02/22/20at 17:30; Start 02/22/20 at 17:15; Stop 02/22/20 at 17:16; Status DC Heparin Sodium (Porcine) (Heparin Sodium) 5,450 unit 1X ONCE IV Last administered on 02/22/20at 17:45; Start 02/22/20 at 17:15; Stop 02/22/20 at 17:16; Status DC Heparin Sodium/ Dextrose 250 ml @ 0 mls/hr CONT PRN IV PER PROTOCOL Last administered on 02/25/20at 17:32; Start 02/22/20 at 17:30 Heparin Sodium (Porcine) (Heparin Sodium) 2,050 unit PRN Q6HRS PRN IV FOR UFH LEVEL LESS THAN 0.2 Last administered on 02/24/20at 22:11; Start 02/22/20 at 17:00 Heparin Sodium (Porcine) (Heparin Sodium) 1,000 unit PRN Q6HRS PRN IV FOR UFH LEVEL 0.2 - 0.29 Last administered on 02/26/20at 09:23; Start 02/22/20 at 17:00 Potassium Bicarbonate (Potassium Effervescent Tablet) 40 meq 1X ONCE FT ; Start 02/22/20 at 17:30; Stop 02/22/20 at 17:31; Status DC Magnesium Sulfate 50 ml @ 25 mls/hr Q24H IV ; Start 02/22/20 at 18:00; Stop 02/24/20 at 19:59; Status DC Potassium Phos/ Sodium Phos (Phos-Nak) 1 pkt BID PO ; Start 02/22/20 at 21:00; Stop 02/23/20 at 09:01; Status DC Potassium Bicarbonate (Potassium Effervescent Tablet) 40 meq Q4H PO Last administered on 02/22/20at 22:00; Start 02/22/20 at 18:00; Stop 02/22/20 at 22:01; Status DC Sodium Chloride (Normal Saline Flush) 3 ml QSHIFT PRN IV AFTER MEDS AND BLOOD DRAWS; Start 02/22/20 at 17:15 Sodium Chloride 1,000 ml @ 60 mls/hr [id number] IV Last administered on 02/26/20at 04:53; Start 02/22/20 at 17:15 Ondansetron HCl (Zofran) 4 mg PRN Q4HRS PRN IV NAUSEA/VOMITING; Start 02/22/20 at 17:15 Zolpidem Tartrate (Ambien) 5 mg PRN QHS PRN PO INSOMNIA Last administered on 02/23/20at 21:37; Start 02/22/20 at 17:15 Acetaminophen (Tylenol) 650 mg PRN Q4HRS PRN PO TEMP OVER 100.4F OR MILD PAIN Last administered on 02/23/20at 21:37; Start 02/22/20 at 17:15 Al Hydroxide/Mg Hydroxide (Mylanta Plus Xs) 30 ml PRN DAILY PRN PO HEARTBURN / GAS; Start 02/22/20 at 17:15 Sodium Monofluorophosphate (Fleet Adult) 133 ml PRN DAILY PRN [place] CONSTIPATION; Start 02/22/20 at 17:15 Docusate Sodium (Colace) 100 mg PRN BID PRN PO HARD STOOLS; Start 02/22/20 at 17:15 Albuterol/ Ipratropium (Duoneb) 3 ml Q4HRS NEB ; Start 02/22/20 at 20:00; Stop 02/22/20 at 17:44; Status DC Guaifenesin (Robitussin) 200 mg PRN Q4HRS PRN PO COUGH; Start 02/22/20 at 17:15 Multivitamins (Thera M Plus) 1 tab DAILY PO Last administered on 02/26/20at 09:13; Start 02/23/20 at 09:00 Folic Acid (Folic Acid) 1 mg DAILY PO Last administered on 02/26/20at 09:14; Start 02/23/20 at 09:00 Thiamine Mononitrate (Vitamin B-1) 100 mg DAILY PO Last administered on 02/26/20at 09:13; Start 02/23/20 at 09:00 Lorazepam (Ativan) 4 mg PRN Q1HR PRN PO For CIWA 8-14 Last administered on 02/26/20at 09:25; Start 02/22/20 at 17:30 Lorazepam (Ativan) 8 mg PRN Q1HR PRN PO For CIWA 15 or greater; Start 02/22/20 at 17:30 Lorazepam (Ativan Inj) 2 mg PRN Q1HR PRN IV For CIWA 8-14 Last administered on 02/25/20at 22:42; Start 02/22/20 at 17:30 Lorazepam (Ativan Inj) 4 mg PRN Q1HR PRN IV For CIWA 15 or greater; Start 02/22/20 at 17:30 Haloperidol Lactate (Haldol Inj) 5 mg PRN Q4HRS PRN IVP Hallucinatns,Confusn,Delirium; Start 02/22/20 at 17:30 Diphenhydramine HCl (Benadryl) 25 mg PRN Q15MIN PRN IVP EPS symptoms 2'Haldol admin Last administered on 02/25/20at 22:42; Start 02/22/20 at 17:30 Lorazepam (Ativan Inj) 2 mg PRN Q15MIN PRN IV SEE COMMENTS; Start 02/22/20 at 17:30; Stop 02/22/20 at 18:45; Status DC Lorazepam (Ativan Inj) 4 mg PRN Q15MIN PRN IV SEE COMMENTS; Start 02/22/20 at 17:30; Stop 02/22/20 at 18:45; Status DC Albuterol Sulfate (Ventolin Neb Soln) 2.5 mg PRN Q4HRS PRN NEB SHORTNESS OF BREATH; Start 02/22/20 at 18:00 Nicotine (Nicoderm Cq 21mg) 1 patch DAILY TD Last administered on 02/26/20at 09:13; Start 02/22/20 at 22:30 Acetaminophen (Tylenol) 500 mg PRN Q4HRS PRN PO MILD PAIN / TEMP > 100.3'F; Start 02/22/20 at 22:30; Stop 02/23/20 at 17:30; Status DC Info (Anti-Coagulation Monitoring By Pharmacy) 1 each PRN DAILY PRN MC SEE COMMENTS Last administered on 02/23/20at 10:24; Start 02/23/20 at 09:45 Aspirin (Ecotrin) 81 mg DAILYWBKFT PO Last administered on 02/26/20at 09:13; Start 02/23/20 at 12:00 Heparin Sodium/ Sodium Chloride (HEPARIN for ARTERIAL LINE FLUSH) 1,000 unit 1X ONCE IART Last administered on 02/23/20 13:30; Start 02/23/20 at 13:30; Stop 02/23/20 at 13:38; Status DC Heparin Sodium/ Sodium Chloride (HEPARIN for ARTERIAL LINE FLUSH) 1,000 unit 1X ONCE IART Last administered on 02/23/20at 13:30; Start 02/23/20 at 13:30; Stop 02/23/20 at 13:38; Status DC Lidocaine HCl (Buffered Lidocaine 1%) 3 ml 1X ONCE IJ Last administered on 02/23/20at 13:50; Start 02/23/20 at 13:30; Stop 02/23/20 at 13:38; Status DC Midazolam HCl (Versed) 2 mg 1X ONCE IV Last administered on 02/23/20at 13:45; Start 02/23/20 at 13:30; Stop 02/23/20 at 13:38; Status DC Fentanyl Citrate (Fentanyl 2ml Vial) 100 mcg 1X ONCE IV Last administered on 02/23/20at 13:45; Start 02/23/20 at 13:30; Stop 02/23/20 at 13:38; Status DC Iodixanol (Visipaque 320) 100 ml 1X ONCE IART Last administered on 02/23/20at 15:09; Start 02/23/20 at 13:30; Stop 02/23/20 at 13:38; Status DC Lidocaine HCl (Buffered Lidocaine 1%) 3 ml STK-MED ONCE .ROUTE ; Start 02/23/20 at 13:14; Stop 02/23/20 at 13:32; Status DC Iodixanol (Visipaque 320) 100 ml STK-MED ONCE .ROUTE ; Start 02/23/20 at 13:14; Stop 02/23/20 at 13:32; Status DC Heparin Sodium/ Sodium Chloride 1,500 ml @ As Directed STK-MED ONCE .ROUTE ; Start 02/23/20 at 13:14; Stop 02/23/20 at 13:32; Status DC Midazolam HCl (Versed) 2 mg STK-MED ONCE .ROUTE ; Start 02/23/20 at 13:20; Stop 02/23/20 at 13:33; Status DC Fentanyl Citrate (Fentanyl 2ml Vial) 100 mcg STK-MED ONCE .ROUTE ; Start 02/23/20 at 13:21; Stop 02/23/20 at 13:33; Status DC Heparin Sodium (Porcine) (Heparin Sodium) 10,000 unit STK-MED ONCE .ROUTE ; Start 02/23/20 at 13:21; Stop 02/23/20 at 13:33; Status DC Heparin Sodium (Porcine) (Heparin Sodium) 5,000 unit 1X ONCE IV Last administered on 02/23/20at 14:08; Start 02/23/20 at 14:15; Stop 02/23/20 at 14:22; Status DC Heparin Sodium/ Sodium Chloride 500 ml @ As Directed STK-MED ONCE .ROUTE ; Start 02/23/20 at 15:23; Stop 02/23/20 at 15:23; Status DC Acetaminophen/ Hydrocodone Bitart (Lortab 5/325) 1 tab PRN Q6HRS PRN PO PAIN Last administered on 02/24/20at 00:46; Start 02/23/20 at 17:15 Active Scripts Active Ibuprofen 800 Mg Tablet 800 Mg PO PRN Q6HRS PRN Cyclobenzaprine Hcl 10 Mg Tablet 1 Tab PO TID PRN Proair Hfa Inhaler (Albuterol Sulfate) 8.5 Gm Hfa.aer.ad 1-2 Puff INH PRN Q6HRS PRN with spacer Albuterol Sulfate Neb Soln (Albuterol Sulfate) 2.5 Mg/3 Ml Vial.neb 1 Vial NEB PRN Q4HRS PRN Reported Acetaminophen 500 Mg Tablet 500 Mg PO PRN Q6HRS PRN Advil (Ibuprofen) 200 Mg Capsule 200 Mg PO PRN Q6HRS PRN Vitals/I & O Vital Sign - Last 24 Hours 02/25/20 02/25/20 02/25/20 02/25/20 10:33 14:37 19:40 19:52 Temp 97.9 98.0 97.9 97.9 98.0 97.9 Pulse 67 68 72 Resp 18 18 18 B/P (MAP) 139/90 (106) 129/97 (108) 152/88 (109) Pulse Ox 98 98 99 O2 Delivery Room Air Room Air Room Air Room Air 02/25/20 02/26/20 02/26/20 23:00 04:24 07:00 Temp 98.5 98.8 98.1 98.5 98.8 98.1 Pulse 67 66 55 Resp 20 15 15 B/P (MAP) 143/81 (101) 142/87 (105) 143/75 (97) Pulse Ox 97 97 95 O2 Delivery Room Air Room Air Room Air Intake and Output 02/25/20 02/25/20 02/26/20 15:00 23:00 07:00 Intake Total 200 ml 1040 ml 0 ml Output Total 700 ml 200 ml 750 ml Balance -500 ml 840 ml -750 ml Justicifation of Admission Dx: Justifications for Admission: Justification of Admission Dx: Yes NORA SALEH MUSICAL THERAPIST Feb 26, 2020 10:14
--- NOTE | 2020-02-26 10:50 | NUR ---
SS following up with discharge planning. SS reviewed pt chart and discussed with pt RN. Pt is currently on room air. Pt COVID19 pending. Pt scheduled for right leg bypass on 02/29/2020. SS will continue to follow for discharge planning.
[2020-02-26 11:00] VITALS: BP 138/88
--- NOTE | 2020-02-26 11:32 | PDOC ---
PROGRESS NOTES Chief Complaint Chief Complaint ASSESSMENT 1. Acute arterial occlusion throughout the right superficial femoral artery, some reconstitution of minimal flow in the popliteal artery and runoff vessels. 2. Possible HX seizure, alcohol related 3. NONCOMPLIANCE with medications 4. Hypertension; controlled 5. Hyperlipidemia; 6. H/o endocarditis; s/p mechanical aortic valve replacement 20 yrs ago [facility] . Was previously on warfarin, but has not taken in > 2 years. Aortic valve appeared to be well seated and functioning well per TTE. 7. Abnormal EKG; noted with RBBB and anterolateral ST depression, which is unchanged from previous EKG 05/2018. EKG 05/2014 at with LVH, RBBB and ST changes on V4-[address] depression with ST elevation in V1. echo 08/31 Ejection Fraction is 35-40%. Abnormal septal motion consistent with post-operative state. Mechanical aortic valve prosthesis appears well seated and functioning well. MG 9 mm Hg.Mild aortic regurgitation. Trace mitral regurgitation. Trace tricuspid regurgitation with an estimated PAP of 23 mmHg. 8. Alcoholism; now 5 beers a week 9. Hypomagnesemia 10 Tobaccoism, marijuana use; discussed/encouraged cessation 11. Chronic systolic CHF with possible NICM with h/o alcoholoism, ICM // Echo with LVEF 35-40%. 12. 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 History of Present Illness History of Present Illness feels well no overnight issues. PLAN FOR BYPASS SATURDAY. Vitals Vitals Vital Signs Date Time Temp Pulse Resp B/P (MAP) Pulse Ox O2 Delivery O2 Flow Rate FiO2 02/26/20 11:00 98.0 66 15 138/88 (105) 94 Room Air 98.0 Physical Exam General: Alert, Oriented X3, Cooperative, No acute distress Heart: Regular rate Lungs: Clear Abdomen: Normal bowel sounds, Soft Extremities: No cyanosis, No edema Skin: No rashes, No breakdown Labs LABS Laboratory Tests Test 02/26/20 06:10 White Blood Count 8.9 x10^3/uL (4.0-11.0) Red Blood Count 4.34 x10^6/uL (4.30-5.70) Hemoglobin 13.8 g/dL (13.0-17.5) Hematocrit 40.4 % (39.0-53.0) Mean Corpuscular Volume 93 fL (79-100) Mean Corpuscular Hemoglobin 32 pg (25-35) Mean Corpuscular Hemoglobin Concent 34 g/dL (31-37) Red Cell Distribution Width 14.1 % (11.5-14.5) Platelet Count 199 x10^3/uL (140-400) Heparin Anti-Xa Act, Unfractionated 0.20 IU/mL (0.30-0.70) Phosphorus Level 4.3 mg/dL (2.6-4.7) Assessment and Plan Assessmemt and Plan Problems Medical Problems: (1) Magnesium deficiency Status: Acute (2) Superficial femoral artery occlusion Status: Acute Comment Review of Relevant I have reviewed the following items ochoa (where applicable) has been applied. Labs Laboratory Tests Test 02/24/20 14:53 02/24/20 21:19 02/25/20 04:00 02/25/20 10:30 Prothrombin Time 14.1 SEC (11.7-14.0) Prothromb Time International Ratio 1.1 (0.8-1.1) Heparin Anti-Xa Act, Unfractionated < 0.10 IU/mL (0.30-0.70) 0.11 IU/mL (0.30-0.70) 0.34 IU/mL (0.30-0.70) 0.39 IU/mL (0.30-0.70) Sodium Level 134 mmol/L (136-145) Potassium Level 3.9 mmol/L (3.5-5.1) Chloride Level 99 mmol/L (98-107) Carbon Dioxide Level 25 mmol/L (21-32) Anion Gap 10 (6-14) Blood Urea Nitrogen 9 mg/dL (8-26) Creatinine 0.8 mg/dL (0.7-1.3) Estimated GFR (Cockcroft-Gault) 98.6 Glucose Level 87 mg/dL (70-99) Calcium Level 8.8 mg/dL (8.5-10.1) Test 02/26/20 06:10 White Blood Count 8.9 x10^3/uL (4.0-11.0) Red Blood Count 4.34 x10^6/uL (4.30-5.70) Hemoglobin 13.8 g/dL (13.0-17.5) Hematocrit 40.4 % (39.0-53.0) Mean Corpuscular Volume 93 fL (79-100) Mean Corpuscular Hemoglobin 32 pg (25-35) Mean Corpuscular Hemoglobin Concent 34 g/dL (31-37) Red Cell Distribution Width 14.1 % (11.5-14.5) Platelet Count 199 x10^3/uL (140-400) Heparin Anti-Xa Act, Unfractionated 0.20 IU/mL (0.30-0.70) Phosphorus Level 4.3 mg/dL (2.6-4.7) Laboratory Tests Test 02/26/20 06:10 White Blood Count 8.9 x10^3/uL (4.0-11.0) Red Blood Count 4.34 x10^6/uL (4.30-5.70) Hemoglobin 13.8 g/dL (13.0-17.5) Hematocrit 40.4 % (39.0-53.0) Mean Corpuscular Volume 93 fL (79-100) Mean Corpuscular Hemoglobin 32 pg (25-35) Mean Corpuscular Hemoglobin Concent 34 g/dL (31-37) Red Cell Distribution Width 14.1 % (11.5-14.5) Platelet Count 199 x10^3/uL (140-400) Heparin Anti-Xa Act, Unfractionated 0.20 IU/mL (0.30-0.70) Phosphorus Level 4.3 mg/dL (2.6-4.7) Microbiology 02/22/20 Blood Culture - Preliminary, Resulted NO GROWTH AFTER 3 DAYS Medications Current Medications Sodium Chloride 1,000 ml @ 1,000 mls/hr 1X ONCE IV Last administered on 02/22/20at 16:57; Start 02/22/20 at 17:00; Stop 02/22/20 at 17:59; Status DC Magnesium Sulfate 50 ml @ 25 mls/hr 1X ONCE IV Last administered on 02/22/20at 16:58; Start 02/22/20 at 17:00; Stop 02/22/20 at 18:59; Status DC Fentanyl Citrate (Fentanyl 2ml Vial) 50 mcg 1X ONCE IVP Last administered on 02/22/20at 16:58; Start 02/22/20 at 17:00; Stop 02/22/20 at 17:01; Status DC Ondansetron HCl (Zofran) 4 mg PRN Q8HRS PRN IV NAUSEA/VOMITING Last administered on 02/22/20at 20:00; Start 02/22/20 at 17:00; Stop 02/23/20 at 16:59; Status DC Fentanyl Citrate (Fentanyl 2ml Vial) 50 mcg PRN Q1HR PRN IV PAIN Last administered on 02/22/20at 20:00; Start 02/22/20 at 17:00; Stop 02/23/20 at 16:59; Status DC Aspirin (Jasmin Aspirin) 325 mg 1X ONCE PO Last administered on 02/22/20at 17:30; Start 02/22/20 at 17:15; Stop 02/22/20 at 17:16; Status DC Heparin Sodium (Porcine) (Heparin Sodium) 5,450 unit 1X ONCE IV Last administered on 02/22/20at 17:45; Start 02/22/20 at 17:15; Stop 02/22/20 at 17:16; Status DC Heparin Sodium/ Dextrose 250 ml @ 0 mls/hr CONT PRN IV PER PROTOCOL Last administered on 02/25/20at 17:32; Start 02/22/20 at 17:30 Heparin Sodium (Porcine) (Heparin Sodium) 2,050 unit PRN Q6HRS PRN IV FOR UFH LEVEL LESS THAN 0.2 Last administered on 02/24/20at 22:11; Start 02/22/20 at 17:00 Heparin Sodium (Porcine) (Heparin Sodium) 1,000 unit PRN Q6HRS PRN IV FOR UFH LEVEL 0.2 - 0.29 Last administered on 02/26/20at 09:23; Start 02/22/20 at 17:00 Potassium Bicarbonate (Potassium Effervescent Tablet) 40 meq 1X ONCE FT ; Start 02/22/20 at 17:30; Stop 02/22/20 at 17:31; Status DC Magnesium Sulfate 50 ml @ 25 mls/hr Q24H IV ; Start 02/22/20 at 18:00; Stop 02/24/20 at 19:59; Status DC Potassium Phos/ Sodium Phos (Phos-Nak) 1 pkt BID PO ; Start 02/22/20 at 21:00; Stop 02/23/20 at 09:01; Status DC Potassium Bicarbonate (Potassium Effervescent Tablet) 40 meq Q4H PO Last administered on 02/22/20at 22:00; Start 02/22/20 at 18:00; Stop 02/22/20 at 22:01; Status DC Sodium Chloride (Normal Saline Flush) 3 ml QSHIFT PRN IV AFTER MEDS AND BLOOD DRAWS; Start 02/22/20 at 17:15 Sodium Chloride 1,000 ml @ 60 mls/hr [id number] IV Last administered on 02/26/20at 04:53; Start 02/22/20 at 17:15 Ondansetron HCl (Zofran) 4 mg PRN Q4HRS PRN IV NAUSEA/VOMITING; Start 02/22/20 at 17:15 Zolpidem Tartrate (Ambien) 5 mg PRN QHS PRN PO INSOMNIA Last administered on 02/23/20at 21:37; Start 02/22/20 at 17:15 Acetaminophen (Tylenol) 650 mg PRN Q4HRS PRN PO TEMP OVER 100.4F OR MILD PAIN Last administered on 02/23/20at 21:37; Start 02/22/20 at 17:15 Al Hydroxide/Mg Hydroxide (Mylanta Plus Xs) 30 ml PRN DAILY PRN PO HEARTBURN / GAS; Start 02/22/20 at 17:15 Sodium Monofluorophosphate (Fleet Adult) 133 ml PRN DAILY PRN [place] CONSTIPATION; Start 02/22/20 at 17:15 Docusate Sodium (Colace) 100 mg PRN BID PRN PO HARD STOOLS; Start 02/22/20 at 17:15 Albuterol/ Ipratropium (Duoneb) 3 ml Q4HRS NEB ; Start 02/22/20 at 20:00; Stop 02/22/20 at 17:44; Status DC Guaifenesin (Robitussin) 200 mg PRN Q4HRS PRN PO COUGH; Start 02/22/20 at 17:15 Multivitamins (Thera M Plus) 1 tab DAILY PO Last administered on 02/26/20at 09:13; Start 02/23/20 at 09:00 Folic Acid (Folic Acid) 1 mg DAILY PO Last administered on 02/26/20at 09:14; Start 02/23/20 at 09:00 Thiamine Mononitrate (Vitamin B-1) 100 mg DAILY PO Last administered on 02/26/20at 09:13; Start 02/23/20 at 09:00 Lorazepam (Ativan) 4 mg PRN Q1HR PRN PO For CIWA 8-14 Last administered on 02/26/20at 09:25; Start 02/22/20 at 17:30 Lorazepam (Ativan) 8 mg PRN Q1HR PRN PO For CIWA 15 or greater; Start 02/22/20 at 17:30 Lorazepam (Ativan Inj) 2 mg PRN Q1HR PRN IV For CIWA 8-14 Last administered on 02/25/20at 22:42; Start 02/22/20 at 17:30 Lorazepam (Ativan Inj) 4 mg PRN Q1HR PRN IV For CIWA 15 or greater; Start 02/22/20 at 17:30 Haloperidol Lactate (Haldol Inj) 5 mg PRN Q4HRS PRN IVP Hallucinatns,Confusn,Delirium; Start 02/22/20 at 17:30 Diphenhydramine HCl (Benadryl) 25 mg PRN Q15MIN PRN IVP EPS symptoms 2'Haldol admin Last administered on 02/25/20at 22:42; Start 02/22/20 at 17:30 Lorazepam (Ativan Inj) 2 mg PRN Q15MIN PRN IV SEE COMMENTS; Start 02/22/20 at 17:30; Stop 02/22/20 at 18:45; Status DC Lorazepam (Ativan Inj) 4 mg PRN Q15MIN PRN IV SEE COMMENTS; Start 02/22/20 at 17:30; Stop 02/22/20 at 18:45; Status DC Albuterol Sulfate (Ventolin Neb Soln) 2.5 mg PRN Q4HRS PRN NEB SHORTNESS OF BREATH; Start 02/22/20 at 18:00 Nicotine (Nicoderm Cq 21mg) 1 patch DAILY TD Last administered on 02/26/20at 09:13; Start 02/22/20 at 22:30 Acetaminophen (Tylenol) 500 mg PRN Q4HRS PRN PO MILD PAIN / TEMP > 100.3'F; Start 02/22/20 at 22:30; Stop 02/23/20 at 17:30; Status DC Info (Anti-Coagulation Monitoring By Pharmacy) 1 each PRN DAILY PRN MC SEE COMMENTS Last administered on 02/23/20at 10:24; Start 02/23/20 at 09:45 Aspirin (Ecotrin) 81 mg [id number] PO Last administered on 02/26/20at 09:13; Start 02/23/20 at 12:00 Heparin Sodium/ Sodium Chloride (HEPARIN for ARTERIAL LINE FLUSH) 1,000 unit 1X ONCE IART Last administered on 02/23/20at 13:30; Start 02/23/20 at 13:30; Stop 02/23/20 at 13:38; Status DC Heparin Sodium/ Sodium Chloride (HEPARIN for ARTERIAL LINE FLUSH) 1,000 unit 1X ONCE IART Last administered on 02/23/20at 13:30; Start 02/23/20 at 13:30; Stop 02/23/20 at 13:38; Status DC Lidocaine HCl (Buffered Lidocaine 1%) 3 ml 1X ONCE IJ Last administered on 02/23/20at 13:50; Start 02/23/20 at 13:30; Stop 02/23/20 at 13:38; Status DC Midazolam HCl (Versed) 2 mg 1X ONCE IV Last administered on 02/23/20at 13:45; Start 02/23/20 at 13:30; Stop 02/23/20 at 13:38; Status DC Fentanyl Citrate (Fentanyl 2ml Vial) 100 mcg 1X ONCE IV Last administered on 02/23/20at 13:45; Start 02/23/20 at 13:30; Stop 02/23/20 at 13:38; Status DC Iodixanol (Visipaque 320) 100 ml 1X ONCE IART Last administered on 02/23/20at 15:09; Start 02/23/20 at 13:30; Stop 02/23/20 at 13:38; Status DC Lidocaine HCl (Buffered Lidocaine 1%) 3 ml STK-MED ONCE .ROUTE ; Start 02/23/20 at 13:14; Stop 02/23/20 at 13:32; Status DC Iodixanol (Visipaque 320) 100 ml STK-MED ONCE .ROUTE ; Start 02/23/20 at 13:14; Stop 02/23/20 at 13:32; Status DC Heparin Sodium/ Sodium Chloride 1,500 ml @ As Directed STK-MED ONCE .ROUTE ; Start 02/23/20 at 13:14; Stop 02/23/20 at 13:32; Status DC Midazolam HCl (Versed) 2 mg STK-MED ONCE .ROUTE ; Start 02/23/20 at 13:20; Stop 02/23/20 at 13:33; Status DC Fentanyl Citrate (Fentanyl 2ml Vial) 100 mcg STK-MED ONCE .ROUTE ; Start 02/23/20 at 13:21; Stop 02/23/20 at 13:33; Status DC Heparin Sodium (Porcine) (Heparin Sodium) 10,000 unit STK-MED ONCE .ROUTE ; Start 02/23/20 at 13:21; Stop 02/23/20 at 13:33; Status DC Heparin Sodium (Porcine) (Heparin Sodium) 5,000 unit 1X ONCE IV Last administered on 02/23/20at 14:08; Start 02/23/20 at 14:15; Stop 02/23/20 at 14:22; Status DC Heparin Sodium/ Sodium Chloride 500 ml @ As Directed STK-MED ONCE .ROUTE ; Start 02/23/20 at 15:23; Stop 02/23/20 at 15:23; Status DC Acetaminophen/ Hydrocodone Bitart (Lortab 5/325) 1 tab PRN Q6HRS PRN PO PAIN Last administered on 02/24/20at 00:46; Start 02/23/20 at 17:15 Cefazolin Sodium (Ancef) 1 gm 1X PREOP PRN IVP PRIOR TO PROCEDURE; Start 02/29/20 at 11:00; Stop 02/29/20 at 18:00 Active Scripts Active Ibuprofen 800 Mg Tablet 800 Mg PO PRN Q6HRS PRN Cyclobenzaprine Hcl 10 Mg Tablet 1 Tab PO TID PRN Proair Hfa Inhaler (Albuterol Sulfate) 8.5 Gm Hfa.aer.ad 1-2 Puff INH PRN Q6HRS PRN with spacer Albuterol Sulfate Neb Soln (Albuterol Sulfate) 2.5 Mg/3 Ml Vial.neb 1 Vial NEB PRN Q4HRS PRN Reported Acetaminophen 500 Mg Tablet 500 Mg PO PRN Q6HRS PRN Advil (Ibuprofen) 200 Mg Capsule 200 Mg PO PRN Q6HRS PRN Vitals/I & O Vital Sign - Last 24 Hours 02/25/20 02/25/20 02/25/20 02/25/20 14:37 19:40 19:52 23:00 Temp 98.0 97.9 98.5 98.0 97.9 98.5 Pulse 68 72 67 Resp 18 18 20 B/P (MAP) 129/97 (108) 152/88 (109) 143/81 (101) Pulse Ox 98 99 97 O2 Delivery Room Air Room Air Room Air Room Air 02/26/20 02/26/20 02/26/20 02/26/20 04:24 07:00 08:00 11:00 Temp 98.8 98.1 98.0 98.8 98.1 98.0 Pulse 66 55 66 Resp 15 15 15 B/P (MAP) 142/87 (105) 143/75 (97) 138/88 (105) Pulse Ox 97 95 94 O2 Delivery Room Air Room Air Room Air Room Air Intake and Output 02/25/20 02/25/20 02/26/20 15:00 23:00 07:00 Intake Total 200 ml 1040 ml 0 ml Output Total 700 ml 200 ml 750 ml Balance -500 ml 840 ml -750 ml Justicifation of Admission Dx: Justifications for Admission: Justification of Admission Dx: Yes BRUNILDA ROSAS MD Feb 26, 2020 11:32
[2020-02-26 15:00] VITALS: BP 147/90
[2020-02-26] MEDS: HEPARIN 25,000UTS/250ML PREMIX 250 ML IV PRN (17:21)
[2020-02-26 19:15] VITALS: BP 131/86
[2020-02-26 22:48] VITALS: BP 156/99
[2020-02-26] MEDS: diphenhydrAMINE 50 MG/ML VIAL IVP PRN (22:52)
[2020-02-27 03:30] VITALS: BP 144/88
[2020-02-27 07:00] VITALS: BP 137/86
[2020-02-27] MEDS: THIAMINE 100 MG TABLET. PO SCH (08:49)
[2020-02-27] MEDS: FOLIC ACID 1 MG TABLET. PO SCH (08:49)
[2020-02-27] MEDS: ASPIRIN ENTERIC COATED 81 MG TABLET.DR. PO SCH (08:49)
[2020-02-27] MEDS: MULTIVITAMIN with MINERAL TABLET. PO SCH (08:49)
[2020-02-27] MEDS: LORazepam 1 MG TABLET PO PRN ×2 (08:56→23:08)
[2020-02-27] MEDS: NICOTINE 21MG PATCH. TD SCH (08:58)
--- NOTE | 2020-02-27 10:42 | PDOC ---
SURGICAL PROGRESS NOTE Subjective Patient was seen and examined at the bedside and is doing well. He has no complaints this morning. Right lower extremity is comfortable without pain. Vital Signs Vital Signs Date Time Temp Pulse Resp B/P (MAP) Pulse Ox O2 Delivery O2 Flow Rate FiO2 02/27/20 08:00 Room Air 02/27/20 07:00 98.1 67 18 137/86 (103) 99 98.1 I&O Intake and Output 02/27/20 07:00 Intake Total 930 ml Output Total 3500 ml Balance -2570 ml Intake Oral 930 ml Output Urine Total 3500 ml General: Alert, Oriented X3, Cooperative Lungs: Clear to auscultation, Normal air movement Heart: Regular rate Abdomen: Normal bowel sounds, Soft, No tenderness Extremities: No clubbing, No cyanosis, Other (Palpable 2+ femoral pulses bilaterally, Doppler signals intact at the dorsalis pedis and posterior tibial location.) Skin: Other (No significant wound or ulceration.) Neuro: Normal speech, Strength at 5/5 X4 ext, Sensation intact Labs Laboratory Tests Test 02/26/20 06:10 02/26/20 17:20 02/26/20 23:40 02/27/20 09:15 White Blood Count 8.9 x10^3/uL (4.0-11.0) Red Blood Count 4.34 x10^6/uL (4.30-5.70) Hemoglobin 13.8 g/dL (13.0-17.5) Hematocrit 40.4 % (39.0-53.0) Mean Corpuscular Volume 93 fL (79-100) Mean Corpuscular Hemoglobin 32 pg (25-35) Mean Corpuscular Hemoglobin Concent 34 g/dL (31-37) Red Cell Distribution Width 14.1 % (11.5-14.5) Platelet Count 199 x10^3/uL (140-400) Heparin Anti-Xa Act, Unfractionated 0.20 IU/mL (0.30-0.70) 0.45 IU/mL (0.30-0.70) 0.43 IU/mL (0.30-0.70) 0.57 IU/mL (0.30-0.70) Phosphorus Level 4.3 mg/dL (2.6-4.7) Magnesium Level 1.6 mg/dL (1.8-2.4) Laboratory Tests Test 02/26/20 17:20 02/26/20 23:40 02/27/20 09:15 Heparin Anti-Xa Act, Unfractionated 0.45 IU/mL (0.30-0.70) 0.43 IU/mL (0.30-0.70) 0.57 IU/mL (0.30-0.70) Magnesium Level 1.6 mg/dL (1.8-2.4) Problem List Problems Medical Problems: (1) Magnesium deficiency Status: Acute (2) Superficial femoral artery occlusion Status: Acute Assessment/Plan Atherosclerosis with right lower extremity lifestyle limiting claudication--I did review the patient's angiogram results which confirms a long segment right superficial femoral artery occlusion. We will plan a femoral to above-knee popliteal artery bypass on Saturday. All questions were answered the patient satisfaction regarding the plan. Justicifation of Admission Dx: Justifications for Admission: Justification of Admission Dx: Yes MARCO HARO DO Feb 27, 2020 10:42
[2020-02-27 11:00] VITALS: BP 142/87
--- NOTE | 2020-02-27 12:38 | PDOC ---
PROGRESS NOTES Chief Complaint Chief Complaint ASSESSMENT 1. Acute arterial occlusion throughout the right superficial femoral artery, some reconstitution of minimal flow in the popliteal artery and runoff vessels. 2. Possible HX seizure, alcohol related 3. NONCOMPLIANCE with medications 4. Hypertension; controlled 5. Hyperlipidemia; 6. H/o endocarditis; s/p mechanical aortic valve replacement 20 yrs ago [facility] . Was previously on warfarin, but has not taken in > 2 years. Aortic valve appeared to be well seated and functioning well per TTE. 7. Abnormal EKG; noted with RBBB and anterolateral ST depression, which is unchanged from previous EKG 05/2018. EKG 05/2014 at with LVH, RBBB and ST changes on V4-[address] depression with ST elevation in V1. echo 08/31 Ejection Fraction is 35-40%. Abnormal septal motion consistent with post-operative state. Mechanical aortic valve prosthesis appears well seated and functioning well. MG 9 mm Hg.Mild aortic regurgitation. Trace mitral regurgitation. Trace tricuspid regurgitation with an estimated PAP of 23 mmHg. 8. Alcoholism; now 5 beers a week 9. Hypomagnesemia 10 Tobaccoism, marijuana use; discussed/encouraged cessation 11. Chronic systolic CHF with possible NICM with h/o alcoholoism, ICM // Echo with LVEF 35-40%. 12. 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 History of Present Illness History of Present Illness feels well no overnight issues. PLAN FOR BYPASS SATURDAY. Vitals Vitals Vital Signs Date Time Temp Pulse Resp B/P (MAP) Pulse Ox O2 Delivery O2 Flow Rate FiO2 02/27/20 11:00 98.1 63 18 142/87 (105) 100 Room Air 98.1 Physical Exam General: Alert, Oriented X3, Cooperative Heart: Regular rate Lungs: Clear Abdomen: Normal bowel sounds, Soft, No tenderness Extremities: No clubbing, No cyanosis, Other (Palpable 2+ femoral pulses bilaterally, Doppler signals intact at the dorsalis pedis and posterior tibial location.) Skin: Other (No significant wound or ulceration.) Labs LABS Laboratory Tests Test 02/26/20 15:37 02/26/20 17:20 02/26/20 23:40 02/27/20 09:15 Coronavirus (COVID-19)(PCR) Negative (NEGATIVE) Heparin Anti-Xa Act, Unfractionated 0.45 IU/mL (0.30-0.70) 0.43 IU/mL (0.30-0.70) 0.57 IU/mL (0.30-0.70) Magnesium Level 1.6 mg/dL (1.8-2.4) Assessment and Plan Assessmemt and Plan Problems Medical Problems: (1) Magnesium deficiency Status: Acute (2) Superficial femoral artery occlusion Status: Acute Comment Review of Relevant I have reviewed the following items ochoa (where applicable) has been applied. Labs Laboratory Tests Test 02/26/20 06:10 02/26/20 15:37 02/26/20 17:20 02/26/20 23:40 White Blood Count 8.9 x10^3/uL (4.0-11.0) Red Blood Count 4.34 x10^6/uL (4.30-5.70) Hemoglobin 13.8 g/dL (13.0-17.5) Hematocrit 40.4 % (39.0-53.0) Mean Corpuscular Volume 93 fL (79-100) Mean Corpuscular Hemoglobin 32 pg (25-35) Mean Corpuscular Hemoglobin Concent 34 g/dL (31-37) Red Cell Distribution Width 14.1 % (11.5-14.5) Platelet Count 199 x10^3/uL (140-400) Heparin Anti-Xa Act, Unfractionated 0.20 IU/mL (0.30-0.70) 0.45 IU/mL (0.30-0.70) 0.43 IU/mL (0.30-0.70) Phosphorus Level 4.3 mg/dL (2.6-4.7) Coronavirus (COVID-19)(PCR) Negative (NEGATIVE) Test 02/27/20 09:15 Heparin Anti-Xa Act, Unfractionated 0.57 IU/mL (0.30-0.70) Magnesium Level 1.6 mg/dL (1.8-2.4) Laboratory Tests Test 02/26/20 15:37 02/26/20 17:20 02/26/20 23:40 02/27/20 09:15 Coronavirus (COVID-19)(PCR) Negative (NEGATIVE) Heparin Anti-Xa Act, Unfractionated 0.45 IU/mL (0.30-0.70) 0.43 IU/mL (0.30-0.70) 0.57 IU/mL (0.30-0.70) Magnesium Level 1.6 mg/dL (1.8-2.4) Microbiology 02/22/20 Blood Culture - Preliminary, Resulted NO GROWTH AFTER 4 DAYS Medications Current Medications Sodium Chloride 1,000 ml @ 1,000 mls/hr 1X ONCE IV Last administered on 02/22/20 16:57; Start 02/22/20 at 17:00; Stop 02/22/20 at 17:59; Status DC Magnesium Sulfate 50 ml @ 25 mls/hr 1X ONCE IV Last administered on 02/22/20at 16:58; Start 02/22/20 at 17:00; Stop 02/22/20 at 18:59; Status DC Fentanyl Citrate (Fentanyl 2ml Vial) 50 mcg 1X ONCE IVP Last administered on 02/22/20at 16:58; Start 02/22/20 at 17:00; Stop 02/22/20 at 17:01; Status DC Ondansetron HCl (Zofran) 4 mg PRN Q8HRS PRN IV NAUSEA/VOMITING Last administered on 02/22/20at 20:00; Start 02/22/20 at 17:00; Stop 02/23/20 at 16:59; Status DC Fentanyl Citrate (Fentanyl 2ml Vial) 50 mcg PRN Q1HR PRN IV PAIN Last administered on 02/22/20at 20:00; Start 02/22/20 at 17:00; Stop 02/23/20 at 16:59; Status DC Aspirin (Jasmin Aspirin) 325 mg 1X ONCE PO Last administered on 02/22/20at 17:30; Start 02/22/20 at 17:15; Stop 02/22/20 at 17:16; Status DC Heparin Sodium (Porcine) (Heparin Sodium) 5,450 unit 1X ONCE IV Last administered on 02/22/20at 17:45; Start 02/22/20 at 17:15; Stop 02/22/20 at 17:16; Status DC Heparin Sodium/ Dextrose 250 ml @ 0 mls/hr CONT PRN IV PER PROTOCOL Last administered on 02/26/20at 17:21; Start 02/22/20 at 17:30 Heparin Sodium (Porcine) (Heparin Sodium) 2,050 unit PRN Q6HRS PRN IV FOR UFH LEVEL LESS THAN 0.2 Last administered on 02/24/20at 22:11; Start 02/22/20 at 17:00 Heparin Sodium (Porcine) (Heparin Sodium) 1,000 unit PRN Q6HRS PRN IV FOR UFH LEVEL 0.2 - 0.29 Last administered on 02/26/20at 09:23; Start 02/22/20 at 17:00 Potassium Bicarbonate (Potassium Effervescent Tablet) 40 meq 1X ONCE FT ; Start 02/22/20 at 17:30; Stop 02/22/20 at 17:31; Status DC Magnesium Sulfate 50 ml @ 25 mls/hr Q24H IV ; Start 02/22/20 at 18:00; Stop 02/24/20 at 19:59; Status DC Potassium Phos/ Sodium Phos (Phos-Nak) 1 pkt BID PO ; Start 02/22/20 at 21:00; Stop 02/23/20 at 09:01; Status DC Potassium Bicarbonate (Potassium Effervescent Tablet) 40 meq Q4H PO Last administered on 02/22/20at 22:00; Start 02/22/20 at 18:00; Stop 02/22/20 at 22:01; Status DC Sodium Chloride (Normal Saline Flush) 3 ml QSHIFT PRN IV AFTER MEDS AND BLOOD DRAWS; Start 02/22/20 at 17:15 Sodium Chloride 1,000 ml @ 60 mls/hr [id number] IV Last administered on 02/26/20at 21:02; Start 02/22/20 at 17:15 Ondansetron HCl (Zofran) 4 mg PRN Q4HRS PRN IV NAUSEA/VOMITING; Start 02/22/20 at 17:15 Zolpidem Tartrate (Ambien) 5 mg PRN QHS PRN PO INSOMNIA Last administered on 02/23/20at 21:37; Start 02/22/20 at 17:15 Acetaminophen (Tylenol) 650 mg PRN Q4HRS PRN PO TEMP OVER 100.4F OR MILD PAIN Last administered on 02/23/20at 21:37; Start 02/22/20 at 17:15 Al Hydroxide/Mg Hydroxide (Mylanta Plus Xs) 30 ml PRN DAILY PRN PO HEARTBURN / GAS; Start 02/22/20 at 17:15 Sodium Monofluorophosphate (Fleet Adult) 133 ml PRN DAILY PRN ID CONSTIPATION; Start 02/22/20 at 17:15 Docusate Sodium (Colace) 100 mg PRN BID PRN PO HARD STOOLS; Start 02/22/20 at 17:15 Albuterol/ Ipratropium (Duoneb) 3 ml Q4HRS NEB ; Start 02/22/20 at 20:00; Stop 02/22/20 at 17:44; Status DC Guaifenesin (Robitussin) 200 mg PRN Q4HRS PRN PO COUGH; Start 02/22/20 at 17:15 Multivitamins (Thera M Plus) 1 tab DAILY PO Last administered on 02/27/20at 08:49; Start 02/23/20 at 09:00 Folic Acid (Folic Acid) 1 mg DAILY PO Last administered on 02/27/20at 08:49; Start 02/23/20 at 09:00 Thiamine Mononitrate (Vitamin B-1) 100 mg DAILY PO Last administered on 02/27/20at 08:49; Start 02/23/20 at 09:00 Lorazepam (Ativan) 4 mg PRN Q1HR PRN PO For CIWA 8-14 Last administered on 02/27/20at 08:56; Start 02/22/20 at 17:30 Lorazepam (Ativan) 8 mg PRN Q1HR PRN PO For CIWA 15 or greater Last administered on 02/27/20at 12:25; Start 02/22/20 at 17:30 Lorazepam (Ativan Inj) 2 mg PRN Q1HR PRN IV For CIWA 8-14 Last administered on 02/26/20at 22:53; Start 02/22/20 at 17:30 Lorazepam (Ativan Inj) 4 mg PRN Q1HR PRN IV For CIWA 15 or greater; Start 02/22/20 at 17:30 Haloperidol Lactate (Haldol Inj) 5 mg PRN Q4HRS PRN IVP Hallucinatns,Confusn,Delirium; Start 02/22/20 at 17:30 Diphenhydramine HCl (Benadryl) 25 mg PRN Q15MIN PRN IVP EPS symptoms 2'Haldol admin Last administered on 02/26/20at 22:52; Start 02/22/20 at 17:30 Lorazepam (Ativan Inj) 2 mg PRN Q15MIN PRN IV SEE COMMENTS; Start 02/22/20 at 17:30; Stop 02/22/20 at 18:45; Status DC Lorazepam (Ativan Inj) 4 mg PRN Q15MIN PRN IV SEE COMMENTS; Start 02/22/20 at 17:30; Stop 02/22/20 at 18:45; Status DC Albuterol Sulfate (Ventolin Neb Soln) 2.5 mg PRN Q4HRS PRN NEB SHORTNESS OF BREATH; Start 02/22/20 at 18:00 Nicotine (Nicoderm Cq 21mg) 1 patch DAILY TD Last administered on 02/27/20at 08:58; Start 02/22/20 at 22:30 Acetaminophen (Tylenol) 500 mg PRN Q4HRS PRN PO MILD PAIN / TEMP > 100.3'F; Start 02/22/20 at 22:30; Stop 02/23/20 at 17:30; Status DC Info (Anti-Coagulation Monitoring By Pharmacy) 1 each PRN DAILY PRN MC SEE COMMENTS Last administered on 02/23/20at 10:24; Start 02/23/20 at 09:45 Aspirin (Ecotrin) 81 mg [id number] PO Last administered on 02/27/20at 08:49; Start 02/23/20 at 12:00 Heparin Sodium/ Sodium Chloride (HEPARIN for ARTERIAL LINE FLUSH) 1,000 unit 1X ONCE IART Last administered on 02/23/20at 13:30; Start 02/23/20 at 13:30; Stop 02/23/20 at 13:38; Status DC Heparin Sodium/ Sodium Chloride (HEPARIN for ARTERIAL LINE FLUSH) 1,000 unit 1X ONCE IART Last administered on 02/23/20at 13:30; Start 02/23/20 at 13:30; Stop 02/23/20 at 13:38; Status DC Lidocaine HCl (Buffered Lidocaine 1%) 3 ml 1X ONCE IJ Last administered on 02/23/20at 13:50; Start 02/23/20 at 13:30; Stop 02/23/20 at 13:38; Status DC Midazolam HCl (Versed) 2 mg 1X ONCE IV Last administered on 02/23/20at 13:45; Start 02/23/20 at 13:30; Stop 02/23/20 at 13:38; Status DC Fentanyl Citrate (Fentanyl 2ml Vial) 100 mcg 1X ONCE IV Last administered on 02/23/20at 13:45; Start 02/23/20 at 13:30; Stop 02/23/20 at 13:38; Status DC Iodixanol (Visipaque 320) 100 ml 1X ONCE IART Last administered on 02/23/20at 15:09; Start 02/23/20 at 13:30; Stop 02/23/20 at 13:38; Status DC Lidocaine HCl (Buffered Lidocaine 1%) 3 ml STK-MED ONCE .ROUTE ; Start 02/23/20 at 13:14; Stop 02/23/20 at 13:32; Status DC Iodixanol (Visipaque 320) 100 ml STK-MED ONCE .ROUTE ; Start 02/23/20 at 13:14; Stop 02/23/20 at 13:32; Status DC Heparin Sodium/ Sodium Chloride 1,500 ml @ As Directed STK-MED ONCE .ROUTE ; Start 02/23/20 at 13:14; Stop 02/23/20 at 13:32; Status DC Midazolam HCl (Versed) 2 mg STK-MED ONCE .ROUTE ; Start 02/23/20 at 13:20; Stop 02/23/20 at 13:33; Status DC Fentanyl Citrate (Fentanyl 2ml Vial) 100 mcg STK-MED ONCE .ROUTE ; Start 02/23/20 at 13:21; Stop 02/23/20 at 13:33; Status DC Heparin Sodium (Porcine) (Heparin Sodium) 10,000 unit STK-MED ONCE .ROUTE ; Start 02/23/20 at 13:21; Stop 02/23/20 at 13:33; Status DC Heparin Sodium (Porcine) (Heparin Sodium) 5,000 unit 1X ONCE IV Last administered on 02/23/20at 14:08; Start 02/23/20 at 14:15; Stop 02/23/20 at 14:22; Status DC Heparin Sodium/ Sodium Chloride 500 ml @ As Directed STK-MED ONCE .ROUTE ; Start 02/23/20 at 15:23; Stop 02/23/20 at 15:23; Status DC Acetaminophen/ Hydrocodone Bitart (Lortab 5/325) 1 tab PRN Q6HRS PRN PO PAIN Last administered on 02/24/20at 00:46; Start 02/23/20 at 17:15 Cefazolin Sodium (Ancef) 1 gm 1X PREOP PRN IVP PRIOR TO PROCEDURE; Start 02/29/20 at 11:00; Stop 02/29/20 at 18:00 Ondansetron HCl (Zofran) 4 mg PRN Q6HRS PRN IV NAUSEA/VOMITING; Start 02/29/20 at 07:00; Stop 03/01/20 at 06:59 Fentanyl Citrate (Fentanyl 2ml Vial) 25 mcg PRN Q5MIN PRN IV MILD PAIN 1-3; Start 02/29/20 at 07:00; Stop 03/01/20 at 06:59 Fentanyl Citrate (Fentanyl 2ml Vial) 50 mcg PRN Q5MIN PRN IV MODERATE TO SEVERE PAIN; Start 02/29/20 at 07:00; Stop 03/01/20 at 06:59 Morphine Sulfate (Morphine Sulfate) 1 mg PRN Q10MIN PRN IV SEVERE PAIN 7-10; Start 02/29/20 at 07:00; Stop 03/01/20 at 06:59 Ringer's Solution 1,000 ml @ 30 mls/hr Q24H IV ; Start 02/29/20 at 07:00; Stop 02/29/20 at 18:59 Lidocaine HCl (Xylocaine-Mpf 1% 2ml Vial) 2 ml PRN 1X PRN ID PRIOR TO IV START; Start 02/29/20 at 07:00; Stop 03/01/20 at 06:59 Hydromorphone HCl (Dilaudid) 0.5 mg PRN Q10MIN PRN IV SEV PAIN, Second choice; Start 02/29/20 at 07:00; Stop 03/01/20 at 06:59 Prochlorperazine Edisylate (Compazine) 5 mg PACU PRN PRN IV NAUSEA, MRX1; Start 02/29/20 at 07:00; Stop 03/01/20 at 06:59 Heparin Sodium (Porcine) 5000 unit/Sodium Chloride 505 ml @ 505 mls/hr 1X ONCE IRR ; Start 02/29/20 at 08:00; Stop 02/29/20 at 08:59 Cefazolin Sodium 1 gm/Sodium Chloride 500 ml @ 500 mls/hr 1X ONCE IRR ; Start 02/29/20 at 08:00; Stop 02/29/20 at 08:59 Active Scripts Active Ibuprofen 800 Mg Tablet 800 Mg PO PRN Q6HRS PRN Cyclobenzaprine Hcl 10 Mg Tablet 1 Tab PO TID PRN Proair Hfa Inhaler (Albuterol Sulfate) 8.5 Gm Hfa.aer.ad 1-2 Puff INH PRN Q6HRS PRN with spacer Albuterol Sulfate Neb Soln (Albuterol Sulfate) 2.5 Mg/3 Ml Vial.neb 1 Vial NEB PRN Q4HRS PRN Reported Acetaminophen 500 Mg Tablet 500 Mg PO PRN Q6HRS PRN Advil (Ibuprofen) 200 Mg Capsule 200 Mg PO PRN Q6HRS PRN Vitals/I & O Vital Sign - Last 24 Hours 02/26/20 02/26/20 02/26/20 02/26/20 15:00 19:15 20:00 22:48 Temp 98.0 98.2 98.2 98.0 98.2 98.2 Pulse 69 70 75 Resp 15 22 B/P (MAP) 147/90 (109) 131/86 (101) 156/99 (118) Pulse Ox 99 98 96 O2 Delivery Room Air Room Air Room Air Room Air 02/27/20 02/27/20 02/27/20 02/27/20 03:30 07:00 08:00 11:00 Temp 98.0 98.1 98.1 98.0 98.1 98.1 Pulse 71 67 63 Resp 24 18 18 B/P (MAP) 144/88 (106) 137/86 (103) 142/87 (105) Pulse Ox 97 99 100 O2 Delivery Room Air Room Air Room Air Room Air Intake and Output 02/26/20 02/26/20 02/27/20 15:00 23:00 07:00 Intake Total 450 ml 240 ml 240 ml Output Total 1200 ml 2300 ml Balance 450 ml -960 ml -2060 ml Justicifation of Admission Dx: Justifications for Admission: Justification of Admission Dx: Yes RBUNILDA ROSAS MD Feb 27, 2020 12:38
[2020-02-27 15:00] VITALS: BP 136/78
[2020-02-27] MEDS: IV NORMAL SALINE 1000ML BAG 1,000 ML IV SCH (16:27)
[2020-02-27] MEDS: HEPARIN 25,000UTS/250ML PREMIX 250 ML IV PRN (16:29)
[2020-02-27] MEDS: ANTI-COAG MONITOR BY PHARMACY. MC PRN (16:48)
[2020-02-27 18:41] VITALS: BP 139/85
[2020-02-27 23:00] VITALS: BP 145/92
[2020-02-27] MEDS: ZOLPIDEM 5 MG TABLET. PO PRN (23:12)
[2020-02-28 03:45] VITALS: BP 107/59
[2020-02-28 07:00] VITALS: BP 156/91
[2020-02-28 07:33] LABS: HEMATOCRIT 39.9 % (39.0-53.0); HEMOGLOBIN 13.7 g/dL (13.0-17.5); RED BLOOD COUNT 4.24 x10^6/uL (4.30-5.70); RED CELL DISTRIBUTION WIDTH 14.2 % (11.5-14.5); WHITE BLOOD COUNT 7.7 x10^3/uL (4.0-11.0)
[2020-02-28] MEDS: IV NORMAL SALINE 1000ML BAG 1,000 ML IV SCH (09:16)
[2020-02-28] MEDS: FOLIC ACID 1 MG TABLET. PO SCH (09:17)
[2020-02-28] MEDS: MULTIVITAMIN with MINERAL TABLET. PO SCH (09:17)
[2020-02-28] MEDS: NICOTINE 21MG PATCH. TD SCH (09:17)
[2020-02-28] MEDS: ASPIRIN ENTERIC COATED 81 MG TABLET.DR. PO SCH (09:17)
[2020-02-28] MEDS: THIAMINE 100 MG TABLET. PO SCH (09:17)
[2020-02-28 09:23] LABS: CALCIUM 8.5 mg/dL (8.5-10.1); CREATININE 1.1 mg/dL (0.7-1.3); GFR 68.3; POTASSIUM 4.4 mmol/L (3.5-5.1)
[2020-02-28] MEDS: ANTI-COAG MONITOR BY PHARMACY. MC PRN (10:24)
[2020-02-28 11:00] VITALS: BP 132/93
--- NOTE | 2020-02-28 12:21 | PDOC ---
PROGRESS NOTES Chief Complaint Chief Complaint ASSESSMENT 1. Acute arterial occlusion throughout the right superficial femoral artery, some reconstitution of minimal flow in the popliteal artery and runoff vessels. 2. Possible HX seizure, alcohol related 3. NONCOMPLIANCE with medications 4. Hypertension; controlled 5. Hyperlipidemia; 6. H/o endocarditis; s/p mechanical aortic valve replacement 20 yrs ago [facility] . Was previously on warfarin, but has not taken in > 2 years. Aortic valve appeared to be well seated and functioning well per TTE. 7. Abnormal EKG; noted with RBBB and anterolateral ST depression, which is unchanged from previous EKG 05/2018. EKG 05/2014 at with LVH, RBBB and ST changes on V4-[address] depression with ST elevation in V1. echo 08/31 Ejection Fraction is 35-40%. Abnormal septal motion consistent with post-operative state. Mechanical aortic valve prosthesis appears well seated and functioning well. MG 9 mm Hg.Mild aortic regurgitation. Trace mitral regurgitation. Trace tricuspid regurgitation with an estimated PAP of 23 mmHg. 8. Alcoholism; now 5 beers a week 9. Hypomagnesemia 10 Tobaccoism, marijuana use; discussed/encouraged cessation 11. Chronic systolic CHF with possible NICM with h/o alcoholoism, ICM // Echo with LVEF 35-40%. 12. HYPONATREMIA plan 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 treated with covered,balloon-expandable stent placement 02/22 VASCULAR following femoral to above-knee popliteal artery bypass on Saturday heparin drip protocol CIWA PROTOCOL continue ASA daily cards consulted for clearance: deemed moderate risk for his extra inguinal vascular procedure no PCP, will provided information on [facility] for follow up Supportive care and optimization with medical therapy. NPO past midnight tonight History of Present Illness History of Present Illness feels well no overnight issues. PLAN FOR BYPASS SATURDAY. Vitals Vitals Vital Signs Date Time Temp Pulse Resp B/P (MAP) Pulse Ox O2 Delivery O2 Flow Rate FiO2 02/28/20 11:22 99 Room Air 02/28/20 07:00 97.3 68 16 156/91 (112) 97.3 Physical Exam General: Alert, Oriented X3, Cooperative Heart: Regular rate Lungs: Clear Abdomen: Normal bowel sounds, Soft, No tenderness Extremities: No clubbing, No cyanosis, Other (Palpable 2+ femoral pulses bilaterally, Doppler signals intact at the dorsalis pedis and posterior tibial location.) Skin: Other (No significant wound or ulceration.) Labs LABS Laboratory Tests Test 02/28/20 06:50 White Blood Count 7.7 x10^3/uL (4.0-11.0) Red Blood Count 4.24 x10^6/uL (4.30-5.70) Hemoglobin 13.7 g/dL (13.0-17.5) Hematocrit 39.9 % (39.0-53.0) Mean Corpuscular Volume 94 fL (79-100) Mean Corpuscular Hemoglobin 32 pg (25-35) Mean Corpuscular Hemoglobin Concent 34 g/dL (31-37) Red Cell Distribution Width 14.2 % (11.5-14.5) Platelet Count 204 x10^3/uL (140-400) Heparin Anti-Xa Act, Unfractionated 0.34 IU/mL (0.30-0.70) Sodium Level 135 mmol/L (136-145) Potassium Level 4.4 mmol/L (3.5-5.1) Chloride Level 100 mmol/L (98-107) Carbon Dioxide Level 26 mmol/L (21-32) Anion Gap 9 (6-14) Blood Urea Nitrogen 15 mg/dL (8-26) Creatinine 1.1 mg/dL (0.7-1.3) Estimated GFR (Cockcroft-Gault) 68.3 Glucose Level 85 mg/dL (70-99) Calcium Level 8.5 mg/dL (8.5-10.1) Assessment and Plan Assessmemt and Plan Problems Medical Problems: (1) Magnesium deficiency Status: Acute (2) Superficial femoral artery occlusion Status: Acute Comment Review of Relevant I have reviewed the following items ochoa (where applicable) has been applied. Labs Laboratory Tests Test 02/26/20 15:37 02/26/20 17:20 02/26/20 23:40 02/27/20 09:15 Coronavirus (COVID-19)(PCR) Negative (NEGATIVE) Heparin Anti-Xa Act, Unfractionated 0.45 IU/mL (0.30-0.70) 0.43 IU/mL (0.30-0.70) 0.57 IU/mL (0.30-0.70) Magnesium Level 1.6 mg/dL (1.8-2.4) Test 02/28/20 06:50 White Blood Count 7.7 x10^3/uL (4.0-11.0) Red Blood Count 4.24 x10^6/uL (4.30-5.70) Hemoglobin 13.7 g/dL (13.0-17.5) Hematocrit 39.9 % (39.0-53.0) Mean Corpuscular Volume 94 fL (79-100) Mean Corpuscular Hemoglobin 32 pg (25-35) Mean Corpuscular Hemoglobin Concent 34 g/dL (31-37) Red Cell Distribution Width 14.2 % (11.5-14.5) Platelet Count 204 x10^3/uL (140-400) Heparin Anti-Xa Act, Unfractionated 0.34 IU/mL (0.30-0.70) Sodium Level 135 mmol/L (136-145) Potassium Level 4.4 mmol/L (3.5-5.1) Chloride Level 100 mmol/L (98-107) Carbon Dioxide Level 26 mmol/L (21-32) Anion Gap 9 (6-14) Blood Urea Nitrogen 15 mg/dL (8-26) Creatinine 1.1 mg/dL (0.7-1.3) Estimated GFR (Cockcroft-Gault) 68.3 Glucose Level 85 mg/dL (70-99) Calcium Level 8.5 mg/dL (8.5-10.1) Laboratory Tests Test 02/28/20 06:50 White Blood Count 7.7 x10^3/uL (4.0-11.0) Red Blood Count 4.24 x10^6/uL (4.30-5.70) Hemoglobin 13.7 g/dL (13.0-17.5) Hematocrit 39.9 % (39.0-53.0) Mean Corpuscular Volume 94 fL (79-100) Mean Corpuscular Hemoglobin 32 pg (25-35) Mean Corpuscular Hemoglobin Concent 34 g/dL (31-37) Red Cell Distribution Width 14.2 % (11.5-14.5) Platelet Count 204 x10^3/uL (140-400) Heparin Anti-Xa Act, Unfractionated 0.34 IU/mL (0.30-0.70) Sodium Level 135 mmol/L (136-145) Potassium Level 4.4 mmol/L (3.5-5.1) Chloride Level 100 mmol/L (98-107) Carbon Dioxide Level 26 mmol/L (21-32) Anion Gap 9 (6-14) Blood Urea Nitrogen 15 mg/dL (8-26) Creatinine 1.1 mg/dL (0.7-1.3) Estimated GFR (Cockcroft-Gault) 68.3 Glucose Level 85 mg/dL (70-99) Calcium Level 8.5 mg/dL (8.5-10.1) Microbiology 02/22/20 Blood Culture - Final, Complete NO GROWTH AFTER 5 DAYS Medications Current Medications Sodium Chloride 1,000 ml @ 1,000 mls/hr 1X ONCE IV Last administered on 02/22/20 16:57; Start 02/22/20 at 17:00; Stop 02/22/20 at 17:59; Status DC Magnesium Sulfate 50 ml @ 25 mls/hr 1X ONCE IV Last administered on 02/22/20at 16:58; Start 02/22/20 at 17:00; Stop 02/22/20 at 18:59; Status DC Fentanyl Citrate (Fentanyl 2ml Vial) 50 mcg 1X ONCE IVP Last administered on 02/22/20at 16:58; Start 02/22/20 at 17:00; Stop 02/22/20 at 17:01; Status DC Ondansetron HCl (Zofran) 4 mg PRN Q8HRS PRN IV NAUSEA/VOMITING Last a dministered on 02/22/20at 20:00; Start 02/22/20 at 17:00; Stop 02/23/20 at 16:59; Status DC Fentanyl Citrate (Fentanyl 2ml Vial) 50 mcg PRN Q1HR PRN IV PAIN Last administered on 02/22/20at 20:00; Start 02/22/20 at 17:00; Stop 02/23/20 at 16:59; Status DC Aspirin (Jasmin Aspirin) 325 mg 1X ONCE PO Last administered on 02/22/20at 17:30; Start 02/22/20 at 17:15; Stop 02/22/20 at 17:16; Status DC Heparin Sodium (Porcine) (Heparin Sodium) 5,450 unit 1X ONCE IV Last administered on 02/22/20at 17:45; Start 02/22/20 at 17:15; Stop 02/22/20 at 17:16; Status DC Heparin Sodium/ Dextrose 250 ml @ 0 mls/hr CONT PRN IV PER PROTOCOL Last admi nistered on 02/27/20at 16:29; Start 02/22/20 at 17:30 Heparin Sodium (Porcine) (Heparin Sodium) 2,050 unit PRN Q6HRS PRN IV FOR UFH LEVEL LESS THAN 0.2 Last administered on 02/24/20at 22:11; Start 02/22/20 at 17:00 Heparin Sodium (Porcine) (Heparin Sodium) 1,000 unit PRN Q6HRS PRN IV FOR UFH LEVEL 0.2 - 0.29 Last administered on 02/26/20at 09:23; Start 02/22/20 at 17:00 Potassium Bicarbonate (Potassium Effervescent Tablet) 40 meq 1X ONCE FT ; Start 02/22/20 at 17:30; Stop 02/22/20 at 17:31; Status DC Magnesium Sulfate 50 ml @ 25 mls/hr Q24H IV ; Start 02/22/20 at 18:00; Stop 02/24/20 at 19:59; Status DC Potassium Phos/ Sodium Phos (Phos-Nak) 1 pkt BID PO ; Start 02/22/20 at 21:00; Stop 02/23/20 at 09:01; Status DC Potassium Bicarbonate (Potassium Effervescent Tablet) 40 meq Q4H PO Last administered on 02/22/20at 22:00; Start 02/22/20 at 18:00; Stop 02/22/20 at 22:01; Status DC Sodium Chloride (Normal Saline Flush) 3 ml QSHIFT PRN IV AFTER MEDS AND BLOOD DRAWS; Start 02/22/20 at 17:15 Sodium Chloride 1,000 ml @ 60 mls/hr [id number] IV Last administered on 02/28/20at 09:16; Start 02/22/20 at 17:15 Ondansetron HCl (Zofran) 4 mg PRN Q4HRS PRN IV NAUSEA/VOMITING; Start 02/22/20 at 17:15 Zolpidem Tartrate (Ambien) 5 mg PRN QHS PRN PO INSOMNIA Last administered on 02/27/20at 23:12; Start 02/22/20 at 17:15 Acetaminophen (Tylenol) 650 mg PRN Q4HRS PRN PO TEMP OVER 100.4F OR MILD PAIN Last administered on 02/23/20at 21:37; Start 02/22/20 at 17:15 Al Hydroxide/Mg Hydroxide (Mylanta Plus Xs) 30 ml PRN DAILY PRN PO HEARTBURN / GAS; Start 02/22/20 at 17:15 Sodium Monofluorophosphate (Fleet Adult) 133 ml PRN DAILY PRN ND CONSTIPATION; Start 02/22/20 at 17:15 Docusate Sodium (Colace) 100 mg PRN BID PRN PO HARD STOOLS; Start 02/22/20 at 17:15 Albuterol/ Ipratropium (Duoneb) 3 ml Q4HRS NEB ; Start 02/22/20 at 20:00; Stop 02/22/20 at 17:44; Status DC Guaifenesin (Robitussin) 200 mg PRN Q4HRS PRN PO COUGH; Start 02/22/20 at 17:15 Multivitamins (Thera M Plus) 1 tab DAILY PO Last administered on 02/28/20at 09:17; Start 02/23/20 at 09:00 Folic Acid (Folic Acid) 1 mg DAILY PO Last administered on 02/28/20at 09:17; Start 02/23/20 at 09:00 Thiamine Mononitrate (Vitamin B-1) 100 mg DAILY PO Last administered on 02/28/20at 09:17; Start 02/23/20 at 09:00 Lorazepam (Ativan) 4 mg PRN Q1HR PRN PO For CIWA 8-14 Last administered on 02/27/20at 23:08; Start 02/22/20 at 17:30 Lorazepam (Ativan) 8 mg PRN Q1HR PRN PO For CIWA 15 or greater Last administered on 02/27/20at 12:25; Start 02/22/20 at 17:30 Lorazepam (Ativan Inj) 2 mg PRN Q1HR PRN IV For CIWA 8-14 Last administered on 02/28/20at 09:21; Start 02/22/20 at 17:30 Lorazepam (Ativan Inj) 4 mg PRN Q1HR PRN IV For CIWA 15 or greater; Start 02/22/20 at 17:30 Haloperidol Lactate (Haldol Inj) 5 mg PRN Q4HRS PRN IVP Hallucinatns,Confusn,Delirium; Start 02/22/20 at 17:30 Diphenhydramine HCl (Benadryl) 25 mg PRN Q15MIN PRN IVP EPS symptoms 2'Haldol admin Last administered on 02/26/20at 22:52; Start 02/22/20 at 17:30 Lorazepam (Ativan Inj) 2 mg PRN Q15MIN PRN IV SEE COMMENTS; Start 02/22/20 at 17:30; Stop 02/22/20 at 18:45; Status DC Lorazepam (Ativan Inj) 4 mg PRN Q15MIN PRN IV SEE COMMENTS; Start 02/22/20 at 17:30; Stop 02/22/20 at 18:45; Status DC Albuterol Sulfate (Ventolin Neb Soln) 2.5 mg PRN Q4HRS PRN NEB SHORTNESS OF BREATH; Start 02/22/20 at 18:00 Nicotine (Nicoderm Cq 21mg) 1 patch DAILY TD Last administered on 02/28/20at 09:17; Start 02/22/20 at 22:30 Acetaminophen (Tylenol) 500 mg PRN Q4HRS PRN PO MILD PAIN / TEMP > 100.3'F; Start 02/22/20 at 22:30; Stop 02/23/20 at 17:30; Status DC Info (Anti-Coagulation Monitoring By Pharmacy) 1 each PRN DAILY PRN MC SEE COMMENTS Last administered on 02/28/20at 10:24; Start 02/23/20 at 09:45 Aspirin (Ecotrin) 81 mg DAILYWBKFT PO Last administered on 02/28/20at 09:17; Start 02/23/20 at 12:00 Heparin Sodium/ Sodium Chloride (HEPARIN for ARTERIAL LINE FLUSH) 1,000 unit 1X ONCE IART Last administered on 02/23/20at 13:30; Start 02/23/20 at 13:30; Stop 02/23/20 at 13:38; Status DC Heparin Sodium/ Sodium Chloride (HEPARIN for ARTERIAL LINE FLUSH) 1,000 unit 1X ONCE IART Last administered on 02/23/20at 13:30; Start 02/23/20 at 13:30; Stop 02/23/20 at 13:38; Status DC Lidocaine HCl (Buffered Lidocaine 1%) 3 ml 1X ONCE IJ Last administered on 02/23/20at 13:50; Start 02/23/20 at 13:30; Stop 02/23/20 at 13:38; Status DC Midazolam HCl (Versed) 2 mg 1X ONCE IV Last administered on 02/23/20at 13:45; Start 02/23/20 at 13:30; Stop 02/23/20 at 13:38; Status DC Fentanyl Citrate (Fentanyl 2ml Vial) 100 mcg 1X ONCE IV Last administered on 02/23/20at 13:45; Start 02/23/20 at 13:30; Stop 02/23/20 at 13:38; Status DC Iodixanol (Visipaque 320) 100 ml 1X ONCE IART Last administered on 02/23/20at 15:09; Start 02/23/20 at 13:30; Stop 02/23/20 at 13:38; Status DC Lidocaine HCl (Buffered Lidocaine 1%) 3 ml STK-MED ONCE .ROUTE ; Start 02/23/20 at 13:14; Stop 02/23/20 at 13:32; Status DC Iodixanol (Visipaque 320) 100 ml STK-MED ONCE .ROUTE ; Start 02/23/20 at 13:14; Stop 02/23/20 at 13:32; Status DC Heparin Sodium/ Sodium Chloride 1,500 ml @ As Directed STK-MED ONCE .ROUTE ; Start 02/23/20 at 13:14; Stop 02/23/20 at 13:32; Status DC Midazolam HCl (Versed) 2 mg STK-MED ONCE .ROUTE ; Start 02/23/20 at 13:20; Stop 02/23/20 at 13:33; Status DC Fentanyl Citrate (Fentanyl 2ml Vial) 100 mcg STK-MED ONCE .ROUTE ; Start 02/22 at 13:21; Stop 02/23/20 at 13:33; Status DC Heparin Sodium (Porcine) (Heparin Sodium) 10,000 unit STK-MED ONCE .ROUTE ; St art 02/23/20 at 13:21; Stop 02/23/20 at 13:33; Status DC Heparin Sodium (Porcine) (Heparin Sodium) 5,000 unit 1X ONCE IV Last administered on 02/23/20at 14:08; Start 02/23/20 at 14:15; Stop 02/23/20 at 14:22; Status DC Heparin Sodium/ Sodium Chloride 500 ml @ As Directed STK-MED ONCE .ROUTE ; Start 02/23/20 at 15:23; Stop 02/23/20 at 15:23; Status DC Acetaminophen/ Hydrocodone Bitart (Lortab 5/325) 1 tab PRN Q6HRS PRN PO PAIN Last administered on 02/24/20at 00:46; Start 02/23/20 at 17:15 Cefazolin Sodium (Ancef) 1 gm 1X PREOP PRN IVP PRIOR TO PROCEDURE; Start 02/29/20 at 11:00; Stop 02/29/20 at 18:00 Ondansetron HCl (Zofran) 4 mg PRN Q6HRS PRN IV NAUSEA/VOMITING; Start 02/29/20 at 07:00; Stop 03/01/20 at 06:59 Fentanyl Citrate (Fentanyl 2ml Vial) 25 mcg PRN Q5MIN PRN IV MILD PAIN 1-3; Start 02/29/20 at 07:00; Stop 03/01/20 at 06:59 Fentanyl Citrate (Fentanyl 2ml Vial) 50 mcg PRN Q5MIN PRN IV MODERATE TO SEVERE PAIN; Start 02/29/20 at 07:00; Stop 03/01/20 at 06:59 Morphine Sulfate (Morphine Sulfate) 1 mg PRN Q10MIN PRN IV SEVERE PAIN 7-10; Start 02/29/20 at 07:00; Stop 03/01/20 at 06:59 Ringer's Solution 1,000 ml @ 30 mls/hr Q24H IV ; Start 02/29/20 at 07:00; Stop 02/29/20 at 18:59 Lidocaine HCl (Xylocaine-Mpf 1% 2ml Vial) 2 ml PRN 1X PRN ID PRIOR TO IV START; Start 02/29/20 at 07:00; Stop 03/01/20 at 06:59 Hydromorphone HCl (Dilaudid) 0.5 mg PRN Q10MIN PRN IV SEV PAIN, Second choice; Start 02/29/20 at 07:00; Stop 03/01/20 at 06:59 Prochlorperazine Edisylate (Compazine) 5 mg PACU PRN PRN IV NAUSEA, MRX1; Start 02/29/20 at 07:00; Stop 03/01/20 at 06:59 Heparin Sodium (Porcine) 5000 unit/Sodium Chloride 505 ml @ 505 mls/hr 1X ONCE IRR ; Start 02/29/20 at 08:00; Stop 02/29/20 at 08:59 Cefazolin Sodium 1 gm/Sodium Chloride 500 ml @ 500 mls/hr 1X ONCE IRR ; Start 02/29/20 at 08:00; Stop 02/29/20 at 08:59 Active Scripts Active Ibuprofen 800 Mg Tablet 800 Mg PO PRN Q6HRS PRN Cyclobenzaprine Hcl 10 Mg Tablet 1 Tab PO TID PRN Proair Hfa Inhaler (Albuterol Sulfate) 8.5 Gm Hfa.aer.ad 1-2 Puff INH PRN Q6HRS PRN with spacer Albuterol Sulfate Neb Soln (Albuterol Sulfate) 2.5 Mg/3 Ml Vial.neb 1 Vial NEB PRN Q4HRS PRN Reported Acetaminophen 500 Mg Tablet 500 Mg PO PRN Q6HRS PRN Advil (Ibuprofen) 200 Mg Capsule 200 Mg PO PRN Q6HRS PRN Vitals/I & O Vital Sign - Last 24 Hours 02/27/20 02/27/20 02/27/20 02/27/20 15:00 18:41 20:00 23:00 Temp 97.4 98.4 97.8 97.4 98.4 97.8 Pulse 64 64 65 Resp 16 16 18 B/P (MAP) 136/78 (97) 139/85 (103) 145/92 (109) Pulse Ox 98 97 99 O2 Delivery Room Air Room Air Room Air Room Air 02/28/20 02/28/20 02/28/20 03:45 07:00 11:22 Temp 96.6 97.3 96.6 97.3 Pulse 76 68 Resp 16 16 B/P (MAP) 107/59 (75) 156/91 (112) Pulse Ox 97 99 99 O2 Delivery Room Air Room Air Room Air Intake and Output 02/27/20 02/27/20 02/28/20 15:00 23:00 07:00 Intake Total 180 ml 600 ml 1365 ml Output Total 575 ml 1175 ml Balance -395 ml 600 ml 190 ml Justicifation of Admission Dx: Justifications for Admission: Justification of Admission Dx: Yes BRUNILDA ROSAS MD Feb 28, 2020 12:21
[2020-02-28] MEDS: HEPARIN 25,000UTS/250ML PREMIX 250 ML IV PRN (13:03)
[2020-02-28 15:00] VITALS: BP 159/88
[2020-02-28 18:48] VITALS: BP 156/95
[2020-02-28] MEDS: ZOLPIDEM 5 MG TABLET. PO PRN (21:51)
[2020-02-28] MEDS: LORazepam 1 MG TABLET PO PRN (21:51)
[2020-02-28 23:00] VITALS: BP 140/84
[2020-02-29] VITALS (10 sets, daily range): BP systolic 120–158; BP diastolic 67–90
[2020-02-29] MEDS: IV NORMAL SALINE 1000ML BAG 1,000 ML IV SCH ×2 (02:00→15:11)
[2020-02-29] MEDS ORDERED: MORPHINE SULFATE 2 MG/ML VIAL. IV PRN (07:00)
[2020-02-29] MEDS ORDERED: IV RINGERS,LACTATED 1000ML 1,000 ML IV SCH (07:00)
[2020-02-29] MEDS ORDERED: LIDOCAINE 1% PF 2 ML VIAL. ID PRN (07:00)
[2020-02-29] MEDS ORDERED: PROCHLORPERAZINE 10 MG/2 ML VIAL. IV PRN ×2 (07:00→15:15)
[2020-02-29] MEDS ORDERED: fentaNYL PF VIAL 100 MCG/2 ML VIAL IV PRN (07:00)
[2020-02-29] MEDS ORDERED: ONDANSETRON PF 4 MG/2 ML VIAL. IV PRN (07:00)
[2020-02-29] MEDS ORDERED: HYDROmorphone 2 MG/ML VIAL IV PRN (07:00)
[2020-02-29] MEDS ORDERED: HEPARIN SODIUM 5,000 UNIT in IV NORMAL SALINE 500ML BAG 500 ML IRR ONE (08:00)
[2020-02-29] MEDS: MULTIVITAMIN with MINERAL TABLET. PO SCH (09:00)
[2020-02-29] MEDS: THIAMINE 100 MG TABLET. PO SCH (09:00)
[2020-02-29] MEDS: FOLIC ACID 1 MG TABLET. PO SCH (09:00)
[2020-02-29] MEDS: NICOTINE 21MG PATCH. TD SCH (10:41)
[2020-02-29] MEDS: HEPARIN 25,000UTS/250ML PREMIX 250 ML IV PRN (10:50)
[2020-02-29] MEDS ORDERED: ceFAZolin SODIUM IV Push 1 GM VIAL. IVP PRN (11:00)
[2020-02-29] MEDS ORDERED: PROPOFOL 10 MG/ML (20ML) VIAL. IV ONE (11:59)
[2020-02-29] MEDS ORDERED: ROCURONIUM 50 MG/5 ML VIAL. ONE (11:59)
[2020-02-29] MEDS ORDERED: LIDOCAINE 2% PF 5 ML VIAL. ONE (11:59)
[2020-02-29] MEDS ORDERED: DEXAMETHASONE SOD PHOS 4 MG/ML VIAL ONE (11:59)
[2020-02-29] MEDS ORDERED: ONDANSETRON PF 4 MG/2 ML VIAL. ONE (11:59)
[2020-02-29] MEDS ORDERED: fentaNYL PF VIAL 100 MCG/2 ML VIAL ONE ×3 (11:59→15:29)
[2020-02-29] MEDS ORDERED: MIDAZOLAM HCL/PF 2 MG/2 ML VIAL. ONE (12:07)
[2020-02-29] MEDS ORDERED: SURGICEL FIBRILLAR 1X2 EACH. ONE ×5 (12:08→14:41)
[2020-02-29] MEDS ORDERED: THROMBIN TOPICAL 20,000 UNIT SPRAY.SYRN KIT TP ONE (12:08)
[2020-02-29] MEDS ORDERED: GELATIN SPONGE SIZE 100. ONE (12:08)
[2020-02-29] MEDS ORDERED: PAPAVERINE 60 MG/2 ML VIAL. ONE (12:08)
--- NOTE | 2020-02-29 12:21 | NUR ---
SS following up with discharge planning. SS reviewed pt chart and discussed with pt RN. Pt is from home and is currently on room air. Pt COVID19 negative. Pt having surgery today for right leg bypass. SS will continue to follow for discharge planning.
[2020-02-29] MEDS ORDERED: PHENYLEPHRINE in 0.9% NACL PF 1 MG/10 ML SYRINGE. IV ONE (12:58)
--- NOTE | 2020-02-29 13:01 | PDOC ---
[employer] PROGRESS NOTE Chief Complaint Chief Complaint \ 1. Acute arterial occlusion throughout the right superficial femoral artery, some reconstitution of minimal flow in the popliteal artery and runoff vessels. 2. Possible HX seizure, alcohol related 3. NONCOMPLIANCE with medications 4. Hypertension; controlled 5. Hyperlipidemia; 6. H/o endocarditis; s/p mechanical aortic valve replacement 20 yrs ago [facility] . Was previously on warfarin, but has not taken in > 2 years. Aortic valve appeared to be well seated and functioning well per TTE. 7. Abnormal EKG; noted with RBBB and anterolateral ST depression, which is unchanged from previous EKG 05/2018. EKG 05/2014 at with LVH, RBBB and ST changes on V4-[address] depression with ST elevation in V1. echo 08/31 Ejection Fraction is 35-40%. Abnormal septal motion consistent with post-operative state. Mechanical aortic valve prosthesis appears well seated and functioning well. MG 9 mm Hg.Mild aortic regurgitation. Trace mitral regurgitation. Trace tricuspid regurgitation with an estimated PAP of 23 mmHg. 8. Alcoholism; now 5 beers a week 9. Hypomagnesemia 10 Tobaccoism, marijuana use; discussed/encouraged cessation 11. Chronic systolic CHF with possible NICM with h/o alcoholoism, ICM // Echo with LVEF 35-40%. 12. HYPONATREMIA History of Present Illness History of Present Illness 02/29/2020 Patient seen and examined He is a little upset about having to go to surgery but accepts it Discussed with RN Chart reviewed He is scheduled for surgery at 11:45 today Vitals/I&O Vitals/I&O: Vital Signs Date Time Temp Pulse Resp B/P (MAP) Pulse Ox O2 Delivery O2 Flow Rate FiO2 02/29/20 12:36 97.0 66 15 161/96 98 Room Air 97.0 I & O 02/28/20 02/28/20 02/29/20 15:00 23:00 07:00 Intake Total 600 ml 1245 ml Output Total 1300 ml 1825 ml 750 ml Balance -1300 ml -1225 ml 495 ml Physical Exam General: Alert, Oriented X3, Cooperative Heart: Regular rate Lungs: Clear Abdomen: Normal bowel sounds, Soft, No tenderness Extremities: No clubbing, No cyanosis, Other (Palpable 2+ femoral pulses bilaterally, Doppler signals intact at the dorsalis pedis and posterior tibial location.) Skin: Other (No significant wound or ulceration.) Labs Labs: Laboratory Tests Test 02/29/20 05:52 Phosphorus Level 4.3 mg/dL (2.6-4.7) Assessment and Plan Assessmemt and Plan Problems Medical Problems: (1) Magnesium deficiency Status: Acute (2) Superficial femoral artery occlusion Status: Acute 1. Acute arterial occlusion throughout the right superficial femoral artery, some reconstitution of minimal flow in the popliteal artery and runoff vessels. 2. Possible HX seizure, alcohol related 3. NONCOMPLIANCE with medications 4. Hypertension; controlled 5. Hyperlipidemia; 6. H/o endocarditis; s/p mechanical aortic valve replacement 20 yrs ago [facility] . Was previously on warfarin, but has not taken in > 2 years. Aortic valve appeared to be well seated and functioning well per TTE. 7. Abnormal EKG; noted with RBBB and anterolateral ST depression, which is unchanged from previous EKG 05/2018. EKG 05/2014 at with LVH, RBBB and ST changes on V4-[address] depression with ST elevation in V1. echo 08/31 Ejection Fraction is 35-40%. Abnormal septal motion consistent with post-operative state. Mechanical aortic valve prosthesis appears well seated and functioning well. MG 9 mm Hg.Mild aortic regurgitation. Trace mitral regurgitation. Trace tricuspid regurgitation with an estimated PAP of 23 mmHg. 8. Alcoholism; now 5 beers a week 9. Hypomagnesemia 10 Tobaccoism, marijuana use; discussed/encouraged cessation 11. Chronic systolic CHF with possible NICM with h/o alcoholoism, ICM // Echo with LVEF 35-40%. 12. HYPONATREMIA plan Going for right femoropopliteal pop bypass today at 11:45 AM Continue heparin drip for now but will DC it here shortly CIWA PROTOCOL continue ASA daily cards consulted for clearance: deemed moderate risk for his extra inguinal vascular procedure Supportive care and optimization with medical therapy. NPO past midnight tonight Home meds Trend labs Appreciate subspecialist input Postoperatively he will need wound care and possibly correction Comment Review of Relevant I have reviewed the following items ochoa (where applicable) has been applied. Justicifation of Admission Dx: Justifications for Admission: Justification of Admission Dx: Yes MICAH GARCIA III DO Feb 29, 2020 13:01
[2020-02-29] MEDS ORDERED: HEPARIN for IV BOLUS 10,000 UNIT/10 ML VIAL. ONE (13:06)
[2020-02-29] MEDS ORDERED: NEOSTIGMINE METHYLSULFATE 5 MG/5 ML SYRINGE. ONE (13:28)
[2020-02-29] MEDS ORDERED: GLYCOPYRROLATE 1 MG/5 ML VIAL. ONE (13:29)
[2020-02-29] MEDS ORDERED: PHENYLEPHRINE 10 MG/ML VIAL. ONE (13:56)
[2020-02-29] MEDS ORDERED: SEVOFLURANE 61 TO 120 MINUTES. IH ONE (14:13)
[2020-02-29] MEDS ORDERED: PROTAMINE 50 MG/5 ML VIAL. IV ONE (14:31)
[2020-02-29] MEDS ORDERED: IV NORMAL SALINE 1000ML BAG 1,000 ML IV SCH (15:11)
[2020-02-29] MEDS ORDERED: hydrALAZINE 20 MG/ML VIAL. IVP PRN (15:15)
[2020-02-29] MEDS ORDERED: LABETALOL 20 MG/4 ML DISP.SYRIN. IVP PRN (15:15)
[2020-02-29] MEDS ORDERED: NALOXONE 0.4 MG/ML VIAL. IV PRN (15:15)
[2020-02-29] MEDS ORDERED: SENNOSIDES/DOCUSATE 8.6/50MG TABLET. PO PRN (15:15)
[2020-02-29] MEDS ORDERED: ONDANSETRON PF 4 MG/2 ML VIAL. IVP PRN (15:15)
--- NOTE | 2020-02-29 15:15 | PDOC4 ---
Operative Note Operative Note Operative Report - Dictated Pre-op: right leg severe peripheral artery disease symptomatic with disabling claudication and rest pain Post-op: same Surgery: Right common femoral endarterectomy, Right common femoral to above knee popliteal artery bypass with PTFE Surgeon: Dr. Yue Tobar Osd Clerk: Danielle Espino NP Blood loss: 75ml Anesthesia: general YUE TOBAR MD Feb 29, 2020 15:14
[2020-02-29] MEDS: fentaNYL PF VIAL 100 MCG/2 ML VIAL IV PRN ×2 (15:38→16:21)
--- NOTE | 2020-02-29 15:56 | OP ---
DATE OF SURGERY: 02/29/2020 SURGEON: Olivia Tobar MD. AUTOMATION QTP TESTER: Danielle Espino, nurse practitioner. PREOPERATIVE DIAGNOSES: Right lower extremity severe peripheral arterial disease, symptomatic with severe disabling claudication and ischemic rest pain to the right foot. POSTOPERATIVE DIAGNOSES: Right lower extremity severe peripheral arterial disease, symptomatic with severe disabling claudication and ischemic rest pain to the right foot. OPERATION PERFORMED: 1. Right common femoral artery endarterectomy. 2. Right common femoral artery to above-knee popliteal artery bypass graft using an 8 mm PTFE graft. BLOOD LOSS: 75 mL. ANESTHESIA USED: General anesthesia. INDICATIONS: The patient is a 59-year-old male with a history of severe peripheral arterial disease of the right lower extremity. He became acutely symptomatic with right leg and foot pain and disabling claudication symptoms when ambulating several weeks ago. His symptoms became progressively worse and that brought him to the Emergency Department. He underwent an angiogram, which showed severe stenosis of the right common iliac artery, which was treated with angioplasty and stenting and complete occlusion of the right superficial femoral artery with reconstitution of the above-knee popliteal artery with patent below-knee popliteal and tibial runoff. Recommendations were made for right femoral to above-knee popliteal artery bypass graft. His vein is small in diameter by duplex scan, and since this is an above-knee popliteal artery, I felt it best to perform a PTFE graft. Informed consent was obtained including the risks of bleeding, infection, bypass graft failure, need for revision in the future and possible wound healing difficulties, requiring debridements and open wound care if they do not heal. DETAILS OF THE OPERATION: The patient was brought to the operating room and placed on table in supine position. He received general anesthesia monitored throughout the case by the anesthesiologist. His right leg, I evaluated it with ultrasound prior to starting. The great saphenous vein was patent, but it was fairly small in diameter. I felt with it being an above-knee popliteal bypass, we would use a PTFE graft. Vein may be adequate in the future if he needs a tibial artery bypass. The right groin and right leg circumferentially was prepped and draped by normal sterile fashion. We made a longitudinal incision through the right groin, dissected down to the subcutaneous tissue. It was very thin down to the femoral vessels. The common femoral artery was dissected out. It was heavily calcified in the posterior and medial wall. We dissected it up under the inguinal ligament to the distal external iliac artery where it was very soft and noncalcified. Branches were circled with vessel loops. Distally, we dissected out the superficial femoral artery, which was heavily calcified and occluded and the profunda artery, which was very soft and placed a vessel loop around the profunda vessel. We then made a longitudinal incision in the medial right distal thigh just at the above the knee level, dissected down to the subcutaneous tissue down to the popliteal space. The popliteal artery was dissected out proximally, was calcified, but distally it was soft. We dissected out in the distal segment and placed vessel loops proximally and distally. We then heparinized with 5000 units of heparin. After 3 minutes, we clamped the external iliac artery and distal profunda and superficial femoral artery. I made a longitudinal arteriotomy in the anterior wall of the common femoral artery extending it into the superficial femoral artery, which was occluded and we did remove the clamp. There was thick calcified plaque in the posterior medial wall. Therefore, we performed an extensive endarterectomy of the common femoral artery up to the external iliac artery, removing all of the plaque. The profunda artery had some plaque just in the origin, which we endarterectomized but distally it was widely patent with good backbleeding. We removed the plaque from the origin of the superficial femoral artery to make sure it was widely patent and did not encroach on the profunda vessel. We cleaned off all pieces of debris from the endarterectomized vessel and irrigated with heparinized saline. We then chose an 8 mm Propaten PTFE graft for the bypass. This was an 8 mm x 80 cm in length. We spatulated the proximal end to size and performed an end-to-side anastomosis with running HS7 Prolene to the open common femoral artery. After finishing this anastomosis, we backbled the profunda artery and reclamped and then removed the clamp off the external iliac artery and there was pulsatile blood flow through the end of the graft, which was then clamped. We then removed all vessel loops. We used a [place] tunneler tunneled in the [place] deep tract just above the popliteal artery from the distal thigh incision up to the femoral region just on top of the artery. We pulled the PTFE graft down through the tunneler and removed the tunneler. There continued to be good pulsatile blood flow through the end of the graft. There was no tension on the graft. We then clamped the distal popliteal artery and proximal popliteal artery and made a longitudinal arteriotomy in the distal vessel. The vessel was calcified in the wall slightly, but it was widely patent and there was no significant plaque. There was good backbleeding from the distal vessel. We cut the PTFE graft to length and spatulated it and performed an end-to-side anastomosis with running HS7 Prolene suture. Prior to finishing this, we removed the proximal clamp. There was pulsatile inflow through the graft and there was good backbleeding from the distal popliteal artery. We irrigated with heparinized saline and then finished our anastomosis and restored blood flow. There was strong dopplerable flow in the distal popliteal artery, which was graft dependent and a good dopplerable flow at the dorsalis pedis and posterior tibial location at the foot, which was graft dependent. We irrigated both wounds with copious amounts of antibiotic solution. We gained hemostasis throughout the wound bed with electrocautery and clips. There was bleeding from the needle holes particularly at the groin anastomosis. Therefore, we reversed with 30 mg of protamine and used Fibrillar. After some time, all the bleeding stopped and we had good hemostasis. Fresh Fibrillar was left over each anastomosis. We closed both incisions with two layers of 2-0 Vicryl suture in the subcutaneous tissue level and closed the skin with running 4-0 Vicryl subcuticular sutures. Dermabond was placed on both incisions. He tolerated the surgery with no immediate complications and had good dopplerable flow at the dorsalis pedis and posterior tibial location at the end of the case. SPECIMEN REMOVED. None. To note, Danielle Espino, nurse practitioner, was scrubbed throughout the entire length of this case for the extensive endarterectomy of the common femoral artery and bypass surgery and closure. OLIVIA TOBAR MD DR: JAMEEL/tayler JOB#: [id number] / [id number]
[2020-02-29] MEDS ORDERED: ACETAMINOPHEN 325 MG TABLET. PO PRN (17:30)
[2020-02-29] MEDS: oxyCODONE/APAP 5/325 1 TAB TABLET PO PRN ×2 (17:46→22:04)
[2020-02-29] MEDS: ceFAZolin SODIUM IV Push 1 GM VIAL. IVP SCH (18:08)
[2020-02-29] MEDS: ASPIRIN ENTERIC COATED 325 MG TABLET.DR. PO SCH (18:08)
--- NOTE | 2020-02-29 21:12 | NUR ---
Heparin restarted at 12.2 mls/hr at 2100 which is the previous therapeutic dose. UFH ordered at 0500 per protocol d/t two previous therapeutic heparin levels
[2020-02-29] MEDS: ACETAMINOPHEN 325 MG TABLET. PO SCH (22:00)
[2020-03-01] MEDS: ceFAZolin SODIUM IV Push 1 GM VIAL. IVP SCH ×2 (00:40→06:14)
[2020-03-01] MEDS: IV NORMAL SALINE 1000ML BAG 1,000 ML IV SCH ×3 (00:40→08:35)
[2020-03-01] MEDS: oxyCODONE/APAP 5/325 1 TAB TABLET PO PRN ×6 (01:56→20:18)
[2020-03-01 03:00] VITALS: BP 123/70
[2020-03-01] MEDS: ACETAMINOPHEN 325 MG TABLET. PO SCH ×3 (06:00→20:19)
[2020-03-01 07:00] VITALS: BP 97/61
[2020-03-01 08:08] LABS: BASO % 0 % (0-3); EOS # 0.1 x10^3/uL (0.0-0.7); EOS % 1 % (0-3); HEMATOCRIT 36.3 % (39.0-53.0); HEMOGLOBIN 12.5 g/dL (13.0-17.5); LYMPH # 1.4 x10^3/uL (1.0-4.8); LYMPH % 13 % (24-48); MEAN CORPUSCULAR HEMOGLOBIN 32 pg (25-35); MEAN CORPUSCULAR HGB CONC 35 g/dL (31-37); MEAN CORPUSCULAR VOLUME 94 fL (79-100); MONO # 0.9 x10^3/uL (0.0-1.1); MONO % 9 % (0-9); NEUT # 8.3 x10^3/uL (1.8-7.7); NEUT % 77 % (31-73); PLATELET COUNT 190 x10^3/uL (140-400); RED BLOOD COUNT 3.87 x10^6/uL (4.30-5.70); WHITE BLOOD COUNT 10.7 x10^3/uL (4.0-11.0)
--- NOTE | 2020-03-01 08:28 | PDOC ---
Provider Note Provider Note Vascular S: Patient seen and examined in room, complains of incisional pain. tolerating fluids O: Awake and alert HRR Non-labored respirations Right leg incisions dry and intact, foot warm, no swelling. 2+ palpable DP. A/P: Right lower extremity severe peripheral arterial disease, symptomatic with severe disabling claudication and ischemic rest pain to the right foot. POD #1 1. Right common femoral artery endarterectomy. 2. Right common femoral artery to above-knee popliteal artery bypass graft using an 8 mm PTFE graft. Doing well post procedure Labs pending Patient with mechanical heart valve on Heparin drip, ok to start warfarin, management per Cardiology. Discontinue indwelling urinary catheter Discontinue IV fluids Up to chair and to bathroom Discussed with RN Justicifation of Admission Dx: Justifications for Admission: Justification of Admission Dx: Yes NORA SALEH APRN Mar 01, 2020 08:28
[2020-03-01 08:31] LABS: CALCIUM 8.8 mg/dL (8.5-10.1); CREATININE 0.9 mg/dL (0.7-1.3); GFR 86.1; MAGNESIUM 1.6 mg/dL (1.8-2.4); PHOSPHORUS 4.4 mg/dL (2.6-4.7); POTASSIUM 4.1 mmol/L (3.5-5.1)
[2020-03-01] MEDS: ASPIRIN ENTERIC COATED 325 MG TABLET.DR. PO SCH (08:43)
[2020-03-01] MEDS: MULTIVITAMIN with MINERAL TABLET. PO SCH (08:43)
[2020-03-01] MEDS: FOLIC ACID 1 MG TABLET. PO SCH (08:43)
[2020-03-01] MEDS: THIAMINE 100 MG TABLET. PO SCH (08:43)
[2020-03-01] MEDS: NICOTINE 21MG PATCH. TD SCH (08:45)
--- NOTE | 2020-03-01 09:51 | NUR ---
Pharmacy Warfarin Dosing Note S:Pharmacy consulted to assist with anticoagulation therapy started with target INR: 2 -3 O:JOSEPH HYMAN is a 59 year old M with Mechanical Aortic Valve LABS: Last INR: 0.50 Last HGB: 12.5 Last HCT: 36.3 Last PLT: 190 Last dose of given on at Previous Regimen: Vitamin K given: Drug Interaction Changes: Ongoing Drug Interactions: A:INR of 1.1 is BELOW desired range. Target range for this patient is: 2 -3 P: Warfarin dose: 7.5 mg Today at 1600 Bridge Therapy: Heparin Therapeutic CONT Next INR due TOMORROW. Pharmacy anticoagulation service will continue to follow. SADIA ORDOÑEZ [facility], 03/01/20 0902
[2020-03-01 11:00] VITALS: BP 107/77
--- NOTE | 2020-03-01 13:18 | NUR ---
SS following up with discharge planning. SS reviewed pt chart and discussed with pt RN. Pt is currently on room air. Pt had right leg bypass on 02/29/2020. COVID19 negative. Pt on Heparin drip. SS will continue to follow for discharge planning.
--- NOTE | 2020-03-01 13:23 | PDOC ---
[employer] PROGRESS NOTE Chief Complaint Chief Complaint 1. Acute arterial occlusion throughout the right superficial femoral artery, some reconstitution of minimal flow in the popliteal artery and runoff vessels. 2. Possible HX seizure, alcohol related 3. NONCOMPLIANCE with medications 4. Hypertension; controlled 5. Hyperlipidemia; 6. H/o endocarditis; s/p mechanical aortic valve replacement [address] [facility] . Was previously on warfarin, but has not taken in > 2 years. Aortic valve appeared to be well seated and functioning well per TTE. 7. Abnormal EKG; noted with RBBB and anterolateral ST depression, which is unchanged from previous EKG 05/2018. EKG 05/2014 at with LVH, RBBB and ST changes on V4-[address] depression with ST elevation in V1. echo 08/31 Ejection Fraction is 35-40%. Abnormal septal motion consistent with post-operative state. Mechanical aortic valve prosthesis appears well seated and functioning well. MG 9 mm Hg.Mild aortic regurgitation. Trace mitral regurgitation. Trace tricuspid regurgitation with an estimated PAP of 23 mmHg. 8. Alcoholism; now 5 beers a week 9. Hypomagnesemia 10 Tobaccoism, marijuana use; discussed/encouraged cessation 11. Chronic systolic CHF with possible NICM with h/o alcoholoism, ICM // Echo with LVEF 35-40%. 12. HYPONATREMIA History of Present Illness History of Present Illness 03/01/2020 Patient is seen and examined Patient is in post-surgery care Discussed with RN Chart reviewed 02/29/2020 Patient seen and examined He is a little upset about having to go to surgery but accepts it Discussed with RN Chart reviewed He is scheduled for surgery at 11:45 today Vitals/I&O Vitals/I&O: Vital Signs Date Time Temp Pulse Resp B/P (MAP) Pulse Ox O2 Delivery O2 Flow Rate FiO2 03/01/20 12:00 18 Room Air 03/01/20 11:00 96.9 73 107/77 (87) 96 96.9 02/29/20 18:55 2.0 I & O 02/29/20 02/29/20 03/01/20 15:00 23:00 07:00 Intake Total 0 ml 1230 ml 240 ml Output Total 900 ml 425 ml 725 ml Balance -900 ml 805 ml -485 ml Physical Exam General: No acute distress (Patient is resting and in no acute distress) Heart: Regular rate Lungs: Clear Abdomen: Normal bowel sounds, Soft, No tenderness Extremities: No clubbing, No cyanosis, Other (Palpable 2+ femoral pulses bilaterally, Doppler signals intact at the dorsalis pedis and posterior tibial location.) Skin: No significant lesion Labs Labs: Laboratory Tests Test 03/01/20 07:05 White Blood Count 10.7 x10^3/uL (4.0-11.0) Red Blood Count 3.87 x10^6/uL (4.30-5.70) Hemoglobin 12.5 g/dL (13.0-17.5) Hematocrit 36.3 % (39.0-53.0) Mean Corpuscular Volume 94 fL (79-100) Mean Corpuscular Hemoglobin 32 pg (25-35) Mean Corpuscular Hemoglobin Concent 35 g/dL (31-37) Red Cell Distribution Width 14.0 % (11.5-14.5) Platelet Count 190 x10^3/uL (140-400) Neutrophils (%) (Auto) 77 % (31-73) Lymphocytes (%) (Auto) 13 % (24-48) Monocytes (%) (Auto) 9 % (0-9) Eosinophils (%) (Auto) 1 % (0-3) Basophils (%) (Auto) 0 % (0-3) Neutrophils # (Auto) 8.3 x10^3/uL (1.8-7.7) Lymphocytes # (Auto) 1.4 x10^3/uL (1.0-4.8) Monocytes # (Auto) 0.9 x10^3/uL (0.0-1.1) Eosinophils # (Auto) 0.1 x10^3/uL (0.0-0.7) Basophils # (Auto) 0.0 x10^3/uL (0.0-0.2) Prothrombin Time 14.0 SEC (11.7-14.0) Prothromb Time International Ratio 1.1 (0.8-1.1) Heparin Anti-Xa Act, Unfractionated 0.50 IU/mL (0.30-0.70) Sodium Level 135 mmol/L (136-145) Potassium Level 4.1 mmol/L (3.5-5.1) Chloride Level 100 mmol/L (98-107) Carbon Dioxide Level 26 mmol/L (21-32) Anion Gap 9 (6-14) Blood Urea Nitrogen 9 mg/dL (8-26) Creatinine 0.9 mg/dL (0.7-1.3) Estimated GFR (Cockcroft-Gault) 86.1 Glucose Level 84 mg/dL (70-99) Calcium Level 8.8 mg/dL (8.5-10.1) Phosphorus Level 4.4 mg/dL (2.6-4.7) Magnesium Level 1.6 mg/dL (1.8-2.4) Assessment and Plan Assessmemt and Plan Problems Medical Problems: (1) Magnesium deficiency Status: Acute (2) Superficial femoral artery occlusion Status: Post Surgery Comment Review of Relevant I have reviewed the following items ochoa (where applicable) has been applied. Medications: Current Medications Medications (Trade) Dose Ordered Sig/Angela Route PRN Reason Start Time Stop Time Status Last Admin Dose Admin Cellulose (Surgicel Fibrillar 1x2) 1 each STK-MED ONCE .ROUTE 02/29/20 14:14 02/29/20 14:14 DC 02/29/20 14:15 Cellulose (Surgicel Fibrillar 1x2) 1 each STK-MED ONCE .ROUTE 02/29/20 14:41 02/29/20 14:42 DC 02/29/20 14:51 Aspirin (Ecotrin) 325 mg DAILYWBKFT PO 02/29/20 16:00 03/01/20 08:43 Oxycodone/ Acetaminophen (Percocet 5/325) 1 tab PRN Q4HRS PRN PO MILD PAIN, 1ST CHOICE 02/29/20 15:15 03/01/20 08:43 Oxycodone/ Acetaminophen (Percocet 5/325) 2 tab PRN Q4HRS PRN PO MODERATE PAIN, SEVERE PAIN 02/29/20 15:15 03/01/20 12:00 Cefazolin Sodium (Ancef) 1 gm Q6H IVP 02/29/20 19:00 03/01/20 07:01 DC 03/01/20 06:14 Warfarin Sodium (Coumadin Per Pharmacy) 1 each PRN DAILY PRN MC SEE COMMENTS 03/01/20 08:15 03/01/20 09:53 Justicifation of Admission Dx: Justifications for Admission: Justification of Admission Dx: Yes MICAH GARCIA III DO Mar 01, 2020 13:23
[2020-03-01 15:00] VITALS: BP 123/67
[2020-03-01] MEDS: HEPARIN for IV BOLUS 10,000 UNIT/10 ML VIAL. IV PRN (15:25)
[2020-03-01] MEDS: HEPARIN 25,000UTS/250ML PREMIX 250 ML IV PRN (15:34)
[2020-03-01] MEDS ORDERED: WARFARIN 5 MG TABLET. PO ONE (16:00)
[2020-03-01] MEDS ORDERED: WARFARIN 7.5 MG TABLET. PO ONE (16:00)
[2020-03-01 19:00] VITALS: BP 124/77
[2020-03-01 23:00] VITALS: BP 142/73
[2020-03-02 00:15] LABS: PROTHROMBIN TIME PATIENT 14.6 SEC (11.7-14.0)
[2020-03-02 00:16] LABS: UNFRACTIONATED HEPARIN TESTING 0.45 IU/mL (0.30-0.70)
[2020-03-02] MEDS: oxyCODONE/APAP 5/325 1 TAB TABLET PO PRN ×5 (00:26→21:37)
[2020-03-02 03:00] VITALS: BP 137/71
--- NOTE | 2020-03-02 04:50 | NUR ---
pt strongly desires discharge today d/t no insurance and financial needs. states he has support at home to take him to follow up appts and plans to contact [facility] and states he knows that his new warfarin needs to become therapuetic for his recent vascular surgery. He states he will follow up with labs at [facility] for warfarin.
[2020-03-02] MEDS: ACETAMINOPHEN 325 MG TABLET. PO SCH ×3 (06:00→22:00)
[2020-03-02 07:00] VITALS: BP 113/69
[2020-03-02] MEDS: ASPIRIN ENTERIC COATED 325 MG TABLET.DR. PO SCH (08:59)
[2020-03-02] MEDS: FOLIC ACID 1 MG TABLET. PO SCH (09:00)
[2020-03-02] MEDS: THIAMINE 100 MG TABLET. PO SCH (09:00)
[2020-03-02] MEDS: MULTIVITAMIN with MINERAL TABLET. PO SCH (09:01)
[2020-03-02] MEDS: NICOTINE 21MG PATCH. TD SCH (09:01)
[2020-03-02 11:00] VITALS: BP 116/65
--- NOTE | 2020-03-02 11:10 | NUR ---
Pharmacy Warfarin Dosing Note S: Pharmacy consulted to assist with anticoagulation therapy O: JOSEPH HYMAN is a 59 year old M with Mechanical Aortic Valve LABS: Last INR: 1.2 Last HGB: 12.5 Last HCT: 36.3 Last PLT: 190 Last dose of 7.5 mg given on 03/01/20 at 1527 Vitamin K given: Ongoing Drug Interactions: ASA A:INR of 1.2 is below desired range. Target range for this patient is: 2 -3 P: Warfarin dose: 6 mg Today at 1600 Bridge Therapy: Heparin Therapeutic Next INR due tomorrow Pharmacy anticoagulation service will continue to follow. Deidre Copeland RPH, 03/02/20 111
[2020-03-02] MEDS: HEPARIN 25,000UTS/250ML PREMIX 250 ML IV PRN (11:17)
--- NOTE | 2020-03-02 12:32 | PDOC ---
[employer] PROGRESS NOTE Chief Complaint Chief Complaint 1. Acute arterial occlusion throughout the right superficial femoral artery, some reconstitution of minimal flow in the popliteal artery and runoff vessels. 2. Possible HX seizure, alcohol related 3. NONCOMPLIANCE with medications 4. Hypertension; controlled 5. Hyperlipidemia; 6. H/o endocarditis; s/p mechanical aortic valve replacement 20 yrs ago [facility] . Was previously on warfarin, but has not taken in > 2 years. Aortic valve appeared to be well seated and functioning well per TTE. 7. Abnormal EKG; noted with RBBB and anterolateral ST depression, which is unchanged from previous EKG 05/2018. EKG 05/2014 at with LVH, RBBB and ST changes on V4-[address] depression with ST elevation in V1. echo 08/31 Ejection Fraction is 35-40%. Abnormal septal motion consistent with post-operative state. Mechanical aortic valve prosthesis appears well seated and functioning well. MG 9 mm Hg.Mild aortic regurgitation. Trace mitral regurgitation. Trace tricuspid regurgitation with an estimated PAP of 23 mmHg. 8. Alcoholism; now 5 beers a week 9. Hypomagnesemia 10 Tobaccoism, marijuana use; discussed/encouraged cessation 11. Chronic systolic CHF with possible NICM with h/o alcoholoism, ICM // Echo with LVEF 35-40%. 12. HYPONATREMIA History of Present Illness History of Present Illness 03/02/2020 Patient is seen ad examined Discussed with RN Chart reviewed 03/01/2020 Patient is seen and examined Patient is in post-surgery care Discussed with RN Chart reviewed 02/29/2020 Patient seen and examined He is a little upset about having to go to surgery but accepts it Discussed with RN Chart reviewed He is scheduled for surgery at 11:45 today Vitals/I&O Vitals/I&O: Vital Signs Date Time Temp Pulse Resp B/P (MAP) Pulse Ox O2 Delivery O2 Flow Rate FiO2 03/02/20 11:00 98.5 90 20 116/65 (82) 95 Room Air 98.5 03/02/20 10:00 2.0 I & O 03/01/20 03/01/20 03/02/20 15:00 23:00 07:00 Intake Total 300 ml 1120 ml 740 ml Output Total 1250 ml 500 ml 1425 ml Balance -950 ml 620 ml -685 ml Physical Exam General: No acute distress (Patient is resting ) Heart: Regular rate Lungs: Clear Abdomen: Normal bowel sounds, Soft, No tenderness Extremities: No clubbing, No cyanosis, Other (Palpable 2+ femoral pulses bilaterally, Doppler signals intact at the dorsalis pedis and posterior tibial location.) Skin: No significant lesion Labs Labs: Laboratory Tests Test 03/01/20 13:05 03/01/20 20:20 03/02/20 00:00 Heparin Anti-Xa Act, Unfractionated 0.26 IU/mL (0.30-0.70) 0.64 IU/mL (0.30-0.70) 0.45 IU/mL (0.30-0.70) Prothrombin Time 14.6 SEC (11.7-14.0) Prothromb Time International Ratio 1.2 (0.8-1.1) Assessment and Plan Assessmemt and Plan Problems Medical Problems: (1) Magnesium deficiency Status: Acute (2) Superficial femoral artery occlusion Status: Postop day 1 femoropopliteal bypass 1. Acute arterial occlusion throughout the right superficial femoral artery, some reconstitution of minimal flow in the popliteal artery and runoff vessels. 2. Possible HX seizure, alcohol related 3. NONCOMPLIANCE with medications 4. Hypertension; controlled 5. Hyperlipidemia; 6. H/o endocarditis; s/p mechanical aortic valve replacement 20 yrs ago [facility] . Was previously on warfarin, but has not taken in > 2 years. Aortic valve appeared to be well seated and functioning well per TTE. 7. Abnormal EKG; noted with RBBB and anterolateral ST depression, which is unchanged from previous EKG 05/2018. EKG 05/2014 at with LVH, RBBB and ST changes on V4-[address] depression with ST elevation in V1. echo 08/31 Ejection Fraction is 35-40%. Abnormal septal motion consistent with post-operative state. Mechanical aortic valve prosthesis appears well seated and functioning well. MG 9 mm Hg.Mild aortic regurgitation. Trace mitral regurgitation. Trace tricuspid regurgitation with an estimated PAP of 23 mmHg. 8. Alcoholism; now 5 beers a week 9. Hypomagnesemia 10 Tobaccoism, marijuana use; discussed/encouraged cessation 11. Chronic systolic CHF with possible NICM with h/o alcoholoism, ICM // Echo with LVEF 35-40%. Plan IV heparin drip P.o. Coumadin Trend INR Wound group home meds DVT prophylaxis Full code Discharge when INR greater than 2 Comment Review of Relevant I have reviewed the following items ochoa (where applicable) has been applied. Medications: Current Medications Medications (Trade) Dose Ordered Sig/Angela Route PRN Reason Start Time Stop Time Status Last Admin Dose Admin Warfarin Sodium (Coumadin) 7.5 mg 1X WARF ONCE PO 03/01/20 16:00 03/01/20 16:01 DC 03/01/20 15:27 Justicifation of Admission Dx: Justifications for Admission: Justification of Admission Dx: Yes MICAH GARCIA III DO Mar 02, 2020 12:32
--- NOTE | 2020-03-02 12:55 | NUR ---
SS following up with discharge planning. SS reviewed pt chart and discussed with pt RN. Pt is currently on room air. Pt INR 1.1. Pt on Heparin drip. Pt is self pay. Discharge plan is to home when ready. SS will continue to follow for discharge planning.
--- NOTE | 2020-03-02 14:09 | PDOC ---
Provider Note Provider Note Vascular S: Patient seen and examined in room, complains of incisional pain, improved from yesterday. Tolerating diet, voiding without difficulty O: Awake and alert HRR Non-labored respirations Right leg incisions dry and intact, foot warm, no swelling. 2+ palpable DP. A/P: Right lower extremity severe peripheral arterial disease, symptomatic with severe disabling claudication and ischemic rest pain to the right foot. POD #2 1. Right common femoral artery endarterectomy. 2. Right common femoral artery to above-knee popliteal artery bypass graft using an 8 mm PTFE graft. Doing well post procedure Labs reviewed Patient with mechanical heart valve on Heparin drip and warfarin, management per Cardiology. Up ad finn Patient can d/c from vascular standpoint when medically stable and INR therapeutic. Justicifation of Admission Dx: Justifications for Admission: Justification of Admission Dx: Yes NORA SALEH PARKING SUPERVISOR Mar 02, 2020 14:09
[2020-03-02 15:13] VITALS: BP 131/78
[2020-03-02] MEDS ORDERED: WARFARIN 3 MG TABLET. PO ONE (16:00)
[2020-03-02 19:33] VITALS: BP 116/76
[2020-03-02 23:16] VITALS: BP 124/77
[2020-03-03] MEDS: oxyCODONE/APAP 5/325 1 TAB TABLET PO PRN ×3 (02:03→12:13)
[2020-03-03] MEDS: HEPARIN 25,000UTS/250ML PREMIX 250 ML IV PRN (02:06)
[2020-03-03 02:11] VITALS: BP 105/72
[2020-03-03 04:43] LABS: UNFRACTIONATED HEPARIN TESTING 0.33 IU/mL (0.30-0.70)
[2020-03-03] MEDS: ACETAMINOPHEN 325 MG TABLET. PO SCH ×2 (06:00→08:37)
[2020-03-03 07:00] VITALS: BP 98/50
[2020-03-03] MEDS: ASPIRIN ENTERIC COATED 325 MG TABLET.DR. PO SCH (08:00)
[2020-03-03] MEDS: THIAMINE 100 MG TABLET. PO SCH (08:30)
[2020-03-03] MEDS: FOLIC ACID 1 MG TABLET. PO SCH (08:31)
[2020-03-03] MEDS: MULTIVITAMIN with MINERAL TABLET. PO SCH (08:31)
[2020-03-03 11:00] VITALS: BP 107/70
[2020-03-03] MEDS: NICOTINE 21MG PATCH. TD SCH (12:14)
--- NOTE | 2020-03-03 12:24 | NUR ---
SS following up with discharge planning. SS reviewed pt chart and discussed with pt RN. Pt is currently on room air. Vascular signed off. Discharge plan is to home when ready. Possible discharge to home today. SS will continue to follow for discharge planning.
--- NOTE | 2020-03-03 12:26 | NUR ---
Pharmacy Warfarin Dosing Note S: Pharmacy consulted to assist with anticoagulation therapy O: JOSEPH HYMAN is a 59 year old M with Mechanical Aortic Valve LABS: Last INR: 2 Last HGB: 12.5 Last HCT: 36.3 Last PLT: 190 Last dose of 6 mg given on 03/02/20 at 1655 Vitamin K given: Ongoing Drug Interactions: ASA A:INR of 2 is within desired range. Target range for this patient is: 2 -3 P: Warfarin dose: 2 mg Today at 1600 Bridge Therapy: Heparin Therapeutic CONT Next INR due tomorrow Pharmacy anticoagulation service will continue to follow. Deidre Copeland RPH, 03/03/20 [id number]
--- NOTE | 2020-03-03 13:06 | SNU/HH DC ---
DISCHARGE WITH HOME HEALTH DISCHARGE INFORMATION: Final Diagnosis: Problems Medical Problems: (1) Magnesium deficiency Status: Acute (2) Superficial femoral artery occlusion Status: Acute Condition on Discharge: Stable CODE STATUS: Code Status: Full HOME HEALTH: Face to Face: I certify this patient is under my care and that I, or a nurse practitioner or physician's assistant director of admissions working with me, had a face to face encounter that meets the physician face to face encounter requirements with this patient on []. Medical Complications: Other (Recent femoropopliteal bypass) Long-Term For: Assess & Educate Safety RN For Eval/Treatment: Yes Physical Therapy For: Evalulation/Treatment Occupational Therapy For: Evaluation/Treatment Home Health Aide For: Self-care RN OTOLARYNGOLOGY For: Community Resources Pt Meets Homebound Status: Poor coordination w/ amb. POST DISCHARGE ORDERS: Activity Instructions for Disc: Activity as tolerated Weight Bearing Status after Di: No restrictions Bathing Instructions: Shower-keep dressing dry DIET AFTER DISCHARGE: Cardiac CHECKS AFTER DISCHARGE: Checks after discharge: Check blood press - daily TREATMENT/EQUIPMENT ORDERS: Adaptive Equipment Issued: None CERTIFICATION STATEMENT: Certification Statement: Certification Statement: Based on the above finding, I certify that this patient is confined to the home and needs intermittent snf care, physical therapy and/or speech therapy, or continues to need occupational therapy.~ This patient is under my care, and I have initiated the establishment of the plan of care.~ This patient will be followed by myself or a community physician who will periodically review the plan of care. Home Meds Active Scripts Cyclobenzaprine Hcl (CYCLOBENZAPRINE HCL) 10 Mg Tablet, 1 TAB PO TID PRN for MUSCLE SPASMS, #30 TAB Prov:SHLOMO TREVINO TIRE BLADDER MAKER 06/13/17 Albuterol Sulfate (PROAIR HFA INHALER) 8.5 Gm Hfa.aer.ad, 1-2 PUFF INH PRN Q6HRS PRN for SHORTNESS OF BREATH, #1 INHALER 0 Refills with spacer Prov:HARRIS FLEMING MD 02/09/17 Albuterol Sulfate (ALBUTEROL SULFATE NEB SOLN) 2.5 Mg/3 Ml Vial.neb, 1 VIAL NEB PRN Q4HRS PRN for WHEEZING, #50 VIAL Prov:HARRIS FLEMING MD 02/09/17 Reported Medications Acetaminophen (ACETAMINOPHEN) 500 Mg Tablet, 500 MG PO PRN Q6HRS PRN for PAIN, TAB 02/22/20 Ibuprofen (ADVIL) 200 Mg Capsule, 200 MG PO PRN Q6HRS PRN for PAIN, CAP 02/22/20 Discontinued Scripts Ibuprofen (IBUPROFEN) 800 Mg Tablet, 800 MG PO PRN Q6HRS PRN for INFLAMMATION, #30 TAB Prov:SHLOMO TREVINO APRN 06/13/17 MICAH GARCIA III DO Mar 03, 2020 13:06
[2020-03-03] MEDS ORDERED: WARF5TAB2 PO (13:14)
--- NOTE | 2020-03-03 14:46 | DS ---
DATE OF DISCHARGE: ADMISSION DIAGNOSES: Acute arterial occlusion of the superficial femoral artery, noncompliance, hypertension, possible seizure disorder, hyperlipidemia, peripheral vascular disease, history of endocarditis, status post mechanical aortic valve replacement, chronic anticoagulation, alcoholism, hypomagnesemia, tobacco abuse, chronic congestive heart failure, hyponatremia. DISCHARGE DIAGNOSIS: Postop day #3, right fem-pop bypass. CONSULTS: Vascular Surgery and Cardiology. PROCEDURES: Right fem-pop bypass and right arterial endarterectomy. HOSPITAL COURSE: The patient is a pleasant middle-aged male who basically presented with multiple issues. Please see above. Basically, he had an arterial occlusion. We admitted the patient. The above consults were obtained. We did imaging studies confirmed that his lower extremity needed bypass surgery. Three days ago, Dr. Tobar took him for right fem-pop bypass. Today, I saw and examined him. He is at his baseline. Heart tones are normal. Lungs are clear. Wounds are clean. We plan to discharge to home with close outpatient followup. DISPOSITION: Home. ACTIVITY: As tolerated. DIET: Low sodium. MEDICATIONS: Please see MRAD. TOTAL TIME: 32 minutes. MICAH GARCIA DO DR: MARJ/tayler JOB#: [id number] / [id number]
--- NOTE | 2020-03-03 14:58 | NUR ---
Discharge Note: JOSEPH HYMAN Discharge instructions and discharge home medications reviewed with Patient and a copy given. All questions have been answered and understanding verbalized. The following instructions and handouts were given: medication education, written prescriptions and follow up appointment Discontinued lines and drains: peripheral IV discontinued, dressing clean dry and intact. Patient discharged to home with brother via ambulation
[2020-03-03] MEDS ORDERED: WARFARIN 2 MG TABLET. PO ONE (16:00)
== END 2020-03-03 15:03 | disposition home or self-care (01) | DRG 253 ==
LOC: ER 15:17 → ED HOLD 17:08 → 2 NORTH 19:55
PROVIDERS: ADMIT Family Medicine; ATTEND Family Medicine
PROC: 041K0JL Bypass Right Femoral Artery to Popliteal Artery with Synthetic Substitute, Open Approach (ICD-10-PCS; 2020-02-29)
PROC: 04CK0ZZ Extirpation of Matter from Right Femoral Artery, Open Approach (ICD-10-PCS; principal; 2020-02-29 12:45)
DX: I70.221 Atherosclerosis of native arteries of extremities with rest pain, right leg (principal); E87.1 Hypo-osmolality and hyponatremia; I42.8 Other cardiomyopathies; I50.22 Chronic systolic (congestive) heart failure; E78.5 Hyperlipidemia, unspecified; E83.42 Hypomagnesemia; F10.20 Alcohol dependence, uncomplicated; F17.210 Nicotine dependence, cigarettes, uncomplicated; G62.9 Polyneuropathy, unspecified; I11.0 Hypertensive heart disease with heart failure; J44.9 Chronic obstructive pulmonary disease, unspecified; Z79.01 Long term (current) use of anticoagulants; Z81.8 Family history of other mental and behavioral disorders; Z82.49 Family history of ischemic heart disease and other diseases of the circulatory system; Z82.5 Family history of asthma and other chronic lower respiratory diseases; Z86.79 Personal history of other diseases of the circulatory system; Z91.14 Patient's other noncompliance with medication regimen; Z95.2 Presence of prosthetic heart valve; F32.9 Major depressive disorder, single episode, unspecified; F41.9 Anxiety disorder, unspecified; K21.9 Gastro-esophageal reflux disease without esophagitis; M19.90 Unspecified osteoarthritis, unspecified site; Z90.49 Acquired absence of other specified parts of digestive tract; Z20.828 Contact with and (suspected) exposure to other viral communicable diseases
CPT/HCPCS: 36415; 37221; 75625; 75710; 76937; 80048; 80053; 80076; 80307; 81001; 82570; 83735; 83930; 84100; 84300; 84484; 85025; 85027; 85347; 85520; 85610; 85730; 87040; 93005; 93308; 93880; 93926; 93970; 93971; 94760; 96365; 96366; 96375; 96376; 99152; 99153; 99285; 99406; C1768; C1769; C1892; C1894; G0480; J0690; J1100; J1200; J1644; J2060; J2250; J2370; J2405; J2440; J2704; J2710; J2720; J3010; J3475; J3490; J7030; J7040; J7120; Q9967; C1874; G0378; U0003-CS

== ENCOUNTER 2020-03-09 21:47 | Emergency (ER) | payer SELFPAY ==
[~2020-03-09] VITALS: Ht 172.7 cm; Wt 68.1 kg
[~2020-03-09 21:47] MED LIST changes: +ACET500T68 PO; +IBUP200C9 PO; +WARF5TAB2 PO
[2020-03-09] MEDS ORDERED: oxyCODONE/APAP 5/325 1 TAB TABLET PO ONE (23:00)
--- NOTE | 2020-03-09 23:23 | RAD ---
Right Lower Extremity Venous Doppler: Reason for examination: Right lower extremity pain after recent arterial bypass. The right lower extremity venous system was evaluated from the common femoral and greater saphenous veins distally to the calf veins with dominguez scale imaging, color flow imaging and spectral analysis. There is normal blood flow without deep venous thrombosis. There is normal response of the venous system to compression and augmentation. Impression: No deep venous thrombosis in the right lower extremity venous system. Right lower extremity arterial Doppler: The right lower extremity arterial system was evaluated from the common femoral artery distally to the posterior tibial and dorsalis pedis arteries with grayscale imaging, color-flow imaging and spectral analysis. There is occlusion of the [place] superficial femoral artery. The common femoral artery, bypass graft, and distally to the dorsalis pedis and posterior tibial artery showed triphasic waveforms and good blood flow. Flow velocities are as follows (in centimeters per second): Common femoral artery 64. Profundofemoral artery 57. Bypass graft proximally 53. Bypass graft mid thigh 55. Bypass graft distal thigh 56. Popliteal artery 67. Posterior tibial artery proximally 94. Posterior tibial artery distally 91. Peroneal artery 48. Anterior tibial artery 60. Dorsalis pedis artery 82. IMPRESSION: Occluded [place] superficial femoral artery with patent bypass graft and normal blood flow with triphasic waveform to the dorsalis pedis and posterior distal posterior tibial arteries. Electronically signed by: Jennie Mata MD (03/09/2020 11:20 PM) [id number]
--- NOTE | 2020-03-09 23:23 | RAD ---
Right Lower Extremity Venous Doppler: Reason for examination: Right lower extremity pain after recent arterial bypass. The right lower extremity venous system was evaluated from the common femoral and greater saphenous veins distally to the calf veins with dominguez scale imaging, color flow imaging and spectral analysis. There is normal blood flow without deep venous thrombosis. There is normal response of the venous system to compression and augmentation. Impression: No deep venous thrombosis in the right lower extremity venous system. Right lower extremity arterial Doppler: The right lower extremity arterial system was evaluated from the common femoral artery distally to the posterior tibial and dorsalis pedis arteries with grayscale imaging, color-flow imaging and spectral analysis. There is occlusion of the [place] superficial femoral artery. The common femoral artery, bypass graft, and distally to the dorsalis pedis and posterior tibial artery showed triphasic waveforms and good blood flow. Flow velocities are as follows (in centimeters per second): Common femoral artery 64. Profundofemoral artery 57. Bypass graft proximally 53. Bypass graft mid thigh 55. Bypass graft distal thigh 56. Popliteal artery 67. Posterior tibial artery proximally 94. Posterior tibial artery distally 91. Peroneal artery 48. Anterior tibial artery 60. Dorsalis pedis artery 82. IMPRESSION: Occluded [place] superficial femoral artery with patent bypass graft and normal blood flow with triphasic waveform to the dorsalis pedis and posterior distal posterior tibial arteries. Electronically signed by: Jennie Mata MD (03/09/2020 11:20 PM) [id number]
--- NOTE | 2020-03-09 23:38 | PHYS DOC ---
Past Medical History Past Medical History: Alcoholism, Anxiety, Hypertension, [place], Other Additional Past Medical Histor: Tremors,BACTERIAL EDOCARDITIS,ARTERIAL OCCLUSION LLE Past Surgical History: Other Additional Past Surgical Histo: Aortic valve replacement(OPEN HEART) Smoking Status: Current Every Day Smoker Alcohol Use: Heavy Drug Use: Marijuana General Adult EDM: Chief Complaint: LOWER EXTREMITY EDEMA HPI: HPI: Patient is a 59-year-old male that is status post right lower extremity arterial bypass who presents with some pain and swelling to the right leg. He states he has an appointment with vascular surgeon tomorrow but felt like his bypass may be occluded. He does describe some pain when he moves about but no worse than usual. He denies any redness to the leg he has not had any trauma. The wound on the lower inner thigh he states is been healing nicely. The pain he feels like is a vice around his knee and upper calf. It has been unrelenting throughout the day today [] Review of Systems: Review of Systems: Constitutional: Denies fever or chills. [] Eyes: Denies change in visual acuity. [] HENT: Denies nasal congestion or sore throat. [] Respiratory: Denies cough or shortness of breath. [] Cardiovascular: Denies chest pain or edema. [] GI: Denies abdominal pain, nausea, vomiting, bloody stools or diarrhea. [] : Denies dysuria. [] Musculoskeletal: Per HPI [] Integument: Denies rash. [] Neurologic: Denies headache, focal weakness or sensory changes. [] Endocrine: Denies polyuria or polydipsia. [] Lymphatic: Denies swollen glands. [] Psychiatric: Anxious [] Heart Score: Risk Factors: Risk Factors: DM, Current or recent (<one month) smoker, HTN, HLP, family history of CAD, obesity. Risk Scores: Score 0 - 3: 2.5% MACE over next 6 weeks - Discharge Home Score 4 - 6: 20.3% MACE over next 6 weeks - Admit for Clinical Observation Score 7 - 10: 72.7% MACE over next 6 weeks - Early Invasive Strategies Current Medications: Current Medications Medications (Trade) Dose Ordered Sig/Angela Start Time Stop Time Status Last Admin Dose Admin Oxycodone/ Acetaminophen (Percocet 5/325) 2 tab 1X ONCE 03/09/20 23:00 03/09/20 23:01 DC 03/09/20 22:54 2 TAB Allergies: Allergies: Allergies Coded Allergies Type Severity Reaction Last Updated Verified No Known Drug Allergies 05/28/14 No Physical Exam: PE: Constitutional: Well developed, well nourished, no acute distress, non-toxic appearance. [] HENT: Normocephalic, atraumatic, bilateral external ears normal, oropharynx moist, no oral exudates, nose normal. [] Eyes: PERRLA, EOMI, conjunctiva normal, no discharge. [] Neck: Normal range of motion, no tenderness, supple, no stridor. [] Cardiovascular:Heart rate regular rhythm, no murmur [] Lungs & Thorax: Bilateral breath sounds clear to auscultation [] Abdomen: Bowel sounds normal, soft, no tenderness, no masses, no pulsatile masses. [] Skin: Warm, dry, no erythema, no rash. [] Back: No tenderness, no CVA tenderness. [] Extremities: No tenderness, no cyanosis, no clubbing, ROM intact, no edema. [] Neurologic: Alert and oriented X 3, normal motor function, normal sensory function, no focal deficits noted. [] Psychologic: Affect normal, judgement normal, mood normal. [] Current Patient Data: Vital Signs: Vital Signs Date Time Temp Pulse Resp B/P (MAP) Pulse Ox O2 Delivery O2 Flow Rate FiO2 03/09/20 22:54 16 98 Room Air 03/09/20 22:06 98.6 84 126/82 (97) 98.6 EKG: EKG: [] Radiology/Procedures: Radiology/Procedures: []REASON: pain after recent arterial bypass PROCEDURE: DUPLEX LOWER EX ARTERIAL RIGHT Right Lower Extremity Venous Doppler: Reason for examination: Right lower extremity pain after recent arterial bypass. The right lower extremity venous system was evaluated from the common femoral and greater saphenous veins distally to the calf veins with dominguez scale imaging, color flow imaging and spectral analysis. There is normal blood flow without deep venous thrombosis. There is normal response of the venous system to compression and augmentation. Impression: No deep venous thrombosis in the right lower extremity venous system. Right lower extremity arterial Doppler: The right lower extremity arterial system was evaluated from the common femoral artery distally to the posterior tibial and dorsalis pedis arteries with grayscale imaging, color-flow imaging and spectral analysis. There is occlusion of the [place] superficial femoral artery. The common femoral artery, bypass graft, and distally to the dorsalis pedis and posterior tibial artery showed triphasic waveforms and good blood flow. Flow velocities are as follows (in centimeters per second): Common femoral artery 64. Profundofemoral artery 57. Bypass graft proximally 53. Bypass graft mid thigh 55. Bypass graft distal thigh 56. Popliteal artery 67. Posterior tibial artery proximally 94. Posterior tibial artery distally 91. Peroneal artery 48. Anterior tibial artery 60. Dorsalis pedis artery 82. IMPRESSION: Occluded [place] superficial femoral artery with patent bypass graft and normal blood flow with triphasic waveform to the dorsalis pedis and posterior distal posterior tibial arteries. Course & Med Decision Making: Course & Med Decision Making Pertinent Labs and Imaging studies reviewed. (See chart for details) [ED course: Evaluation reveals a 59-year-old male with a recent arterial bypass in the right leg. He has some pain in that area and was concerned that there may be an occlusion. Arterial and venous Doppler were both normal. He was given Percocet for pain which did help alleviate some of his symptoms. I encouraged him to follow with his vascular surgeon tomorrow as scheduled.] Suad Disclaimer: Suad Disclaimer: This electronic medical record was generated, in whole or in part, using a voice recognition dictation system. Departure Departure Impression: Primary Impression: Peripheral edema Additional Impression: Right leg pain Disposition: 01 HOME, SELF-CARE Condition: STABLE Referrals: NO PCP (PCP) Patient Instructions: Bypass Surgery, Arteries of the Legs, Care After Additional Instructions: Follow with your vascular surgeon tomorrow as scheduled. Return to the emergency department with any new or concerning symptoms Justicifation of Admission Dx: Justifications for Admission: Justification of Admission Dx: No GUILLERMINA GRANGER DO Mar 09, 2020 23:38
[2020-03-09 23:54] VITALS: BP 118/76
== END 2020-03-10 00:05 | disposition home or self-care (01) ==
LOC: ER 21:47
DX: R60.0 Localized edema (principal); M79.604 Pain in right leg; F41.9 Anxiety disorder, unspecified; I10 Essential (primary) hypertension; I25.2 Old myocardial infarction; F17.200 Nicotine dependence, unspecified, uncomplicated; F12.90 Cannabis use, unspecified, uncomplicated; F10.10 Alcohol abuse, uncomplicated; Z98.890 Other specified postprocedural states
CPT/HCPCS: 93926; 93971; 99285

== ENCOUNTER 2020-07-19 12:32 | Emergency (ER) | payer SELFPAY ==
[~2020-07-19 12:32] MED LIST changes: -ASPI-612 PO; +ASPI-886 PO
== END 2020-07-19 14:03 | disposition left against medical advice (07) ==
LOC: ER 12:32
DX: M79.604 Pain in right leg (principal); Z53.21 Procedure and treatment not carried out due to patient leaving prior to being seen by health care provider

== ENCOUNTER 2021-04-10 09:13 | Emergency (ER) | payer SELFPAY ==
[~2021-04-10] VITALS: Ht 172.7 cm; Wt 68.0 kg
[~2021-04-10 09:13] MED LIST changes: -LISI-338 PO; +LISI-517 PO
[2021-04-10 09:55] LABS: BASO % 1 % (0-3); EOS # 0.1 x10^3/uL (0.0-0.7); EOS % 1 % (0-3); LYMPH # 1.3 x10^3/uL (1.0-4.8); LYMPH % 23 % (24-48); MEAN CORPUSCULAR HEMOGLOBIN 34 pg (25-35); MEAN CORPUSCULAR HGB CONC 35 g/dL (31-37); MEAN CORPUSCULAR VOLUME 98 fL (79-100); MONO # 0.4 x10^3/uL (0.0-1.1); MONO % 6 % (0-9); NEUT # 4.1 x10^3/uL (1.8-7.7); NEUT % 69 % (31-73); PLATELET COUNT 163 x10^3/uL (140-400); RED BLOOD COUNT 4.38 x10^6/uL (4.30-5.70); RED CELL DISTRIBUTION WIDTH 13.9 % (11.5-14.5); WHITE BLOOD COUNT 5.9 x10^3/uL (4.0-11.0)
[2021-04-10 10:08] LABS: CALCIUM 8.7 mg/dL (8.5-10.1); CREATININE 0.8 mg/dL (0.7-1.3); GFR 98.3; POTASSIUM 4.2 mmol/L (3.5-5.1)
[2021-04-10 10:14] LABS: ALBUMIN 3.6 g/dL (3.4-5.0); ALBUMIN/GLOBULIN RATIO 0.9 (1.0-1.7); MAGNESIUM 1.8 mg/dL (1.8-2.4); TOTAL BILIRUBIN 0.4 mg/dL (0.2-1.0); TOTAL PROTEIN 7.4 g/dL (6.4-8.2)
--- NOTE | 2021-04-10 10:22 | RAD ---
CT HEAD/BRAIN WO Clinical indications: Reason: weakness COMPARISON: August 26, 2019 Technique: Noncontrast axial cross sectional scanning of the head was performed. PQRS compliance Statement One or more of the following individualized dose reduction techniques were utilized for this study: 1. Automated exposure control 2. Adjustment of the mA and/or kV according to patient size 3. Use of iterative reconstruction technique Findings: No acute intracranial hemorrhage or midline shift or mass-effect or hydrocephalus or extra- axial fluid collection is seen. 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 No new focal hypode nse area or sulci effacement is seen to indicate an acute infarct or edema radiographically. No skul l fracture or pneumocephalus is seen. No opacification of the mastoid sinuses or the middle ear cavit ies or the paranasal sinuses is seen. The maxillary sinuses are not completely seen in this study. IMPRESSION: No acute intracranial abnormality is seen. Electronically signed by: Herrera Julian MD (04/10/2021 10:20 AM) [id number]
--- NOTE | 2021-04-10 10:28 | RAD ---
EXAM: CHEST 1 VIEW History: Weakness COMPARISON: 09/05/2019 TECHNIQUE: Single portable radiograph of the chest FINDINGS: The cardiac silhouette is unremarkable. The lungs are clear bilaterally. The costophrenic sulci are clear and well demarcated. IMPRESSION: No radiographic evidence of an acute cardiopulmonary process. Electronically signed by: Case Dunaway MD (04/10/2021 10:26 AM) [id number]
[2021-04-10] MEDS ORDERED: DEXAMETHASONE 4 MG TABLET PO ONE (11:15)
[2021-04-10] MEDS ORDERED: BUTALB/APAP/CAFEIN 50/325/40MG TABLET. PO ONE (11:15)
[2021-04-10] MEDS ORDERED: BUTA1TAB23 PO (11:23)
--- NOTE | 2021-04-10 11:24 | PHYS DOC ---
Past Medical History Past Medical History: Alcoholism, Anxiety, Hypertension, [place], Other Additional Past Medical Histor: Tremors,BACTERIAL ENDOCARDITIS,ARTERIAL OCCLUSION LLE Past Surgical History: Other Additional Past Surgical Histo: Aortic valve replacement(OPEN HEART) Smoking Status: Current Every Day Smoker Alcohol Use: None Drug Use: Marijuana General Adult EDM: Chief Complaint: MULTIPLE COMPLAINTS HPI: HPI: 60-year-old male presents with report of feeling weak and having some difficulty breathing which has been ongoing for the past week. Patient also reports some right-sided neck pain and headache. Patient reports intermittently he has he adaches similar that also cause his right eye to "blackout ". Patient reports this headache with vision changes has been ongoing for the past year. 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 Denies any nausea, vomiting, or diarrhea. Denies known exposure to COVID-19. Patient does report he recently received the first vaccination for COVID-19 on . Review of Systems: Review of Systems: Constitutional: Denies fever or chills; reports malaise Eyes: Denies redness or eye pain HENT: Denies nasal congestion or sore throat Respiratory: Denies cough or shortness of breath Cardiovascular: Denies chest pain or palpitations GI: Denies abdominal pain, nausea, or vomiting : Denies dysuria or hematuria Musculoskeletal: Denies back pain; reports right neck pain Integument: Denies rash or skin lesions Neurologic: Denies focal weakness or sensory changes; reports generalized weakness and headache Complete systems were reviewed and found to be within normal limits, except as documented in this note. Heart Score: C/O Chest Pain: N/A Allergies: Allergies: Allergies Coded Allergies Type Severity Reaction Last Updated Verified No Known Drug Allergies 05/28/14 No Physical Exam: PE: Constitutional: Well developed, well nourished, no acute distress, non-toxic appearance HENT: Normocephalic, atraumatic Eyes: PERRL, EOMI, conjunctiva normal, no discharge, no nystagmus Neck: Normal range of motion, no tenderness, supple Lungs & Thorax: No respiratory distress, equal chest rise and fall Abdomen: Soft, no tenderness Skin: Warm, dry, no erythema, no rash Extremities: No tenderness, ROM intact, no edema Neurologic: Alert and oriented X 3, normal motor function, normal sensory function, no focal deficits noted Psychologic: Affect normal, judgment normal Current Patient Data: Labs: Laboratory Tests Test 04/10/21 09:44 White Blood Count 5.9 x10^3/uL (4.0-11.0) Red Blood Count 4.38 x10^6/uL (4.30-5.70) Hemoglobin 15.0 g/dL (13.0-17.5) Hematocrit 43.0 % (39.0-53.0) Mean Corpuscular Volume 98 fL (79-100) Mean Corpuscular Hemoglobin 34 pg (25-35) Mean Corpuscular Hemoglobin Concent 35 g/dL (31-37) Red Cell Distribution Width 13.9 % (11.5-14.5) Platelet Count 163 x10^3/uL (140-400) Neutrophils (%) (Auto) 69 % (31-73) Lymphocytes (%) (Auto) 23 % (24-48) L Monocytes (%) (Auto) 6 % (0-9) Eosinophils (%) (Auto) 1 % (0-3) Basophils (%) (Auto) 1 % (0-3) Neutrophils # (Auto) 4.1 x10^3/uL (1.8-7.7) Lymphocytes # (Auto) 1.3 x10^3/uL (1.0-4.8) Monocytes # (Auto) 0.4 x10^3/uL (0.0-1.1) Eosinophils # (Auto) 0.1 x10^3/uL (0.0-0.7) Basophils # (Auto) 0.0 x10^3/uL (0.0-0.2) Sodium Level 136 mmol/L (136-145) Potassium Level 4.2 mmol/L (3.5-5.1) Chloride Level 102 mmol/L (98-107) Carbon Dioxide Level 23 mmol/L (21-32) Anion Gap 11 (6-14) Blood Urea Nitrogen 11 mg/dL (8-26) Creatinine 0.8 mg/dL (0.7-1.3) Estimated GFR (Cockcroft-Gault) 98.3 BUN/Creatinine Ratio 14 (6-20) Glucose Level 81 mg/dL (70-99) Lactic Acid Level 1.2 mmol/L (0.4-2.0) Calcium Level 8.7 mg/dL (8.5-10.1) Magnesium Level 1.8 mg/dL (1.8-2.4) Total Bilirubin 0.4 mg/dL (0.2-1.0) Aspartate Amino Transferase (AST) 41 U/L (15-37) H Alanine Aminotransferase (ALT) 26 U/L (16-63) Alkaline Phosphatase 84 U/L (46-116) Creatine Kinase 142 U/L (39-308) Creatine Kinase MB (Mass) 6.0 ng/mL (0.0-3.6) H Creatine Kinase MB Relative Index 4.2 % (0-4) H Troponin I Quantitative 0.034 ng/mL (0.000-0.055) Total Protein 7.4 g/dL (6.4-8.2) Albumin 3.6 g/dL (3.4-5.0) Albumin/Globulin Ratio 0.9 (1.0-1.7) L Laboratory Tests 04/10/21 09:44 Laboratory Tests 04/10/21 09:44 Vital Signs: Vital Signs Date Time Temp Pulse Resp B/P (MAP) Pulse Ox O2 Delivery O2 Flow Rate FiO2 04/10/21 09:27 98.9 88 24 152/100 (90) 94 Room Air 98.9 EKG: EKG: @0925 NSR at 81bpm, NO ST elevation, t wave inversion aVL, RBBB, QRS 138ms, QT/QTc 406/472ms Radiology/Procedures: Radiology/Procedures: PROCEDURE: CHEST AP ONLY EXAM: CHEST 1 VIEW History: Weakness COMPARISON: 09/05/2019 TECHNIQUE: Single portable radiograph of the chest FINDINGS: The cardiac silhouette is unremarkable. The lungs are clear bilaterally. The costophrenic sulci are clear and well demarcated. IMPRESSION: No radiographic evidence of an acute cardiopulmonary process. Electronically signed by: Case Dunaway MD (04/10/2021 10:26 AM) [id number] PROCEDURE: CT HEAD WO CONTRAST CT HEAD/BRAIN WO Clinical indications: Reason: weakness COMPARISON: August 26, 2019 Technique: Noncontrast axial cross sectional scanning of the head was performed. PQRS compliance Statement One or more of the following individualized dose reduction techniques were util ized for this study: 1. Automated exposure control 2. Adjustment of the mA and/or kV according to patient size 3. Use of iterative reconstruction technique Findings: No acute intracranial hemorrhage or midline shift or mass-effect or hydrocephalus or extra-axial fluid collection is seen. 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 No new focal hypodense area or sulci effacement is seen to indicate an acute infarct or edema radiographically. No skull fracture or pneumocephalus is seen. No opacification of the mastoid sinuses or the middle ear cavities or the paranasal sinuses is seen. The maxillary sinuses are not completely seen in this study. IMPRESSION: No acute intracranial abnormality is seen. Electronically signed by: Herrera Julian MD (04/10/2021 10:20 AM) [id number] Course & Med Decision Making: Course & Med Decision Making Pertinent Labs and Imaging studies reviewed. (See chart for details) Patient presents with generalized weakness, shortness of breath, headache, and right-sided neck pain. Patient neurologically intact. CT head without acute process. Chest x-ray stable. Labs obtained and posted to chart. Cannot exclude COVID-19 infection despite patient receiving first vaccination. Covid testing pending. Symptomatic treatment provided. Patient stable for discharge with outpatient follow-up with PCP. Discussed findi ngs and plan with patient, who acknowledges understanding and agreement. COVID-19 CRITERIA: The patient was evaluated during the global COVID-19 pandemic, and that diagnosis was suspected/considered upon their initial presentation. Their evaluation, treatment and testing was consistent with current guidelines for patients who present with complaints or symptoms that may be related to COVID-19. Suad Disclaimer: Suad Disclaimer: This electronic medical record was generated, in whole or in part, using a voice recognition dictation system. Departure Departure Impression: Primary Impression: Weakness Additional Impressions: Headache Qualified Codes: R51.9 - Headache, unspecified Suspected 2019 novel coronavirus infection Disposition: HOME / SELF CARE / HOMELESS Condition: STABLE Referrals: NO PCP (PCP) Patient Instructions: Migraine Headache, Lhuq-of-Suxm, Weakness, Fjso-lw-Vebt Additional Instructions: You have been tested for or diagnosed with COVID-19. It is an infection caused by a new type of coronavirus. COVID-19 will cause cold-like or mild flu symptoms in most. It can cause more severe symptoms like problems breathing in some. There is no treatment for COVID-19. The body will clear the infection over time. Self-care will help to ease discomfort. Steps to Take: Self-Care Rest as needed. Healthy habits may help you feel better. Steps include: Choose healthy foods including fruits and vegetables. Drink water throughout the day. Get plenty of sleep each night. If you smoke, try to quit. It may ease breathing. Avoid alcohol. Keep Others Healthy The virus can spread to others. Droplets are released every time you sneeze or cough. The droplets can get into the mouth, nose, or eyes of people near you and lead to infection. To lower the chances of spreading COVID-19 to others: Stay at home until your doctor has said it is safe to leave. If you tested positive this will mean staying isolated until both of the following are true: At least 7 days have passed since the start of illness. You are free of fever for at least 72 hours without the use of medicine. During this time: - Avoid public areas, events, or transportation. Do not return to work or school until your doctor has said it is safe to do so. - Call ahead if you need to go to a medical center. Let them know you may have COVID-19. It will help them guide you where to go. They may also ask you to wear a facemask when you come to the office. - If you call for emergency medical services, let them know you may have COVID- 19. While at home: - Try to avoid close contact with others. Stay about 6 feet away. - If possible, spend most of your time in a separate room from others. - Use a face mask if you will be in close contact with others such as sharing a room or vehicle. - Have someone wipe down common surfaces in the home. Use household pharmacy student every day on areas like doorknobs, counters, or sinks. - Cough or sneeze into a tissue. Throw the tissue away right after use. If a tissue is not available, cough or sneeze into your elbow. - Wash your hands often. Wash them after sneezing or coughing. Use soap and water and wash for at least 20 seconds. Alcohol based hand machine heddle cleaner can be used if soap and water is not available. - Do not prepare food for others. Avoid sharing personal items like forks, spoons, or toothbrushes. - Avoid close contact with pets while you are sick. There is no evidence of the virus passing to pets. This is a safety step until more is known about this virus. Isolation can be frustrating. Social interaction can help. Keep in touch with friends and family through phone and tech options. You can still interact with others in your home, just keep a safe distance of about 6 feet. Follow-up: Your doctors office will check in with you to see if there are any changes in your health. You may be asked to keep track of symptoms to share with them. They will also let you know when you are clear to be in public again. Problems to Look Out For: Contact your doctor if your recovery is not going as you expect. Get emergency care if you have problems such as: - Trouble breathing - Nonstop chest pain or pressure - Changes in awareness, confusion, or problems waking - Lips or face have bluish color - Worsening of symptoms If you think you have an emergency, call for emergency medical services right away. As taken from [facility] Butalb/Acetaminophen/Caffeine ([id number] [id number]) 1 Each Tablet 1 EACH PO Q6HRS PRN for HEADACHE, #14 TAB Prov: KERVIN HERNANDEZ DO 04/10/21 COVID-19 Assessment: COVID-19 Patient Risks: Age 65 or older: No Sign of co-morbidity: Yes Exp to person + for COVID: No Exp to PUI: No Travel from affected area: No Lower respiratory symptoms: Yes Fever: No Other: Yes PPE Use: Full PPE with N95 mask or PAPR: Yes KERVIN HERNANDEZ DO Apr 10, 2021 11:24
[2021-04-10 11:53] LABS: BILIRUBIN,URINE NEGATIVE (NEG); CLARITY,URINE CLEAR; COLOR,URINE YELLOW; NITRITE,URINE NEGATIVE (NEG); PH,URINE 5.5 (<5.0-8.0); PROTEIN,URINE NEGATIVE (NEG-TRACE)
[2021-04-10 12:02] VITALS: BP 135/75
[2021-04-10 12:25] LABS: BACTERIA,URINE 0 /HPF (0-FEW); RBC,URINE OCC /HPF (0-2); WBC,URINE OCC /HPF (0-4)
--- NOTE | 2021-04-10 16:56 | EKG ---
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
--- NOTE | 2021-04-11 09:38 | NUR ---
IP: Informed pt of negative covid test. Pt verbalized understanding.
== END 2021-04-10 13:11 | disposition home or self-care (01) ==
LOC: ER 09:13
DX: R53.1 Weakness (principal); Z20.822 Contact with and (suspected) exposure to COVID-19; R51.9 Headache, unspecified; I10 Essential (primary) hypertension; I25.2 Old myocardial infarction; F17.200 Nicotine dependence, unspecified, uncomplicated
CPT/HCPCS: 36415; 70450; 71045; 80053; 81001; 82553; 83605; 83735; 84484; 85025; 93005; 99285; U0003; U0005